=== PATIENT | female | born 1950 | race Caucasian/White ===

== ENCOUNTER → 2018-01-13 08:06 | Outpatient (CLI) | payer MEDICARE, OTHER, SELFPAY ==
[2018-01-13 09:59] LABS: Absolute Neutrophil Count 4.1 X10^3/uL (2.0-7.7); Basophil# 0.12 X10^3/uL; Basophil% 1.7 % (0-1); Eosinophil# 0.39 X10^3/uL; Eosinophils% 5.4 % (0-5); Hemoglobin 15.9 g/dl (12.0-15.0); Lymphocyte % 29.1 % (19-41); Mean Corp Hgb Conc 34.6 g/gl (32-36); Mean Corpuscular Hgb 30.1 pg (27.0-32.0); Mean Corpuscular Volume 87.1 fL (81-99); Mean Platelet Vol. 9.2 fl (6.2-12.0); Monocyte# 0.53 X10^3/uL; Monocyte% 7.4 % (0-10); Neutrophil # 4.05 X10^3/uL (2.7-7.7); Neutrophil % 56.1 % (47-70); Platelet Count 309 K/mm3 (150-450); RBC Distribution Width CV 12.8 % (11.6-14.6); Red Blood Count 5.28 M/mm3 (4.2-5.4); White Blood Count 7.2 K/mm3 (4.4-11.0)
[2018-01-13 10:13] LABS: AST(SGOT) 17 U/L (15-37); Alanine Aminotransfer ALT/SGPT 24 U/L (13-56); Albumin, Serum 3.8 g/dL (3.2-5.0); Alkaline Phosphatase 87 U/L (45-117); Anion Gap 9 (5-15); BUN 10 mg/dL (7-18); BUN/Creat Ratio 12.7 RATIO (10-20); Calcium,Total 8.5 mg/dL (8.5-10.1); Chloride 107 mmol/L (98-107); Cholesterol 244 mg/dL (200); Creatinine, Serum 0.79 mg/dL (0.55-1.02); EST Glomerular Filtration Rate 78 mL/min (>60); Est Glom Filt Rate - Afr Amer 94 mL/min (>60); Globulin 3.7 g/dL (2.2-4.2); Glucose 99 mg/dL (74-106); High Density Lipoprotein 58 mg/dL; Protein, Total 7.5 g/dL (6.4-8.2); Sodium Level 139 mmol/L (136-145); Triglycerides 116 mg/dL; Very Low Density Lipoprotein 23 mg/dL (5-40)
== END ==
PROVIDERS: Family Provider Family Medicine; PCP Family Medicine; Visit Provider Family Medicine
DX: E78.5 Hyperlipidemia, unspecified (principal); M79.1 Myalgia; R53.83 Other fatigue
CPT/HCPCS: 36415; 80053; 80061; 85025

== ENCOUNTER → 2018-01-17 12:55 | Outpatient (CLI) | payer MEDICARE, OTHER, SELFPAY ==
--- NOTE | 2018-01-17 12:58 | US_ITS ---
STUDY: ULTRASOUND OF THE FEMALE PELVIS REASON FOR EXAM: Female, 67 years old. Right pelvic pain LMP: Postmenopausal TECHNIQUE: Transverse and longitudinal imaging of the pelvis was obtained transvaginally using real-time ultrasound. COMPARISON: None. FINDINGS: The uterus is anteverted and is in a midline position. The uterus measures 8.0 x 2.8 x 4.2 cm. Normal uterine cervix. The endometrium measures 4.1 mm in thickness, and is hyperechoic. There is a 2 mm echogenic focus adjacent to the endometrium in the fundus. There is no demonstrated myometrial mass. I.U.D. - The patient does not have an I.U.D. The right ovary is visualized. The right ovary measures 2.3 x 1.0 x 2.0 cm. There is no right ovarian cyst or ovarian mass. There is no visualized right adnexal mass or complex lesion. There is normal arterial and normal venous vascularity. The left ovary is not visualized. There is no fluid in the cul-de-sac. No significant abnormalities are seen on limited visualization of the urinary bladder. US/Transvaginal Non- IMPRESSION: No abnormalities are seen in the right ovary or right adnexal region. No significant abnormalities are seen in the uterus. A small echogenic focus in the fundus near the endometrium may represent a small calcified fibroid. The left ovary was not visualized. There is no free fluid. Electronically Signed: Marily Brown MD at 23:51 EST Tel Direct: [phone], Service support ,
== END ==
PROVIDERS: Family Provider Family Medicine; PCP Family Medicine; Visit Provider Family Medicine
DX: M25.551 Pain in right hip (principal); R10.2 Pelvic and perineal pain
CPT/HCPCS: 76830

== ENCOUNTER → 2018-02-02 14:56 | Outpatient (CLI) | payer MEDICARE, OTHER, SELFPAY ==
--- NOTE | 2018-02-02 14:58 | HPBI_ITS ---
MAMMOGRAPHY - BILATERAL SCREENING REASON FOR EXAM: Female, 67 years old. Routine annual screening examination. PERTINENT HISTORY: Non-contributory. TECHNIQUE: Digital bilateral breast hoa (3D mammographic acquisition) in the CC and MLO projections. 2-D mediolateral oblique (MLO) and craniocaudad (CC) views of both breasts were obtained. CAD: Full Field Digital Mammography with Computer Added Detection was performed. COMPARISON: Comparison is made with prior study dated August 25, 2016 and August 01, 2012. FINDINGS: Breast Composition: There are scattered areas of fibroglandular density. There are no dominant masses or suspicious calcifications. There now is evidence of a 7.4 mm well-defined nodular density in the axillary region of the right breast. This most likely represents a small lymph node. Correlation with ultrasound is recommended. No other significant abnormalities are identified. HPBI/SCREENING MAMM (CAD), BILAT IMPRESSION: 7.4 mm well-defined nodule in the axillary region of the right breast as described. This most likely resonance a small lymph node. Correlation with ultrasound is recommended. ASSESSMENT CATEGORY: BIRADS Category 0: Incomplete. Need additional imaging evaluation. A letter regarding these results will be sent to the patient by the facility within 30 days. Approximately 10% of breast cancers are not detected by mammography. A normal mammogram should not delay biopsy of a clinically suspicious abnormality. [id number] Electronically Signed: Mateo Cummings MD at 8:47 EDT Tel [phone], Service support ,
== END ==
PROVIDERS: Family Provider Family Medicine; PCP Family Medicine; Visit Provider Family Medicine
DX: Z12.31 Encounter for screening mammogram for malignant neoplasm of breast (principal)
CPT/HCPCS: 77063; 77067

== ENCOUNTER → 2018-02-09 09:22 | Outpatient (CLI) | payer MEDICARE, OTHER, SELFPAY ==
--- NOTE | 2018-02-09 09:24 | US_ITS ---
STUDY: ULTRASOUND BREAST - RIGHT REASON FOR EXAM: Female, 67 years old. Abnormal screening mammogram. TECHNIQUE: Axial and longitudinal images of the RIGHT breast were performed with a high resolution ultrasound transducer. COMPARISON: Comparison is made with prior mammogram dated February 02, 2018. FINDINGS: RIGHT Breast: There is a 6 mm x 8 mm x 6 mm well-defined hypoechoic nodule at the 9:00 position of the breast at 8 cm from the nipple. This most likely reduce a small lymph node. This corresponds to the mammographic findings. US/Breast Limited Unilateral IMPRESSION: The mammographic findings correspond to a 6 mm x 8 mm x 6 mm lymph node at the 9:00 position of the breast at 8 cm from the nipple. ASSESSMENT CATEGORY: BIRADS Category 2: Benign. A letter regarding these results will be sent to the patient by the facility within 30 days. Electronically Signed: Mateo Cummings MD at 10:14 EDT Tel [phone], Service support ,
== END ==
PROVIDERS: Family Provider Family Medicine; PCP Family Medicine; Visit Provider Family Medicine
DX: N63.31 Unspecified lump in axillary tail of the right breast (principal)
CPT/HCPCS: 76642

== ENCOUNTER → 2021-03-07 08:14 | Outpatient (CLI) | payer MEDICARE, SELFPAY ==
[2019-08-25 16:15] VITALS: BMI 33.2
[2021-03-07 10:04] LABS: Absolute Lymphocyte Count 2.01 X10^3/uL (0.83-4.51); Absolute Neutrophil Count 4.2 X10^3/uL (2.0-7.7); Basophil# 0.12 X10^3/uL; Basophil% 1.6 % (0-1); Eosinophil# 0.43 X10^3/uL; Eosinophils% 5.9 % (0-5); Hematocrit 47.6 % (37-47); Hemoglobin 15.5 g/dL (12.0-15.0); Lymphocyte # 2.01 X10^3/ul (0.83-4.51); Lymphocyte % 27.6 % (19-41); Mean Corp Hgb Conc 32.6 g/dL (32-36); Mean Corpuscular Hgb 29.5 pg (27.0-32.0); Mean Corpuscular Volume 90.7 fL (81-99); Mean Platelet Vol. 9.3 fl (6.2-12.0); Monocyte# 0.54 X10^3/uL; Monocyte% 7.4 % (0-10); NRBC Flagged by Analyzer 0 % (0-5); Neutrophil # 4.16 X10^3/uL (2.7-7.7); Neutrophil % 57.2 % (47-70); Platelet Count 308 K/mm3 (150-450); RBC Distribution Width CV 12.7 % (11.6-14.6); RBC Distribution Width SD 41.9 fl (35.1-43.9); Red Blood Count 5.25 M/mm3 (4.2-5.4); White Blood Count 7.3 K/mm3 (4.4-11.0)
[2021-03-07 10:27] LABS: Vitamin D,25 Hydroxy 22.4 ng/mL
[2021-03-07 10:49] LABS: AST(SGOT) 17 U/L (15-37); Alanine Aminotransfer ALT/SGPT 21 U/L (13-56); Albumin, Serum 3.7 g/dL (3.2-5.0); Alkaline Phosphatase 91 U/L (45-117); Anion Gap 5 (5-15); BUN 11 mg/dL (7-18); BUN/Creat Ratio 12.8 RATIO (10-20); Calcium,Total 8.7 mg/dL (8.5-10.1); Chloride 109 mmol/L (98-107); Cholesterol 238 mg/dL (200); Creatinine, Serum 0.86 mg/dL (0.55-1.02); EST Glomerular Filtration Rate 69 mL/min (>60); Est Glom Filt Rate - Afr Amer 84 mL/min (>60); Globulin 3.6 g/dL (2.2-4.2); Glucose 93 mg/dL (74-106); High Density Lipoprotein 58 mg/dL; Potassium 3.9 mmol/L (3.5-5.1); Protein, Total 7.3 g/dL (6.4-8.2); Sodium Level 141 mmol/L (136-145); T4 Free Direct > 8.00 ng/dL (0.76-1.46); Thyroid Stim Hormone (TSH) 1.74 uIU/mL (0.358-3.74); Triglycerides 108 mg/dL; Very Low Density Lipoprotein 22 mg/dL (5-40)
== END ==
PROVIDERS: PCP Family Medicine; Referring Provider Family Medicine; Visit Provider Family Medicine
DX: Z00.00 Encounter for general adult medical examination without abnormal findings (principal); E03.9 Hypothyroidism, unspecified; E55.9 Vitamin D deficiency, unspecified; E78.5 Hyperlipidemia, unspecified; R53.83 Other fatigue
CPT/HCPCS: 36415; 80053; 80061; 82306; 84439; 84443; 84481; 85025

== ENCOUNTER → 2021-05-01 15:13 | Outpatient (CLI) | payer MEDICARE, SELFPAY ==
[2019-08-25 16:15] VITALS: BMI 33.2
[2021-05-01 18:19] LABS: Free T3 2.1 pg/mL (2.18-3.98); T4 Free Direct > 8.00 ng/dL (0.76-1.46); Thyroid Stim Hormone (TSH) 0.98 uIU/mL (0.358-3.74)
[2021-05-05 16:08] LABS: Thyroid Peroxidase AB < 9 IU/mL (0-34)
[2021-05-05 16:39] LABS: Thyroglobulin Antibody < 1.0 IU/mL (0.0-0.9)
== END ==
PROVIDERS: PCP Family Medicine; Referring Provider Family Medicine; Visit Provider Family Medicine
DX: E03.9 Hypothyroidism, unspecified (principal)
CPT/HCPCS: 36415; 84439; 84443; 84481; 86376; 86800

== ENCOUNTER → 2021-05-22 10:18 | Outpatient (CLI) | payer MEDICARE, SELFPAY ==
[2019-08-25 16:15] VITALS: BMI 33.2
--- NOTE | 2021-05-22 10:22 | US_ITS ---
STUDY: THYROID ULTRASOUND REASON FOR EXAM: Female, 70 years old. ABN THYROID LEVELS TECHNIQUE: Ultrasound evaluation of the thyroid was performed with real-time and static davey-scale imaging. COMPARISON: None. FINDINGS: RIGHT LOBE: The right lobe of the thyroid gland measures 4.9 x 2.1 x 1.2 cm. There is a homogeneous echotexture. Predominantly solid nodule of the inferior right thyroid lobe measures 7 x 6 x 5 mm. LEFT LOBE: The left lobe of the thyroid gland measures 4.3 x 2.0 x 1.7 cm. There is a homogeneous echotexture. There are 2 predominantly solid nodules of the left thyroid lobe measuring 15 x 14 x 8 mm (mid to inferior) and 16 x 15 x 11 mm (posterior, inferior). ISTHMUS: The isthmus measures 1.4 mm. The regional lymph nodes are normal. US/Thyroid IMPRESSION: Bilateral thyroid nodules (TIRADS 4). FNA sampling of left thyroid lobe nodules recommended. Electronically Signed: Jose Juan Stoll MD ([place]) at 8:38 EDT , Service support ,
--- NOTE | 2021-05-22 10:32 | BI_ITS ---
MAMMOGRAPHY - BILATERAL SCREENING REASON FOR EXAM: Female, 70 years old. Routine annual screening examination. PERTINENT HISTORY: Non-contributory. TECHNIQUE: Digital bilateral breast carlos (3D mammographic acquisition) in the CC and MLO projections. 2-D mediolateral oblique (MLO) and craniocaudad (CC) views of both breasts were obtained. CAD: Full Field Digital Mammography with Computer Added Detection was performed. COMPARISON: Comparison is made with prior study dated 02/02/2018 and 08/25/2016. FINDINGS: Breast Composition: There are scattered areas of fibroglandular density. There are no dominant masses or suspicious calcifications. No other significant abnormalities are identified. There has been no significant change since the prior study. BI/SCRN MAMM (CAD)W/CARLOS BILAT IMPRESSION: Stable bilateral screening mammogram. Yearly follow-up mammogram recommended. (A) ASSESSMENT CATEGORY: BIRADS Category 1: Negative. A letter regarding these results will be sent to the patient by the facility within 30 days. Approximately 10% of breast cancers are not detected by mammography. A normal mammogram should not delay biopsy of a clinically suspicious abnormality. [id number] Electronically Signed: Mateo Cummings MD at 11:14 EDT , Service support ,
== END ==
PROVIDERS: PCP Family Medicine; Referring Provider Family Medicine; Visit Provider Family Medicine
DX: R79.89 Other specified abnormal findings of blood chemistry (principal); Z12.31 Encounter for screening mammogram for malignant neoplasm of breast
CPT/HCPCS: 76536; 77063; 77067

== ENCOUNTER → 2021-08-20 08:06 | Outpatient (CLI) | payer MEDICARE, SELFPAY ==
--- NOTE | 2021-08-20 08:08 | VDLE_ITS ---
Reason For Study: VERICOSE VEINS RIGHT LEFT GSV is normal. CFV is compressible, spontaneous, phasic, CFV is compressible, spontaneous, phasic, competent, and demonstrates normal competent and demonstrates normal augmentation. augmentation. FV is compressible, spontaneous, phasic, competent and demonstrates normal augmentation. POP V is compressible, spontaneous, phasic, competent and demonstrates normal augmentation. T/P Trunk is compressible. PTV is compressible. RT PerV is compressible. Procedure Exam performed in department. This is a venous duplex using B-mode, color flow and spectral Doppler. A preliminary report was called and/or faxed to DR WALKER. VL/Venous Duplex US, Unilateral Interpretation Summary Deep veins of the right lower extremity are patent and compressible segmentally . There is no evidence of right lower extremity deep vein thrombosis. Valvular competence yana ears intact within the proximal deep venous system on the right . The right great saphenous vein a ppears patent and compressible segmentally. Ordering Physician: Russ Walker Referring Physician: YUE VICENTE Performed By: Yani Lau, LIYAHCS, RVT
== END ==
PROVIDERS: PCP Family Medicine; Visit Provider Family Medicine
DX: R22.41 Localized swelling, mass and lump, right lower limb (principal)
CPT/HCPCS: 93971

== ENCOUNTER → 2021-09-15 10:23 | Outpatient (CLI) | payer MEDICARE, SELFPAY ==
--- NOTE | 2021-09-15 10:34 | MRI_ITS ---
PROCEDURE: MRI LOWER EXTREMITY RIGHT TIBIA/FIBULA REASON FOR EXAM: Right lower leg mass for several months, no specific injury. TECHNIQUE: Standardized fat and water weighted pulse sequences were obtained in all 3 orthogonal planes. COMPARISON: Ultrasound images 09/15/2021. FINDINGS: Normal visualized tibia and fibula, without a periosteal, cortical or cancellous marrow abnormality. There is mild atrophy of the muscles of the anterior compartment of the right lower leg with partial fat replacement (T1 coronal images 16-20). There is no intramuscular edema or soft tissue mass of the muscles of the lower leg. There is mild prominence of the subcutaneous fat at the lateral aspect of the lower leg at the mid/distal fibular diaphyseal level between the skin markers (T1 coronal images 12-14) suggestive of a nonencapsulated superficial lipoma. MRI/Lower Ext/No Jt/w/o IMPRESSION: Mild prominence of the subcutaneous fat between the skin markers of the lateral lower leg suggestive of a nonencapsulated superficial lipoma. Mild atrophy of the muscles of the anterior compartment of the right lower leg. Electronically Signed: Lanre Nolan MD at 9:30 EDT Tel , Service support ,
--- NOTE | 2021-09-15 11:35 | US_ITS ---
STUDY: SUPERFICIAL ULTRASOUND - RIGHT LEG REASON FOR EXAM: Female, 70 years old. LUMP ON RIGHT LEG TECHNIQUE: A superficial ultrasound was performed with real-time and static davey-scale imaging. COMPARISON: None. FINDINGS: Normal soft tissue planes. No solid or cystic mass. US/Ext Non Vasc Limited/Soft Tiss IMPRESSION: No solid or cystic mass. Electronically Signed: Jose Juan Stoll MD ([place]) at 16:15 EDT , Service support ,
== END ==
PROVIDERS: PCP Family Medicine; Referring Provider Family Medicine; Visit Provider Family Medicine
DX: R22.41 Localized swelling, mass and lump, right lower limb (principal)
CPT/HCPCS: 73718; 76882

== ENCOUNTER → 2022-04-29 | Outpatient (CLI) | payer MEDICARE, SELFPAY ==
--- NOTE | 2022-04-29 10:10 | RAD_ITS ---
STUDY: XR Knee Complete 4 Views or More 04/29/2022 4:33 PM REASON FOR EXAM: Female, 71 years old. left knee pain, posterior TECHNIQUE: XR Knee Complete 4 Views or More LEFT COMPARISON: None FINDINGS: Normal visualized distal femur. Normal visualized proximal tibia and fibula. Normal proximal tibiofibular articulation. Normal medial femorotibial compartment. Normal lateral femorotibial compartment. Normal patellofemoral articulation. The soft tissue structures are unremarkable. RAD/Knee 4 or More Views IMPRESSION: There are no acute findings. Electronically Signed: Rafat Morillo MD at 16:34 EDT ,
[2022-04-29 12:16] LABS: Color, Urine Yellow (Yellow); Glucose, Dipstick Normal (Normal); Ketone-Dipstick Negative (Negative); Leukocyte Esterase-Dipstick 100 /ul (Negative); Nitrite-Dipstick Negative (Negative); Occult Blood-Urine 10 /ul (Negative); Protein-Dipstick Negative (Negative); Urine Bilirubin Dipstick Negative (Negative); Urine Clarity Sl. Cloudy (Clear); Urine Urobilinogen Normal (Normal)
[2022-04-29 12:51] LABS: ALB/GLOB Ratio 1.1 RATIO (0.9-2.4); AST(SGOT) 17 U/L (15-37); Alanine Aminotransfer ALT/SGPT 20 U/L (13-56); Albumin, Serum 3.9 g/dL (3.2-5.0); Alkaline Phosphatase 82 U/L (45-117); Anion Gap 7 (5-15); BUN 15 mg/dL (7-18); Chloride 107 mmol/L (98-107); Creatinine, Serum 0.79 mg/dL (0.55-1.02); EST Glomerular Filtration Rate 76 mL/min (>60); Est Glom Filt Rate - Afr Amer 92 mL/min (>60); Globulin 3.6 g/dL (2.2-4.2); Glucose 97 mg/dL (74-106); Potassium 3.9 mmol/L (3.5-5.1); Protein, Total 7.5 g/dL (6.4-8.2); Sodium Level 139 mmol/L (136-145); Thyroid Stim Hormone (TSH) 1.42 uIU/mL (0.358-3.74)
== END | disposition home or self-care (01) ==
LOC: MTLAB 10:05
PROVIDERS: PCP Family Medicine; Referring Provider Family Medicine; Visit Provider Family Medicine
DX: M25.562 Pain in left knee (principal); I10 Essential (primary) hypertension
CPT/HCPCS: 36415; 73564; 80053; 81002; 84443

== ENCOUNTER → 2022-05-29 | Outpatient (CLI) | payer MEDICARE, SELFPAY ==
--- NOTE | 2022-05-29 10:15 | BI_ITS ---
MAMMOGRAPHY - BILATERAL SCREENING REASON FOR EXAM: Female, 71 years old. Routine annual screening examination. PERTINENT HISTORY: Non-contributory. TECHNIQUE: Digital bilateral breast carlos (3D mammographic acquisition) in the CC and MLO projections. 2-D mediolateral oblique (MLO) and craniocaudad (CC) views of both breasts were obtained. CAD: Full Field Digital Mammography with Computer Added Detection was performed. COMPARISON: Comparison is made with prior study dated 05/22/2021 and 02/02/2018. FINDINGS: Breast Composition: There are scattered areas of fibroglandular density. There are no dominant masses or suspicious calcifications. No other significant abnormalities are identified. There has been no significant change since the prior study. BI/SCRN MAMM (CAD)W/CARLOS BILAT IMPRESSION: Stable bilateral screening mammogram. Yearly follow-up mammogram recommended. (A) ASSESSMENT CATEGORY: BIRADS Category 1: Negative. A letter regarding these results will be sent to the patient by the facility within 30 days. Approximately 10% of breast cancers are not detected by mammography. A normal mammogram should not delay biopsy of a clinically suspicious abnormality. [id number] Electronically Signed: Mateo Cummings MD at 11:56 EDT ,
== END | disposition home or self-care (01) ==
LOC: OPBI 10:13
PROVIDERS: PCP Family Medicine; Referring Provider Family Medicine; Visit Provider Family Medicine
DX: Z12.31 Encounter for screening mammogram for malignant neoplasm of breast (principal)
CPT/HCPCS: 77063; 77067

== ENCOUNTER → 2022-06-03 | Outpatient (CLI) | payer MEDICARE, SELFPAY ==
--- NOTE | 2022-06-03 14:01 | VDLE_ITS ---
Reason For Study: Pain Procedure LEFT This is a venous duplex using B-mode, color CFV is compressible, spontaneous, phasic, flow and spectral Doppler. competent, and demonstrates normal Exam performed in department. augmentation. A preliminary report was called and/or faxed FV is compressible, spontaneous, phasic, to Malys. competent and demonstrates normal augmentation. POP V is compressible, spontaneous, phasic, competent and demonstrates normal augmentation. T/P Trunk is compressible. PTV is compressible. LT PerV is compressible. Lymph node noted in the left groin that measures 0.74 x 1.69 x 2.03 cm. Nonvascularized structure is noted in the left popliteal fossa that measures 2.03 x 2.70 x 4.14 cm. GSV from junction to prox calf is absent s/p EVLA. SSV is absent s/p EVLA. GSV at mid calf is competent and measures 016 x 0.17 cm. SFJ is competent and measures 0.78 x 0.81 cm. ASV mid calf is INCOMPETENT for greater than 0.5 seconds and measures 0.29 x 0.25 cm. VL/Venous Duplex US, Unilateral Interpretation Summary Deep veins of the left lower extremity are patent and compressible segmentally. There is no evidence of left lower extremity deep vein thrombosis. Valvular competence appears intac t within the proximal deep venous system on the left . The left sapheno-femoral junction is competent . The left great saphenous vein is absent from the left sapheno-femoral junction to the proximal calf. The left great saphenous vein is patent and competent in the left mid-calf. The left small sap henous vein is absent.The accessory saphenous vein in the left mid-calf is incompetent. Lympha denopathy is noted in the left groin. A non-vascular, hypoechoic structure is noted in the left popli teal space, measuring 2.03 cm x 2.70 cm x 4.14 cm. This probably represents a popliteal cyst. Clinica l correlation is advised. Ordering Physician: Roxy Wallace Referring Physician: Roxy Wallace Performed By: Reena Nguyen RVT
== END | disposition home or self-care (01) ==
LOC: CVS 13:57
PROVIDERS: PCP Family Medicine; Visit Provider Family Medicine
DX: I83.893 Varicose veins of bilateral lower extremities with other complications (principal); I87.2 Venous insufficiency (chronic) (peripheral)
CPT/HCPCS: 93971

== ENCOUNTER 2022-06-06 18:41 | Emergency (ER) | payer MEDICARE, SELFPAY ==
[2022-06-06 18:41] VITALS: BP 173/92; PULSE 125; RESP 16; TEMP 36.7; O2SAT 98; BMI 33.6
[2022-06-06 19:04] VITALS: BP 166/87; PULSE 114; RESP 16; TEMP 36.9; O2SAT 96
--- NOTE | 2022-06-06 19:04 | EDS_ITS ---
HPI History of Present Illness Chief Complaint: Hypertension Detail of Chief Complaint: Cough and mild nausea. Informant: patient Onset/Context/Timing Onset: Today Timing: Intermittent Current Severity: Mild Maximum Severity: Mild Narrative Narrative: 71-year-old female with treated for hypertension. States her blood pressures been running higher 149 and Rhyder 179/91 today. Also she has had a mild cough and just felt unwell. She denies shortness of breath. She denies hemoptysis. States the cough is nonproductive. She denies any fever or chills. She is not short of breath. She has had some loose stools. Said her is coughing at home also. Prior similar symptoms: Yes Recent Illness/Hospitalization: No PFSH PFS Medical History (Updated 06/06/22 @ 20:[address] Diego Bautista MD) Hypertension Home Medications melatonin 3 mg capsule 3 mg PO HS 08/25/19 [History Last Taken Unknown] Allergy/AdvReac Type Severity Reaction Status Date / Time No Known Allergies Allergy Verified 06/06/22 18:44 Family History Other Cancer Heart disease Surgical History History of varicose vein stripping Social History Smoking Status: Never smoker alcohol intake: current alcohol intake frequency: holidays/special occasions only ROS ROS ED ROS Narrative Cough. Loose stools. Nausea. Review of Systems ROS Unobtainable: Denies due to encephalopathy Constitutional Constitutional ED: Denies chills or fever(s) Eyes Eyes: Denies blurry vision ENT ENT ED: Denies ear pain or sore throat Cardiovascular Cardiovascular: Denies chest pain or palpitations Respiratory/Chest Respiratory/Chest: Reports cough; Denies dyspnea Gastrointestinal Gastrointestinal: Reports diarrhea and nausea; Denies abdominal pain, constipation, melena or vomiting Genitourinary Genitourinary ED: Denies dysuria or hematuria Musculoskeletal Musculoskeletal: Denies arthralgias Integumentary Denies abscess Neurologic Neurologic: Denies headache(s) Psychiatric Psychiatric: Denies anxiety Endocrine Endocrinology: Denies cold intolerance Hematologic/Lymphatic Hematologic/Lymphatic: Reports none Allergic/Immunologic Allergic/Immunologic ED: Denies mouth swelling or tongue swelling EXAM Physical Exam Narrative Exam Narrative: Well-appearing 71-year-old female. Vital signs stable. Blood pressure 173/92. Which I discussed with the patient that that does not need to be emergently addressed in the emergency department. Pulse ox 90% on room air no signs hypoxia. She does not look septic or toxic. She does not look dehydrated. H EENT exam unremarkable. Moist with membranes. Neck nontender no JVD. No lymphadenopathy. Lungs clear to auscultation bilaterally. Heart regular rhythm rate about 110 no murmur. Abdomen soft nontender normal bowel sounds no peritoneal signs. Moving all 4 extremities. Calves are nontender without edema or cords. Neurologically she is awake and alert with no focal motor deficits. Const Vital Signs: 06/06/22 18:41 06/06/22 19:04 06/06/22 19:07 Temperature 98.0 F 98.4 F Temperature Source Temporal Oral Pulse Rate 125 H 114 H Respiratory Rate 16 16 Respiratory Effort Normal Respiratory Pattern Normal Blood Pressure 173/92 H 166/87 H Blood Pressure Mean 119 113 Pulse Ox 98 96 Oxygen Delivery Method Room Air Room Air 06/06/22 20:38 Temperature Temperature Source Pulse Rate Respiratory Rate Respiratory Effort Respiratory Pattern Blood Pressure 169/83 H Blood Pressure Mean 111 Pulse Ox Oxygen Delivery Method Positive well nourished, well developed and obese; Negative for cachectic, contractures or unkempt General Appearance ED: well developed; Negative for unkempt, cachectic or contractures Nutritional Appearance: obese; Negative for cachectic HEENT Reports moist mucous membranes; Denies dry mucous membranes Negative for trauma Mouth ED: No dry mucous membranes Mouth: No dry mucous membranes Eyes PERRL and EOMs intact bilaterally General Eye ED: Negative for pale conjunctiva or scleral icterus Neck no lymphadenopathy, supple and no JVD General: Negative for tenderness Lymph Lymphatic: Negative for other Chest Wall inspection of chest normal and palpation of chest normal Resp normal respiratory effort and clear to auscultation bilaterally Effort and Inspection: Negative for retractions Auscultation: Negative for rales Cardio regular rhythm, S1 normal heart sound and S2 normal heart sound; Negative for regular rate Rate: tachycardic GI normal to inspection, nondistended, normoactive bowel sounds, non-tender, non- distended, hepatosplenomegaly and no masses Inspection: Negative for abdominal distention Auscultation: normoactive bowel sounds Palpation: soft; Negative for tender, guarding or mass Back/Spine no CVA tenderness General Back: Negative for CVA tenderness Cervical Spine: Negative for cervical spine tenderness Thoracic Spine / Upper Back: Negative for thoracic spinal tenderness Lumbar Spine / Lower Back: Negative for lumbar spinal tenderness Extremity normal to inspection General Extremety ED: Negative for edema or tenderness General Extremity: Negative for edema Neuro oriented x3 Sensorium / Orientation: alert; Negative for orientation impaired or lethargic Motor Exam: strength 5/5 throughout; Negative for general weakness Psych mental status grossly normal Appearance: Negative for unkempt Attitude: No agitated Mood & Affect: Negative for depressed or anxious Skin no rashes or lesions noted and no wounds Rashes: No rashes noted Wounds: Negative for wounds noted MDM MDM MDM Narrative Medical decision making narrative: 71-year-old with acute on chronic hypertension. Also has viral symptoms consistent with a cough and loose stools. To be COVID tested and a chest x-ray. Due to her initial tachycardia an EKG will be obtained. Repeat exam patient is doing well at 8:40 PM. We went over her test results. Her current blood pressures are around 169/83 she is feeling well and is comfortable being discharged home. Lab Data Attestation: I reviewed the patient's lab results. Lab results narrative: Rapid COVID test is negative. Radiography Chest X-Ray - ED: 1 View, Read by ED Physician, Heart, Lungs, Mediastinum, Bony Structures, No Acute Disease and Chronic Changes Diagnostic Testing: Chest x-ray, portable, single view interpreted by myself shows no acute abnormality. Normal cardiac silhouette mediastinum. Rhythm Strip Rhythm Strip: Sinus Tach Rate: 107 Ectopy: None EKG Initial EKG: Attestation: I personally reviewed and interpreted this EKG as follows: Interpretation: Sinus Rhythm, No Acute Injury Pattern and Sinus Tachycardia Comments: Sinus tachycardia rate of 107 no acute signs of AR or ischemia. No dysrhythmia. Discharge Plan Triage Chief Complaint: Hypertension ED Provider: Diego Bautista Dx/Rx/DC Orders Clinical Impression: Chronic hypertension, Viral syndrome Instructions: ED Hypertension, Established, ED Viral Syndrome (Adult) Prescriptions: No Action melatonin 3 mg capsule 3 mg PO HS Primary Care Provider: Roxy Wallace Referrals: Roxy Wallace DO [Primary Care Provider] - 1 Week Activity Restrictions/Additional Instructions: Plenty of fluids and rest. Take your normal dose of your blood pressure medication. Log your blood pressures twice daily for the next week. Follow-up with your primary care physician and share with your doctor that information so they can use it to decide if they need to adjust your blood pressure medication at all. They may not need to do anything. Disposition Disposition: Home, Self Care
--- NOTE | 2022-06-06 19:08 | EKG12_ITS ---
Test Reason : HTN Blood Pressure : / mmHG Vent. Rate : 107 BPM Atrial Rate : 107 BPM P-R Int : 132 ms QRS Dur : 082 ms QT Int : 330 ms P-R-T Axes : 050 026 036 degrees QTc Int : 440 ms Sinus tachycardia Low voltage QRS Nonspecific ST and T wave abnormality Abnormal ECG Confirmed by OLENA PINTO, AYALA ([id number]), editor school photograph LEILANI RANDOLPH ([id number]) on 06/08/2022 11:08:11 AM Referred By: DOUG Confirmed By:AYALA HYATT MD
--- NOTE | 2022-06-06 19:12 | RAD_ITS ---
STUDY: X-RAY CHEST REASON FOR EXAM: Female, 71 years old. cough TECHNIQUE: Single AP portable view of the chest. COMPARISON: 03/28/2013. FINDINGS: The lungs are clear and expanded. There is no demonstrated pleural abnormality. Normal size heart. Normal mediastinum and milind. Normal visualized pulmonary arteries. Normal visualized aortic arch and descending thoracic aorta. Normal visualized thoracic spine. Normal visualized ribs, clavicles, and shoulders. There is no demonstrated abnormality of the visualized soft tissue structures of the upper abdomen. RAD/Chest 1 View (Portable) IMPRESSION: Normal x-ray examination of the chest. Electronically Signed: Patience Ortiz MD at 21:48 EDT Reading Location ID and State: [id number] / Tel , Service support ,
[2022-06-06 20:38] VITALS: BP 169/83
== END 2022-06-06 20:53 | disposition home or self-care (01) ==
PROVIDERS: Emergency Provider Emergency Medicine; PCP Family Medicine; Visit Provider Emergency Medicine
DX: I10 Essential (primary) hypertension (principal); B34.9 Viral infection, unspecified; R19.7 Diarrhea, unspecified; R11.0 Nausea; E66.9 Obesity, unspecified; Z20.822 Contact with and (suspected) exposure to COVID-19
CPT/HCPCS: 71045; 87811; 93005; 99282

== ENCOUNTER → 2022-06-16 | Outpatient (CLI) | payer MEDICARE, SELFPAY ==
[2022-06-16 10:24] LABS: Absolute Lymphocyte Count 2.29 X10^3/uL (0.83-4.51); Absolute Neutrophil Count 4.2 X10^3/uL (2.0-7.7); Basophil% 1.3 % (0-1); Eosinophil# 0.32 X10^3/uL; Eosinophils% 4.3 % (0-5); Hematocrit 44.8 % (37-47); Lymphocyte # 2.29 X10^3/ul (0.83-4.51); Lymphocyte % 30.5 % (19-41); Mean Corp Hgb Conc 33.5 g/dL (32-36); Mean Corpuscular Hgb 29.4 pg (27.0-32.0); Mean Corpuscular Volume 87.8 fL (81-99); Monocyte# 0.52 X10^3/uL; Monocyte% 6.9 % (0-10); NRBC Flagged by Analyzer 0 % (0-5); Neutrophil # 4.23 X10^3/uL (2.7-7.7); Neutrophil % 56.5 % (47-70); Platelet Count 342 K/mm3 (150-450); RBC Distribution Width CV 12.8 % (11.6-14.6); RBC Distribution Width SD 41.1 fl (35.1-43.9); White Blood Count 7.5 K/mm3 (4.4-11.0)
[2022-06-16 11:22] LABS: Iron 96 ug/dL (50-170)
[2022-06-16 11:30] LABS: Vitamin B12 770 pg/mL (211-911); Vitamin D,25 Hydroxy 34.5 ng/mL
== END | disposition home or self-care (01) ==
LOC: MTLAB 09:04
PROVIDERS: PCP Family Medicine; Referring Provider Family Medicine; Visit Provider Family Medicine
DX: E55.9 Vitamin D deficiency, unspecified (principal); D64.9 Anemia, unspecified; E53.8 Deficiency of other specified B group vitamins; Z51.81 Encounter for therapeutic drug level monitoring
CPT/HCPCS: 36415; 82306; 82607; 83540; 85025

== ENCOUNTER → 2022-10-28 | Outpatient (CLI) | payer MEDICARE, SELFPAY ==
[2022-10-28 15:26] LABS: AST(SGOT) 16 U/L (15-37); Alanine Aminotransfer ALT/SGPT 21 U/L (13-56); Albumin, Serum 3.8 g/dL (3.2-5.0); Alkaline Phosphatase 80 U/L (45-117); Anion Gap 2 (5-15); BUN 15 mg/dL (7-18); BUN/Creat Ratio 17.9 RATIO (10-20); CRP 3.32 mg/L (0.0-3.0); Calcium,Total 8.9 mg/dL (8.5-10.1); Chloride 110 mmol/L (98-107); Creatinine, Serum 0.84 mg/dL (0.55-1.02); EST Glomerular Filtration Rate 71 mL/min (>60); Est Glom Filt Rate - Afr Amer 86 mL/min (>60); Globulin 3.7 g/dL (2.2-4.2); Glucose 98 mg/dL (74-106); Protein, Total 7.5 g/dL (6.4-8.2); Sodium Level 141 mmol/L (136-145)
[2022-10-28 15:41] LABS: Absolute Lymphocyte Count 1.74 X10^3/uL (0.83-4.51); Absolute Neutrophil Count 3.7 X10^3/uL (2.0-7.7); Basophil% 1.6 % (0-1); Eosinophil# 0.31 X10^3/uL; Eosinophils% 4.9 % (0-5); Hematocrit 44.9 % (37-47); Hemoglobin 15.4 g/dL (12.0-15.0); Lymphocyte # 1.74 X10^3/ul (0.83-4.51); Lymphocyte % 27.2 % (19-41); Mean Corp Hgb Conc 34.3 g/dL (32-36); Mean Corpuscular Volume 90.5 fL (81-99); Mean Platelet Vol. 9.1 fl (6.2-12.0); Monocyte# 0.53 X10^3/uL; Monocyte% 8.3 % (0-10); NRBC Flagged by Analyzer 0 % (0-5); Neutrophil % 57.8 % (47-70); Platelet Count 317 K/mm3 (150-450); RBC Distribution Width SD 42.9 fl (35.1-43.9); Red Blood Count 4.96 M/mm3 (4.2-5.4); White Blood Count 6.4 K/mm3 (4.4-11.0)
[2022-10-28 15:42] LABS: Erythrocyte Sedimentation Rate 8 mm/hr (0-30)
== END | disposition home or self-care (01) ==
LOC: BFHLAB 11:59
PROVIDERS: PCP Family Medicine; Visit Provider Family Medicine
DX: R25.1 Tremor, unspecified (principal); R53.1 Weakness
CPT/HCPCS: 36415; 80053; 82140; 85025; 85652; 86140

== ENCOUNTER → 2022-11-06 | Outpatient (CLI) | payer MEDICARE, SELFPAY ==
--- NOTE | 2022-11-06 11:25 | MRI_ITS ---
STUDY: MRI LEFT KNEE REASON FOR EXAM: Female, 72 years old. Pain. TECHNIQUE: Standardized fat and water weighted pulse sequences were obtained in all 3 orthogonal planes. COMPARISON: None. FINDINGS: There is a medial meniscus tear of the posterior horn and body, series 3 images / through . There is diffuse, greater than 50% thickness articular cartilage loss of the medial femorotibial compartment. There is mild osteoarthritic spur formation of the medial knee compartment. There is marrow edema with subchondral fracture of the medial tibial plateau. Normal medial collateral ligamentous complex (MCL). Normal distal semimembranosus, gracilis and semitendinosus tendons. Normal lateral meniscus. There is diffuse, less than 50% thickness articular cartilage loss of the lateral femorotibial compartment. There is mild osteoarthritic spur formation of the lateral knee compartment. Normal proximal tibiofibular articulation. Normal lateral collateral (fibular) ligament. Normal popliteus tendon. Normal biceps femoris tendon. Normal anterior cruciate ligament (ACL). Normal posterior cruciate ligament (PCL). There is arthrosis of the patellofemoral articulation. There is diffuse, greater than 50% thickness articular cartilage loss of the patellofemoral compartment. Normal medial and lateral patellar retinaculum. Normal quadriceps tendon. Normal patellar tendon. Normal Hoffa''s fat pad. There is a moderate volume joint effusion. There is a 6.4 cm Grady''s cyst. The soft tissues are unremarkable. The otherwise visualized osseous structures are unremarkable. MRI/Lower Ext Joint Only (Routine) IMPRESSION: Medial meniscus tear. Degenerative change. Stress or insufficiency fracture of the medial tibial plateau. Joint effusion with popliteal cyst. Electronically Signed: Stefan Bolden MD at 14:01 EST ,
== END | disposition home or self-care (01) ==
LOC: MRI 11:25
PROVIDERS: PCP Family Medicine; Referring Provider Orthopaedic Surgery; Visit Provider Orthopaedic Surgery
DX: M25.462 Effusion, left knee (principal); G89.29 Other chronic pain
CPT/HCPCS: 73721

== ENCOUNTER → 2022-11-30 | Outpatient (CLI) | payer MEDICARE, SELFPAY ==
--- NOTE | 2022-11-30 16:14 | MRI_ITS ---
EXAM: MR brain with and without contrast. HISTORY: TREMORS, WEAKNESS. SUSPECT PARKINSONS TECHNIQUE: MR Brain WO/W Contrast COMPARISON: None. LIMITATIONS: None. BRAIN: No diffusion abnormalities. Moderate white matter changes are nonspecific, but often secondary to chronic microvascular ischemia. No enhancing lesions identified. VENTRICLES: No hydrocephalus. EXTRA-AXIAL SPACES: No hemorrhages, fluid collections, or masses. CALVARIUM/SKULL BASE: Normal. FACE/SINUSES: Mild mucosal thickening in the paranasal sinuses. Mild fluid in the right maxillary sinus. SOFT TISSUES: Normal. OTHER: None. CONCLUSION: No acute infarct. No enhancing lesions. Electronically Signed: Sher Gordillo MD at 7:56 EST , MRI/Brain W/WO Contrast IMPRESSION: undefined
== END | disposition home or self-care (01) ==
LOC: MRI 16:11
PROVIDERS: PCP Family Medicine; Referring Provider Family Medicine; Visit Provider Family Medicine
DX: R53.1 Weakness (principal); R25.1 Tremor, unspecified
CPT/HCPCS: 70553; A9575

== ENCOUNTER 2022-12-30 10:30 | Outpatient (RCR) | payer MEDICARE, SELFPAY | END 2022-12-30 19:00 | disposition home or self-care (01) | LOC: PT 10:30 | PROVIDERS: PCP Family Medicine; Referring Provider Psychiatry & Neurology Neurology; Visit Provider Psychiatry & Neurology Neurology | DX: R26.81 Unsteadiness on feet (principal); R25.1 Tremor, unspecified; G20 Parkinson's disease; M25.562 Pain in left knee; G89.29 Other chronic pain | CPT/HCPCS: 97110; 97161 ==

== ENCOUNTER → 2023-02-11 | Outpatient (CLI) | payer MEDICARE, SELFPAY ==
[2023-02-11 09:53] LABS: Absolute Lymphocyte Count 1.85 X10^3/uL (0.83-4.51); Absolute Neutrophil Count 5.1 X10^3/uL (2.0-7.7); Basophil% 1.2 % (0-1); Eosinophil# 0.41 X10^3/uL; Eosinophils% 5.1 % (0-5); Hematocrit 45.7 % (37-47); Hemoglobin 15.4 g/dL (12.0-15.0); Lymphocyte # 1.85 X10^3/ul (0.83-4.51); Lymphocyte % 22.8 % (19-41); Mean Corp Hgb Conc 33.7 g/dL (32-36); Mean Corpuscular Hgb 30.6 pg (27.0-32.0); Mean Corpuscular Volume 90.7 fL (81-99); Mean Platelet Vol. 9.1 fl (6.2-12.0); Monocyte% 7.4 % (0-10); NRBC Flagged by Analyzer 0 % (0-5); Neutrophil # 5.11 X10^3/uL (2.7-7.7); Neutrophil % 63.1 % (47-70); Platelet Count 310 K/mm3 (150-450); RBC Distribution Width CV 13.1 % (11.6-14.6); RBC Distribution Width SD 43.2 fl (35.1-43.9); Red Blood Count 5.04 M/mm3 (4.2-5.4); White Blood Count 8.1 K/mm3 (4.4-11.0)
[2023-02-11 09:57] LABS: Erythrocyte Sedimentation Rate 12 mm/hr (0-30)
[2023-02-11 10:29] LABS: Vitamin B12 1390 pg/mL (211-911)
[2023-02-11 11:05] LABS: AST(SGOT) 14 U/L (15-37); Alanine Aminotransfer ALT/SGPT 21 U/L (13-56); Albumin, Serum 3.7 g/dL (3.2-5.0); Alkaline Phosphatase 78 U/L (45-117); Anion Gap 10 (5-15); BUN 18 mg/dL (7-18); CRP 2.92 mg/L (0.0-3.0); Calcium,Total 8.8 mg/dL (8.5-10.1); Chloride 107 mmol/L (98-107); Creatinine, Serum 0.86 mg/dL (0.55-1.02); EST Glomerular Filtration Rate 69 mL/min (>60); Est Glom Filt Rate - Afr Amer 84 mL/min (>60); Ferritin 210 ng/mL (8-252); Globulin 3.7 g/dL (2.2-4.2); Glucose 109 mg/dL (74-106); Iron 91 ug/dL (50-170); Potassium 3.7 mmol/L (3.5-5.1); Protein, Total 7.4 g/dL (6.4-8.2); Sodium Level 140 mmol/L (136-145); T4 Free Direct > 8.00 ng/dL (0.76-1.46)
[2023-02-15 16:09] LABS: Lyme IgG P18 Ab Absent (.); Lyme IgG P23 Ab Absent (.); Lyme IgG P28 Ab Absent (.); Lyme IgG P30 Ab Absent (.); Lyme IgG P39 Ab Absent (.); Lyme IgG P41 Ab Present (.); Lyme IgG P45 Ab Absent (.); Lyme IgG P58 Ab Absent (.); Lyme IgG P66 Ab Absent (.); Lyme IgG P93 Ab Absent (.); Lyme IgM P23 Ab Absent (.); Lyme IgM P39 Ab Absent (.); Lyme IgM P41 Ab Absent (.); PROEL- A/G Ratio 1.2 (0.7-1.7); PROEL- Albumin 3.8 g/dL (2.9-4.4); PROEL- Alpha-1 Globulin 0.2 g/dL (0.0-0.4); PROEL- Alpha-2 Globulin 0.8 g/dL (0.4-1.0); PROEL- Beta Globulin 1.1 g/dL (0.7-1.3); PROEL- Gamma Globulin 1.1 g/dL (0.4-1.8); PROEL- Globulin, Total 3.2 g/dL (2.2-3.9); PROELU- Albumin, Urine 38.2 % (.); PROELU- Alpha-1-Globulin,Ur 2.1 % (.); PROELU- Alpha-2-Globulin,Ur 15.8 % (.); PROELU- Beta Globulin, Ur 26.4 % (.); PROELU- Gamma Globulin, Ur 17.6 % (.); Total Protein, Ur 11.5 mg/dL (Not Estab.)
[2023-02-15 17:44] LABS: Lyme IgG WB Interpretation Negative (.); Lyme IgM WB Interpretation Negative (.)
== END | disposition home or self-care (01) ==
LOC: MTLAB 08:41
PROVIDERS: PCP Family Medicine; Referring Provider Family Medicine; Visit Provider Family Medicine
DX: M62.81 Muscle weakness (generalized) (principal); E03.9 Hypothyroidism, unspecified; R20.2 Paresthesia of skin; R25.1 Tremor, unspecified
CPT/HCPCS: 36415; 80053; 82607; 82728; 83540; 84165; 84166; 84439; 84443; 84481; 85025; 85652; 86140; 86617

== ENCOUNTER 2023-02-16 08:19 | Outpatient (RCR) | payer MEDICARE, SELFPAY | END 2023-02-16 09:41 | disposition home or self-care (01) | LOC: PT 08:19 | PROVIDERS: PCP Family Medicine; Referring Provider Orthopaedic Surgery; Visit Provider Orthopaedic Surgery | DX: S82.132D Displaced fracture of medial condyle of left tibia, subsequent encounter for closed fracture with routine healing (principal); S83.242D Other tear of medial meniscus, current injury, left knee, subsequent encounter; M54.31 Sciatica, right side ==

== ENCOUNTER → 2023-03-05 | Outpatient (CLI) | payer MEDICARE, SELFPAY ==
--- NOTE | 2023-03-05 17:30 | US_ITS ---
INDICATION: NODULE EXAMINATION: Ultrasound US Thyroid (eg thyroid, parathyroid, parotid) TECHNIQUE: Rebollar scale and color doppler imaging was performed of the thyroid gland. COMPARISON: None. FINDINGS: RIGHT THYROID LOBE: 4.7 x 2.0 x 1.5 cm. Homogeneous echotexture with normal vascularity. [There is a lower pole echogenic 7 x 6 x 5 mm nodule similar to previous study. There is a new lower pole complex 6 mm cystic nodule. LEFT THYROID LOBE: 4.3 x 1.8 x 1.7 cm. Homogeneous echotexture with normal vascularity. [There are lower pole solid heterogeneous 1.5 x 1.3 x 1.1 cm and 1.6 x 1.2 x 0.8 cm nodules, similar to previous study. ISTHMUS: 0.8 mm. No thyroid nodules are present. US/Thyroid IMPRESSION: Stable bilateral solid thyroid nodules. Possible new cystic right thyroid nodule. Electronically Signed: Toni Ellis DO at 23:40 EDT ,
== END | disposition home or self-care (01) ==
LOC: US 17:18
PROVIDERS: PCP Family Medicine; Referring Provider Family Medicine; Visit Provider Family Medicine
DX: E04.2 Nontoxic multinodular goiter (principal)
CPT/HCPCS: 76536

== ENCOUNTER → 2023-03-08 | Outpatient (CLI) | payer MEDICARE, SELFPAY ==
--- NOTE | 2023-03-08 13:31 | CT_ITS ---
PROCEDURE: CT RIGHT KNEE WITHOUT CONTRAST REASON FOR EXAM: Female, 64 years old. Preoperative planning for the Mako[employer] Robotic knee surgery. Knee pain. TECHNIQUE: Transaxial CT of the hip, knee and ankle were obtained. Coronal and sagittal reconstruction images of the knee were provided. Individualized dose optimization techniques were used for this CT. COMPARISON: Knee x-rays dated May 01, 2022. FINDINGS: Standard protocol for the preoperative planning for the Mako[employer] robotic knee surgery was performed. There is mild osteoarthrosis of the hip, knee and ankle. CT/Extremity Lower without Contra IMPRESSION: Preoperative Mako[employer] Robotic knee surgical CT evaluation with findings as described above. Electronically Signed: Dawood Gonzalez, at 14:15 EDT ,
--- NOTE | 2023-03-08 16:29 | NEURO ---
NCS and/or EMG Patient Report Ordering Doctor: Roxy Wallace DATE OF SERVICE: 03/08/23 Indication: History of longstanding, fluctuating numbness and tingling. Occasional gait imbalance. Now with several months of worsening tremor. Findings: Nerve conduction studies were performed in the left and right lower extremity. The left median motor study recording the abductor pollicis brevis showed a reduced amplitude, markedly prolonged distal latency and markedly slowed conduction velocity. No conduction block or temporal dispersion was present between the wrist and antecubital fossa. The left ulnar motor study recording the abductor digiti minimi showed a normal amplitude, prolonged distal latency and markedly slowed conduction velocity in the geizd-in-wzqqf elbow segment. No conduction block or temporal dispersion was present. The left median sensory response recording digit two showed a borderline amplitude, prolonged latency and markedly slowed conduction velocity. The left ulnar sensory response recording digit five showed a borderline amplitude, prolonged latency and markedly slowed conduction velocity. The left radial sensory response recording over the extensor snuff box showed a borderline amplitude, prolonged latency and markedly slowed conduction velocity. The right peroneal motor study recording the extensor digitorum brevis showed a reduced amplitude, borderline prolonged distal latency and markedly slowed conduction velocity. No conduction block and temporal dispersion was present between the ankle and below-fibular neck sites. Across the knee, the conduction velocity was markedly slowed. No conduction block and temporal dispersion was present between the below-fibular neck and above-fibular neck sites. The right tibial motor study recording the abductor hallucis brevis showed a normal amplitude, borderline prolonged distal latency and markedly slowed conduction velocity. No significant response could be elicited behind the knee though the tibial did not have supramaximal stimulation at this location. The right sural sensory response showed a normal amplitude, prolonged latency and slowed conduction velocity. The superficial peroneal response was absent. Needle EMG of the left upper and right lower extremity muscles was performed. No active denervation was present any sampled muscle. Motor unit morphology showed long duration, large amplitude, and polyphasic potentials with reduced recruitment in the only the most distal muscles in the lower extremity. Impression: This is an abnormal study. There is electrophysiologic evidence consistent with a demyelinating, motor and sensory polyneuropathy with mild, chronic, secondary axonal loss. The absence of conduction block suggest an inherited demyelinating polyneuropathy. Further evaluation with neuromuscular ultrasound and/or genetic testing could be considered. Shan Rodriguez D.O. Multi Select Codes Neurology Neurology Interp Codes: 33472-35 [facility] [place]st mccloud (interp) (Qty:2) and 29665-90 Nr cndj test 11-12 studies (interp)
== END | disposition home or self-care (01) ==
LOC: PSN 13:30
PROVIDERS: PCP Family Medicine; Referring Provider Family Medicine; Visit Provider Family Medicine
DX: R25.1 Tremor, unspecified (principal); M62.81 Muscle weakness (generalized); R20.2 Paresthesia of skin
CPT/HCPCS: 73700; 95885; 95912

== ENCOUNTER 2023-03-11 14:29 | Emergency (ER) | payer MEDICARE, SELFPAY ==
[2023-03-11 14:30] VITALS: BP 169/93; PULSE 87; RESP 16; TEMP 37; O2SAT 97; BMI 32.7
--- NOTE | 2023-03-11 14:45 | EDS_ITS ---
HPI History of Present Illness Chief Complaint: Hypertension Informant: patient Narrative Narrative: Patient presents with multiple symptoms and just feeling off recently. She took her blood pressure today and noted to be elevated in the 170s over 1 teens so she presented for evaluation. She has not had any recent changes to her blood pressure medications. She was taken off of Wellbutrin yesterday. She states she been on it for about 2 months. For the past week she been on a higher dose but her doctor yesterday told her to stop it altogether because of nausea. Patient states she has nausea medication at the pharmacy but has not yet picked it up. She does report increased stress recently with the of her spouse last month, and upcoming thyroid biopsy, and upcoming knee surgery. She recently developed a tremor and parkinsonisms and was started on carbidopa levodopa in November. [facility] Medical History Hypertension Left knee pain Left leg pain Osteoarthritis of left knee Parkinsonism Puncture wound of right foot Synovial cyst of popliteal space [Grady], left knee Home Medications losartan 25 mg tablet 25 mg PO DAILY 08/12/22 [History Last Taken Unknown] multivitamin 1 tab PO DAILY 08/12/22 [History Last Taken Unknown] carbidopa 12.5 mg-levodopa 50 mg-entacapone 200 mg tablet 2 tab PO TID 11/20/22 [History Last Taken Unknown] meloxicam 15 mg tablet 15 mg PO DAILY Pain #30 tabs 12/25/22 [Rx Last Taken Unknown] lorazepam 0.5 mg tablet (Ativan) 0.5 mg PO TID PRN Anxiety 03/11/23 [History Last Taken Unknown] Allergy/AdvReac Type Severity Reaction Status Date / Time No Known Allergies Allergy Verified 03/11/23 14:32 Family History Other Cancer Heart disease Surgical History History of varicose vein stripping Social History Smoking Status: Never smoker alcohol intake: current alcohol intake frequency: holidays/special occasions only ROS ROS ED Constitutional Constitutional ED: Denies chills or fever(s) Eyes Eyes: Denies change in vision or discharge from eye(s) ENT ENT ED: Denies discharge from eye(s), rhinorrhea or sore throat Cardiovascular Cardiovascular: Denies chest pain or palpitations Respiratory/Chest Respiratory/Chest: Reports dyspnea; Denies cough Gastrointestinal Gastrointestinal: Reports nausea; Denies abdominal pain or vomiting Genitourinary Genitourinary ED: Denies difficulty urinating or dysuria Musculoskeletal Musculoskeletal: Denies back pain or extremity pain Integumentary Denies Abrasions or rash Neurologic Neurologic: Reports paresthesias and other Details: Tremor ; Denies headache(s) or weakness Allergic/Immunologic Allergic/Immunologic ED: Denies lip swelling or urticaria EXAM Physical Exam Const Vital Signs: 03/11/23 14:30 03/11/23 16:14 Temperature 98.6 F Temperature Source Temporal Pulse Rate 87 76 Respiratory Rate 16 18 Blood Pressure 169/93 H 155/83 H Blood Pressure Mean 118 107 Pulse Ox 97 93 Oxygen Delivery Method Room Air Room Air Positive well nourished and well developed General Appearance ED: well developed HEENT Reports normocephalic and head/scalp atraumatic Eyes PERRL and EOMs intact bilaterally Neck supple Chest Wall inspection of chest normal and palpation of chest normal Resp normal respiratory effort and clear to auscultation bilaterally Cardio regular rate and regular rhythm GI normal to inspection, nondistended, normoactive bowel sounds Palpation: soft Back/Spine no CVA tenderness Extremity normal to inspection Extremity Narrative: Slight tremor noted to the right upper extremity. Neuro oriented x3 Neuro Narrative: No focal neurologic deficits. Sensorium / Orientation: alert Psych Mood & Affect: anxious Skin no rashes or lesions noted MDM MDM MDM Narrative Medical decision making narrative: Patient placed on conveyor monitor. EKG obtained to evaluate for cardiac arrhythmia/ischemia. Chest x-ray obtained to evaluate for acute lung pathology, cardiac size, or mediastinal abnormality. Labwork obtained to evaluate for leukocytosis, anemia, and electrolyte derangement. Lab Data Attestation: I reviewed the patient's lab results. Labs: Laboratory Results - last 24 hr 03/11/23 03/11/23 03/11/23 14:04 14:04 15:30 WBC 9.1 RBC 5.05 Hgb 15.5 H Hct 46.1 MCV 91.3 MCH 30.7 MCHC 33.6 RDW Std Deviation 44.4 H RDW Coeff of Fozia 13.2 Plt Count 281 MPV 8.8 Immature Gran % (Auto) 0.300 Neut % (Auto) 71.5 H Lymph % (Auto) 17.5 L [place] % (Auto) 5.8 Eos % (Auto) 3.8 Baso % (Auto) 1.1 H Absolute Neuts (auto) 6.5 Absolute Lymphs (auto) 1.60 Nucleated RBC % 0 Sodium 139 Potassium 3.4 L Chloride 108 H Carbon Dioxide 28.0 Anion Gap 3 L BUN 9 Creatinine 0.83 Estim Creat Clear Calc 59.58 Est GFR (MDRD) Af Amer 87 Est GFR (MDRD) Non-Af 72 BUN/Creatinine Ratio 10.8 Glucose 128 H Calcium 9.2 Total Bilirubin 0.60 Direct Bilirubin 0.17 AST 12 L ALT 7 L Alkaline Phosphatase 80 Troponin I High Sens 6 Total Protein 7.2 Albumin 3.7 Globulin 3.5 TSH 1.01 Urine Color Yellow Urine Clarity Clear Urine pH 7.0 Ur Specific [place] 1.010 Urine Protein 15 H Urine Glucose (UA) Normal Urine Ketones Negative Urine Occult Blood Negative Urine Nitrite Negative Urine Bilirubin Negative Urine Urobilinogen Normal Ur Leukocyte Esterase Negative Urine RBC 0 SEEN Urine WBC 0 SEEN Ur Squamous Epith Cells 0 SEEN Urine Bacteria 0 SEEN Urine Mucus 0 SEEN Radiography Chest X-Ray - ED: 1 View, Read by ED Physician, Normal, Heart, Lungs and Mediastinum Diagnostic Testing: Clinical Impression(s) from Imaging Studies Chest X-Ray 03/11/23 15:03 IMPRESSION: No radiographic evidence of acute cardiopulmonary disease. Electronically Signed: Ramez Barlow MD at 15:26 EDT , EKG Initial EKG: Attestation: I personally reviewed and interpreted this EKG as follows: Interpretation: Sinus Rhythm (Sinus at 75 with no acute ischemia.) Treatment and Re-Evaluation :: CBC reveals normal white count at 9.1 with hemoglobin slightly concentrated at 15.5. Chemistry studies reveal slightly low potassium at 3.4. This is replaced orally. Glucose is 128. LFTs are unremarkable. Troponin is normal at 6 and TSH is 1.01. Urinalysis is unremarkable. Patient's blood pressure did come down to 139/102 followed by 155/83. I spoke with the patient's primary care physician. She believes there was a misunderstanding as the patient was not supposed to stop her Wellbutrin. She is to stay on the higher dose of Wellbutrin but stopped the buspirone which she had only been on for 1 week. This is clarified with the patient. Patient will keep a journal of her blood pressure readings and take that to her next appointment. Return instructions given. Discharge Plan Triage Chief Complaint: Hypertension ED Provider: Marily Herman Dx/Rx/DC Orders Clinical Impression: Generalized weakness, Hypertension Instructions: ED Hypertension, Established, ED Weakness (Uncertain Cause) Prescriptions: No Action losartan 25 mg tablet 25 mg PO DAILY multivitamin Tablet 1 tab PO DAILY vummycfiv-fohseejx-gcsfjkajmd 12.5-50-200 mg tablet 2 tab PO TID lorazepam [Ativan] 0.5 mg Tablet 0.5 mg PO TID PRN (Reason: Anxiety) meloxicam 15 mg tablet 15 mg PO DAILY Qty: 30 0RF Rx Instructions: Do not take in conjunction with other NSAIDs, Tylenol is okay. Primary Care Provider: Roxy Wallace Referrals: Roxy Wallace DO [Primary Care Provider] - 5-7 Days Activity Restrictions/Additional Instructions: As discussed, please stay on your Wellbutrin at the higher dose. Dr. Wallace would like you to stop the buspirone that she just started a week ago. Please keep a journal of your blood pressure readings so she can appropriately adjust your medicines if needed. Disposition Disposition: Home, Self Care
--- NOTE | 2023-03-11 14:45 | EKG12_ITS ---
Test Reason : HIGH BP Blood Pressure : / mmHG Vent. Rate : 075 BPM Atrial Rate : 075 BPM P-R Int : 138 ms QRS Dur : 084 ms QT Int : 398 ms P-R-T Axes : 061 051 070 degrees QTc Int : 444 ms Normal sinus rhythm Possible Left atrial enlargement Nonspecific ST abnormality Abnormal ECG Confirmed by OLENA PINTO, AYALA ([id number]), subeditor AL ADAMS ([id number]) on 03/15/2023 12:33:51 PM Referred By: Confirmed By:AYALA HYATT MD
[2023-03-11 15:01] LABS: Absolute Neutrophil Count 6.5 X10^3/uL (2.0-7.7); Basophil% 1.1 % (0-1); Eosinophil# 0.35 X10^3/uL; Eosinophils% 3.8 % (0-5); Hematocrit 46.1 % (37-47); Hemoglobin 15.5 g/dL (12.0-15.0); Lymphocyte % 17.5 % (19-41); Mean Corp Hgb Conc 33.6 g/dL (32-36); Mean Corpuscular Hgb 30.7 pg (27.0-32.0); Mean Corpuscular Volume 91.3 fL (81-99); Mean Platelet Vol. 8.8 fl (6.2-12.0); Monocyte# 0.53 X10^3/uL; Monocyte% 5.8 % (0-10); NRBC Flagged by Analyzer 0 % (0-5); Neutrophil # 6.53 X10^3/uL (2.7-7.7); Neutrophil % 71.5 % (47-70); Platelet Count 281 K/mm3 (150-450); RBC Distribution Width CV 13.2 % (11.6-14.6); RBC Distribution Width SD 44.4 fl (35.1-43.9); Red Blood Count 5.05 M/mm3 (4.2-5.4); White Blood Count 9.1 K/mm3 (4.4-11.0)
--- NOTE | 2023-03-11 15:03 | RAD_ITS ---
INDICATION: pain EXAMINATION/TECHNIQUE: X-RAY - portable upright AP chest x-ray COMPARISON: 06/06/2022 FINDINGS: LINES/DEVICES: None. LUNGS: No consolidation, edema or effusion. No pneumothorax. MEDIASTINUM AND CARDIOVASCULAR STRUCTURES: Cardiac silhouette not enlarged. Central airways and mediastinal contour are unremarkable. BONES AND SOFT TISSUES: Unremarkable. RAD/Chest 1 View (Portable) IMPRESSION: No radiographic evidence of acute cardiopulmonary disease. Electronically Signed: Ramez Barlow MD at 15:26 EDT ,
[2023-03-11 15:39] LABS: AST(SGOT) 12 U/L (15-37); Alanine Aminotransfer ALT/SGPT 7 U/L (13-56); Albumin, Serum 3.7 g/dL (3.2-5.0); Alkaline Phosphatase 80 U/L (45-117); Anion Gap 3 (5-15); BUN 9 mg/dL (7-18); BUN/Creat Ratio 10.8 RATIO (10-20); Bilirubin, Direct 0.17 mg/dL (0.00-0.30); Calcium,Total 9.2 mg/dL (8.5-10.1); Chloride 108 mmol/L (98-107); Creatinine, Serum 0.83 mg/dL (0.55-1.02); EST Glomerular Filtration Rate 72 mL/min (>60); Est Glom Filt Rate - Afr Amer 87 mL/min (>60); Estimated Creatinine Clearance 59.58 ml/min; Globulin 3.5 g/dL (2.2-4.2); Glucose 128 mg/dL (74-106); Potassium 3.4 mmol/L (3.5-5.1); Protein, Total 7.2 g/dL (6.4-8.2); Sodium Level 139 mmol/L (136-145); Thyroid Stim Hormone (TSH) 1.01 uIU/mL (0.358-3.74); Troponin-I HS 6 pg/mL (3.0-54.0)
[2023-03-11 15:45] LABS: Bacteria 0 SEEN /hpf (None Seen); Red Blood Cells-Urine 0 SEEN /hpf (0-5); Squamous Epithelial Cells - UA 0 SEEN /hpf (5-10); White Blood Cells 0 SEEN /hpf (0-5)
[2023-03-11 15:46] LABS: Mucous, Urine 0 SEEN /hpf (<or=2+)
[2023-03-11 15:48] LABS: Color, Urine Yellow (Yellow); Glucose, Dipstick Normal (Normal); Ketone-Dipstick Negative (Negative); Leukocyte Esterase-Dipstick Negative /ul (Negative); Nitrite-Dipstick Negative (Negative); Occult Blood-Urine Negative /ul (Negative); Protein-Dipstick 15 mg/dl (Negative); Urine Bilirubin Dipstick Negative (Negative); Urine Clarity Clear (Clear); Urine Urobilinogen Normal (Normal)
[2023-03-11 16:14] VITALS: BP 155/83; PULSE 76; RESP 18; O2SAT 93
[2023-03-11] MEDS: Potassium Chloride Oral Tablet 20 MEQ 40 MEQ PO (16:16)
[2023-03-11 17:41] VITALS: BP 166/84; PULSE 72; RESP 18; O2SAT 100
== END 2023-03-11 17:42 | disposition home or self-care (01) ==
PROVIDERS: Emergency Provider Emergency Medicine; PCP Family Medicine; Visit Provider Emergency Medicine
DX: R53.1 Weakness (principal); G20 Parkinson's disease; I10 Essential (primary) hypertension; Z79.899 Other long term (current) drug therapy; R06.00 Dyspnea, unspecified; R11.0 Nausea
CPT/HCPCS: 71045; 80048; 80076; 81001; 84443; 84484; 85025; 93005; 99285

== ENCOUNTER 2023-03-20 19:46 | Observation (INO) | payer MEDICARE, SELFPAY ==
[2023-03-20] VITALS (8 sets, daily range): BP systolic 123–198; BP diastolic 75–98; PULSE 68–82; RESP 15–17; TEMP 36–36.6; O2SAT 97; BMI 31.1; BMI 31.5
--- NOTE | 2023-03-20 20:04 | EDS_ITS ---
HPI History of Present Illness Chief Complaint: Chest Pain Informant: patient Onset/Context/Timing Onset: Hours (2) Activity at onset: sudden, onset, activity on onset and rest (Sitting, playing a game with family) Timing: Continuous Quality: Positive for Tightness Location: Substernal (Along with radiation/tingling in left upper extremity) Current Severity: Moderate Maximum Severity: Moderate Worsened By: Nothing; Not Worsened By Breathing Relieved By: Nothing Associated Symptoms: Positive for Dyspnea (Mild) and Lightheadedness; Negative for Nausea, Vomiting, Diaphoresis, Cough, Fever or Palpitations Narrative Narrative: Patient with chest tightness persistent for the past 2 hours started while at rest. No history of cardiac disease. She takes medication for hypertension and anxiety. She also has parkinsonism. Her this past month. She was seen in the emergency department for dizziness lightheadedness recently but not admitted to the hospital. She did not have the symptoms. She states she is scheduled for a total knee arthroplasty next month, she does not do a lot of exertion due to her arthritis. States she has never had a stress test in the past. [facility] Medical History Hypertension Left knee pain Left leg pain Osteoarthritis of left knee Parkinsonism Puncture wound of right foot Synovial cyst of popliteal space [Grady], left knee Home Medications losartan 25 mg tablet 25 mg PO DAILY 08/12/22 [History Last Taken Unknown] multivitamin 1 tab PO DAILY 08/12/22 [History Last Taken Unknown] carbidopa 12.5 mg-levodopa 50 mg-entacapone 200 mg tablet 2 tab PO TID 11/20/22 [History Last Taken Unknown] meloxicam 15 mg tablet 15 mg PO DAILY Pain #30 tabs 12/25/22 [Rx Last Taken Unknown] lorazepam 0.5 mg tablet (Ativan) 0.5 mg PO TID PRN Anxiety 03/11/23 [History Last Taken Unknown] Allergy/AdvReac Type Severity Reaction Status Date / Time No Known Allergies Allergy Verified 03/11/23 14:32 Family History Other Cancer Heart disease Surgical History History of varicose vein stripping Social History Smoking Status: Never smoker alcohol intake: current alcohol intake frequency: holidays/special occasions only ROS ROS ED Constitutional Constitutional ED: Denies chills or fever(s) Eyes Eyes: Denies change in vision or diplopia ENT ENT ED: Denies rhinorrhea or sore throat Cardiovascular Cardiovascular: Reports chest pain; Denies palpitations Respiratory/Chest Respiratory/Chest: Reports dyspnea; Denies cough Gastrointestinal Gastrointestinal: Denies abdominal pain, diarrhea, nausea or vomiting Genitourinary Genitourinary ED: Denies dysuria or hematuria Musculoskeletal Musculoskeletal: Denies back pain or neck pain Integumentary Denies abscess or rash Neurologic Neurologic: Reports paresthesias LUE; Denies headache(s) or weakness Psychiatric Psychiatric: Denies anxiety or suicidal thoughts EXAM Physical Exam Const Vital Signs: 03/20/23 19:47 03/20/23 19:54 03/20/23 20:17 Temperature 96.8 F L Temperature Source Temporal Pulse Rate 82 79 Respiratory Rate 15 Respiratory Pattern Normal Blood Pressure 198/98 H 169/84 H Blood Pressure Mean 131 Pulse Ox 97 Oxygen Delivery Method Room Air 03/20/23 20:23 03/20/23 20:26 03/20/23 20:33 Temperature Temperature Source Pulse Rate 82 81 Respiratory Rate Respiratory Pattern Blood Pressure 127/75 H 123/75 H Blood Pressure Mean Pulse Ox Oxygen Delivery Method Room Air Positive well nourished and well developed General Appearance ED: well developed and NAD HEENT Reports moist mucous membranes normocephalic and atraumatic Eyes PERRL and EOMs intact bilaterally Neck full ROM and supple Resp normal respiratory effort and clear to auscultation bilaterally Cardio regular rate, regular rhythm and no murmurs Rate: Negative for bradycardia or tachycardic Peripheral Pulses: pulses 2+ throughout GI non-tender and non-distended Auscultation: normoactive bowel sounds Palpation: soft Back/Spine no CVA tenderness General Back: other FROM Extremity normal to inspection General Extremety ED: Negative for edema, pulses abnormal or tenderness General Extremity: Negative for edema or pulses abnormal Neuro oriented x3, CN's II-XII intact bilaterally and no sensory deficits noted Sensorium / Orientation: awake and alert Motor Exam: strength 5/5 throughout Skin no rashes or lesions noted and no wounds Heart Score History: Highly Suspicious ECG: Nonspecific Repolarization Age: >/= 65 years Risk Factors: 1 or 2 Risk Factors Troponin: </= Normal Limit Score: 6 MDM MDM MDM Narrative Medical decision making narrative: Patient has concerning history. She was given aspirin and nitroglycerin while we performed a cardiac work-up, after the nitroglycerin, her pain went from a 7/10 down to a 2/10. I repeated her EKG, the initial [address] depressions in the lateral precordial leads, and some elevations in V1 and V2, also consistent with ischemia but not a STEMI. Her repeat EKG shows normalization of these mild ST segment deviations, concerning for unstable angina. Nitroglycerin paste was placed on her chest, and I discussed with hospitalist for admission. Still awaiting second troponin which will be drawn 2 hours after the initial 1. One-view portable chest x-ray my interpretation is negative for anything acute, showing a narrow mediastinum. History & Record Review Additional record(s) reviewed:: Prior labs and Other (no prior echo or cardiac stress in EMR) Lab Data Attestation: I reviewed the patient's lab results. Labs: Laboratory Results - last 24 hr 03/20/23 03/20/23 20:00 20:00 WBC 10.3 RBC 5.33 Hgb 16.3 H Hct 49.2 H MCV 92.3 MCH 30.6 MCHC 33.1 RDW Std Deviation 44.4 H RDW Coeff of Fozia 13.1 Plt Count 313 MPV 9.1 Immature Gran % (Auto) 0.400 Neut % (Auto) 66.7 Lymph % (Auto) 21.5 [place] % (Auto) 7.3 Eos % (Auto) 3.0 Baso % (Auto) 1.1 H Absolute Neuts (auto) 6.9 Absolute Lymphs (auto) 2.22 Nucleated RBC % 0 Sodium 139 Potassium 3.6 Chloride 109 H Carbon Dioxide 26.0 Anion Gap 4 L BUN 12 Creatinine 1.02 Estim Creat Clear Calc 48.48 Est GFR (MDRD) Af Amer 68 Est GFR (MDRD) Non-Af 57 L BUN/Creatinine Ratio 11.8 Glucose 104 Calcium 9.5 Troponin I High Sens 5 Radiography Diagnostic Testing: Clinical Impression(s) from Imaging Studies Chest X-Ray 03/20/23 21:25 IMPRESSION: Normal x-ray examination of the chest. Electronically Signed: Aakash Suggs MD at 21:59 EDT , Rhythm Strip Rhythm Strip: Sinus Rhythm Rate: 85 Ectopy: None EKG Initial EKG: Attestation: I personally reviewed and interpreted this EKG as follows: Interpretation: Sinus Rhythm, No Acute Injury Pattern and Non-Specific ST Changes (Less than [address] elevation in V1 and V2 only, and very mild ST depressions in V5-V6, less than 1 mm.) Prior EKG tracings: available for review Prior: Changed (c/w 03/11/23) Follow-up EKG: Attestation: I personally reviewed and interpreted this EKG as follows: Interpretation: Sinus Rhythm and No Acute Injury Pattern Comments: Normal EKG, resolution of prior ST segment deviations Discharge Plan Dx/Rx/DC Orders Clinical Impression: Unstable angina Disposition Disposition: Acute Care Hospital [facility]
--- NOTE | 2023-03-20 20:04 | EKG12_ITS ---
Test Reason : CP Blood Pressure : / mmHG Vent. Rate : 084 BPM Atrial Rate : 084 BPM P-R Int : 144 ms QRS Dur : 086 ms QT Int : 368 ms P-R-T Axes : 063 028 056 degrees QTc Int : 434 ms Normal sinus rhythm Normal ECG Confirmed by OLENA PINTO, AYALA ([id number]), web editor AL ADAMS ([id number]) on 03/23/2023 1:11:16 PM Referred By: BB Confirmed By:AYALA HYATT MD
[2023-03-20] MEDS: Aspirin 81 MG TAB.CHEW 324 MG PO (20:13)
[2023-03-20 20:16] LABS: Absolute Lymphocyte Count 2.22 X10^3/uL (0.83-4.51); Absolute Neutrophil Count 6.9 X10^3/uL (2.0-7.7); Basophil# 0.11 X10^3/uL; Basophil% 1.1 % (0-1); Eosinophil# 0.31 X10^3/uL; Hematocrit 49.2 % (37-47); Hemoglobin 16.3 g/dL (12.0-15.0); Lymphocyte # 2.22 X10^3/ul (0.83-4.51); Lymphocyte % 21.5 % (19-41); Mean Corp Hgb Conc 33.1 g/dL (32-36); Mean Corpuscular Hgb 30.6 pg (27.0-32.0); Mean Corpuscular Volume 92.3 fL (81-99); Mean Platelet Vol. 9.1 fl (6.2-12.0); Monocyte# 0.75 X10^3/uL; Monocyte% 7.3 % (0-10); NRBC Flagged by Analyzer 0 % (0-5); Neutrophil # 6.89 X10^3/uL (2.7-7.7); Neutrophil % 66.7 % (47-70); Platelet Count 313 K/mm3 (150-450); RBC Distribution Width CV 13.1 % (11.6-14.6); RBC Distribution Width SD 44.4 fl (35.1-43.9); Red Blood Count 5.33 M/mm3 (4.2-5.4); White Blood Count 10.3 K/mm3 (4.4-11.0)
[2023-03-20] MEDS: Nitroglycerin SL (ED/IMG/CATH) 0.4 MG TABLET SL ×3 (20:17→20:33)
[2023-03-20 20:33] LABS: Anion Gap 4 (5-15); BUN 12 mg/dL (7-18); BUN/Creat Ratio 11.8 RATIO (10-20); Calcium,Total 9.5 mg/dL (8.5-10.1); Chloride 109 mmol/L (98-107); Creatinine, Serum 1.02 mg/dL (0.55-1.02); EST Glomerular Filtration Rate 57 mL/min (>60); Est Glom Filt Rate - Afr Amer 68 mL/min (>60); Estimated Creatinine Clearance 48.48 ml/min; Glucose 104 mg/dL (74-106); Potassium 3.6 mmol/L (3.5-5.1); Sodium Level 139 mmol/L (136-145); Troponin-I HS (w/2H Reflex) 5 pg/mL (3.0-54.0)
--- NOTE | 2023-03-20 21:25 | RAD_ITS ---
STUDY: X-RAY CHEST REASON FOR EXAM: Female, 72 years old. chest pain TECHNIQUE: Single AP portable view of the chest. COMPARISON: 03/11/2023 FINDINGS: The lungs are clear and expanded. There is no demonstrated pleural abnormality. Normal size heart. Normal mediastinum and milind. Normal visualized pulmonary arteries. Normal visualized aortic arch and descending thoracic aorta. Normal visualized thoracic spine. Normal visualized ribs, clavicles, and shoulders. There is no demonstrated abnormality of the visualized soft tissue structures of the upper abdomen. RAD/Chest 1 View (Portable) IMPRESSION: Normal x-ray examination of the chest. Electronically Signed: Aakash Suggs MD at 21:59 EDT ,
--- NOTE | 2023-03-20 21:38 | EKG12_ITS ---
Test Reason : ADMIT EKG Blood Pressure : / mmHG Vent. Rate : 066 BPM Atrial Rate : 066 BPM P-R Int : 142 ms QRS Dur : 086 ms QT Int : 410 ms P-R-T Axes : 063 029 056 degrees QTc Int : 429 ms Normal sinus rhythm Normal ECG When compared with ECG of 20-MAR-2023 21:42, MANUAL COMPARISON REQUIRED, DATA IS UNCONFIRMED Confirmed by OLENA PINTO, AYALA ([id number]), online content editor AL ADAMS ([id number]) on 03/23/2023 11:50:58 AM Referred By: Confirmed By:AYALA HYATT MD
--- NOTE | 2023-03-20 21:42 | EKG12_ITS ---
Test Reason : REPEAT Blood Pressure : / mmHG Vent. Rate : 066 BPM Atrial Rate : 066 BPM P-R Int : 136 ms QRS Dur : 088 ms QT Int : 410 ms P-R-T Axes : 011 018 042 degrees QTc Int : 429 ms Normal sinus rhythm Normal ECG Confirmed by OLENA PINTO, AYALA ([id number]), news videotape editor AL ADAMS ([id number]) on 03/23/2023 1:13:48 PM Referred By: Confirmed By:AYALA HYATT MD
[2023-03-20 22:09] LABS: Reflex Troponin-HS? (from REC) Y
--- NOTE | 2023-03-20 22:12 | HP.PCM.HOS_ITS ---
HPI - General General Date of Admission: 03/20/23 Date of Service: 03/20/23 Chief Complaint: Chest pain HPI Narrative WALI LOCKWOOD, is a 72 F with a significant history of hypertension and parkinsonism who presents to the emergency department with chest pain that started about 1 to 2 hours before presentation. Reportedly patient was playing a board game with her family and then she began to develop chest tightness. She rated the chest pain as 7 out of 10. The chest pain radiated to her left where she had a tingling sensation. She took lorazepam and that helped with the chest pain. Associated with her symptoms was lightheadedness. Also patient reports shortness of breath going on for about 4 to 5 days. And for 2 weeks prior to presentation patient has had nausea with food. Reportedly at the emergency department patient pain moved from intensity of 7 to 2 with nitroglycerin. She received 3 tablets of nitroglycerin sublingual and then Nitropaste was subsequently placed. Emergent doctor reports that initial EKG showed some subtle T wave elevations that resolved at the ED Of note patient on January 28 and that has made patient sad. [facility] Medical History Hypertension Left knee pain Left leg pain Osteoarthritis of left knee Parkinsonism Puncture wound of right foot Synovial cyst of popliteal space [Grady], left knee Home Medications losartan 25 mg tablet 25 mg PO DAILY 08/12/22 [History Last Taken Unknown] carbidopa 12.5 mg-levodopa 50 mg-entacapone 200 mg tablet 2 tab PO TID 11/20/22 [History Last Taken Unknown] meloxicam 15 mg tablet 15 mg PO DAILY Pain #30 tabs 12/25/22 [Rx Last Taken Unknown] lorazepam 0.5 mg tablet (Ativan) 1 - 2 PO Q6H PRN PRN Anxiety 03/11/23 [History Last Taken Unknown] bupropion HCl 150 mg 24 hr tablet, extended release 150 mg PO DAILY 03/20/23 [History Last Taken Unknown] ondansetron 4 mg disintegrating tablet 4 mg PO Q8H nausea 03/20/23 [History Last Taken Unknown] zolpidem 6.25 mg tablet,extended release,multiphase 6.25 mg PO QHS 03/20/23 [History Last Taken Unknown] Allergy/AdvReac Type Severity Reaction Status Date / Time No Known Allergies Allergy Verified 03/11/23 14:32 Family History Other Cancer Heart disease Surgical History History of varicose vein stripping Social History Smoking Status: Never smoker alcohol intake: current alcohol intake frequency: holidays/special occasions only ROS ROS Narrative Pertinent positives and pertinent negatives as noted in HPI. All other systems were reviewed and are negative Vital Signs Vital Signs Vital Signs: 03/20/23 19:47 03/20/23 19:54 03/20/23 20:17 Temperature 96.8 F L Temperature Source Temporal Pulse Rate 82 79 Respiratory Rate 15 Respiratory Pattern Normal Blood Pressure 198/98 H 169/84 H Blood Pressure Mean 131 Pulse Ox 97 Oxygen Delivery Method Room Air 03/20/23 20:23 03/20/23 20:26 03/20/23 20:33 Temperature Temperature Source Pulse Rate 82 81 Respiratory Rate Respiratory Pattern Blood Pressure 127/75 H 123/75 H Blood Pressure Mean Pulse Ox Oxygen Delivery Method Room Air Weight Weight: 90.129 kg Body Mass Index (BMI) 31.1 Physical Exam Narrative Physical exam: General: Well-nourished, well-developed. Head: Normocephalic, atraumatic, no tenderness Eyes: Vision is grossly intact. EOMI ENT, no trauma, moist mucous membranes, no rhinorrhea Neck: Nontender, No thyromegaly. CVS: Regular rate and rhythm. S1-S2 present. No murmur, gallop or rub. Respiratory : clear to auscultation bilaterally, chest wall nontender Abdomen: Soft, nontender, nondistended, normal bowel sounds, no masses : Deferred Back: Nontender, no CVA tenderness, no midline spinal tenderness, deformities, step-offs Extremities: Nontender full range of motion, no trauma Skin: Normal color, no trauma, abrasions Neuro: Alert, oriented, cranial nerves II through XII grossly intact. Psychiatry: Normal mood. Normal affect. Not depressed. Not anxious. Results Lab / Micro Data Result Diagrams: 03/20/23 20:00 03/20/23 20:00 Labs: Laboratory Results - last 24 hr 03/20/23 20:00: WBC 10.3, RBC 5.33, Hgb 16.3 H, Hct 49.2 H, MCV 92.3, MCH 30.6, MCHC 33.1, RDW Std Deviation 44.4 H, RDW Coeff of Fozia 13.1, Plt Count 313, MPV 9.1, Immature Gran % (Auto) 0.400, Neut % (Auto) 66.7, Lymph % (Auto) 21.5, [place] % (Auto) 7.3, Eos % (Auto) 3.0, Baso % (Auto) 1.1 H, Absolute Neuts (auto) 6.9, Absolute Lymphs (auto) 2.22, Nucleated RBC % 0 03/20/23 20:00: Sodium 139, Potassium 3.6, Chloride 109 H, Carbon Dioxide 26.0, Anion Gap 4 L, BUN 12, Creatinine 1.02, Estim Creat Clear Calc 48.48, Est GFR (MDRD) Af Amer 68, Est GFR (MDRD) Non-Af 57 L, BUN/Creatinine Ratio 11.8, Glucose 104, Calcium 9.5, Troponin I High Sens 5 Rhythm Strip Rhythm Strip: Sinus Rhythm Rate: 85 Ectopy: None Radiology Impression Chest X-Ray 03/20/23 21:25 IMPRESSION: Normal x-ray examination of the chest. Electronically Signed: Aakash Suggs MD at 21:59 EDT , Assessment & Plan Assessment/Plan (1) Chest pain: PLAN: Plan Chest pain Could be cardiac or anxiety related. Place on a monitored bed at the progressive care unit. Impression of chest x-ray by radiologist: Normal CXR examination of the chest. Actual CXR image was independently visualized. No acute cardiopulmonary process was noted. Intake EKG showed some subtle T wave elevation in lead V1 to V2 that resolved with repeat EKG Received full dose aspirin at the emergency department ASA 81 mg p.o. daily ordered Nitroglycerin paste ordered Will check lipid panel. Initial high sensitive troponin was negative. Trend. Stat EKG as needed for chest pain Restless legs Reports history of restless syndrome. Could be associated with parkinsonism. Check ferritin level. Hypertension Blood pressure is not within goal Home losartan continued. As needed hydralazine ordered. Trend blood pressure and adjust blood pressure medications. Anxiety disorder 's recent may be contributing. As needed lorazepam and Ambien nightly continued. Buspirone continued DVT prophylaxis: Subcutaneous Lovenox ordered Charges/Coding Visit Charges Inpatient E&M: 68659 Init Hosp L3
[2023-03-20 22:42] LABS: Troponin-I HS 5 pg/mL (3.0-54.0)
[2023-03-20] MEDS: Nitroglycerin Oint 1 INCH PACKET 0.5 INCH TD (22:59)
--- NOTE | 2023-03-20 23:18 | EKG12_ITS ---
Test Reason : AM EKG Blood Pressure : / mmHG Vent. Rate : 080 BPM Atrial Rate : 080 BPM P-R Int : 146 ms QRS Dur : 086 ms QT Int : 378 ms P-R-T Axes : 060 047 059 degrees QTc Int : 435 ms Normal sinus rhythm Normal ECG When compared with ECG of 21-MAR-2023 15:40, MANUAL COMPARISON REQUIRED, DATA IS UNCONFIRMED Confirmed by OLENA PINTO, AYALA ([id number]), editor & co founder AL ADAMS ([id number]) on 03/23/2023 11:46:25 AM Referred By: Confirmed By:AYALA HYATT MD
[2023-03-21] MEDS: Carbidopa/Levodopa 25/100 Tablet PO ×4 (00:50→16:10)
[2023-03-21] MEDS: Zolpidem Tartrate 5 MG Tablet PO ×2 (00:50→22:52)
[2023-03-21 00:58] VITALS: PULSE 81; RESP 16
[2023-03-21 02:24] LABS: Absolute Lymphocyte Count 2.63 X10^3/uL (0.83-4.51); Absolute Neutrophil Count 5.6 X10^3/uL (2.0-7.7); Basophil# 0.11 X10^3/uL; Basophil% 1.2 % (0-1); Eosinophil# 0.37 X10^3/uL; Eosinophils% 3.9 % (0-5); Hematocrit 44.9 % (37-47); Hemoglobin 14.8 g/dL (12.0-15.0); Lymphocyte # 2.63 X10^3/ul (0.83-4.51); Lymphocyte % 27.9 % (19-41); Mean Corpuscular Hgb 30.3 pg (27.0-32.0); Mean Platelet Vol. 9.1 fl (6.2-12.0); Monocyte# 0.64 X10^3/uL; Monocyte% 6.8 % (0-10); NRBC Flagged by Analyzer 0 % (0-5); Neutrophil # 5.64 X10^3/uL (2.7-7.7); Platelet Count 278 K/mm3 (150-450); RBC Distribution Width SD 44.1 fl (35.1-43.9); Red Blood Count 4.88 M/mm3 (4.2-5.4); White Blood Count 9.4 K/mm3 (4.4-11.0)
[2023-03-21 02:49] LABS: Troponin-I HS 6 pg/mL (3.0-54.0)
[2023-03-21 02:58] LABS: Anion Gap 3 (5-15); BUN 11 mg/dL (7-18); BUN/Creat Ratio 12.4 RATIO (10-20); Calcium,Total 8.8 mg/dL (8.5-10.1); Chloride 110 mmol/L (98-107); Cholesterol 194 mg/dL (200); Creatinine, Serum 0.88 mg/dL (0.55-1.02); EST Glomerular Filtration Rate 67 mL/min (>60); Est Glom Filt Rate - Afr Amer 81 mL/min (>60); Estimated Creatinine Clearance 56.19 ml/min; Ferritin 218 ng/mL (8-252); Glucose 98 mg/dL (74-106); High Density Lipoprotein 58 mg/dL; Potassium 3.4 mmol/L (3.5-5.1); Sodium Level 140 mmol/L (136-145); Triglycerides 81 mg/dL; Very Low Density Lipoprotein 16 mg/dL (5-40)
[2023-03-21 05:00] VITALS: BP 113/68; PULSE 72; RESP 16; TEMP 36.6; O2SAT 93
[2023-03-21 06:31] VITALS: BP 113/68; PULSE 75
[2023-03-21] MEDS: Nitroglycerin Oint 1 INCH PACKET 0.5 INCH TD ×2 (06:31→11:55)
--- NOTE | 2023-03-21 08:26 | PN.HOSP_ITS ---
Reason for Visit Reason for Visit: Diagnoses Chest pain, unspecified (03/20/23) Subjective Subjective He has not had any chest pain this morning and no significant problems with her breathing Objective Data Objective Data Vital Signs: Vital Signs Temp Pulse Resp BP Pulse Ox O2 Del Method 97.9 F 75 16 113/68 93 Room Air 03/21/23 05:00 03/21/23 06:31 03/21/23 05:00 03/21/23 06:31 03/21/23 05:00 03/21/23 05:00 Oxygen Delivery Method Room Air Weight: 91.4 kg Body Mass Index (BMI) 31.5 Intake & Output: Intake and Output for Last 24 Hours 03/19/23 03/20/23 03/21/23 23:59 23:59 23:59 Intake Total 100 / 100 Balance 100 / 100 Lab / Micro Data Result Diagrams: 03/21/23 02:14 03/21/23 02:14 Labs: Laboratory Results - last 24 hr 03/20/23 20:00: WBC 10.3, RBC 5.33, Hgb 16.3 H, Hct 49.2 H, MCV 92.3, MCH 30.6, MCHC 33.1, RDW Std Deviation 44.4 H, RDW Coeff of Fozia 13.1, Plt Count 313, MPV 9.1, Immature Gran % (Auto) 0.400, Neut % (Auto) 66.7, Lymph % (Auto) 21.5, [place] % (Auto) 7.3, Eos % (Auto) 3.0, Baso % (Auto) 1.1 H, Absolute Neuts (auto) 6.9, Absolute Lymphs (auto) 2.22, Nucleated RBC % 0 03/20/23 20:00: Sodium 139, Potassium 3.6, Chloride 109 H, Carbon Dioxide 26.0, Anion Gap 4 L, BUN 12, Creatinine 1.02, Estim Creat Clear Calc 48.48, Est GFR (MDRD) Af Amer 68, Est GFR (MDRD) Non-Af 57 L, BUN/Creatinine Ratio 11.8, Glucose 104, Calcium 9.5, Troponin I High Sens 5 03/20/23 22:15: Troponin I High Sens 5 03/21/23 02:14: WBC 9.4, RBC 4.88, Hgb 14.8, Hct 44.9, MCV 92.0, MCH 30.3, MCHC 33.0, RDW Std Deviation 44.1 H, RDW Coeff of Fozia 13.0, Plt Count 278, MPV 9.1, Immature Gran % (Auto) 0.200, Neut % (Auto) 60.0, Lymph % (Auto) 27.9, [place] % (Auto) 6.8, Eos % (Auto) 3.9, Baso % (Auto) 1.2 H, Absolute Neuts (auto) 5.6, Absolute Lymphs (auto) 2.63, Nucleated RBC % 0 03/21/23 02:14: Sodium 140, Potassium 3.4 L, Chloride 110 H, Carbon Dioxide 27.0, Anion Gap 3 L, BUN 11, Creatinine 0.88, Estim Creat Clear Calc 56.19, Est GFR (MDRD) Af Amer 81, Est GFR (MDRD) Non-Af 67, BUN/Creatinine Ratio 12.4, Glucose 98, Calcium 8.8, Ferritin 218, Triglycerides 81, Cholesterol 194, LDL Cholesterol 120, VLDL Cholesterol 16, HDL Cholesterol 58 03/21/23 02:14: Troponin I High Sens 6 Radiography Diagnostic Testing: Radiology Impression Chest X-Ray 03/20/23 21:25 IMPRESSION: Normal x-ray examination of the chest. Electronically Signed: Aakash Suggs MD at 21:59 EDT , Rhythm Strip Rhythm Strip: Sinus Rhythm Rate: 85 Ectopy: None Physical Exam Narrative General: Alert, oriented, no apparent distress HEENT: Atraumatic, normocephalic Eyes: Anicteric, normal conjunctiva, extraocular movements grossly intact Neck: Supple Respiratory: Clear to auscultation bilaterally, normal respiratory effort Cardiovascular: Regular rate and rhythm GI: Soft, nontender, nondistended Extremities: No edema Musculoskeletal: Moving all extremities Neuro: No overt focal neurological deficits Skin: No rashes appreciated Psych: Cooperative Assessment & Plan Assessment/Plan (1) Chest pain: PLAN: Plan #Chest pain -Chest tightness improved with Ativan and also nitroglycerin -Could be cardiac or anxiety related -Chest x-ray unremarkable -intake EKG showed some subtle T wave elevation in lead V1 to V2 that resolved with repeat EKG -Received full dose aspirin at the emergency department -ASA 81 mg p.o. daily ordered -Nitroglycerin paste ordered -03/21: Troponins were negative but given possible initial EKG changes and heart score 5 feel she would benefit from a stress test prior to discharge. Echo pending, stress test ordered for a.m. #Restless legs Reports history of restless syndrome. Could be associated with parkinsonism. Check ferritin level. -03/21: Ferritin within normal limits #Hypertension Blood pressure is not within goal Home losartan continued. As needed hydralazine ordered. Trend blood pressure and adjust blood pressure medications. -03/21: BP better today #Anxiety disorder 's recent may be contributing. As needed lorazepam and Ambien nightly continued. Buspirone continued DVT prophylaxis: Subcutaneous Lovenox ordered Charges/Coding Visit Charges Inpatient E&M: 03250 Subs Hosp L2
[2023-03-21] MEDS: Potassium Chloride Oral Tablet 20 MEQ 40 MEQ PO (09:00)
[2023-03-21] MEDS: Aspirin E.C. 81 MG Tablet PO (09:00)
[2023-03-21] MEDS: buPROPion (XL) 150 MG TABLET.XL PO (10:31)
[2023-03-21] MEDS: 0.9% Saline Lock 10 ML Syringe IV (10:31)
[2023-03-21] MEDS: Losartan Potassium 25 MG Tablet PO (10:32)
[2023-03-21] MEDS: Enoxaparin 40 MG/0.4 ML Syringe SC (10:32)
[2023-03-21 11:00] VITALS: BP 100/64; PULSE 89; RESP 18; TEMP 36.7; O2SAT 94
[2023-03-21 15:35] VITALS: BP 139/74; PULSE 84; RESP 16; TEMP 36.3; O2SAT 98
[2023-03-21 16:43] LABS: Troponin-I HS 6 pg/mL (3.0-54.0)
[2023-03-21 22:42] VITALS: BP 139/79; PULSE 75; RESP 16; TEMP 36.4; O2SAT 96
[2023-03-22] MEDS: MELATONIN 3 MG TABLET PO (00:18)
[2023-03-22 04:15] VITALS: BP 188/96; PULSE 81; RESP 16; TEMP 36.4; O2SAT 95
[2023-03-22 04:37] VITALS: BP 188/96; PULSE 81
[2023-03-22] MEDS: hydrALAZINE 20 MG/ML Vial 5 MG IV (04:37)
[2023-03-22] MEDS: LORazepam 0.5 MG Tablet PO (04:49)
[2023-03-22 05:45] LABS: Absolute Lymphocyte Count 2.04 X10^3/uL (0.83-4.51); Absolute Neutrophil Count 5.6 X10^3/uL (2.0-7.7); Basophil# 0.12 X10^3/uL; Basophil% 1.4 % (0-1); Eosinophil# 0.31 X10^3/uL; Eosinophils% 3.6 % (0-5); Hematocrit 44.5 % (37-47); Hemoglobin 15.4 g/dL (12.0-15.0); Lymphocyte # 2.04 X10^3/ul (0.83-4.51); Lymphocyte % 23.5 % (19-41); Mean Corp Hgb Conc 34.6 g/dL (32-36); Mean Corpuscular Hgb 31.6 pg (27.0-32.0); Mean Corpuscular Volume 91.2 fL (81-99); Mean Platelet Vol. 9.2 fl (6.2-12.0); Monocyte# 0.63 X10^3/uL; Monocyte% 7.2 % (0-10); NRBC Flagged by Analyzer 0 % (0-5); Neutrophil # 5.57 X10^3/uL (2.7-7.7); Neutrophil % 64.1 % (47-70); Platelet Count 288 K/mm3 (150-450); RBC Distribution Width CV 13.2 % (11.6-14.6); RBC Distribution Width SD 44.3 fl (35.1-43.9); Red Blood Count 4.88 M/mm3 (4.2-5.4); White Blood Count 8.7 K/mm3 (4.4-11.0)
--- NOTE | 2023-03-22 05:55 | EKG12_ITS ---
Test Reason : CP Blood Pressure : / mmHG Vent. Rate : 078 BPM Atrial Rate : 078 BPM P-R Int : 138 ms QRS Dur : 084 ms QT Int : 382 ms P-R-T Axes : 060 042 061 degrees QTc Int : 435 ms Normal sinus rhythm Normal ECG When compared with ECG of 20-MAR-2023 23:47, MANUAL COMPARISON REQUIRED, DATA IS UNCONFIRMED Confirmed by OLENA PINTO, AYALA ([id number]), editor trade journal AL ADAMS ([id number]) on 03/23/2023 11:46:51 AM Referred By: MONTY Confirmed By:AYALA HYATT MD
[2023-03-22] MEDS: Carbidopa/Levodopa 25/100 Tablet PO ×2 (06:04→11:28)
[2023-03-22] MEDS: Losartan Potassium 25 MG Tablet PO (06:04)
[2023-03-22] MEDS: Aspirin E.C. 81 MG Tablet PO (06:04)
[2023-03-22 06:06] VITALS: BP 145/79
[2023-03-22 06:11] LABS: Anion Gap 6 (5-15); BUN 14 mg/dL (7-18); BUN/Creat Ratio 16.3 RATIO (10-20); Calcium,Total 8.8 mg/dL (8.5-10.1); Chloride 109 mmol/L (98-107); Creatinine, Serum 0.86 mg/dL (0.55-1.02); EST Glomerular Filtration Rate 69 mL/min (>60); Est Glom Filt Rate - Afr Amer 83 mL/min (>60); Glucose 93 mg/dL (74-106); Magnesium 2.2 mg/dL (1.6-2.6); Potassium 3.9 mmol/L (3.5-5.1); Sodium Level 141 mmol/L (136-145)
[2023-03-22 07:54] VITALS: O2SAT 92
--- NOTE | 2023-03-22 08:50 | DCINST_ITS ---
Discharge Instructions Diet Discharge Diet: 2000 mg Sodium Diet Activity Discharge Activity: Return to Normal Activity Weight Bearing Status: Weight bearing as tolerated Dressing / Incision Call your doctor if you observe: Fever of 101 or Higher, Coldness, Increased Pain, Numbness or Tingling, Change in Color, Inability to urinate, Inability to have a bowel movement, Using more than 1 pad per hour, Shortness of breath, Dizziness, Fainting spells, Swelling in the ankles, Chest pain, Prolonged hiccupping, Increased palpitations (irregular heartbeat) and Calf discomfort Follow Up Care When: IN 2 WEEKS Test Results: Test results from this visit will be discussed in further detail at your follow- up appointment, if applicable. Discharge Plan Admission Admit Date/Time: 03/20/23 22:04 Primary Reason for Your Visit: Atypical chest pain. Attending Provider: Erik Golden Primary Care Provider: Roxy Wallace Consulting Providers: Javad Cespedes ; Iman Pierson Discharge Orders/Prescriptions Prescriptions: New losartan 50 mg tablet 50 mg PO DAILY 30 Days Qty: 30 2RF pantoprazole [Protonix] 40 mg tablet,delayed release (DR/EC) 40 mg PO DAILY Qty: 30 2RF Continued [id number]-[id number]-[id number] 12.5-50-200 mg tablet 2 tab PO TID lorazepam [Ativan] 0.5 mg Tablet 1 - 2 PO Q6H PRN PRN (Reason: Anxiety) ondansetron 4 mg Tablet,Disintegrating 4 mg PO Q8H bupropion HCl 150 mg Tablet Extended Release 24 Hr 150 mg PO DAILY zolpidem 6.25 mg Tablet,Ext Release Multiphase 6.25 mg PO QHS Changed meloxicam 15 mg tablet 7.5 mg PO DAILY PRN (Reason: arthritis pain) Qty: 30 0RF Rx Instructions: Do not take in conjunction with other NSAIDs, Tylenol is okay. Discontinued losartan 25 mg tablet 25 mg PO DAILY Referrals / Follow Up: Roxy Wallace DO [Primary Care Provider] - Within 1 Week (for HTN, POSSIBLE GERD) Disposition Disposition (needs filled in before D/C Order can be placed): Home, Self Care
--- NOTE | 2023-03-22 10:07 | CASEMGMT ---
RN CM NOTE: To room to complete DAVIS. Pt out of room for stress test at this time. Corine SMARTN SAMEER CM
[2023-03-22] MEDS: buPROPion (XL) 150 MG TABLET.XL PO (11:28)
[2023-03-22 11:31] VITALS: BP 131/76; PULSE 80; RESP 14; TEMP 36.7; O2SAT 95
--- NOTE | 2023-03-22 11:37 | STRESSREP ---
Stress Test Report Pharmacologic myocardial perfusion stress test. 72-year-old lady with a history of chest pain Resting EKG demonstrates sinus rhythm with a rate of 90 bpm. Resting blood pressure is 152/86 mmHg. 0.4 mg of regadenoson was infused per usual protocol followed by rapid intravenous saline flush injection. Continuous EKG monitoring was performed. The maximum heart rate was 108 bpm which was 72% of max predicted heart rate the maximum workload was 1 metabolic equivalent. At rest there were no ST or T wave changes noted to suggest ischemia and at peak infusion nonspecific ST changes were noted which did not meet the criteria for ischemia. No clinical angina is noted. The final blood pressure was 138/72 mmHg. Myocardial perfusion protocol. 12.0 mCi of technetium 99m sestamibi was injected at rest. 0.4 mg of regadenoson was infused per usual protocol. At peak infusion 34.1 mCi of technetium 99m sestamibi was injected stress images were obtained stress and rest images were reconstructed and compared in the short axis vertical long and horizontal long axis. Gated images were also obtained. Perfusion SPECT analysis: Review of the stress images demonstrate normal uptake of tracer noted in all areas of the myocardium. The resting images similar demonstrated normal uptake of tracer noted in all areas of the myocardium. No areas of reversibility are noted to suggest ischemia and no previous infarct is noted. Gated SPECT analysis: The gated ejection fraction is 74%. Conclusion: Normal pharmacologic myocardial perfusion stress test. Preserved ejection fraction.
--- NOTE | 2023-03-22 12:18 | CASEMGMT ---
SAMEER CM in to complete DAVIS Form with patient. SAMEER CANTOR explained DAVIS form, patient voiced understanding. Patient signed DAVIS Form and filed in chart. Patient provided with copy of signed DAVIS form. Patient had no further questions or concerns at this time.
--- NOTE | 2023-03-22 13:15 | DS.PCM_ITS ---
Providers Date of Admission: 03/20/23 Date of Discharge: 03/22/23 Primary Care Physician: Dr. Roxy Wallace DO Reason For Visit: CHEST PAIN Diagnosis Discharge Diagnosis (1) Chest pain: Status: Acute Code(s): R07.9 - Chest pain, unspecified Plan This is 72-year-old female with history of hypertension and parkinsonism was admitted with chest pain that lasted for about 1 to 2 hours. She felt like chest tightness while playing board games. She also had tingling sensation. Patient also had shortness of breath for about 4 to 5 days. She was admitted in PCU. Symptoms resolved. She was admitted in PCU. 1. Atypical chest pain, ACS/unstable angina ruled out. Patient had serial troponin enzymes which have resolved. Chest x-ray was unremarkable. Initial EKG shows subtle ST elevation in V1 V2 that resolved with repeat EKG. Patient had myocardial nuclear stress test which was reported normal. Preserved EF 74%. There are other differential which patient might have which includes GERD/esophagitis, esophageal dysmotility, pleuritis or costochondritis. Patient has history of nausea with food. Prescription for pantoprazole given. Patient was suggested if atypical chest pain does not get better with pantoprazole, follow-up with Dr. Tapia in 1 to 2 months for EGD 2. Hypertension: Patient with concern about her blood pressure. BP was elevated during hospital course 188/96 and required 5 mg hydralazine IV. She is on losartan 25 mg increased to 50 mg daily. Follow with PCP. 3. Other comorbidities include anxiety disorder, restless leg and degenerative arthritis. Patient on 15 mg meloxicam, dose decreased to 7.5 mg daily as needed for arthritis pain. Discharge medication reconciliation done. Discharge follow-up instructions completed. Discharge process discussed with the patient and all questions were answered to patient's satisfaction. Total time spent, exact 35 minutes on discharge meds reconciliation, examination, coordination of care with nurses and ancillary staff, review of imaging and blood test and discussion with the patient on follow-up instructio ns. Medications at Discharge Home Medications carbidopa 12.5 mg-levodopa 50 mg-entacapone 200 mg tablet 2 tab PO TID 11/20/22 lorazepam 0.5 mg tablet (Ativan) 1 - 2 PO Q6H PRN PRN Anxiety 03/11/23 bupropion HCl 150 mg 24 hr tablet, extended release 150 mg PO DAILY 03/20/23 ondansetron 4 mg disintegrating tablet 4 mg PO Q8H nausea 03/20/23 zolpidem 6.25 mg tablet,extended release,multiphase 6.25 mg PO QHS 03/20/23 losartan 50 mg tablet 50 mg PO DAILY 30 days #30 tabs 03/22/23 meloxicam 15 mg tablet 7.5 mg PO DAILY PRN arthritis pain #30 tabs 03/22/23 pantoprazole 40 mg tablet,delayed release (Protonix) 40 mg PO DAILY #30 tabs 03/22/23 Physical Exam Narrative Seen and examined. Chest pain has resolved. Shortness of breath at rest. General: Alert, Oriented x3, Cooperative HEENT: Atraumatic, PERRLA, EOMI, Normocephalic Oral: Oral mucosa moist. No Gingival or Mucosal Lesions/ Ulcerations Neck: Supple, No JVD, Negative Carotid Bruits Lungs: Air entry diminished in bilateral lung bases. No crepitation/rhonchi Cardiovascular: Regular rate, Regular Rhythm, Normal S1, Normal S2, soft systolic murmur grade 2/6 over the and right second ICS. Abdomen: Bowel Sounds Present, Soft, Non Tender, Non-Distended : No renal angle tenderness. No suprapubic tenderness. Extremities: No edema, Capillary Refill Less than 3 Seconds Skin: No rashes, No breakdown Musculoskeletal: No Tenderness to Palpation of Joints or Extremities Neurological: Cranial nerves II-XII grossly intact, DTR 2+/4 and Symmetrical, Neuro grossly intact Psych/Mental Status: Normal Affect, Appropriate. Weight / BMI Weight Weight: 201 lb 8.04 oz Body Mass Index (BMI) 31.5 ABG / Lab / Microbiology Data Result Diagrams: 03/22/23 05:08 03/22/23 05:08 Laboratory: Laboratory Results - last 24 hr 03/21/23 16:10: Troponin I High Sens 6 03/22/23 05:08: WBC 8.7, RBC 4.88, Hgb 15.4 H, Hct 44.5, MCV 91.2, MCH 31.6, MCHC 34.6, RDW Std Deviation 44.3 H, RDW Coeff of Fozia 13.2, Plt Count 288, MPV 9.2, Immature Gran % (Auto) 0.200, Neut % (Auto) 64.1, Lymph % (Auto) 23.5, [place] % (Auto) 7.2, Eos % (Auto) 3.6, Baso % (Auto) 1.4 H, Absolute Neuts (auto) 5.6, Absolute Lymphs (auto) 2.04, Nucleated RBC % 0 03/22/23 05:08: Sodium 141, Potassium 3.9, Chloride 109 H, Carbon Dioxide 26.0, Anion Gap 6, BUN 14, Creatinine 0.86, Estim Creat Clear Calc 57.50, Est GFR (MDRD) Af Amer 83, Est GFR (MDRD) Non-Af 69, BUN/Creatinine Ratio 16.3, Glucose 93, Calcium 8.8, Magnesium 2.2 D/C Instructions Discharge Diet: 2000 mg Sodium Diet Weight Bearing Status: Weight bearing as tolerated Call your doctor if you observe: Fever of 101 or Higher, Coldness, Increased Pain, Numbness or Tingling, Change in Color, Inability to urinate, Inability to have a bowel movement, Using more than 1 pad per hour, Shortness of breath, Dizziness, Fainting spells, Swelling in the ankles, Chest pain, Prolonged hiccupping, Increased palpitations (irregular heartbeat) and Calf discomfort When: IN 2 WEEKS Meaningful Use Info Meaningful Use Diagnoses (Choose all that apply): None applicable Discharge Plan Admission Admit Date/Time: 03/20/23 22:04 Primary Reason for Your Visit: Atypical chest pain. Attending Provider: Erik Golden Primary Care Provider: Roxy Wallace Consulting Providers: Javad Cespedes ; Iman Pierson Discharge Orders/Prescriptions Prescriptions: New losartan 50 mg tablet 50 mg PO DAILY 30 Days Qty: 30 2RF pantoprazole [Protonix] 40 mg tablet,delayed release (DR/EC) 40 mg PO DAILY Qty: 30 2RF Continued [id number]-psxncztn-kthgwokxbo 12.5-50-200 mg tablet 2 tab PO TID lorazepam [Ativan] 0.5 mg Tablet 1 - 2 PO Q6H PRN PRN (Reason: Anxiety) ondansetron 4 mg Tablet,Disintegrating 4 mg PO Q8H bupropion HCl 150 mg Tablet Extended Release 24 Hr 150 mg PO DAILY zolpidem 6.25 mg Tablet,Ext Release Multiphase 6.25 mg PO QHS Changed meloxicam 15 mg tablet 7.5 mg PO DAILY PRN (Reason: arthritis pain) Qty: 30 0RF Rx Instructions: Do not take in conjunction with other NSAIDs, Tylenol is okay. Discontinued losartan 25 mg tablet 25 mg PO DAILY Referrals / Follow Up: Roxy Wallace DO [Primary Care Provider] - Within 1 Week (for HTN, POSSIBLE GERD) Disposition Disposition (needs filled in before D/C Order can be placed): Home, Self Care Charges/Coding Visit Charges Inpatient E&M: 34084 Disch Hosp >30min
--- NOTE | 2023-03-22 13:47 | PHA.DC.MR ---
Pharmacy Service has performed discharge medication reconciliation for this patient. The patient's discharge medication list was reviewed for discrepancies and discrepancies were resolved. Medication education papers prepared, patient discharged when I attempted to deputy chief counsel. Home Medications carbidopa 12.5 mg-levodopa 50 mg-entacapone 200 mg tablet 2 tab PO TID 11/20/22 lorazepam 0.5 mg tablet (Ativan) 1 - 2 PO Q6H PRN PRN Anxiety 03/11/23 bupropion HCl 150 mg 24 hr tablet, extended release 150 mg PO DAILY 03/20/23 ondansetron 4 mg disintegrating tablet 4 mg PO Q8H nausea 03/20/23 zolpidem 6.25 mg tablet,extended release,multiphase 6.25 mg PO QHS 03/20/23 losartan 50 mg tablet 50 mg PO DAILY 30 days #30 tabs 03/22/23 meloxicam 15 mg tablet 7.5 mg PO DAILY PRN arthritis pain #30 tabs 03/22/23 pantoprazole 40 mg tablet,delayed release (Protonix) 40 mg PO DAILY #30 tabs 03/22/23
== END 2023-03-22 13:15 | disposition home or self-care (01) ==
LOC: ED 20:59 → PCU 22:38
PROVIDERS: Internal Medicine; Admitting Provider Hospitalist; Emergency Provider Emergency Medicine; PCP Family Medicine; Visit Provider Internal Medicine
DX: R07.89 Other chest pain (principal); G20 Parkinson's disease; R42 Dizziness and giddiness; I10 Essential (primary) hypertension; R11.0 Nausea; F41.9 Anxiety disorder, unspecified; Z79.899 Other long term (current) drug therapy; G25.81 Restless legs syndrome; R06.00 Dyspnea, unspecified; M17.12 Unilateral primary osteoarthritis, left knee; Z86.79 Personal history of other diseases of the circulatory system
CPT/HCPCS: 36415; 71045; 78452; 80048; 80061; 82728; 83735; 84484; 85025; 93005; 93017; 96372; 96374; 99221; 99285; A9500; A4216; G0378; J2785

== ENCOUNTER 2023-04-06 06:04 | Inpatient (IN) | payer MEDICARE, SELFPAY ==
[2023-03-24 14:45] LABS: Partial Thromboplast Time 31.3 Seconds (24.1-36.2); Prothrombin Time (Protime)PT. 13.2 SECONDS (11.7-14.9)
[2023-03-24 15:04] LABS: Hemoglobin A1c 5.3 % (3.8-5.6)
[2023-03-24 15:07] LABS: Magnesium 2.3 mg/dL (1.6-2.6); Thyroid Stim Hormone (TSH) 0.66 uIU/mL (0.358-3.74)
[2023-03-26 05:07] LABS: Fructosamine 239 umol/L (0-285)
[2023-04-06] VITALS (12 sets, daily range): BP systolic 106–152; BP diastolic 50–85; PULSE 67–85; RESP 16–17; TEMP 36.2–37.1; O2SAT 93–98; BMI 31.4
--- NOTE | 2023-04-06 07:12 | HP.PCM_ITS ---
History and Physical Date of Admission: 04/06/23 [facility] [address] [place] [address] OFFICE VISIT Date of Service:? 02/17/23 MR#: [id number] Acct: [id number] Name:WALI PIEDRA Rep #: [id number] : 1950 ? ? Provider: Dr. Javad Elaine, DO Age/Sex:? 72/F ? ? Location: [facility] [place] Status: Signed Intake Intake Visit Reasons:?LEFT KNEE Chief Complaint: left knee Is patient in pain?: Yes (left knee) Pain scale (1-10): 5 Allergies No Known Allergies Allergy (Verified 02/17/23 14:30) Medications losartan 25 mg tablet tablet PO 08/12/22 [History Confirmed 11/20/22] multivitamin 1 tab PO DAILY 08/12/22 [History Confirmed 11/20/22] gabapentin 100 mg capsule cap PO 09/30/22 [History Confirmed 11/20/22] carbidopa 12.5 mg-levodopa 50 mg-entacapone 200 mg tablet 1 tab PO TID 11/20/22 [History Confirmed 11/20/22] meloxicam 15 mg tablet 15 mg PO DAILY Pain #30 tabs 12/25/22 [Rx] PFSH Medical History?(Updated 02/17/23 @ 14:51 by Elizabeth Hartley) Hypertension Left knee pain Left leg pain Osteoarthritis of left knee Puncture wound of right foot Synovial cyst of popliteal space [Grady], left knee Surgical History? History of varicose vein stripping Family History? Other Cancer Heart disease Social History? Smoking Status:? Never smoker alcohol intake:? current alcohol intake frequency: holidays/special occasions only HPI LEFT KNEE Chief Complaint: left knee pain Details: Parts of this documentation were recorded by a scribe, this documentation accurately reflects the service provided and the decisions made by me, Dr. Javad Elaine, DO 02/17/23 [id number]. WALI LOCKWOOD is a 72 year old F here today to? f/u on left knee DJD medial tibial plateau stress fracture medial meniscus tear. She is not wearing her knee brace and only wore it for the first couple weeks. 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 Pt. did not feel it was helpful. She rates her pain 5/10 when standing and walking and continues to increase the longer she is on it. She has been treating pain at home with elevation and Tylenol. She continues to take Meloxicam which gives her minimal relief. Left knee steroid injection 07/2022 which wasnt helpful at the time. Ortho Exam General General: Yes no acute distress Neurologic: Yes alert and Yes oriented x3 Left Knee Skin/Wound: Yes CDI, No ecchymosis, No erythema and No swelling Homans Sign: No Knee ROM: Yes ROM-Extension -20 to 0 and No ROM-Flexion 0-140 (110) Examination: Yes med jt line tenderness, No Lat jt line tenderness, Yes Crepitus and Yes TTP Pes Anserine Stability: NML: Anterior Drawer and NML: Posterior Drawer and 1+: Valgus 0 and 1+: Valgus 30 (4mm medial gapping valgus stress) Apprehension with Lateral Translation: No KNEE: no joint effusion 2/4 pulses neurovascularly intact Head: Normocephalic Atraumatic Chest: symmetrical rise, non-labored breathing, no audible wheeze Abdomen: no guarding, non-rigid Supplemental Info 01/01/2023 x-ray left knee: There has been progression of knee arthrosis medial compartment and patellofemoral compartment from previous x-rays, moderate medial joint space narrowing subchondral sclerosis of the tibial plateau, Moderate patellofemoral arthrosis 11/06/2022 MRI left knee: Medial meniscus tear posterior horn and body diffuse greater than 50% cartilage loss of the medial compartment with spur formation.? There is marrow edema with subchondral fracture of the medial tibial plateau 08/12/2022 x-ray left tib-fib: Small posterior ossification distal tibia, diffuse less than 50% cartilage loss of the lateral compartment with mild spur formation, diffuse greater than 50% thickness cartilage loss of the patellofemoral compartment 08/12/2022 x-ray left knee: Mild medial joint space narrowing with sharpening of the tibial spines mild spurring medial compartment, mild to moderate patellofemoral arthrosis 07/11/2022 x-ray left knee: Mild to moderate patellofemoral arthrosis early degenerative changes medial lateral compartments Coding Level of Care Code Off vis,est,level 3 Diagnoses Osteoarthritis of left knee? M17.12 Left medial tibial plateau fracture? S82.132A Assessment and Plan Assessment and Plan (1) Osteoarthritis of left knee: ?Status:?Acute (2) Left medial tibial plateau fracture: ?Status:?Acute Plan Patient educated that she does have arthritis of the left knee and she has a meniscus tear . Treatment options are do nothing or PT or continue with bracing or injections or knee arthroscopy for meniscus tear or a total knee arthroplasty. Educated that she can still continue to have pain after the knee arthroscopy d/t her level of arthritis. She doesn't wish to proceed with left knee arthroscopy at this time d/t the risk of still having pain.?Risks, benefits and alternatives of surgery reviewed including but not limited to bleeding, infection, nerve, artery and/or tissue damage, fracture, VTE, mechanical feel of the knee, continued pain, stiffness and expected post-operative course.?? Patient are typically happy that they had surgery around 3 months post op but can improve for up to 2 years post op. Most important part of recovery is PT and gaining ROM. She will need a CT scan prior to surgery. Will need PCP clearance. Would recommend admission d/t patients age and undiagnosed tremor which she would benefit from physical therapy before returning home. she does live alone as she is a recent . Follow up 2 weeks post op or sooner if pain, swelling, numbness or associated symptoms, or concerns develop.? All questions answered. Patient in agreement of plan. 02/17/23 1507 <Electronically signed by Javad Elaine DO> Date Javad Elaine DO I have examined the patient and the H&P has been reviewed. There are no clinical changes since date of exam.
[2023-04-06] MEDS: Lactated Ringers 1,000 ML 125 ML IV ×2 (07:13→11:42)
[2023-04-06] MEDS: Magnesium 1 GM over 15 mins IV (07:13)
[2023-04-06] MEDS: Celecoxib 200 MG Capsule 400 MG PO (07:14)
[2023-04-06] MEDS: Gabapentin 600 MG Tablet PO (07:14)
[2023-04-06] MEDS: Acetaminophen 500 MG Tablet 1000 MG PO ×3 (07:14→21:07)
[2023-04-06] MEDS: Scopolamine 1mg/72hr Patch 1 PATCH TD (07:14)
[2023-04-06 07:25] LABS: Bedside Glucose 101 mg/dL (74-106)
[2023-04-06] MEDS: Cefazolin 2 GM in 0.9% Normal Saline 100 ML IV (08:35)
[2023-04-06] MEDS: dexAMETHasone 10 MG/ML Vial IV (08:40)
[2023-04-06] MEDS: TXA 1000mg in NS100 100ml (IVPB at Incision) 660 MG IV (08:40)
--- NOTE | 2023-04-06 08:45 | KNEE_PTH ---
PATIENT: WALI LOCKWOOD LOC: MS3 U#:[id number] AGE/SX: 72/F ROOM: MT316 RE04/06/[address]: Dr. Javad Elaine DO : 1950 BED: 1 DIS: 04/08/2023 SPEC #: [id number] RECD: 04/06/23 12:18 STATUS: KRISTOPHER STRICKLAND #: [id number] RAQUEL: 04/06/23 08:[address]: Javad Elaine DEPT: SURGICAL PATHOLOGY RECD BY: Sierra Banks ENTERED: 04/06/23 12:59 SP TYPE: TOTAL KNEE OTHR DR: MD Dr. Roxy Osuna DO Tissues: Knee, NOS Procedures: Decalcification bone/plaque Surgery Specimen Level IV HEADER OPERATION: ERAS, total knee replacement robotic arm assist PRE-OP DIAGNOSIS: Osteoarthritis of left knee; left medial tibial plaque fracture TISSUE SUBMITTED: Left knee bone and tissue MICROSCOPIC DIAGNOSIS Bone and tissue of left knee, total knee resection: Severe degenerative joint disease. Mild synovial hyperplasia. AM:esme 04/08/2023 MICROSCOPIC DESCRIPTION Slides are reviewed. GROSS DESCRIPTION Received is one container designated bone and tissue left knee. The specimen consists of multiple fragments of kruger-yellow bone measuring in aggregate 12.0 x 10.0 x 2.0 cm. Also in the specimen container are multiple fragments of yellow-white soft tissue measuring in aggregate 6.0 x 4.0 x 1.0 cm. A number of bony fragments contain articular surfaces consistent with tibial plateau and femoral condyle and displaying prominent osteophyte formation, eburnation and bone erosion. Operations Specialists sections are submitted in two cassettes as follows: 1 - soft tissue, 2 - bone after decalcification. / AM:esme 04/06/2023 TC:5 CPT: 47916, 34586
[2023-04-06] MEDS: TXA 1000mg in NS100 100ml (IVPB at Closure) 660 MG IV (09:12)
[2023-04-06] MEDS: dexAMETHasone 4 MG/ML Vial (10:25)
[2023-04-06] MEDS: 0.9% Normal Saline (Pres. free 10 ML Vial (10:25)
[2023-04-06] MEDS: Epinephrine (1 mg/ml) 1 MG/ML VIAL (10:25)
--- NOTE | 2023-04-06 11:02 | PCM.OP.BLANK ---
Operative Report Date of Procedure: 04/06/23 Preoperative diagnosis: Left knee DJD Postoperative diagnosis: Same Procedure: Left total knee arthroplasty CT guided Robotic Assisted Implant: Manasa triathlon cemented, femoral component size 2, tibial baseplate size 3, asymmetric patella size 29, polyethylene X3 size 9 CS Anesthesia: Spinal with adductor canal block Tourniquet time: 12 minutes at 300 mmHg Complications: None Condition: Stable to PACU Estimated blood loss: 200 cc Implementation Coordinator Darshan Mckeon. My physician funeral home assistant was a vital part of this case. He was important in appropriate retraction during the case, and protection of soft tissues during procedure. His intimate knowledge of the case and my steps aided in safe and expedient completion of the procedure as well as appropriate position of the extremity during the case. He was also vital in assisting with closure under my direct supervision. Indication for procedure: This is a 72-year-old female with long standing degenerative joint disease of the knee who has failed conservative treatment and wished to proceed with elective total knee arthroplasty. Risk benefits and alternatives were reviewed including; risk of bleeding, infection, nerve artery and tissue damage, continued pain, postoperative stiffness, venous thromboembolism, need for postoperative rehabilitation, mechanical feel to the knee, and expected postoperative course. The pre- operative CT and templating was performed with component sizing. Procedure: The patient was met in the preoperative holding area. The operative extremity was identified by both patient and physician and was marked. Patient was met by anesthesia. An adductor canal block was placed by anesthesia postoperatively the patient was brought back to the operating room on a wheeled cart and transferred to the operating table in the supine position. Anesthesia was started. A well-padded tourniquet was placed on the operative extremity. The patient was prepped and draped in the usual sterile fashion. A timeout was called to ensure the proper patient procedure and extremity were being contemplated. An esmarch was used to exsanguinate the extremity. The tourniquet was inflated. A 10 blade scalpel was used to make a midline incision down through the skin and subcutaneous tissue. Skin retractors placed. Bovie and Aquamantis were used to perform meticulous hemostasis. full-thickness flaps were elevated medial and lateral along the joint capsule. A deep blade scalpel was used to perform a medial parapatellar arthrotomy. The knee was brought to full extension. A bovie was used to release the soft tissues off the most proximal aspect of the medial tibial plateau, a three-quarter inch curved osteotome was also used in this process. The infrapatellar fat pad was excised. The suprapatellar fat pad was excised partially anteriorolateraly and portion the anterioromedial pad was elevated from the femur. At this point our intra-articular femoral array was placed at a 45 degree angle proximal and posterior to the medial epicondyle. femoral checkpoint was placed at this time. Our tibial array was placed greater than 1 hands breath below the incision at a 20 degree angle stab incisions were made with a 15 blade scalpel and pins were placed and attached to the tibial array , tibial checkpoint was placed in the proximal tibial metaphysis. Tourniquet was let down. At this point registration mccartney were taken throughout the knee . Once the knee was registered we then tensioned the medial and lateral ligaments in extension and 90 degrees of flexion. We then used these numbers to adjust our components within parameters to balance the knee in both flexion and extension once this was done on our monitor we then proceeded with using the robotic arm to make our tibial plateau cut, anterior and posterior chamfer and distal femur cuts. we removed the cut fragments with the use of a bovie and Placido, we did use a lamina communication lecturer to insure we visualized and removed all posterior osteophytes and at this time also used the Aquamantis on the posterior joint capsule. we then trialed and achieved the desired plan with a well-balanced knee. we used the green probe to cecy the corresponding tibial rotation based on our CT template. Lug holes were drilled in the femur the tibia preparation was completed with the appropriate sized base plate pinned based on previous rotation cecy. An appropriate sized fin punch was used on the tibia and the patella was prepared by first using a caliper to ensure sufficient bone stock and a patellar reamer to remove the desired amount of bone. lug holes drilled for an asymmetric poly. We then brought the knee through range of motion with excellent patellar tracking. We thoroughly irrigated the knee. Trial components were removed a posterior capsular injection was preformed with our standard cocktail. In addition the aqua Mantis was also used to aid in hemostasis. Betadine rinse was allowed to sit and washed out completely. Components were cemented excess cement was removed with a curette and a Wapiti elevator. Aricept rinse was then used followed by several more liters of irrigation after it was allowed to sit. The joint capsule was closed with #1 Ethibond [id number] followed by Vicryl in the subcutaneous tissues with josemanuel in the skin. Arrays and checkpoints were removed prior to closure all counts were correct stab incisions were closed with a staple standard dressing in the form of Mepilex AG for the main incision and a small Mepilex over the pin holes. Thigh-high EITAN hose applied over top of dressing. Patient tolerated the procedure well and was directed to PACU in stable condition . There were no intraoperative complications.
--- NOTE | 2023-04-06 11:30 | RAD_ITS ---
STUDY: X-RAY - LEFT KNEE REASON FOR EXAM: Female, 72 years old. Post op -- AP and Lateral xray of operative knee in PACU TECHNIQUE: 2 view(s) of the knee. COMPARISON: Comparison is made with prior study dated January 01, 2023. FINDINGS: Normal visualized distal femur. Normal visualized proximal tibia and fibula. Normal proximal tibiofibular articulation. The patient is status post total knee replacement. There is good alignment. Postoperative soft tissue changes. RAD/Knee 1 or 2 Views IMPRESSION: Status post total knee replacement. There is good alignment. Postoperative soft tissue changes. Electronically Signed: Mateo Cummings MD at 12:25 EDT ,
[2023-04-06] MEDS: Cefazolin 1 GM/50 ML BAG IV ×2 (11:42→19:41)
[2023-04-06] MEDS: Senna/Docusate Sodium 1 Tablet 2 TABLET PO (21:07)
[2023-04-06] MEDS: oxyCODONE 5 MG Tablet PO (21:13)
[2023-04-06] MEDS: Zolpidem Tartrate 5 MG Tablet PO (21:13)
[2023-04-07 00:48] VITALS: BP 122/57; PULSE 95; RESP 17; TEMP 36.7; O2SAT 95; BMI 31.4
[2023-04-07] MEDS: Cefazolin 1 GM/50 ML BAG IV (03:47)
[2023-04-07 04:20] VITALS: BP 117/55; PULSE 61; RESP 17; TEMP 36.7; O2SAT 96
[2023-04-07 04:26] VITALS: BMI 31.4
[2023-04-07] MEDS: APIXABAN 2.5 MG TABLET (WCH) PO ×2 (06:01→21:06)
[2023-04-07] MEDS: Acetaminophen 500 MG Tablet 1000 MG PO ×3 (06:01→21:06)
[2023-04-07 07:00] LABS: Hematocrit 39.5 % (37-47); Mean Corp Hgb Conc 32.9 g/dL (32-36); Mean Corpuscular Hgb 30.3 pg (27.0-32.0); Mean Corpuscular Volume 92.1 fL (81-99); Mean Platelet Vol. 9.4 fl (6.2-12.0); Platelet Count 318 K/mm3 (150-450); RBC Distribution Width CV 13.1 % (11.6-14.6); RBC Distribution Width SD 44.1 fl (35.1-43.9); Red Blood Count 4.29 M/mm3 (4.2-5.4); White Blood Count 14.2 K/mm3 (4.4-11.0)
[2023-04-07 07:26] VITALS: BP 149/67; PULSE 83; RESP 16; TEMP 36.6; O2SAT 93
[2023-04-07 07:33] LABS: Anion Gap 7 (5-15); BUN 11 mg/dL (7-18); BUN/Creat Ratio 11.7 RATIO (10-20); Calcium,Total 8.5 mg/dL (8.5-10.1); Chloride 110 mmol/L (98-107); Creatinine, Serum 0.94 mg/dL (0.55-1.02); EST Glomerular Filtration Rate 62 mL/min (>60); Est Glom Filt Rate - Afr Amer 75 mL/min (>60); Estimated Creatinine Clearance 52.61 ml/min; Glucose 117 mg/dL (74-106); Potassium 3.8 mmol/L (3.5-5.1); Sodium Level 143 mmol/L (136-145)
[2023-04-07] MEDS: Senna/Docusate Sodium 1 Tablet 2 TABLET PO ×2 (10:24→21:05)
[2023-04-07] MEDS: buPROPion (XL) 150 MG TABLET.XL PO (10:25)
[2023-04-07] MEDS: Losartan Potassium 50 MG Tablet PO (10:25)
--- NOTE | 2023-04-07 12:37 | PCM.PN.ORT ---
Subjective Subjective Seen and examined doing well pain controlled no significant pain when she is not moving. Denies fevers chills nausea vomiting shortness of breath or chest pain Objective Data Objective Data Vital Signs: Vital Signs Temp Pulse Resp BP Pulse Ox O2 Del Method O2 Flow Rate 97.8 F 83 16 149/67 H 93 Room Air 4 04/07/23 07:26 04/07/23 07:26 04/07/23 07:26 04/07/23 07:26 04/07/23 07:26 04/07/23 07:26 04/06/23 12:06 Oxygen Flow Rate (L/min) 4 Oxygen Delivery Method Room Air Weight: 200 lb 6.403 oz Body Mass Index (BMI) 31.4 Intake & Output: Intake and Output for Last 24 Hours 04/05/23 04/06/23 04/07/23 23:59 23:59 23:59 Intake Total 2852 / 2852 270 / 270 Balance 2852 / 2852 270 / 270 Lab / Micro Data Result Diagrams: 04/07/23 06:20 04/07/23 06:20 Labs: Laboratory Results - last 24 hr 04/07/23 06:20: WBC 14.2 H, RBC 4.29, Hgb 13.0, Hct 39.5, MCV 92.1, MCH 30.3, MCHC 32.9, RDW Std Deviation 44.1 H, RDW Coeff of Fozia 13.1, Plt Count 318, MPV 9.4 04/07/23 06:20: Sodium 143, Potassium 3.8, Chloride 110 H, Carbon Dioxide 26.0, Anion Gap 7, BUN 11, Creatinine 0.94, Estim Creat Clear Calc 52.61, Est GFR (MDRD) Af Amer 75, Est GFR (MDRD) Non-Af 62, BUN/Creatinine Ratio 11.7, Glucose 117 H, Calcium 8.5 Micro: Microbiology 03/24/23 13:59 Nasal Secretion Nasal Screen MRSA/MSSA - Final Physical Exam Const alert, oriented x3 and no apparent distress General Appearance: cooperative Extremity Extremity Narrative: Left lower extremity dressings clean dry intact compartment soft neurovascular intact EHL tibialis anterior gastrocsoleus intact station light touch 2/4 pedal pulses Assessment & Plan Assessment/Plan (1) S/P total knee arthroplasty: PLAN: Plan Postop day #1 left total knee arthroplasty Doing well pain control oxycodone Tylenol PT OT weightbearing as tolerated DVT prophylaxis SCDs Eliquis thigh-high EITAN fuentes DC planning tomorrow.
--- NOTE | 2023-04-07 13:00 | CASEMGMT ---
SAMEER CANTOR Assessment: Face to Face with pt for initial transition planning/care coordination assessment. SAMEER CANTOR introduced self and role at [facility], pt voices understanding and consents to assessment. Pt is A/O x4 and answers all questions appropriately at this time. Pt sitting up in chair with dtr and niece at bedside. Pt agreeable to assessment with family present. Care providers, pharmacy, and demographics verified/updated. Admitting Dx: Lt total knee with uri PCP:[facility] Specialists:Argentina, ortho; Karuna, neuro; Jennifer, neuro; teresa Weinstein Preferred Pharmacy: [facility] Insurance: [employer] [facility] Prescription Benefit: yes LNOK: Kirstin Boyle, dtr; hanna Your Living Arrangements: Pt lives alone in a single story home with a ramp to enter. Pt reports she was I in ADL's prior to surgery. Pt will have assistance by multiple family members post surgery. Pt states her dtr will be staying overnight to assist. Pt denies concerns at home. Transportation: Pt drives self and denies concerns with transportation. Pt dtr will transport pt post surgery. DME/HHC/SNF: Pt has a rollator, straight cane, raised toilet seat, walk in shower and shower chair. Pt denies hx of HHC or SNF stays. Pt states no concerns with going home at time of dc. She states she has outpt therapy set up for Wednesday. Pt states no further concerns/needs. CM to follow. Advised pt to ask CM if any further question/concerns/needs arise, voices understanding. Pt Goal: Home with outpt therapy set up Plan: Home with outpt therapy set up
[2023-04-07 13:52] VITALS: BP 117/58; PULSE 83; RESP 16; TEMP 36.4; O2SAT 96
[2023-04-07 21:00] VITALS: BP 114/58; PULSE 77; RESP 17; TEMP 36.3; O2SAT 95
[2023-04-07] MEDS: Zolpidem Tartrate 5 MG Tablet PO (21:13)
[2023-04-08 02:30] VITALS: BP 123/54; PULSE 73; RESP 16; TEMP 36.6; O2SAT 97
[2023-04-08] MEDS: Acetaminophen 500 MG Tablet 1000 MG PO (05:37)
[2023-04-08 06:38] LABS: Hematocrit 37.9 % (37-47); Hemoglobin 12.7 g/dL (12.0-15.0); Mean Corp Hgb Conc 33.5 g/dL (32-36); Mean Corpuscular Hgb 31.3 pg (27.0-32.0); Mean Corpuscular Volume 93.3 fL (81-99); Mean Platelet Vol. 9.2 fl (6.2-12.0); Platelet Count 289 K/mm3 (150-450); RBC Distribution Width CV 13.2 % (11.6-14.6); RBC Distribution Width SD 45.8 fl (35.1-43.9); Red Blood Count 4.06 M/mm3 (4.2-5.4); White Blood Count 10.8 K/mm3 (4.4-11.0)
[2023-04-08 08:30] VITALS: BP 136/78; PULSE 83; RESP 16; TEMP 37; O2SAT 95
[2023-04-08] MEDS: oxyCODONE 5 MG Tablet PO (08:35)
[2023-04-08] MEDS: APIXABAN 2.5 MG TABLET (WCH) PO (08:35)
[2023-04-08] MEDS: Senna/Docusate Sodium 1 Tablet 2 TABLET PO (08:36)
[2023-04-08] MEDS: buPROPion (XL) 150 MG TABLET.XL PO (08:36)
[2023-04-08] MEDS: Losartan Potassium 50 MG Tablet PO (08:36)
--- NOTE | 2023-04-08 09:48 | PCM.PN.ORT ---
Subjective Subjective Seen and examined doing well good spirits no complaints Objective Data Objective Data Vital Signs: Vital Signs Temp Pulse Resp BP Pulse Ox O2 Del Method O2 Flow Rate 98.6 F 83 16 136/78 H 95 Room Air 4 04/08/23 08:30 04/08/23 08:30 04/08/23 08:30 04/08/23 08:30 04/08/23 08:30 04/08/23 08:30 04/06/23 12:06 Oxygen Flow Rate (L/min) 4 Oxygen Delivery Method Room Air Weight: 200 lb 6.403 oz Body Mass Index (BMI) 31.4 Intake & Output: Intake and Output for Last 24 Hours 04/06/23 04/07/23 04/08/23 23:59 23:59 23:59 Intake Total 2852 / 2852 590 / 590 120 / 120 Balance 2852 / 2852 590 / 590 120 / 120 Lab / Micro Data Result Diagrams: 04/08/23 06:20 04/07/23 06:20 Labs: Laboratory Results - last 24 hr 04/08/23 06:20: WBC 10.8, RBC 4.06 L, Hgb 12.7, Hct 37.9, MCV 93.3, MCH 31.3, MCHC 33.5, RDW Std Deviation 45.8 H, RDW Coeff of Fozia 13.2, Plt Count 289, MPV 9.2 Micro: Microbiology 03/24/23 13:59 Nasal Secretion Nasal Screen MRSA/MSSA - Final Physical Exam Const alert, oriented x3 and no apparent distress General Appearance: cooperative Extremity Extremity Narrative: Left lower extremity dressings clean dry intact compartment soft neurovascular intact EHL tibialis anterior gastrocsoleus intact station light touch 2/4 pedal pulses Assessment & Plan Assessment/Plan (1) S/P total knee arthroplasty: PLAN: Plan Postop day #2 left total knee arthroplasty Doing well pain control oxycodone Tylenol PT OT weightbearing as tolerated DVT prophylaxis SCDs Eliquis thigh-high EITAN hose DC home Start outpatient physical therapy Follow-up in the office 2 weeks
--- NOTE | 2023-04-08 09:49 | PCM.DC ---
Discharge Instructions Diet Discharge Diet: No restrictions Dressing / Incision Call your doctor if you observe: Shortness of breath and Chest pain Additional Dressing/Incision Instructions:: Ice and elevate lower extremities 2 weeks while not ambulating. Ambulation is encouraged. Weight bearing as tolerated. Use assistive devise for stability. Encourage FULL knee extension and flexion 1 time EVERY time you get up and down and MULTIPLE times per day. No showering 72 hours after surgery. Begin showering postop day #3. Remove the dressing prior to shower and gently wash with warm water and antibacterial soap then pat dry and place abdominal pad (or plain gauze) and EITAN hose over top. This is to be done daily. Do not submerge for 3 weeks. If not showering daily after the initial 72 hours then you must clean incision and change dressing daily. Do not allow animals near the incision area. Keep clean. Follow anti-coagulation recommendations as prescribed. Do not take any NSAIDs while on blood thinner. Do not take any additional narcotic pain medication other than what was prescribed on your surgery day without discussing with physician. Narcotic medication can be addictive. Do not drink alcohol while taking narcotics. Supplement narcotic prescription with acetaminophen 1000 mg 4 times a day. Start physical therapy. If you are not currently scheduled for physical therapy or you are unsure of appointment time please call office [facility] to arrange. Call Dr. Elaine with any concerns. Follow Up Care Please Follow Up With: Javad Elaine DO When: 2 weeks Test Results: Test results from this visit will be discussed in further detail at your follow-up appointment, if applicable. Discharge Plan Admission Admit Date/Time: 04/06/23 06:04 Primary Reason for Your Visit: Left total knee arthroplasty Attending Provider: Javad Elaine Primary Care Provider: Roxy Wallace Consulting Providers: Lico Richey Discharge Orders/Prescriptions Prescriptions: New acetaminophen [acetaminophen] 500 mg tablet 1,000 mg PO Q6H PRN Qty: 100 0RF Eliquis 2.5 mg tablet 2.5 mg PO BID Qty: 30 0RF oxycodone 5 mg tablet 5 - 10 mg PO Q4H PRN (Reason: pain) 7 Days Qty: 60 0RF Continued hmqlwcjxb-lplzigmh-llohsddhkg 12.5-50-200 mg tablet 2 tab PO TID losartan 50 mg tablet 50 mg PO DAILY bupropion HCl 150 mg Tablet Extended Release 24 Hr 150 mg PO DAILY zolpidem 6.25 mg Tablet,Ext Release Multiphase 6.25 mg PO QHS Discontinued lorazepam [Ativan] 0.5 mg Tablet 1 - 2 PO Q6H PRN PRN (Reason: Anxiety) meloxicam 15 mg tablet 7.5 mg PO DAILY PRN (Reason: arthritis pain) Qty: 30 0RF Rx Instructions: Do not take in conjunction with other NSAIDs, Tylenol is okay. Referrals / Follow Up: Roxy Wallace DO [Primary Care Provider] - Disposition Disposition (needs filled in before D/C Order can be placed): Home, Self Care
--- NOTE | 2023-04-08 09:52 | DS.PCM_ITS ---
Providers Date of Admission: 04/06/23 Primary Care Physician: Dr. Roxy Wallace DO Reason For Visit: LT TOTAL KNEE W JOHNNY Diagnosis Discharge Diagnosis (1) S/P total knee arthroplasty: Status: Acute Code(s): Z96.659 - Presence of unspecified artificial knee joint Plan Postop day #2 left total knee arthroplasty Doing well pain control oxycodone Tylenol PT OT weightbearing as tolerated DVT prophylaxis SCDs Eliquis thigh-high EITAN hose DC home Start outpatient physical therapy Follow-up in the office 2 weeks Medications at Discharge Home Medications carbidopa 12.5 mg-levodopa 50 mg-entacapone 200 mg tablet 2 tab PO TID Check with primary doctor 11/20/22 bupropion HCl 150 mg 24 hr tablet, extended release 150 mg PO DAILY Check with primary doctor 03/20/23 zolpidem 6.25 mg tablet,extended release,multiphase 6.25 mg PO QHS Check with primary doctor 03/20/23 losartan 50 mg tablet 50 mg PO DAILY Check with primary doctor 04/01/23 acetaminophen 500 mg tablet 1,000 mg PO Q6H PRN #100 tabs 04/08/23 apixaban 2.5 mg tablet (Eliquis) 2.5 mg PO BID #30 tabs 04/08/23 oxycodone 5 mg tablet 5 - 10 mg PO Q4H PRN pain 7 days #60 tabs 04/08/23 Hospital Course Summary of Care Provided Hospital Course: Who has long history of degenerative joint disease to the knee who has failed conservative treatment and wished to undergo elective total knee arthroplasty. Patient underwent the aformentioned procedure on the admission date without any intraoperative complications. Patient did receive pre-and postoperative antibiotics which were discontinued within 23 hours postoperatively. Patient did receive spinal anesthesia as well as an adductor canal block postoperatively. pain was controlled with IV and transition to p.o. pain medication Patient will be discharged home with oxycodone and will continue Tylenol as well. Patient had minimal intraoperative blood loss and 2gm tranexamic acid was administered there was no need for postoperative blood transfusion Patients vital signs remained stable. Patient was started on both mechanical and chemical DVT per prophylaxis postoperatively in the form of SCDs EITAN hose and Eliquis 2.5 mg twice daily for which she will continue for 2 additional weeks post hospital discharge. thigh high eitan hose placed over top of the meplix silver dressing. This should be removed 72 hrs post operatively and showering begun daily at that time with warm water and antibacterial soap. not to submerge for 3 weeks. To change dressing daily after first dressing change. Patient will follow-up in the office in 2 weeks. No intrahospital complications. Physical Exam Const alert, oriented x3 and no apparent distress General Appearance: cooperative Extremity Extremity Narrative: Left lower extremity dressings clean dry intact compartment soft neurovascular intact EHL tibialis anterior gastrocsoleus intact station light touch 2/4 pedal pulses Weight / BMI Weight Weight: 200 lb 6.403 oz Body Mass Index (BMI) 31.4 ABG / Lab / Microbiology Data Result Diagrams: 04/08/23 06:20 04/07/23 06:20 Laboratory: Laboratory Results - last 24 hr 04/08/23 06:20: WBC 10.8, RBC 4.06 L, Hgb 12.7, Hct 37.9, MCV 93.3, MCH 31.3, MCHC 33.5, RDW Std Deviation 45.8 H, RDW Coeff of Fozia 13.2, Plt Count 289, MPV 9.2 Microbiology: Microbiology 03/24/23 13:59 Nasal Secretion Nasal Screen MRSA/MSSA - Final D/C Instructions Discharge Diet: No restrictions Call your doctor if you observe: Shortness of breath and Chest pain Additional Dressing/Incision Instructions: Ice and elevate lower extremities 2 weeks while not ambulating. Ambulation is encouraged. Weight bearing as tolerated. Use assistive devise for stability. Encourage FULL knee extension and flexion 1 time EVERY time you get up and down and MULTIPLE times per day. No showering 72 hours after surgery. Begin showering postop day #3. Remove the dressing prior to shower and gently wash with warm water and antibacterial soap then pat dry and place abdominal pad (or plain gauze) and EITAN hose over top. This is to be done daily. Do not submerge for 3 weeks. If not showering daily after the initial 72 hours then you must clean incision and change dressing daily. Do not allow animals near the incision area. Keep clean. Follow anti- coagulation recommendations as prescribed. Do not take any NSAIDs while on bl ood thinner. Do not take any additional narcotic pain medication other than what was prescribed on your surgery day without discussing with physician. Narcotic medication can be addictive. Do not drink alcohol while taking narcotics. Supplement narcotic prescription with acetaminophen 1000 mg 4 times a day. Start physical therapy. If you are not currently scheduled for physical therapy or you are unsure of appointment time please call office [facility] to arrange. Call Dr. Elaine with any concerns. Please Follow Up With: Javad Elaine DO When: 2 weeks Meaningful Use Info Meaningful Use Diagnoses (Choose all that apply): None applicable Discharge Plan Admission Admit Date/Time: 04/06/23 06:04 Primary Reason for Your Visit: Left total knee arthroplasty Attending Provider: Javad Elaine Primary Care Provider: Roxy Wallace Consulting Providers: Lico Richey Discharge Orders/Prescriptions Prescriptions: New acetaminophen [acetaminophen] 500 mg tablet 1,000 mg PO Q6H PRN Qty: 100 0RF Eliquis 2.5 mg tablet 2.5 mg PO BID Qty: 30 0RF oxycodone 5 mg tablet 5 - 10 mg PO Q4H PRN (Reason: pain) 7 Days Qty: 60 0RF Continued esdraxlfz-sggostol-bsyccmucrl 12.5-50-200 mg tablet 2 tab PO TID losartan 50 mg tablet 50 mg PO DAILY bupropion HCl 150 mg Tablet Extended Release 24 Hr 150 mg PO DAILY zolpidem 6.25 mg Tablet,Ext Release Multiphase 6.25 mg PO QHS Discontinued lorazepam [Ativan] 0.5 mg Tablet 1 - 2 PO Q6H PRN PRN (Reason: Anxiety) meloxicam 15 mg tablet 7.5 mg PO DAILY PRN (Reason: arthritis pain) Qty: 30 0RF Rx Instructions: Do not take in conjunction with other NSAIDs, Tylenol is okay. Referrals / Follow Up: Roxy Wallace DO [Primary Care Provider] - Disposition Disposition (needs filled in before D/C Order can be placed): Home, Self Care
--- NOTE | 2023-04-08 10:07 | CASEMGMT ---
TC to [facility] Retail pharmacy, eliquis card will be applied for cost of $0.
== END 2023-04-08 10:15 | disposition home or self-care (01) | DRG 470 ==
LOC: ACINP 06:09 → MS3 11:26
PROVIDERS: Anesthesiology; Admitting Provider Orthopaedic Surgery; PCP Family Medicine; Referring Provider Orthopaedic Surgery; Visit Provider Orthopaedic Surgery
PROC: 0SRD0JZ Replacement of Left Knee Joint with Synthetic Substitute, Open Approach (ICD-10-PCS; CPT 27447; principal; 2023-04-06 08:15)
DX: M17.12 Unilateral primary osteoarthritis, left knee (principal); M84.362A Stress fracture, left tibia, initial encounter for fracture; S83.242A Other tear of medial meniscus, current injury, left knee, initial encounter; X58.XXXA Exposure to other specified factors, initial encounter; G20 Parkinson's disease; I10 Essential (primary) hypertension; E07.9 Disorder of thyroid, unspecified; Z20.822 Contact with and (suspected) exposure to COVID-19; Z79.1 Long term (current) use of non-steroidal anti-inflammatories (NSAID); Z79.899 Other long term (current) drug therapy
CPT/HCPCS: 36415; 73560; 80048; 82962; 82985; 83036; 83735; 84443; 85027; 85610; 85730; 86850; 86900; 86901; 87077; 87081; 88305; 88311; 94668; 97110; 97116; 97162; 97166; 97530; 97535; C1776; J7120; J2405; J3475; J3490

== ENCOUNTER → 2023-04-28 | Outpatient (CLI) | payer MEDICARE, SELFPAY ==
--- NOTE | 2023-04-28 | ASPS_PTH ---
PATIENT: WALI LOCKWOOD LOC: [facility] U#:[id number] AGE/SX: 72/F ROOM: RE04/28/[address]: Dr. Shemar Ortega MD : [id number] BED: DIS: 04/28/2023 SPEC #: [id number] RECD: 04/28/23 16:14 STATUS: KRISTOPHER REJnena #: [id number] RAQUEL: 04/28/23 00:[address]: Shemar Ortega DEPT: CYTOLOGY RECD BY: Andrea Talley ENTERED: 04/29/23 09:15 SP TYPE: ASPIRATION OTHR DR: Dr. Roxy Wallace, DO Tissues: A - Thyroid gland, NOS B - Thyroid gland, NOS Procedures: Special Stain Group II Cytology Other HEADER OPERATION: Left thyroid fine needle aspiration x2 PRE-OP DIAGNOSIS: Thyroid nodules TISSUE SUBMITTED: A ? Left anterior nodule x8 slides, B - Left posterior nodule x6 slides DIAGNOSIS CYTOLOGY A. Left anterior thyroid nodule, fine needle aspiration (smears): Consistent with benign follicular/colloid nodule ([place] Category II). Adequate for evaluation. See comment. B. Left posterior thyroid nodule, fine needle aspiration (smears): Consistent with benign follicular/colloid nodule ([place] Category II). Adequate for evaluation. See comment. SJ:esme 04/29/2023 COMMENT Correlation with clinical, radiologic findings and appropriate follow up are necessary. The [place] System for thyroid diagnostic categorization was used in the evaluation of this case. CYTOLOGY STUDY Slides are reviewed. CYTOLOGY GROSS A - Received are eight smears labeled with the patient's name and designated per the requisition as left anterior nodule. Submitted for staining. B - Received are six smears labeled with the patient's name and designated per the requisition as left posterior nodule. Submitted for staining. / esme 04/28/2023 TC: CPT: 03017 x2
== END | disposition home or self-care (01) ==
LOC: LABSPEC 16:46
PROVIDERS: PCP Family Medicine; Referring Provider Surgery; Visit Provider Surgery
DX: E04.1 Nontoxic single thyroid nodule (principal)
CPT/HCPCS: 88161; 88313

== ENCOUNTER 2023-05-19 12:30 | Outpatient (RCR) | payer MEDICARE, SELFPAY ==
--- NOTE | 2023-04-09 12:53 | HP.PTEVAL_ITS ---
Patient's Visit Information WALI LOCKWOOD is a 72 year old F referred to Physical Therapy by Dr. Javad Elaine DO with a diagnosis of L TKA 04/06/23. Date of Evaluation: 04/09/23 Physical Therapist: Rafat Boyle, PT, ATC - Visit Plan Frequency: 2-3x /Week Duration: 4-6 Weeks Plan: L knee PROM/mobs, stretching and strengthening, core strengthening, balance and proprio, nustep, and HEP - Subjective DOS: 04/06/23. Pt reports she had a L TKA performed at that time. Pt notes she spent the night in the hospital for 2 days and then came home. Pt reports she has been taking her pain meds and performing her HEP as ordered at this time. Pt reports she had a Hx of L knee pain for greater than a year prior to having her surgery. Pt denies tingling or numbness at this time. Pt also notes she has sleep difficulty at this time secondary to pain. Pt is currently retired and lives a lone. Pt notes she has a ramp into her house, but does have stairs she needs to be able to negotiate to get to her basement. Pt reports she did negotiate stairs at the hospital which she was able to do one step at a time. 0/10 pain while sitting here in the clinic, 8/10 at worst (while she is walking) - Pain L TKA Pain Intensity (Out of 10): 0 Pain Intensity Range: 8 - Objective Neuro: B LE sensation is WNL to light touch. B LE achilles reflex= 1/3. Girth at joint line: L knee 48 cm, R knee 39 cm. ROM: R knee 0-120, L knee 0-10-95. MMT: R knee flex= 30, ext= 31 #F; L knee flex= 4.2, ext= 12 #F. Tu.42 - Balance/Special Test Scores WOMAC Total Score: 40 WOMAC Percentatge: 58.3400 - Goals Goal 1:: Decrease L knee pain x 50% to aid with sleep Goal Time Frame: 4-6 Weeks Goal 2:: Increase L knee ROM x 25 degrees to aid with restoring a more normalized gait pattern Goal Time Frame: 4-6 Weeks Goal 3:: Increase L knee strength x 20 #F to aid with stair negotiation Goal Time Frame: 4-6 Weeks Goal 4:: I with HEP Goal Time Frame: 4-6 Weeks - Rehabilitation Potential Physical Therapy Diagnosis: Pt has L knee pain, weakness, and limited ROM secondary to being s/p L TKA Rehabilitation Potential: Good - Anticipated Interventions Patient/Client Instruction: Educate patient on: Condition, Plan of Care For the Purpose of:: To improve self management Therapeutic Exercise to Include: Strength training, Endurance training, Balance training, Flexibilty training, Gait and locomotor training, Active ROM, Dynamic Lumbar Stabilization For the Purpose of:: To decrease pain, To increase ROM, To improve muscle performance and motor function Manual Therapy Techniques to Include: Passive ROM, Soft tissue mobilization For the Purpose of:: To decrease pain, To increase ROM Cryotherapy (ice pack, ice massage): Yes For the Purpose of:: To decrease pain Thank you for the opportunity to evaluate your patient. For Medicare and Medicare HMO plans, please review the plan of care and approve it. It will need to be FAXED BACK to us at [phone] for Medicare purposes. For Medicare only, by signing this I certify the plan of care. Please let me know if there are questions or concerns regarding this plan of care. Physician Signature: Date:
--- NOTE | 2023-05-19 13:48 | HP.PTDCSUM_ITS ---
Discharge Summary D/C summary: It has been my pleasure to treat WALI LOCKWOOD referred by Dr. Javad Elaine DO, with the diagnosis of L TKA 04/06/23 for a total of 5 visit(s). Discharge Date: Please see the following information for a summary of their discharge status. Subjective Subjective: Pt reports pain is minimal at this time Pain L TKA: Pain Intensity (Out of 10): 4 Overall Improvement % Improvement: 85 Objective Objective/Function: L knee pain ranges 4-5/10 L knee ROM 0-125 degrees L knee flex= 35, ext= 36 #F Pt has achieved ROM and strength goals at this time TUG 8 sec Goals Goal 1:: Decrease L knee pain x 50% to aid with sleep Goal Progress: Goal Met Goal 2:: Increase L knee ROM x 25 degrees to aid with restoring a more normalized gait pattern Goal Progress: Goal Met Goal 3:: Increase L knee strength x 20 #F to aid with stair negotiation Goal Progress: Goal Met Goal 4:: I with HEP Goal Progress: Goal Met Plan Plan: [facility]charge to [facility] D/C Information d/c sentence: If there are questions or concerns regarding this patient's physical therapy, please feel free to call me at [phone]. Thank you for the referral of this patient. Sincerely, Rafat Boyle, PT, ATC Balance/Gait/Functional tests Balance/Special Test Scores Lower Extremity Functional Score: 72 WOMAC Total Score: 40 WOMAC Percentage: 58.3400
== END 2023-05-19 19:00 | disposition home or self-care (01) ==
LOC: PT 12:30
PROVIDERS: PCP Family Medicine; Referring Provider Orthopaedic Surgery; Visit Provider Orthopaedic Surgery
DX: Z47.1 Aftercare following joint replacement surgery (principal); Z96.652 Presence of left artificial knee joint; M17.12 Unilateral primary osteoarthritis, left knee
CPT/HCPCS: 97110; 97140; 97161; 97164

== ENCOUNTER → 2023-06-23 | Outpatient (CLI) | payer MEDICARE, SELFPAY ==
[2023-06-23 13:32] LABS: Thyroid Stim Hormone (TSH) 0.69 uIU/mL (0.358-3.74)
[2023-06-25 16:09] LABS: Anti-Thyroglobulin AB < 1.0 IU/mL (0.0-0.9); Thyroglobulin, Serum Qt. 10.3 ng/mL (1.5-38.5); Thyroid Peroxidase AB < 9 IU/mL (0-34); Thyroxin Bind Glob (TBG) 23 ug/mL (13-39)
== END | disposition home or self-care (01) ==
PROVIDERS: PCP Family Medicine; Referring Provider Internal Medicine Endocrinology, Diabetes & Metabolism; Visit Provider Internal Medicine Endocrinology, Diabetes & Metabolism
DX: R94.6 Abnormal results of thyroid function studies (principal)
CPT/HCPCS: 84432; 84442; 84443; 86376; 86800

== ENCOUNTER → 2023-06-29 | Outpatient (CLI) | payer MEDICARE, SELFPAY ==
--- NOTE | 2023-06-29 09:39 | BI_ITS ---
MAMMOGRAPHY - BILATERAL SCREENING REASON FOR EXAM: Female, 72 years old. Routine annual screening examination. PERTINENT HISTORY: Non-contributory. TECHNIQUE: Digital bilateral breast carlos (3D mammographic acquisition) in the CC and MLO projections. 2-D mediolateral oblique (MLO) and craniocaudad (CC) views of both breasts were obtained. CAD: Full Field Digital Mammography with Computer Added Detection was performed. COMPARISON: Comparison is made with prior study dated May 29, 2022 and May 22, 2021. FINDINGS: Breast Composition: There are scattered areas of fibroglandular density. There are no dominant masses or suspicious calcifications. Stable small benign-appearing bilateral axillary lymph nodes. No other significant abnormalities are identified. There has been no significant change since the prior study. BI/SCRN MAMM (CAD)W/CARLOS BILAT IMPRESSION: Stable bilateral screening mammogram. Yearly follow-up mammogram recommended. (A) ASSESSMENT CATEGORY: BIRADS Category 2: Benign. A letter regarding these results will be sent to the patient by the facility within 30 days. Approximately 10% of breast cancers are not detected by mammography. A normal mammogram should not delay biopsy of a clinically suspicious abnormality. [id number] Electronically Signed: Mateo Cummings MD at 11:16 EDT ,
== END | disposition home or self-care (01) ==
LOC: OPBI 09:38
PROVIDERS: PCP Family Medicine; Referring Provider Family Medicine; Visit Provider Family Medicine
DX: Z12.31 Encounter for screening mammogram for malignant neoplasm of breast (principal)
CPT/HCPCS: 77063; 77067

== ENCOUNTER → 2023-12-27 | Outpatient (CLI) | payer MEDICARE, SELFPAY ==
--- NOTE | 2023-12-27 15:36 | RAD_ITS ---
STUDY: X-RAY CHEST REASON FOR EXAM: Female, 73 years old. SOB/CHEST TIGHTNESS TECHNIQUE: PA and lateral views of the chest. COMPARISON: March 20, 2023 chest x-ray FINDINGS: The lungs are clear and expanded. There is no demonstrated pleural abnormality. Normal size heart. Normal mediastinum and milind. Normal visualized pulmonary arteries. Normal visualized aortic arch and descending thoracic aorta. There are diffuse degenerative changes of the visualized thoracic spine. Normal visualized ribs, clavicles, and shoulders. There is no demonstrated abnormality of the visualized soft tissue structures of the upper abdomen. RAD/Chest PA and Lateral IMPRESSION: No demonstrated acute cardiopulmonary process. Electronically Signed: Ariadne Fajardo MD at 5:24 EST ,
[2023-12-27 17:43] LABS: Absolute Lymphocyte Count 1.75 X10^3/uL (0.83-4.51); Absolute Neutrophil Count 5.3 X10^3/uL (2.0-7.7); Basophil# 0.06 X10^3/uL; Basophil% 0.8 % (0-1); Eosinophil# 0.23 X10^3/uL; Hematocrit 42.3 % (37-47); Hemoglobin 13.8 g/dL (12.0-15.0); Lymphocyte # 1.75 X10^3/ul (0.83-4.51); Lymphocyte % 22.6 % (19-41); Mean Corp Hgb Conc 32.6 g/dL (32-36); Mean Corpuscular Hgb 30.3 pg (27.0-32.0); Mean Platelet Vol. 9.3 fl (6.2-12.0); Monocyte# 0.42 X10^3/uL; Monocyte% 5.4 % (0-10); NRBC Flagged by Analyzer 0 % (0-5); Neutrophil # 5.29 X10^3/uL (2.7-7.7); Neutrophil % 68.1 % (47-70); Platelet Count 288 K/mm3 (150-450); RBC Distribution Width CV 12.6 % (11.6-14.6); RBC Distribution Width SD 42.8 fl (35.1-43.9); Red Blood Count 4.55 M/mm3 (4.2-5.4); White Blood Count 7.8 K/mm3 (4.4-11.0)
[2023-12-27 17:54] LABS: Erythrocyte Sedimentation Rate 5 mm/hr (0-30)
[2023-12-27 17:56] LABS: D-Dimer Quantitative (DVT/PE) < 0.27 FEU/ug/m (0.27-0.49)
[2023-12-27 18:04] LABS: BNP,B-Type NATRIURETIC PEPTIDE 74.3 pg/mL (0-100)
[2023-12-27 18:11] LABS: ALB/GLOB Ratio 1.1 RATIO (0.9-2.4); AST(SGOT) 17 U/L (15-37); Alanine Aminotransfer ALT/SGPT 16 U/L (13-56); Albumin, Serum 3.8 g/dL (3.2-5.0); Alkaline Phosphatase 77 U/L (45-117); Anion Gap 6 (5-15); BUN 15 mg/dL (7-18); BUN/Creat Ratio 15.2 RATIO (10-20); CRP < 2.90 mg/L (0.0-3.0); Calcium,Total 9.4 mg/dL (8.5-10.1); Chloride 109 mmol/L (98-107); Creatinine, Serum 0.99 mg/dL (0.55-1.02); EST Glomerular Filtration Rate 59 mL/min (>60); Est Glom Filt Rate - Afr Amer 71 mL/min (>60); Globulin 3.6 g/dL (2.2-4.2); Glucose 102 mg/dL (74-106); Potassium 4.1 mmol/L (3.5-5.1); Protein, Total 7.4 g/dL (6.4-8.2); Sodium Level 140 mmol/L (136-145)
== END | disposition home or self-care (01) ==
PROVIDERS: PCP Family Medicine; Referring Provider Nurse Practitioner Family; Visit Provider Nurse Practitioner Family
DX: R06.02 Shortness of breath (principal); R07.89 Other chest pain; I10 Essential (primary) hypertension
CPT/HCPCS: 36415; 71046; 80053; 83880; 85025; 85379; 85652; 86140

== ENCOUNTER 2024-01-09 21:27 | Emergency (ER) | payer MEDICARE, SELFPAY ==
[2024-01-09 21:28] VITALS: BP 155/70; PULSE 106; RESP 16; TEMP 35.9; O2SAT 96
--- NOTE | 2024-01-09 21:44 | EKG12_ITS ---
Test Reason : GEN. ILLNESS Blood Pressure : / mmHG Vent. Rate : 100 BPM Atrial Rate : 100 BPM P-R Int : 144 ms QRS Dur : 088 ms QT Int : 372 ms P-R-T Axes : 042 034 043 degrees QTc Int : 479 ms Normal sinus rhythm Nonspecific ST abnormality Abnormal ECG Confirmed by OLENA PINTO, AYALA ([id number]), acquisition editor AL ADAMS ([id number]) on 01/10/2024 10:23:26 AM Referred By: PABLO Confirmed By:AYALA HYATT MD
--- NOTE | 2024-01-09 21:45 | EX.ED.DYSGE1 ---
HPI History of Present Illness Chief Complaint: General Illness Informant: patient Onset/Context/Timing Onset: Weeks Context: Gradual Onset Narrative Narrative: Patient presents with a 2-week history of congestion and body aches. She has had increased cough over the past couple days with yellow-colored sputum production. Today she became more short of breath which prompted her visit. She reports having subjective low-grade fevers but did not measure her temperature at home. She has had no vomiting or diarrhea. She denies urinary symptoms. [facility] Medical History Abnormal results of thyroid function studies Depression GERD (gastroesophageal reflux disease) History of stress test Hypertension Left knee pain Left leg pain Non-smoker Osteoarthritis of left knee Parkinsonism Puncture wound of right foot Restless legs Synovial cyst of popliteal space [[place]], left knee Thyroid disease Wears glasses Home Medications zolpidem 6.25 mg tablet,extended release,multiphase 12.5 mg PO QHS Check with primary doctor 03/20/23 [History Last Taken 04/05/23] losartan 50 mg tablet 25 mg PO DAILY Check with primary doctor 04/01/23 [History Last Taken 04/06/23 05:30] acetaminophen 500 mg tablet 1,000 mg (2 x 500 mg) PO Q6H PRN #100 tabs 04/08/23 [Rx Last Taken Unknown] carbidopa 12.5 mg-levodopa 50 mg-entacapone 200 mg tablet 2 tab PO Q6H Check with primary doctor 04/28/23 [History Last Taken Unknown] lorazepam 0.5 mg tablet 0.5 mg PO Q6H PRN ansiety 04/28/23 [History Last Taken Unknown] meloxicam 7.5 mg tablet 15 mg PO DAILY 04/28/23 [History Last Taken Unknown] pantoprazole 40 mg tablet,delayed release 40 mg PO DAILY 04/28/23 [History Last Taken Unknown] rasagiline 1 mg tablet 1 mg PO DAILY 01/09/24 [History Last Taken Unknown] Allergy/AdvReac Type Severity Reaction Status Date / Time No Known Allergies Allergy Verified 01/09/24 21:28 Family History Mother Lupus Sister Lupus Daughter Acute Crohn's disease Son Cleft lip Other Cancer Heart disease Surgical History History of knee replacement History of varicose vein stripping Social History Smoking Status: Never smoker alcohol intake: current alcohol intake frequency: holidays/special occasions only substance use type: does not use what type of physical activity do you participate in: walking ROS ROS ED Constitutional Constitutional ED: Reports fever(s) and subjective; Denies chills Eyes Eyes: Denies change in vision or discharge from eye(s) ENT ENT ED: Reports other Details: Sinus congestion ; Denies discharge from eye(s), rhinorrhea or sore throat Cardiovascular Cardiovascular: Denies chest pain or palpitations Respiratory/Chest Respiratory/Chest: Denies cough or dyspnea Gastrointestinal Gastrointestinal: Denies abdominal pain, nausea or vomiting Genitourinary Genitourinary ED: Denies dysuria Musculoskeletal Musculoskeletal: Denies back pain or extremity pain Integumentary Denies Abrasions or rash Neurologic Neurologic: Denies headache(s) or weakness Psychiatric Psychiatric: Denies anxiety or depression Allergic/Immunologic Allergic/Immunologic ED: Denies lip swelling or urticaria EXAM Physical Exam Const Vital Signs: 01/09/24 21:28 01/09/24 21:55 01/09/24 22:30 Temperature 96.6 F L 98.6 F Temperature Source Temporal Oral Pulse Rate 106 H 92 Respiratory Rate 16 28 H Respiratory Pattern Tachypnea Blood Pressure 155/70 H 144/83 H Blood Pressure Mean 98 103 Pulse Ox 96 92 Oxygen Delivery Method Room Air Room Air 01/09/24 23:17 Temperature 98.7 F Temperature Source Oral Pulse Rate 97 Respiratory Rate 28 H Respiratory Pattern Blood Pressure 141/63 H Blood Pressure Mean 89 Pulse Ox 92 Oxygen Delivery Method Room Air Positive well nourished and well developed General Appearance ED: well developed HEENT Reports moist mucous membranes Eyes EOMs intact bilaterally Chest Wall inspection of chest normal and palpation of chest normal Resp normal respiratory effort and clear to auscultation bilaterally Cardio regular rate and regular rhythm GI non-tender Palpation: soft Extremity normal to inspection Neuro oriented x3 Neuro Narrative: No focal neurologic deficits. Psych mental status grossly normal Skin no rashes or lesions noted MDM MDM MDM Narrative Medical decision making narrative: Patient be placed on equipment monitor phototypesetting. EKG obtained to evaluate for cardiac arrhythmia/ischemia. IV line established. Labwork obtained to evaluate for leukocytosis, anemia, and electrolyte derangement. Chest x-ray obtained to evaluate for acute lung pathology, cardiac size, or mediastinal abnormality. Swab for COVID, influenza, and RSV will be obtained. Patient given IV fluids. History & Record Review Discussion w/independent historian: Patient and Family Lab Data Attestation: I reviewed the patient's lab results. Labs: Laboratory Results - last 24 hr 01/09/24 21:18 WBC 8.9 RBC 4.65 Hgb 13.8 Hct 42.1 MCV 90.5 MCH 29.7 MCHC 32.8 RDW Std Deviation 41.5 RDW Coeff of Fozia 12.5 Plt Count 157 MPV 8.8 Immature Gran % (Auto) 0.300 Neut % (Auto) 88.0 H Lymph % (Auto) 6.8 L [place] % (Auto) 4.5 Eos % (Auto) 0.1 Baso % (Auto) 0.3 Absolute Neuts (auto) 7.8 H Absolute Lymphs (auto) 0.60 L Nucleated RBC % 0 Sodium 136 Potassium 3.2 L Chloride 104 Carbon Dioxide 26.0 Anion Gap 6 BUN 13 Creatinine 0.74 Estim Creat Clear Calc 67.22 Est GFR (MDRD) Af Amer 99 Est GFR (MDRD) Non-Af 82 BUN/Creatinine Ratio 17.6 Glucose 115 H Calcium 8.6 Troponin I High Sens 8 Radiography Chest X-Ray - ED: 1 View, Read by ED Physician, Chronic Changes and No Infiltrates Diagnostic Testing: Clinical Impression(s) from Imaging Studies Chest X-Ray 01/09/24 22:20 IMPRESSION: Focal left basilar infiltrate/atelectasis. Electronically Signed: Toni Ellis DO at 22:40 EST Reading Location ID and State: [facility] / [place] Tel [phone], Service support , EKG Initial EKG: Attestation: I personally reviewed and interpreted this EKG as follows: Interpretation: Sinus Rhythm (Sinus rhythm at 100 bpm. No acute ischemia.) Treatment and Re-Evaluation :: CBC was a white count of 8.9 with 88% neutrophils. Hemoglobin normal at 13.8. Chemistry studies significant only for slightly low potassium at 3.2. Renal function is normal. Glucose is 115. Troponin is normal at 8. Portable chest x-ray per my interpretation reveals chronic changes with no focal infiltrate. Radiology interpretation is reviewed. They feel that she may have atelectasis or early infiltrate at the left base. I do not appreciate an infiltrate here. Patient's COVID and RSV test is negative. Her influenza test is positive. This is discussed with the patient. She has had symptoms waxing and waning for the last 2 weeks. She will continue supportive care. She does have a pulse ox meter at home and she was advised to monitor her oxygen levels to ensure they stay above 88%. Return instructions given. Discharge Plan Triage Chief Complaint: General Illness ED Provider: Marily Herman Dx/Rx/DC Orders Clinical Impression: Influenza Instructions: ED Influenza (Adult) Prescriptions: No Action fkdlbjril-xyfujtfd-eyokxitkzc 12.5-50-200 mg tablet 2 tab PO Q6H pantoprazole 40 mg tablet,delayed release (DR/EC) 40 mg PO DAILY meloxicam 7.5 mg tablet 15 mg PO DAILY lorazepam 0.5 mg tablet 0.5 mg PO Q6H PRN (Reason: ansiety) losartan 50 mg tablet 25 mg PO DAILY acetaminophen [acetaminophen] 500 mg tablet 1,000 mg PO Q6H PRN Qty: 100 0RF zolpidem 6.25 mg Tablet,Ext Release Multiphase 12.5 mg PO QHS rasagiline 1 mg tablet 1 mg PO DAILY Primary Care Provider: Roxy Wallace Referrals: Roxy Wallace DO [Primary Care Provider] - 1-2 Weeks Disposition Disposition: Home, Self Care
[2024-01-09 21:51] VITALS: BMI 26.7
[2024-01-09] MEDS: 0.9% Normal Saline (1000mL) 1,000 ML 150 ML IV (22:03)
--- OUTSIDE RECORDS SUMMARY | 2024-01-09 22:06 | XMS RPT_ITS | CCD ---
Author Name Unknown Address [address] [place] [address] Organization [facility] Care Team Providers Care Sales And Distribution Clerk Name Role Phone Kira Veloz DO Primary Care Provider Unknown, Referring Provider Unavailable Unav ailable Unavailable Unavailable Jennifer, Dr. Dasha Barron Attending Un available Terminous, Dr. Dasha Barron Referring Un available UNKNOWN, PCP Primary Care Unavailable Terminous, Dr. Dasha Barron Attending Un available Terminous, Dr. Dasha Barron Referring Un available UNKNOWN, PCP Primary Care Unavailable Jennifer, Dr. Dasha Barron Attending Un available UNKNOWN, PCP Primary Care Unavailable Madison, Dr. Roxy Smith Referring Unavailable JENNIFER, DASHA Lane Attending Unavailabl e Unavailable Primary Care Provider UnavailJOSEPH Banks Attending Unavailable JOSEPH BECKMAN Referring Unavailable KIRA VELOZ Primary Care Unavailab RADHA Roca Attending Unavailable KIRA VELOZ Primary Care Unavailab JOSEPH Jacobs Attending Unavailable KIRA VELOZ Primary Care Unavailab JOSEPH Jacobs Attending Unavailable ROXY WALLACE Referring Unavailable KIRA VELOZ Primary Care Unavailab kirti Allergies Allergy Classification Reported Allergen(s) Allergy Type Date of Onset Reaction(s) Facility (6 sources) Angiotensin-conv erting enzyme inhibitor agent; Translations: [BRENDON INHIBITORS] Drug Intolerance 3 Cough [facility] Work Phone: Medications Current Medications Medication Drug Class(es) Dates Sig (Normalized) Sig (Original) Acetaminophen (8 sources) acetaminophen (T YLENOL ORAL) Take by mouth. 0 Active Completed/Discontinued Medications Medication Drug Class(es) Dates Sig (Normalized) Sig (Original) 12 hr buPROPion hydrochloride 150 mg extended release oral tablet (3 sources) Aminoketone Start: 03-02-2023 End: 05-31-2023 take 1 tablet by mouth once daily in the morning buPROPion SR (ZYBAN SR; WELLBUTRIN SR) 150 mg 12 hr tablet TAKE 1 TABLET BY MOUTH ONCE DAILY IN THE MORNING 0 03/02/2023 05/31/2023 Discontinued Problems Active Problems Problem Classification Problem Date Documented Date Episodic/Chronic Other connective tissue disease (2 sources) Other symptoms and signs involving the musculoskeletal system; Translations: [Oth symptoms and signs involving the musculoskeletal system] Onset: 05-14-2023 Episodic Other hereditary and degenerative nervous system conditions (1 source) Restless legs; Translations: [Restless legs syndrome] Chronic Other nervous system disorders (3 sources) Idiopathic progressive polyneuropathy; Translations: [Idiopathic progressive neuropathy] Onset: 01-14-2004 03-17-2004 Chronic Other nervous system disorders (6 sources) Hereditary motor and sensory neuropathy; 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] Onset: 09-24-2023 09-29-2023 Chronic Other nervous system disorders (2 sources) Polyneuropathy, unspecified; Translations: [Polyneuropathy, unspecified] Onset: 05-14-2023 Chronic Other nervous system disorders (1 source) Hereditary motor and sensory neuropathy; Translations: [Hereditary motor and sensory neuropathy] Onset: 05-14-2023 Chronic Other nervous system disorders (2 sources) Tremor, unspecified; Translations: [Tremor, unspecified] Onset: 05-14-2023 Episodic Parkinson`s disease (2 sources) Parkinson's disease; Translations: [Parkinson's disease] Chronic Thyroid disorders (3 sources) Multinodular goiter; Translations: [Nontoxic multinodular goiter] Onset: 08-14-2021 08-14-2021 Chronic Past or Other Problems Problem Classification Problem Date Documented Da te Episodic/Chronic Unclassified (1 source) Onset: 09-27-2023 09-27-2023 Results Test Name Value Interpretation Reference Range Facil ity Vital Signs Date Time Vital Sign Value Performing Clinician [place] 09-27-2023 09:38-0500 Body height 170.2 cm Dasha Rodriguez DO Work Phone: [facility] 09-27-2023 09:38-0500 Body mass index (BMI) [Ratio] 26.45 kg/m2 Christopher Terminous DO Work Phone: [facility] 09-27-2023 09:38-0500 Body weight 76.6 kg Christopher Jennifer DO Work Phone: [facility] 09-27-2023 09:38-0500 Diastolic blood pressure 74 mm[Hg] Christopher Terminous DO Work Phone: [facility] 09-27-2023 09:38-0500 Heart rate 94 /min Christopher Jennifer DO Work Phone: [facility] 09-27-2023 09:38-0500 Respiratory rate 16 /min Christopher Jennifer DO Work Phone: [facility] 09-27-2023 09:38-0500 Systolic blood pressure 119 mm[Hg] Christopher Terminous DO Work Phone: [facility] 05-14-2023 08:54-0400 Body height 170.18 cm Referring Provider Unknown CC-Iejukzstl-UBGDY [facility] Work Phone: 05-14-2023 08:54-0400 Body mass index (BMI) [Ratio] 29.45 kg/m2 Referring Provider Unknown OM-Offpikbrz-BGAPS [facility] Work Phone: 05-14-2023 08:54-0400 Body surface area Derived from formula 1.97 m2 Referring Provider Unknown JY-Iefmlzgfx-ZWVMQ [facility] Work Phone: 05-14-2023 08:54-0400 Body weight 85.28 kg Referring Provider Unknown LO-Qqgqcnbby-VWGUO [facility] Work Phone: 05-14-2023 08:54-0400 Diastolic blood pressure 77 mm[Hg] Referring Provider Unknown VX-Pribqysee-UOXTA [facility] Work Phone: 05-14-2023 08:54-0400 Heart rate 84 /min Referring Provider Unknown [facility] Work Phone: 05-14-2023 08:54-0400 Respiratory rate 18 /min Referring Provider Unknown [facility] Work Phone: 05-14-2023 08:54-0400 Systolic blood pressure 137 mm[Hg] Referring Provider Unknown [facility] Work Phone: 05-14-2023 08:54-0400 5 1 Referring Provider Unknown [facility] Work Phone: Encounters Encounter Date Encounter Type Care Provider Facility Start: 10-06-2023 End: 10-06-2023 ambulatory JOSEPH BECKMAN Facility:[facility] Start: 09-27-2023 End: 09-27-[address] [facility] Start: 09-27-2023 End: 09-27-2023 Office outpatient visit 15 minutes Dasha Rodriguez DO Work Phone: [facility] Plan of Treatment Date Care Activity Detail Author Start: 08-25-2029 DTaP/Tdap/Td Vaccines (2 - Td or Tdap) DTaP/Tdap/Td Vaccines (2 - Td or Tdap) [facility] Start: 09-27-2023 FUV, Provider: Dasha Rodriguez, Status: Pen, Time: 10:00 AM FUV, Provider: Dasha Rodriguez, Status: Minh, Time: 10:00 AM [facility] Work Phone: Start: 07-23-2023 Influenza vaccination [facility] Start: 11-22-2022 ADVANCE DIRECTIVE DISCUSSION ADVANCE DIRECTIVE DISCUSSION [facility] Start: 11-22-2022 DEPRESSION ASSESSMENT DEPRESSION ASSESSMENT [facility] Start: 02-26-2021 COVID-19 VACCINE (3 - Booster for Moderna series) COVID-19 VACCINE (3 - Booster for Moderna series) [facility] Start: 02-26-2021 COVID-19 VACCINE (3 - Moderna series) COVID-19 VACCINE (3 - Moderna series) [facility] Start: 2015 BONE DENSITY BONE DENSITY [facility] Start: 2015 Pneumococcal Vaccine: 65+ Years (1 - PCV) Pneumococcal Vaccine: 65+ Years (1 - PCV) [facility] Start: 2015 PNEUMOCOCCAL: 65+ (1 - PCV) PNEUMOCOCCAL: 65+ (1 - PCV) [facility] Start: 09-10-2006 DIABETES SCREEN DIABETES SCREEN [facility] Start: 2000 SHINGRIX VACCINE (1 of 2) SHINGRIX VACCINE (1 of 2) [facility] Start: 2000 Zoster Vaccines (1 of 2) Zoster Vaccines (1 of 2) [facility] Start: 1995 COLOGUARD (FIT-DNA) COLOGUARD (FIT-DNA) [facility] Start: 1995 Colonoscopy COLONOSCOPY [facility] Start: 1995 COLORECTAL CANCER SCREENING COLORECTAL CANCER SCREENING [facility] Start: [address] COLONOGRAPHY [facility] Start: 1995 FECAL OCCULT BLOOD FECAL OCCULT BLOOD [facility] Start: 1995 LIPID SCREEN LIPID SCREEN [facility] Start: 1995 SIGMOIDOSCOPY SIGMOIDOSCOPY [facility] Start: 1990 Mammography MAMMOGRAM [facility] Start: 1990 Screening for malignant neoplasm of breast Mammogram [facility] Start: 1969 Urine microalbumin profile DTAP,TDAP,TD (1 - Tdap) [facility] Start: 1968 HEPATITIS C SCREENING HEPATITIS C SCREENING [facility] Start: 1968 Hepatitis C screening Hepatitis C Screening [facility] Start: 1950 Lipid panel Lipid Panel [facility] Start: 1950 Medicare Annual Wellness Visit Medicare Annual Wellness Visit (AWV) [facility] Start: 1950 Screening for malignant neoplasm of colon [facility] Start: 1950 Screening for osteoporosis Bone Density Scan [facility] Immunizations Immunization Date Immunization Notes Care Provider Fa ciliernie 08-25-2019 tetanus toxoid, reduced diphtheria toxoid, and acellular pertussis vaccine, adsorbed Dasha Rodriguez DO Work Phone: [facility] Work Phone: Payers Date Payer Category Payer Medicare [id number] 2022 Medicare [id number] 2020 Medicare [id number] 1950 Unknown [id number] 1950 Unknown [id number] 1950 Unknown [id number] [id number] 1950 Unknown [id number] Unknown Social History Date Type Detail Facility Start: 12-02-2022 End: 09-27-2023 Tobacco smoking status NHIS Never smoked tobacco [facility] Start: 12-02-2022 End: 09-27-2023 Tobacco use and exposure Smokeless tobacco non-user [facility] Start: 1950 Sex Assigned At Not on file [facility] Start: 04-02-2023 End: 09-27-2023 History of Social function [facility] Start: 04-02-2023 End: 09-27-2023 Tobacco use panel [facility] Adult Depression Screening Assessment 2 [facility] Start: 09-17-2023 End: 09-27-2023 Exposure to SARS-CoV-2 (event) Not sure [facility] Clinical Notes 12-02-2022 to 10-11-2023 Remy De La Rosa MD - 09/27/2023 10:00 AM ESTPatient InstructionsShRadha soto, MARVIN.BREAD WRAPPER OPERATOR - 05/28/2023 3:32 PM EDTTelephone Encounter - Christine Oswald RN - 05/10/2023 2:19 PM EDTPatient Instructions Note Date & Type Note Facility 10-11-2023 Note HNO ID: [id number] Author: Joseph Beckman MD Service: ? Author Type: Physician Type: Progress Notes Filed: 10/11/2023 7:42 PM Note Text: [facility] - FOLLOW UP EVALUATION Kira Veloz DO, DO [address] [facility] [address] I had the pleasure of seeing Ms. Lynch for follow up today. She is a 73 year old ambidextrous female with a history of Parkinson's disease since 2018. passed with Parkinson's January 2023. She is seen . Subjective Previous Plan-05/28/2023 Visit: No changes today Follow up with Dr. Beckman to discuss this new diagnosis Interval History: Pain in chest and neck. Heart has been checked out. Sometimes anxiety associated. No Sinemet side effects. Nausea at times but no pattern. Zofran is effective. Sinemet lasting 2 hours with return of tremor and the pain above. Intermittent dry mouth and throat. Parkinson's Medication Schedule - as of the start of the visit: Medications 8 1130 3 630 Sinemet 25/100 2 2 2 2 Azilect (rasagiline) 1 mg 1 Parkinson's Motor Complications Medication benefit onset: 30 minutes Medication duration: 2 hours Wearing off: yes Painful off-state dystonia: no Dyskinesia: no Prior Anti-Parkinson Therapies Carbidopa/Levodopa Questionnaires In addition, the following areas that may be affected by abnormal involuntary movements were evaluated: Daily activities Difficulties with eating: Yes (slight) Difficulties in dressin (none) Difficulties with hygiene activities: 0 (none) Difficulties with handwriting: Yes (slight) Difficulties with doing hobbies and other activities: Yes (slight) Difficulties turning in bed: 0 (none) Difficulties getting out of bed, car or chair: 0 (none) Tremors/Gait/Balance Shaking or tremors: Yes (mild) right side. hit or miss. Walking and balance problems: 0 (none) Number of falls in the Last Month: 0 Gait freezin (none) Autonomic/Pain Lightheadeness on standing: Yes (slight) Urinary problems: 0 (none) Constipation problems: Yes (mild) takes stool softener as needed, laxative. Pain and other sensations: Yes (mild) Speech/Swallowing Speech problems: 0 (none) Droolin (none) Chewing and swallowing problems: Yes (slight) Sleep/Fatigue Sleep problems: Yes (slight) Daytime sleepiness: 0 (none) Fatigue: Yes (slight) Mood/Behavior Depression: PHQ-9 Score: 8 usually representing mild (5-9) depression. Anxiety: ALPHONSO-7 Total Score: 6 usually representing mild (5-9) anxiety. Finally, the following table shows the patient's overall global physical and mental health using the PROMIS scale: PROMIS-10 Flowsheet Row Office Visit from 10/06/2023 in Neurology [facility] from 05/28/2023 in Neurological [facility] Global Physical Health T Score 44.9 42.3 Global Mental Health T Score 41.1 38.8 0-10 Standard Pain Scale 3 4 *PROMIS-10 scoring scale: mean = 50, over 50 is above average, under 50 is below average In addition, the following non-motor symptoms and palliative concerns were evaluated: Sleep/Fatigue: REM sleep behavior disorder: Yes Rare, past couple of years Restless Legs Syndrome: Yes chronic. Leg swelling: Impaired sense of smell: Yes Cognition: Cognitive impairment: no MoCA Cognitive assessment: Hallucinations and delusions: no Apathy: Impulse control disorder: Palliative Concerns: Caregiver burden: Spiritual concerns: Advanced directives on file: Palliative services: Therapy and Exercise: Last PT Date: Last OT Date: Last ST Date: Exercises Regularly: Yes silver sneakers 2 days per week ALLERGIES Allergen Reactions Brendon Inhibitors Cough Current Outpatient Medications Medication Sig citalopram (CELEXA) 20 mg tablet Take 20 mg by mouth once daily. carbidopa-levodopa (SINEMET 25-100) 25-100 mg per tablet Take 2 tablets by mouth four times daily. (Patient taking differently: Take 2 tablets by mouth four times daily. Pt takes 2 tabs at 8a, 12:30a, 3p and 630p) LORazepam (ATIVAN) 0.5 mg TAKE 1 TO 2 TABLETS BY MOUTH EVERY 4 TO 6 HOURS NEEDED FOR ANXIETY FOR UP TO [address] (PROTONIX) 40 mg tablet Take by mouth. zolpidem (AMBIEN CR) 6.25 mg CR tablet Take by mouth. ondansetron orally disintegrating (ZOFRAN ODT) 8 mg disintegrating tablet DISSOLVE 1 TABLET BY MOUTH EVERY 8 HOURS NEEDED FOR NAUSEA losartan (COZAAR) 25 mg tablet Take 50 mg by mouth once daily. acetaminophen (TYLENOL 8 HOUR ORAL) Take by mouth. PRN rasagiline (AZILECT) 1 mg tab Take 1 tablet by mouth once daily. Start with 1/2 tab daily for 2 weeks then increase to 1 tab daily. Aware pt also taking Celexa No current facility-administered medications for this visit. Objective Vital Signs: Ht 170.2 cm (5' 7 ) SpO2 98% BMI 31.65 kg/m? Orthostatic Vitals: Sitting: BP 133/82 Pulse 82 Standing: BP 130/82 Pulse 86 Height: 170.2 cm (5' 7 ) No LMP recorded. Patient is postm (more content not included)... [facility] 09-27-2023 History of Present illness Narrative Subjective Connie Lynch is a ambidextrous 73 y.o. year old female with PD who presents for followup of neuropathy c/f CMT. Patient is accompanied by: child daughter . Visit type: follow up visit Mrs. Lynch reports feeling stable since last visit, no real change or progression in her tingling, which she states is located in her b/l toes and does not radiate. She will occasionally feel 1-2s of tingling in her arms, but less often than her toes. There is no positional component, aggravating factors, or alleviating factors, and it is overall not too bothersome to her. She reports that her sister's neuropathy was planned to be tested, however because of patient's discomfort during her EMG her sister did not get it done. ROS performed, positive for constipation, exertional dyspnea (1 flight of stairs). Denies nausea vomiting diarrhea chest pain fevers chills other complaints. Prior history: has a history of episodic neuropathy and weakness starting in 2002, underwent testing at [facility] at that time and improved with steroids and was diagnosed with CIDP, only had one relapse 3mo after initial and subsequently improved without treatment. In 2021 she developed tremor on her right side, and was started on carbidopa levodopa by her PCP, which she states helps some but does not particularly help her tremor that much, rather it helps with a chest pressure and neck stiffness feeling, but only lasts about 2 hours before wearing off. She follows at [facility] for this and reports she has had a full cardiology workup. She developed tingling in her b/l toes and arms and an EMG at [place] demonstrated demyelinating polyneuropathy, subsequent neuromuscular ultrasound showed diffuse symmetric enlargement of her BUE nerves and concern for CMT, invitae gene panel was negative 04/2023. Review of Systems All other systems reviewed and are negative. All other systems have been reviewed and are negative for complaint. No past medical history on file. No family history on file. No past surgical history on file. Social History Tobacco Use Smoking status: Never Smokeless tobacco: Never Substance Use Topics Alcohol use: Not on file Objective Neurological Exam General: Well developed and well nourished. No acute distress. NEUROLOGICAL EXAM: Mental status: Alert and cooperative. Orientated to person, place and time. Cranial nerves: No dysarthria. CNII, III, IV, : Extraocular movement intact, pupillary light reflex present. CNV: Facial sensation intact to light touch CNVII: Able to lift eyebrows and close eye lids with eye lashes buried symmetrically, smile symmetrical. CNIX, X: Symmetrical palatal elevation, phonation within normal limits. CNXI: Symmetrical lateral head rotation and shoulder shrug. Power 5/5. CNXII: tongue midline when protruded. Motor: Muscle bulk: Normal throughout. Muscle tone: Normal in both upper and lower extremities. Movements: postural and intention tremors present in the upper extremities with right worse than left. Not present at rest, however emerged on more complex portions of cognitive examination. Arm orbiting normal. Normal tapping of fingers and feet. No pes cavus or hammertoes MMT reveals the following MRC grades: Neck Flexion 5 Neck Extension 5 R L 5 5 Shoulder abduction 5 5 Elbow flexion 5 5 Elbow extension 5 5 Finger flexion 5 5 Finger extension 5 5 Finger abduction 5 5 Hip flexion 5 5 Hip extension 5 5 Hip abduction (with hip flexed) 5 5 Knee flexion 5 5 Knee extension 5 5 Ankle dorsiflexion 5 5 Ankle plantarflexion Reflexes: 2+ in bilateral biceps, brachioradialis, triceps. 2+ in right patellar. Absent on L (knee surgery) Ankle jerks present and 2+ bilaterally. Toes downgoing Sensation: Decreased sensation to light touch at the bottom of feet. Normal pinprick. Temperature intact. Reduced vibration in toes (7s b/l toes. 10s b/l knees. >25s b/l fingers) Coordination: Intact [id number]. Gait: Normal speed and shena. Normal station. Decreased arm swing bilaterally. Turns in two steps. Romberg normal. Imaging Results: No results found for this or any previous visit from the past 365 days. Point of Care Neuromuscular US 05/14/2023 Narrative Interpreted By: DASHA RODRIGUEZ DO and STEFFI SHAHID MD Patient Name: CONNIE LYNCH STUDY: Point of Care Neuromuscular US; 05/14/2023 10:15 am NEUROMUSCULAR ULTRASOUND OF THE BILATERAL UPPER EXTREMITIES INDICATION: FLORECITA NEUR. Clinical information: Patient presents with weakness of bilateral lower extremity and tremors evaluate for demyelinating neuropathy. Neuromuscular ultrasound to be performed: (a) to evaluate the echotexture and size of the right and left ulnar nerves throughout their course from the wrist to around the elbow; (b) to assess for any identifiable mechanical source of ulnar nerve compression; (c) to identify any dynamic source of neuropathy from nerve subluxation or dislocation; (d) to assess adjacent structures around the right and left elbows for abnormalities; (e) to evaluate the echotexture and size of the right and left median nerves at the carpal tunnel; (f) confirm the right and left median nerves are normal in the forearm; (g) to assess for any identifiable structural source of right and left median nerve compression; (h) to assess adjacent structures around the right and left wrists for abnormalities. HEIGHT: 5 ft 7 in WEIGHT: 188 lbs. HANDEDNESS: Left COMPARISON: None. ACCESSION NUMBER(S): [id number] ORDERING CLINICIAN: DASHA RODRIGUEZ TECHNIQUE: The bilateral median and ulnar nerves and accompanying structures were studied throughout their entire anatomic course in the limb from the wrist to the axilla, including real-time cine imaging. The study was performed using aGE P9 ultrasound machine with a 15-6 MHz matrix linear transducer. Cross sectional area (CSA) was measured within the epineurium, using the trace method. At locations where repeat measurements were taken, the mean value is reported below. Transverse and longitudinal images were obtained. For the median nerve, the patient was examined supine with the arm extended and supinated. For the ulnar nerve, the patient was placed supine with the arms externally rotated, abducted, and slightly flexed at the elbow. The ulnar nerve was identified at the wrist and followed proximally to the mid-arm level. The ulnar nerve was examined and measured at the wrist, mid-arm, mid-forearm, and at the retrocondylar groove. The elbow was then placed in the 90 degree flexed position and the ulnar nerve was assessed at the cubital tunnel proper. The site of maximal enlargement was noted and measured at the cubital tunnel and retrocondylar groove. With the elbow extended, the transducer was placed at the level of the medial epicondyle as the patient's elbow was passively flexed to determine if either ulnar nerve subluxed or dislocated out of the groove. FINDINGS: At the right wrist at the distal wrist crease (proximal carpal tunnel), the median nerve CSA was 7.5 mm2 (NL < 10 mm2; borderline 10-13 mm2; ABN > 13 mm2). The echogenicity of the median nerve was normal. The mobility of the median nerve with flexion and extension of the fingers was normal. Color Doppler of the median nerve showed normal median nerve vascularity. No abnormal tenosynovitis of the flexor tendons was noted. A right persistent median artery was present. A bifid median nerve was present. No other abnormal mass or ganglia was appreciated in the right carpal tunnel. With extension of the fingers, there was no abnormal intrusion of the flexor digitorum sublimis. With flexion of the fingers, there was no abnormal intrusion of the lumbrical muscles. In the mid-forearm, approximately 12 cm proximal to the distal wrist crease, the right median nerve was seen between the flexor digitorum sublimis and flexor digitorum profundus muscles. At the mid-forearm, the right median nerve CSA was 12.4 mm2. The ratio of the right median CSAs between the wrist and forearm (WFR) was 0.6 (NL < 1.5; borderline: 1.5 - 2.0). The echogenicity of the right median nerve in the forearm was normal. The median nerve fascicles were enlarged at the forearm. The median nerve was then followed proximal into the forearm to the axilla. The median nerve was enlarged in size with normal echogenicity adjacent to the brachial artery. The fascicles of the median nerve were enlarged from the antecubital fossa to the axilla. At the left wrist at the distal wrist crease (proximal carpal tunnel), the median nerve CSA was 10.7 mm2 (NL < 10 mm2; borderline 10-13 mm2; ABN > 13 mm2). The echogenicity of the left median nerve was slightly reduced. The mobility of the median nerve with flexion and extension of the fingers was normal. Color Doppler of the median nerve showed normal median nerve vascularity. No abnormal tenosynovitis of the flexor tendons was noted. A left persistent median artery was not present. A bifid median nerve was not present. No other abnormal mass or ganglia was appreciated in the left carpal tunnel. With extension of the fingers, there was no abnormal intrusion of the flexor digitorum sublimis. With flexion of the fingers, there was no abnormal intrusion of the lumbrical muscles. In the mid-forearm, approximately 12 cm proximal to the distal wrist crease, the left median nerve was seen between the flexor digitorum sublimis and flexor digitorum profundus muscles. At the mid-forearm, the left median nerve CSA was 11.5 mm2. The ratio of the left median CSAs between the wrist and forearm (WFR) was 0.9 (NL < 1.5; borderline: 1.5 - 2.0). The echogenicity of the left median nerve in the forearm was normal. The median nerve was then followed proximal into the forearm to the axilla. The median nerve was increased in size with enlarged fascicles and normal echogenicity adjacent to the brachial artery. Scanning the muscles, the echogenicity was normal of the flexor digitorum sublimis, flexor digitorum profundus, flexor pollicis longus, flexor carpi radialis, and pronator teres. The echogenicity of the abductor pollicis brevis was normal. Impression This is an abnormal neuromuscular ultrasound examination of the right and left upper extremities. There is enlargement of the right median nerve with enlarged fascicles in both left and right upper extremities. Given that bilateral median nerves were enlarged throughout (worst in the proximal arms), this is consistent with an inherited demyelinating neuropathy. Clinical correlation is recommended. 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 Genetic panel was negative, however may represent a variant not captured on gene panel. 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 If her sister would be able to be tested it may give us additional information regarding inherited versus acquired, would only need to be a limited exam to check for any demyelinating conduction delay, but ultimately will not change our current management. [facility]. Has close follow-up will defer to their management. Discussed chest tightness is unlikely related to PD or CMT, recommend follow-up with PCP. Plan: - discussed notifying us if she develops any weakness or worsening imbalance - followup PRN Patient examined and discussed with attending Dr. Rodriguez who agrees with the above. Remy De La Rosa MD PGY3 neurology Associated attestation - Dasha Rodriguez DO - 09/29/2023 9:51 AM EST I saw and evaluated the patient. I personally obtained the lee and critical portions of the history and physical exam or was physically present for lee and critical portions performed by the resident/fellow. I reviewed the resident/fellow's documentation and discussed the patient with the resident/fellow. 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 Her electrodiagnostic testing revealed uniform nerve conduction slowing in the demyelinating range. Neuromuscular ultrasound revealed hypertrophy of her peripheral nerves that was very homogenous. Unfortunately, the genetic panel failed to reveal any pathological mutations to confirm the diagnosis. She mentions that her sister also has a neuropathy of unclear cause. We discussed that if she were to undergo similar testing with similar results we could be very confident in the diagnosis of CMT. she will discuss it with her to see if she wants to pursue further work-up. It is still unclear if the patient had superimposed CIDP 20 years ago. We discussed safety measures including good foot wear, preventative foot care, methods for mitigating falls. I do not feel there is a need for her to follow with us frequently as there are no interventions we are offering at this point. She will continue to follow with her movement disorder specialist at [facility] for her tremor. I have asked her to see me back in a year, but sooner should she develop any worsening or other concerning symptoms. Dasha Rodriguez D.O. Neuromuscular Medicine documented in this encounter [facility] Work Phone: 05-28-2023 Note HNO ID: [id number] Author: Radha Raymond APRN.BREAD WRAPPER OPERATOR Service: ? Author Type: Nurse Practitioner Type: Progress Notes Filed: 05/31/2023 12:18 PM Note Text: [facility] - FOLLOW UP EVALUATION - VIRTUAL VISIT Kira Veloz DO, DO [id number] [facility] [id number] Dear Kira Veloz DO, DO: I had the pleasure of seeing Ms. Lynch for follow-up today. As you know she is a 72 year old ambidextrous female with a history of Parkinson's disease since 2017. passed with Parkinson's January 2023. She is seen alone. We had a visit using: [email or web address] I have communicated my name and active licensure. The patient's identity and physical location were verified at the time of this visit. Either the patient or their legal dental detail representative has been informed of the risks and benefits of -- and alternatives to -- treatment through a remote evaluation and consents to proceed with the evaluation remotely. Subjective During her previous visit the following plan was made: Previous plan-04/02/2023 Visit: adjust Sinemet dosing times. Try this for 2 weeks. If you don't like it can resume the 9, 2, 9 dosing times if needed for the restless legs: Magnesium can help with sleep, relaxation, headaches, mood, and RLS and can keep stools regular. If you have regular bowel movements or constipation, try Mg Citrate (best absorbed), Mg Oxide (best for constipation) or Mg Malate. If you are diarrhea prone, try Mg Glycinate or Mg Taurate. Calm, Pure Encapsulation, Loop Trolley research are reliable brands. Dose 250-300 mg and up to 900-1000mg. Would not go beyond 1200 mg. With any supplements or medications, if you develop any rashes, swelling, difficulty breathing or any other concerning symptom please seek immediate medical attention. - Interval History She saw Dr. Rodriguez at and he did EMG. 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 She is doing genetic testing and is awaiting results. In terms of Sinemet she feels there is a slight benefit in tremor. She has changed Wellbutrin and has done better in terms of her nausea. Movement Disorders Medications Schedule - as of the start of the visit: Medications 8 1 6 Sinemet 25/100 2 2 2 Parkinson's Motor Complications Medication benefit onset: unclear Medication duration: unclear Wearing off: no Prior Anti-Parkinson Therapies Carbidopa/Levodopa ALLERGIES Allergen Reactions Brendon Inhibitors Cough Current Outpatient Medications Medication Sig carbidopa-levodopa (SINEMET 25-100) 25-100 mg per tablet Take 2 tablets by mouth four times daily. buPROPion SR (ZYBAN SR; WELLBUTRIN SR) 150 mg 12 hr tablet TAKE 1 TABLET BY MOUTH ONCE DAILY IN THE MORNING LORazepam (ATIVAN) 0.5 mg TAKE 1 TO 2 TABLETS BY MOUTH EVERY 4 TO 6 HOURS NEEDED FOR ANXIETY FOR UP TO [address] (PROTONIX) 40 mg tablet Take by mouth. zolpidem (AMBIEN CR) 6.25 mg CR tablet Take by mouth. ondansetron orally disintegrating (ZOFRAN ODT) 8 mg disintegrating tablet DISSOLVE 1 TABLET BY MOUTH EVERY 8 HOURS NEEDED FOR NAUSEA losartan (COZAAR) 25 mg tablet Take 50 mg by mouth once daily. meloxicam (MOBIC) 15 mg tablet Take 15 mg by mouth once daily. acetaminophen (TYLENOL 8 HOUR ORAL) Take by mouth. PRN No current facility-administered medications for this visit. Questionnaires: In addition, the following areas that may be affected by abnormal involuntary movements were evaluated: Daily activities Difficulties with eatin (none) Difficulties in dressin (none) Difficulties with hygiene activities: 0 (none) Difficulties with handwriting: Yes (slight) Difficulties with doing hobbies and other activities: 0 (none) Difficulties turning in bed: 0 (none) Difficulties getting out of bed, car or chair: 0 (none) Tremors/Gait/Balance Shaking or tremors: Yes (slight) Walking and balance problems: 0 (none) Number of falls in the Last Month: 0 Gait freezin (none) Autonomic/Pain Lightheadeness on standin (none) Urinary problems: 0 (none) Constipation problems: 0 (none) Pain and other sensations: Yes (mild) Speech/Swallowing Speech problems: 0 (none) Droolin (none) Chewing and swallowing problems: 0 (none) Sleep/Fatigue Sleep problems: 0 (none) Daytime sleepiness: Yes (mild) Fatigue: Yes (moderate) Mood/Behavior Depression: PHQ-9 Score: 9 usually representing mild (5-9) depression. Anxiety: ALPHONSO-7 Total Score: 4 usually representing no significant (0-4) anxiety. Finally, the following table shows the patient's overall global physical and mental health using the PROMIS scale: PROMIS-10 Flowsheet Row [facility] from 05/28/2023 in [facility] Visit from 12/02/2022 in Neurology Global Physical Health T Score 42.3 32.4 Global Mental Health T Score 38.8 36.3 0-10 Standard Pain Scale 4 2 *PROMIS-10 scoring scale: mean = 50, over 50 is abo (more content not included)... [facility] 05-28-2023 Instructions Radha Raymond APRN.MARTI - 05/28/2023 3:[address] Beckman, Oct 06. Keep same schedule of meds for now documented in this encounter [facility] 05-28-2023 History of Present illness Narrative [facility] - FOLLOW UP EVALUATION - VIRTUAL VISIT Kira Veloz DO, DO [address] [facility] [address] Dear Kira Veloz DO, DO: I had the pleasure of seeing Ms. Lynch for follow-up today. As you know she is a 72 year old ambidextrous female with a history of Parkinson's disease since 2018. passed with Parkinson's January 2023. She is seen alone. We had a visit using: [employer] I have communicated my name and active licensure. The patient's identity and physical location were verified at the time of this visit. Either the patient or their legal dental detail representative has been informed of the risks and benefits of -- and alternatives to -- treatment through a remote evaluation and consents to proceed with the evaluation remotely. Subjective During her previous visit the following plan was made: Previous plan-04/02/2023 Visit: adjust Sinemet dosing times. Try this for 2 weeks. If you don't like it can resume the 9, 2, 9 dosing times if needed for the restless legs: Magnesium can help with sleep, relaxation, headaches, mood, and RLS and can keep stools regular. If you have regular bowel movements or constipation, try Mg Citrate (best absorbed), Mg Oxide (best for constipation) or Mg Malate. If you are diarrhea prone, try Mg Glycinate or Mg Taurate. Calm, Pure Encapsulation, Ron research are reliable brands. Dose 250-300 mg and up to 900-1000mg. Would not go beyond 1200 mg. With any supplements or medications, if you develop any rashes, swelling, difficulty breathing or any other concerning symptom please seek immediate medical attention. - Interval History She saw Dr. Rodriguez at and he did EMG. 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 She is doing genetic testing and is awaiting results. In terms of Sinemet she feels there is a slight benefit in tremor. She has changed Wellbutrin and has done better in terms of her nausea. Movement Disorders Medications Schedule - as of the start of the visit: Medications 8 1 6 Sinemet 25/100 2 2 2 Parkinson's Motor Complications Medication benefit onset: unclear Medication duration: unclear Wearing off: no Prior Anti-Parkinson Therapies Carbidopa/Levodopa ALLERGIES Allergen Reactions Brendon Inhibitors Cough Current Outpatient Medications Medication Sig carbidopa-levodopa (SINEMET 25-100) 25-100 mg per tablet Take 2 tablets by mouth four times daily. buPROPion SR (ZYBAN SR; WELLBUTRIN SR) 150 mg 12 hr tablet TAKE 1 TABLET BY MOUTH ONCE DAILY IN THE MORNING LORazepam (ATIVAN) 0.5 mg TAKE 1 TO 2 TABLETS BY MOUTH EVERY 4 TO 6 HOURS NEEDED FOR ANXIETY FOR UP TO [address] (PROTONIX) 40 mg tablet Take by mouth. zolpidem (AMBIEN CR) 6.25 mg CR tablet Take by mouth. ondansetron orally disintegrating (ZOFRAN ODT) 8 mg disintegrating tablet DISSOLVE 1 TABLET BY MOUTH EVERY 8 HOURS NEEDED FOR NAUSEA losartan (COZAAR) 25 mg tablet Take 50 mg by mouth once daily. meloxicam (MOBIC) 15 mg tablet Take 15 mg by mouth once daily. acetaminophen (TYLENOL 8 HOUR ORAL) Take by mouth. PRN No current facility-administered medications for this visit. Questionnaires: In addition, the following areas that may be affected by abnormal involuntary movements were evaluated: Daily activities Difficulties with eatin (none) Difficulties in dressin (none) Difficulties with hygiene activities: 0 (none) Difficulties with handwriting: Yes (slight) Difficulties with doing hobbies and other activities: 0 (none) Difficulties turning in bed: 0 (none) Difficulties getting out of bed, car or chair: 0 (none) Tremors/Gait/Balance Shaking or tremors: Yes (slight) Walking and balance problems: 0 (none) Number of falls in the Last Month: 0 Gait freezin (none) Autonomic/Pain Lightheadeness on standin (none) Urinary problems: 0 (none) Constipation problems: 0 (none) Pain and other sensations: Yes (mild) Speech/Swallowing Speech problems: 0 (none) Droolin (none) Chewing and swallowing problems: 0 (none) Sleep/Fatigue Sleep problems: 0 (none) Daytime sleepiness: Yes (mild) Fatigue: Yes (moderate) Mood/Behavior Depression: PHQ-9 Score: 9 usually representing mild (5-9) depression. Anxiety: ALPHONSO-7 Total Score: 4 usually representing no significant (0-4) anxiety. Finally, the following table shows the patient's overall global physical and mental health using the PROMIS scale: PROMIS-10 Flowsheet Row [facility] from 05/28/2023 in [facility] Visit from 12/02/2022 in Neurology Global Physical Health T Score 42.3 32.4 Global Mental Health T Score 38.8 36.3 0-10 Standard Pain Scale 4 2 *PROMIS-10 scoring scale: mean = 50, over 50 is above average, under 50 is below average Objective She is accompanied by her child. General: Awake, alert, interactive, no acute distress, good nutritional status, normal development, well-kept Assessment and Plan: Assessment Ms. 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 Has noted bilateral upper extremity postural and resting tremors since around 2016. Tremor worse late 2021 and now involving lower extremities. On exam there is hypomimia, right hand resting, postural tremors, tremulous spirals and lines, no rigidity. Gait is slow with decreased arm swing bilaterally. Improved with low-dose Sinemet started by PCP. Suspect ET with subsequent development of PD. She improved on higher Sinemet dose. Since her last visit with Dr. Beckman she saw Dr. Rodriguez at (neuromuscular) and he has diagnosed her with Charcot-Bella Tooth disease. She is doing well for now, so she is not interested in changing anything. She has a follow up scheduled with Dr. Beckman on Oct 06 and I told her she can be added to the waitlist to see her sooner. The following are the current problems noted and addressed during this visit: No diagnosis found. Plan 05/28/2023 Visit: No changes today Follow up with Dr. Beckman to discuss this new diagnosis Interested in clinical research? Not currently Updated Movement Disorder Medication Schedule: Medications 8 1 6 Sinemet / 2 2 2 Thank you for allowing me to be part of the clinical care of this patient! I look forward to continued participation in the patient s care with you. Please do not hesitate to call with any questions. Sincerely, Radha Raymond APRN.BREAD WRAPPER OPERATOR documented in this encounter [facility] 05-10-2023 Miscellaneous Notes Call to patient, no answer. Message left for return call Wellbutrin can cause weight loss so I suspect that is the reason for changing to citalopram. Would not want to change more than 1 medication at a time. Suggest making the citalopram switch, make sooner appt with KENDR[facility] so Parkinson's medication adjustment can be discussed Voicemail received May 10, 2023 0924 Hi this is Sylvia Talavera. My phone number is [phone] and I am a patient of Dr. Beckman's. I just wanted to get her advice. I have been feeling really crummy a lot of the time. I don't know if it's a combination of medicines I'm taking. But I've lost 30 pounds since January and I'm not trying to lose weight. I take carba-levo all I take it two pills four times a day but it doesn't seem like it's enough for me. I don't know if I need a higher dosage of it maybe because I get stiff around the neck and start feeling really awful after two and half to three hours but I didn't know if that needed to be a higher dosage or if it's one of the other medicines I also take Wellbutrin that my my GP prescribe for me and she did prescribe a different medicine that I have not switched to she prescribed on Wednesday and it is Citalopram instead of taking the Wellbutrin.But I have not switched up because I was concerned about the after effects that I read on the paper. If you could call me back I would appreciate it. Thank you. passed in january. Wellbutrin prescribed for depression. Unsure if she should change antidepressant, concerns of side-effect. Advised to discuss with prescribing provider. Decreased appetite since passing. Active with hospice bereavement services Has appointment with grief counselor end of this month. LTKR 04/06/23 replacement, mobic prescribed. Taking as needed for pain management and prior to PT/OT. After sinemet 20-30 minutes following taking, I feel fine 2.5-3 hours notices tightness in shoulder and neck. Tremors worsening at that time as well. Taking ativan sparingly Zofran- taking occasionally. Last taken yesterday Patient is asking in sinemet dose needs increased? Routing to provider for review documented in this encounter [facility] 04-02-2023 Note HNO ID: [id number] Author: Joseph Beckman MD Service: ? Author Type: Physician Type: Progress Notes Filed: 04/02/2023 6:06 PM Note Text: [facility] - FOLLOW UP EVALUATION No referring provider defined for this encounter. Kira Veloz, DO, DO [address] [facility] [id number] I had the pleasure of seeing Ms. Lynch for follow up today. She is a 72 year old ambidextrous female with a history of Parkinson's disease since 2018. passed with Parkinson's January 2023. She is seen with a daughter. Subjective Previous Plan-12/02/2022 Visit: Sinemet 25/100 1 tab 3 times a day x7 days, then 1.5 tabs 3 times a day x7 days, then 2 tabs 3 times a day - PT - Interval History: passed. Grief. In counseling through his hospice provider. Knee replacement soon. Thyroid nodule bx in April. Little bit of tremor on right side comes and goes. Goes to gym. EMG revealed neuropathy. 03/08 EMG report brought with her- demyelinating neuropathy with secondary axonal. No pain. Some areas of numbness. Little off balance in shower with eyes closed. Parkinson's Medication Schedule - as of the start of the visit: Medications 9 2 9 Sinemet 25/100 2 2 2 Parkinson's Motor Complications Medication benefit onset: unclear Medication duration: unclear Wearing off: no Prior Anti-Parkinson Therapies Carbidopa/Levodopa Questionnaires In addition, the following areas that may be affected by abnormal involuntary movements were evaluated: Daily activities Difficulties with eatin (none) Difficulties in dressin (none) Difficulties with hygiene activities: 0 (none) Difficulties with handwritin (none) Difficulties with doing hobbies and other activities: Yes (slight) Difficulties turning in bed: 0 (none) Difficulties getting out of bed, car or chair: 0 (none) Tremors/Gait/Balance Shaking or tremors: Yes (slight) Walking and balance problems: 0 (none) Number of falls in the Last Month: none Gait freezin (none) Autonomic/Pain Lightheadeness on standing: Yes (slight) Urinary problems: 0 (none) Constipation problems: Yes (slight) Pain and other sensations: 0 (none) Speech/Swallowing Speech problems: 0 (none) Droolin (none) Chewing and swallowing problems: 0 (none) Sleep/Fatigue Sleep problems: 0 (none) Daytime sleepiness: 0 (none) Fatigue: 0 (none) Mood/Behavior Depression: PHQ-9 Score: 5 usually representing mild (5-9) depression. Anxiety: Finally, the following table shows the patient's overall global physical and mental health using the PROMIS scale: PROMIS-10 Flowsheet Row Office Visit from 12/02/2022 in Neurology Global Physical Health T Score 32.4 Global Mental Health T Score 36.3 0-10 Standard Pain Scale 2 *PROMIS-10 scoring scale: mean = 50, over 50 is above average, under 50 is below average In addition, the following non-motor symptoms and palliative concerns were evaluated: Sleep/Fatigue: REM sleep behavior disorder: Yes Rare, past couple of years Restless Legs Syndrome: Yes chronic. Leg swelling: Impaired sense of smell: Yes Cognition: Cognitive impairment: no MoCA Cognitive assessment: Hallucinations and delusions: no Apathy: Impulse control disorder: Palliative Concerns: Caregiver burden: Spiritual concerns: Advanced directives on file: Palliative services: Therapy and Exercise: Last PT Date: Last OT Date: Last ST Date: Exercises Regularly: ALLERGIES Allergen Reactions Brendon Inhibitors Cough Current Outpatient Medications Medication Sig buPROPion SR (ZYBAN SR; WELLBUTRIN SR) 150 mg 12 hr tablet TAKE 1 TABLET BY MOUTH ONCE DAILY IN THE MORNING LORazepam (ATIVAN) 0.5 mg TAKE 1 TO 2 TABLETS BY MOUTH EVERY 4 TO 6 HOURS NEEDED FOR ANXIETY FOR UP TO [address] (PROTONIX) 40 mg tablet Take by mouth. zolpidem (AMBIEN CR) 6.25 mg CR tablet Take by mouth. ondansetron orally disintegrating (ZOFRAN ODT) 8 mg disintegrating tablet DISSOLVE 1 TABLET BY MOUTH EVERY 8 HOURS NEEDED FOR NAUSEA losartan (COZAAR) 25 mg tablet Take 50 mg by mouth once daily. meloxicam (MOBIC) 15 mg tablet Take 15 mg by mouth once daily. acetaminophen (TYLENOL 8 HOUR ORAL) Take by mouth. PRN carbidopa-levodopa (SINEMET 25-100) 25-100 mg per tablet Take 1 tablet by mouth three times daily for 7 days, THEN 1.5 tablets three times daily for 7 days, THEN 2 tablets three times daily. (Patient taking differently: Taking 2 tablets at 9am, 2pm and 9pm) No current facility-administered medications for this visit. Objective Vital Signs: BP 132/81 (BP Site: Left Arm, BP Position: Sitting, BP Cuff Size: Large Adult) Pulse 85 Ht 170.2 cm (5' 7 ) Wt 91.7 kg (202 lb 1.6 oz) SpO2 95% BMI 31.65 kg/m? Orthostatic Vitals: None for this encounter Weight: 91.7 kg (202 lb 1.6 oz) Height: 170.2 cm (5' 7 ) No LMP recorded. Patient is postmenopausal. Body (more content not included)... [facility] 04-02-2023 Instructions Joseph Beckman MD - 04/02/2023 1:07 PM EDT It was a pleasure to see you today. We addressed the following diagnoses: Parkinson disease (hcc) (primary encounter diagnosis) My recommendations are as follows: - adjust Sinemet dosing times. Try this for 2 weeks. If you don't like it can resume the 9, 2, 9 dosing times - if needed for the restless legs: Magnesium can help with sleep, relaxation, headaches, mood, and RLS and can keep stools regular. If you have regular bowel movements or constipation, try Mg Citrate (best absorbed), Mg Oxide (best for constipation) or Mg Malate. If you are diarrhea prone, try Mg Glycinate or Mg Taurate. Calm, Pure Encapsulation, Ron research are reliable brands. Dose 250-300 mg and up to 900-1000mg. Would not go beyond 1200 mg. With any supplements or medications, if you develop any rashes, swelling, difficulty breathing or any other concerning symptom please seek immediate medical attention. Movement Disorders Medication Schedule: Medications 8 1 6 Sinemet 25/100 2 2 2 No follow-ups on file. If there are any concerns before your next visit, please call or you can send a message through Nomi. You can also now schedule and select appointments through [facility]. Joseph Beckman MD documented in this encounter [facility] 04-02-2023 History of Present illness Narrative [facility] - FOLLOW UP EVALUATION No referring provider defined for this encounter. Kira Veloz, , DO [address] [facility] [address] [facility] [id number] I had the pleasure of seeing Ms. Lynch for follow up today. She is a 72 year old ambidextrous female with a history of Parkinson's disease since 2018. passed with Parkinson's January 2023. She is seen with a daughter. Subjective Previous Plan-12/02/2022 Visit: Sinemet 25/100 1 tab 3 times a day x7 days, then 1.5 tabs 3 times a day x7 days, then 2 tabs 3 times a day - PT - Interval History: passed. Grief. In counseling through his hospice provider. Knee replacement soon. Thyroid nodule bx in April. Little bit of tremor on right side comes and goes. Goes to gym. EMG revealed neuropathy. 03/08 EMG report brought with her- demyelinating neuropathy with secondary axonal. No pain. Some areas of numbness. Little off balance in shower with eyes closed. Parkinson's Medication Schedule - as of the start of the visit: Medications 9 2 9 Sinemet 25/100 2 2 2 Parkinson's Motor Complications Medication benefit onset: unclear Medication duration: unclear Wearing off: no Prior Anti-Parkinson Therapies Carbidopa/Levodopa Questionnaires In addition, the following areas that may be affected by abnormal involuntary movements were evaluated: Daily activities Difficulties with eatin (none) Difficulties in dressin (none) Difficulties with hygiene activities: 0 (none) Difficulties with handwritin (none) Difficulties with doing hobbies and other activities: Yes (slight) Difficulties turning in bed: 0 (none) Difficulties getting out of bed, car or chair: 0 (none) Tremors/Gait/Balance Shaking or tremors: Yes (slight) Walking and balance problems: 0 (none) Number of falls in the Last Month: none Gait freezin (none) Autonomic/Pain Lightheadeness on standing: Yes (slight) Urinary problems: 0 (none) Constipation problems: Yes (slight) Pain and other sensations: 0 (none) Speech/Swallowing Speech problems: 0 (none) Droolin (none) Chewing and swallowing problems: 0 (none) Sleep/Fatigue Sleep problems: 0 (none) Daytime sleepiness: 0 (none) Fatigue: 0 (none) Mood/Behavior Depression: PHQ-9 Score: 5 usually representing mild (5-9) depression. Anxiety: Finally, the following table shows the patient's overall global physical and mental health using the PROMIS scale: PROMIS-10 Flowsheet Row Office Visit from 12/02/2022 in Neurology Global Physical Health T Score 32.4 Global Mental Health T Score 36.3 0-10 Standard Pain Scale 2 *PROMIS-10 scoring scale: mean = 50, over 50 is above average, under 50 is below average In addition, the following non-motor symptoms and palliative concerns were evaluated: Sleep/Fatigue: REM sleep behavior disorder: Yes Rare, past couple of years Restless Legs Syndrome: Yes chronic. Leg swelling: Impaired sense of smell: Yes Cognition: Cognitive impairment: no MoCA Cognitive assessment: Hallucinations and delusions: no Apathy: Impulse control disorder: Palliative Concerns: Caregiver burden: Spiritual concerns: Advanced directives on file: Palliative services: Therapy and Exercise: Last PT Date: Last OT Date: Last ST Date: Exercises Regularly: ALLERGIES Allergen Reactions Brendon Inhibitors Cough Current Outpatient Medications Medication Sig buPROPion SR (ZYBAN SR; WELLBUTRIN SR) 150 mg 12 hr tablet TAKE 1 TABLET BY MOUTH ONCE DAILY IN THE MORNING LORazepam (ATIVAN) 0.5 mg TAKE 1 TO 2 TABLETS BY MOUTH EVERY 4 TO 6 HOURS NEEDED FOR ANXIETY FOR UP TO [address] (PROTONIX) 40 mg tablet Take by mouth. zolpidem (AMBIEN CR) 6.25 mg CR tablet Take by mouth. ondansetron orally disintegrating (ZOFRAN ODT) 8 mg disintegrating tablet DISSOLVE 1 TABLET BY MOUTH EVERY 8 HOURS NEEDED FOR NAUSEA losartan (COZAAR) 25 mg tablet Take 50 mg by mouth once daily. meloxicam (MOBIC) 15 mg tablet Take 15 mg by mouth once daily. acetaminophen (TYLENOL 8 HOUR ORAL) Take by mouth. PRN carbidopa-levodopa (SINEMET 25-100) 25-100 mg per tablet Take 1 tablet by mouth three times daily for 7 days, THEN 1.5 tablets three times daily for 7 days, THEN 2 tablets three times daily. (Patient taking differently: Taking 2 tablets at 9am, 2pm and 9pm) No current facility-administered medications for this visit. Objective Vital Signs: BP 132/81 (BP Site: Left Arm, BP Position: Sitting, BP Cuff Size: Large Adult) Pulse 85 Ht 170.2 cm (5' 7 ) Wt 91.7 kg (202 lb 1.6 oz) SpO2 95% BMI 31.65 kg/m Orthostatic Vitals: None for this encounter Weight: 91.7 kg (202 lb 1.6 oz) Height: 170.2 cm (5' 7 ) No LMP recorded. Patient is postmenopausal. Body mass index is 31.65 kg/m . General Physical Examination: General: Awake, alert, interactive, no acute distress, good nutritional status, normal development, well-kept General Neurological Examination: Neurological Exam Mental Status Awake and alert. Language is fluent with no aphasia. Movement Disorders Scales Performed: MDS-UPDRS Motor subscale condition of exam Medication Off/On/Naiive ON (Sinemet 10/100 1 tab last night) Time of UPDRS 1309 Time of Last Medication 0900 Last Medication Taken DBS Right DBS Left MDS-UPDRS Motor subscale scores Speech 1-Slight. Loss of modulation, diction or volume, but still all words easy to understand. Facial Expression 1-Slight. Minimal masked facies manifested only by decreased frequency of blinking. Rigidity Neck 0-Normal. No rigidity. Rigidity Right Upper Extremity 0-Normal. No rigidity. Rigidity Left Upper Extremity 0-Normal. No rigidity. Rigidity Right Lower Extremity 0-Normal. No rigidity. Rigidity Left Lower Extremity 0-Normal. No rigidity. Finger Taps Right 1-Slight. a) the regular rhythm is broken with one or two interruptions or hesitations of the tapping movement, b) slight slowing, c) the amplitude decrements near the end of the 10 taps. Finger Taps Left 1-Slight. a) the regular rhythm is broken with one or two interruptions or hesitations of the tapping movement, b) slight slowing, c) the amplitude decrements near the end of the 10 taps. Hand Movements Right 0-Normal. No problem. Hand Movements Left 0-Normal. No problem. Arm Movements Right 0-Normal. No problems. Arm Movements Left 0-Normal. No problems. Toe Taps Right 1-Slight. a) the regular rhythm is broken with one or two interruptions or hesitations of the tapping movement, b) slight slowing, c) the amplitude decrements near the end of the ten taps. Toe Taps Left 1-Slight. a) the regular rhythm is broken with one or two interruptions or hesitations of the tapping movement, b) slight slowing, c) the amplitude decrements near the end of the ten taps. Leg Agility Right 0-Normal. No problems. Leg Agility Left 0-Normal. No problems. Arise From Chair 0-Normal. No problems. Able to arise quickly without hesitation. Gait 1-Slight. Independent walking with minor gait impairment. Gait Freezing 0-Normal. No freezing. Posture Stability 0-Normal. No problems: recovers with one or two steps. Posture 1-Slight. Not quite erect, but posture could be normal for older person. Body Bradykinesia 1-Slight. Slight global slowness and poverty of spontaneous movements. Postural Tremor Hand Right 1-Slight. Tremor is present but less than 1cm in amplitude. Postural Tremor Hand Left 1-Slight. Tremor is present but less than 1cm in amplitude. Kinetic Tremor Right 1-Slight. Tremor is present but less than 1cm in amplitude. Kinetic Tremor Left 1-Slight. Tremor is present but less than 1cm in amplitude. Rest Tremor Amplitude Right Upper Extremity 2-Mild. > 1 cm but < 3 cm in maximal amplitude. Rest Tremor Amplitude Left Upper Extremity 0-Normal. No tremor. Rest Tremor Amplitude Right Lower Extremity 0-Normal. No tremor. Rest Tremor Amplitude Right Lower Extremity 0-Normal. No tremor. Rest Tremor Amplitude Lip/Jaw 0-Normal. No tremor. Rest Tremor Constancy 1-Slight. Tremor at rest is present < 25% of the entire examination period. MDS-UPDRS Motor subscale totals Left Total 4 Right Total 6 Midline Total 5 Tremor Total / 10 7 PIGD Total / 3 1 Overall Total 16 % Change Compared to Last Filed Total Assessment and Plan: Assessment Ms. 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 Has noted bilateral upper extremity postural and resting tremors since around 2016. Tremor worse late 2021 and now involving lower extremities. On exam there is hypomimia, right hand resting, postural tremors, tremulous spirals and lines, no rigidity. Gait is slow with decreased arm swing bilaterally. Improved with low-dose Sinemet started by PCP. Suspect ET with subsequent development of PD. She improved on higher Sinemet dose. Looking well from a motor standpoint. Experiences RLS in the evening so recommend moving Sinemet doses closer together to focus effect during the day and evening. Can try magnesium if needs additional RLS relief. Outside EMG revealed demyelinating neuropathy. Provider suggested neuromuscular consult and I agree. She has an appointment with the EMG provider and will keep it. The following are the current problems noted and addressed during this visit: Parkinson disease (hcc) (primary encounter diagnosis) Rls (restless legs syndrome) Plan 04/02/2023 Visit: adjust Sinemet dosing times. Try this for 2 weeks. If you don't like it can resume the 9, 2, 9 dosing times if needed for the restless legs: Magnesium can help with sleep, relaxation, headaches, mood, and RLS and can keep stools regular. If you have regular bowel movements or constipation, try Mg Citrate (best absorbed), Mg Oxide (best for constipation) or Mg Malate. If you are diarrhea prone, try Mg Glycinate or Mg Taurate. Calm, Pure Encapsulation, Ron research are reliable brands. Dose 250-300 mg and up to 900-1000mg. Would not go beyond 1200 mg. With any supplements or medications, if you develop any rashes, swelling, difficulty breathing or any other concerning symptom please seek immediate medical attention. - Updated Movement Disorders Medication Schedule: Medications 8 1 6 Sinemet 2 2 2 Return at or around: 10/03/23 Level of service : 62866 (40-54 min). Time spent 40 min on the day of service, which included preparing to see the patient, [id number] patient care, completing clinical documentation, performing a medically appropriate examination, and counseling and educating the patient/family/caregiver. Thank you for allowing me to be part of the clinical care of this patient! I look forward to continued participation in the patient s care with you. Please do not hesitate to call with any questions. Sincerely, Joseph Beckman MD documented in this encounter [facility] 12-02-2022 Note HNO ID: [id number] Author: Joseph Beckman MD Service: ? Author Type: Physician Type: Progress Notes Filed: 12/04/2022 7:36 AM Note Text: [facility] - NEW PATIENT EVALUATION Referring Provider: Roxy Wallace [address] [facility] [address] Primary Care Provider: Kira Veloz DO, DO [address] [facility] [address] [facility] [address] Dear Roxy Wallace: Thank you for referring Ms. Lynch to our clinic today. As you know she is a 72 year old ambidextrous female who is seen in consultation for evaluation of tremor since 2018. 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 She is seen with a daughter. Subjective HISTORY OF PRESENT ILLNESS: Initial HPI For about 5 years noted tremor carrying dishes. Worse the past couple of months. Mostly the right side. Sometimes left. At rest and with posture. Shaky. Handwriting not smaller, still legible. Hands and feet for a couple of months. Nothing makes it better or worse. There most of the time. PCP started Sinemet which helps but hasn't eliminated it completely. Last dose was last night. Not feeling a change off it yet. Was 10/100 1 tab 3 times a day. No fluctuations. Stress fracture and torn meniscus left leg affects walking since around last March. Just had MRI. Starting with a brace. Limping is better. Balance is ok. No falls. No family history of tremor. No change in dexterity. Moving slower. Attributes to the left leg. Some slowness with ADLs. Movement Disorders Medications Schedule - as of the start of the visit: Medications Prior Anti-Parkinson Therapies Carbidopa/Levodopa Questionnaires In addition, the following areas that may be affected by abnormal involuntary movements were evaluated: Daily activities Difficulties with eatin (none) Difficulties in dressin (none) Difficulties with hygiene activities: 0 (none) Difficulties with handwritin (none) Difficulties with doing hobbies and other activities: 0 (none) Difficulties turning in bed: Yes (slight) not sure why Difficulties getting out of bed, car or chair: 0 (none) Tremors/Gait/Balance Shaking or tremors: Yes (slight) Walking and balance problems: Yes (slight) Number of falls in the Last Month: 0 Gait freezin (none) Autonomic/Pain Lightheadeness on standin (none) Urinary problems: Yes (mild) Constipation problems: 0 (none) Pain and other sensations: Yes (mild) Speech/Swallowing Speech problems: 0 (none) Droolin (none) Chewing and swallowing problems: 0 (none) Sleep/Fatigue Sleep problems: Yes (mild) Daytime sleepiness: Yes (slight) Fatigue: Yes (slight) Mood/Behavior Depression: PHQ-9 Score: 5 usually representing mild (5-9) depression. Anxiety: ALPHONSO-7 Total Score: 5 usually representing mild (5-9) anxiety. Finally, the following table shows the patient's overall global physical and mental health using the PROMIS scale: PROMIS-10 Flowsheet Row Office Visit from 12/02/2022 in Neurology Global Physical Health T Score 32.4 Global Mental Health T Score 36.3 0-10 Standard Pain Scale 2 *PROMIS-10 scoring scale: mean = 50, over 50 is above average, under 50 is below average In addition, the following non-motor symptoms and palliative concerns were evaluated: Sleep/Fatigue: REM sleep behavior disorder: Yes Rare, past couple of years Restless Legs Syndrome: Yes chronic Leg swelling: Impaired sense of smell: Yes Cognition: Cognitive impairment: no MoCA Cognitive assessment: Hallucinations and delusions: no Apathy: Impulse control disorder: Palliative Concerns: Caregiver burden: Spiritual concerns: Advanced directives on file: Palliative services: Therapy and Exercise: Last PT Date: Last OT Date: Last ST Date: Exercises Regularly: Review of Systems Review of Systems Constitutional Positive for Fatigue Negative for Fevers, Night Sweats, Weight Gain and Weight Loss Eyes Negative for Change in vison not corrected by glasses and Vision loss or change Hent Negative for Hearing Loss, Difficulty Swallowing, Tinnitus and Recent change in speech or voice Cardiovascular Positive for Leg pain with walking Negative for Chest Pain and Lightheadedness Respiratory Negative for SOB at rest, SOB with exertion, Cough, Wheezing and Snoring GI Negative for Blood in Stool, Abdominal Pain, Diarrhea, Constipation, Nausea/Vomiting and Heartburn Positive for Urgency Negative for Incontinence Endocrine Negative for Heat Intolerance and Excessive Thirst Musculoskeletal Negative for Back Pain, Joint Swelling, Stiff Joints and Muscle Pain Integumentary Positive for Hair Changes Negative for Rashes, Itching and Other Lesions Heme/Lymph Positive for Swelling of Arm or Leg Negative for Prolonged Bleeding and Easy Bruising Allergy/Immunologic Negative for Nasal Congestion and Swollen Nodes Neurologic Positive for Weakness (more content not included)... 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 Lynch is a 72 year old female with h/o Parkinson s, lipoma of right leg, who presents to neuromuscular clinic for neuropathy. Patient was referred by Dr. Roxy Wallace, PCP. Patient was accompanied by son. * Patient reported that she had a history of neuropathy that was diagnosed in 1999. She described that she both arms and legs were weak without numbness. This was thought to be due to stress and her symptoms went away. At the beginning of 2022, she noticed that her legs are weaker than usual. She repo rted numbness at bilateral toes without numbness anywhere else. She has a sister with neuropathy which was due to an unknown cause to her. She had no issue with sports or physical education when she was young. She denied any recent falls. * In addition, she noticed that she started having tremors last fall. Her tremors are mainly in her right hand and right leg and mainly when she is doing something. She thinks Sinemet helps as she feels tight inside of her chest when she is due for the next dose. Her handwriting has been getting worse due to the tremor. Speech has been the same. She denied any bradykinesia. She drinks occasionally and noticed no change in her tremor with alcohol. 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 [id number] [place] [facility] Work Phone: Reason for Referral Specialty Diagnoses / Procedures Referred By [address] Referred To Contact Diagnoses Parkinson disease (HCC) Procedures PROVIDER ORDERED FOLLOW UP OFFICE/OUTPATIENT [facility] 60-74 MINUTES Joseph Beckman MD [address] [place] [id number] Referral ID Status Reason Start Date Expiration Date Visits Requested Visits Authorized [id number] Pending Review PCP Requested Referral 04/02/2023 07/01/2023 1 1 Summary Purpose Family History No Family History Records FoundNo Family History Records FoundNo Family History Records FoundNo Family History Records Found Advance Directives No Advanced Directives Records FoundNo Advanced Directives Records FoundNo Advanced Directives Records FoundNo Advanced Directives Records Found Chief Complaint Concern for neuropathy. Additional Source Comments Source Comments (unrecognize d section and content) In the event this informatio n is protected by the Federal Confidentiality of Alcohol and Drug Abuse Patient Records regulations: The Federal rules restrict any use of the information to criminally investigate or prosecute any alcohol or drug abuse patient.[facility] the event this information is protected by the Federal Confidentiality of Alcohol and Drug Abuse Patient Records regulations: The Federal rules restrict any use of the information to criminally investigate or prosecute any alcohol or drug abuse patient.[facility] the event this information is protected by the Federal Confidentiality of Alcohol and Drug Abuse Patient Records regulations: The Federal rules restrict any use of the information to criminally investigate or prosecute any alcohol or drug abuse patient.[facility] Reason for Visit (unrecogniz ed section and content) Reason Comments Patient Update Patient Question Reason Comments Established Patient Follow Up Care Teams (unrecognized sec tion and content) Sales And Distribution Clerk Relationship Specialty Start Date End Date Kira Veloz DO [address] [facility] [address] [place] [address] PCP - General 03/01/01 Sales And Distribution Clerk Relationship Specialty Start Date End Date Kira Veloz DO [address] [facility] [address] [place] [address] PCP - General 03/01/01 INFORMATION SOURCE (unrecogn ized section and content) DATE CREATED AUTHOR AUTHOR'S ORGANIZ ATION 05/28/2023 [facility] DATE CREATED AUTHOR AUTHOR'S ORGANJAMAL ATION 09/28/2023 [facility] DATE CREATED AUTHOR AUTHOR'S ORGANJAMAL ATION 10/13/2023 [facility] FOR RECORDS PERTAINING TO PATIENTS WHO ARE OR HAVE BEEN ENROLLED IN A CHEMICAL DEPENDENCY/SUBSTANCEABUSE PROGRAM, SOME INFORMATION MAY BE OMITTED. This clinical summary was aggregated from multiple sources. Caution should be exercised in using it in the provision of clinical care. This summary normalizes information from multiple sources, and as a consequence, information in this document may materially change the coding, format and clinical context of patient data. In addition, data may be omitted in some cases. CLINICAL DECISIONS SHOULD BE BASED ON THE PRIMARY CLINICAL RECORDS. [employer] provides no warranty or guarantee of the accuracy or completeness of information in this document.
[2024-01-09 22:07] LABS: Absolute Neutrophil Count 7.8 X10^3/uL (2.0-7.7); Basophil# 0.03 X10^3/uL; Basophil% 0.3 % (0-1); Eosinophil# 0.01 X10^3/uL; Eosinophils% 0.1 % (0-5); Hematocrit 42.1 % (37-47); Hemoglobin 13.8 g/dL (12.0-15.0); Lymphocyte % 6.8 % (19-41); Mean Corp Hgb Conc 32.8 g/dL (32-36); Mean Corpuscular Hgb 29.7 pg (27.0-32.0); Mean Corpuscular Volume 90.5 fL (81-99); Mean Platelet Vol. 8.8 fl (6.2-12.0); Monocyte% 4.5 % (0-10); NRBC Flagged by Analyzer 0 % (0-5); Neutrophil # 7.79 X10^3/uL (2.7-7.7); POSITIVE DIFFERENTIAL YES; Platelet Count 157 K/mm3 (150-450); RBC Distribution Width CV 12.5 % (11.6-14.6); RBC Distribution Width SD 41.5 fl (35.1-43.9); Red Blood Count 4.65 M/mm3 (4.2-5.4); White Blood Count 8.9 K/mm3 (4.4-11.0)
--- NOTE | 2024-01-09 22:20 | RAD_ITS ---
INDICATION: cough EXAMINATION/TECHNIQUE: X-RAY - XR Chest 1 View COMPARISON: December 27, 2023 FINDINGS: LINES/DEVICES: None. LUNGS: Focal left basilar infiltrate/atelectasis. No pneumothorax. MEDIASTINUM AND CARDIOVASCULAR STRUCTURES: Cardiac silhouette not enlarged. Central airways and mediastinal contour are unremarkable. BONES AND SOFT TISSUES: Degenerative vertebral changes. RAD/Chest 1 View (Portable) IMPRESSION: Focal left basilar infiltrate/atelectasis. Electronically Signed: Toni Ellis DO at 22:40 EST ,
[2024-01-09 22:27] LABS: Anion Gap 6 (5-15); BUN 13 mg/dL (7-18); BUN/Creat Ratio 17.6 RATIO (10-20); Calcium,Total 8.6 mg/dL (8.5-10.1); Chloride 104 mmol/L (98-107); Creatinine, Serum 0.74 mg/dL (0.55-1.02); EST Glomerular Filtration Rate 82 mL/min (>60); Est Glom Filt Rate - Afr Amer 99 mL/min (>60); Estimated Creatinine Clearance 67.22 ml/min; Glucose 115 mg/dL (74-106); Potassium 3.2 mmol/L (3.5-5.1); Sodium Level 136 mmol/L (136-145); Troponin-I HS 8 pg/mL (3.0-54.0)
[2024-01-09 22:30] VITALS: BP 144/83; PULSE 92; RESP 28; TEMP 37; O2SAT 92
[2024-01-09 23:17] VITALS: BP 141/63; PULSE 97; RESP 28; TEMP 37.1; O2SAT 92
[2024-01-09 23:51] VITALS: BP 152/70; PULSE 96; RESP 24; TEMP 37.2; O2SAT 92
== END 2024-01-09 23:59 | disposition home or self-care (01) ==
PROVIDERS: Emergency Provider Emergency Medicine; PCP Family Medicine; Visit Provider Emergency Medicine
DX: J11.1 Influenza due to unidentified influenza virus with other respiratory manifestations (principal); R09.3 Abnormal sputum; I10 Essential (primary) hypertension
CPT/HCPCS: 71045; 80048; 84484; 85025; 87631; 93005; 96360; 96361; 99284; J7030; A4216

== ENCOUNTER → 2024-03-03 | Outpatient (CLI) | payer MEDICARE, SELFPAY ==
--- NOTE | 2024-03-03 12:56 | SP.MBSS_ITS ---
Modified Barium Swallow Patient Information Study Date: 03/03/24 Study Time: 13:00 Direct Billable Minutes: 88 Total Minutes procedure & reportin Diagnosis: Dysphagia R13.10 Referring Physician: Alannah Beckmna Reason for Referral: Objectively assess swallow function, assess risk for aspiration, and determine recommendations for least restrictive diet textures and compensatory strategies to improve safety of swallow. Medical History: PMH: Thyroid nodule, Thyroid disease, Tremor (suspected, but not diagnosed Pa rajendra per patient report), GERD, HTN, Neuropathy Per patient, she has been having difficulty swallowing food and drink characterized by coughing when swallowing. She also feels at times that it takes extra effort to swallow. Mild odynophagia at times. Current Diet Ordered: Regular textures / Thin liquids Dentition: WNL and Natural Teeth Mental Status: WNL Respiratory Status: Oxygenating on Room Air Penetration-Aspiration Scale Penetration-Aspiration Scale: OBJECTIVE ASSESSMENT OF SWALLOW FUNCTION (QUANTITATIVE ? PER TRIAL): PENETRATION / ASPIRATION SCALE (PAZ): 1 = does not enter airway 2 = enters airway/above vocal folds/ejected 3 = enters airway/above vocal folds/not ejected 4 = enters airway/contacts vocal folds/ejected 5 = enters airway/contacts vocal folds/not ejected 6 = enters airway/below vocal folds/ejected 7 = enters airway/below vocal folds/not ejected despite effort 8 = enters airway/below vocal folds/no effort VIDEOFLOROSCOPIC SCALE SCORE (PAZ): Grade I = aspiration of material that has penetrated into the laryngeal vestibule, intact cough reflex Grade II = aspiration < 10 % of the bolus, intact cough reflex Grade III = aspiration of < 10 % of the bolus, reduced cough reflex or aspiration of > 10 % of the bolus, intact cough reflex Grade IV = aspiration of > 10 % of the bolus, reduced cough reflex Penetration-Aspiration Scale Score Thin Liquid via teaspoon: Result: 1= does not enter airway Thin Liquid via teaspoon Trial 2: Result: 1= does not enter airway Thin Liquid via large single sip: cup: Result: 1= does not enter airway Thin Liquid via sequential sips: cup: Result: 2= enter airway/above vocal folds/ejected Comment: Esophageal screen - Retention of liquid barium in the mid and lower esophagus with retrograde flow. Regina Thick Liquid via large single sip: cup: Result: 1= does not enter airway Pudding via teaspoon: Comment: Esophageal screen - Retention throughout the esophagus. Thin Liquid via single sip: straw: Result: 1= does not enter airway Comment: Esophageal screen - Liquid wash somewhat improved retention of previous trial; however, barium contrast remained in the mid and lower esophagus. Cookie: Result: 1= does not enter airway Comment: Esophageal screen - Retention of barium throughout the mid and lower esophagus. Oral Phase Labial Seal: No Labial Escape Tongue Control During Bolus Hold: Cohesive bolus between tongue to palatal seal Bolus Preparation/Mastication: Timely and efficient chewing and mashing Bolus Transport/Lingual Motion: Brisk tongue motion Oral Residue: Residue collection on oral structures Pharyngeal Phase Initiation of Pharyngeal Swallow: Bolus head at posterior laryngeal surgace of epiglottis (large sips) Soft Palate Elevation: Trace column of contrast/air between soft palate and pharyngeal wall Laryngeal Elevation: Comp. Superior move thyroid cart w/comp. apprx arytenoid cart-epig pet Anterior Hyoid Excursion: Partial anterior movement Epiglottic Movement: Complete inversion Laryngeal Vestibule Closure at Height of Swallow: Incomplete; narrow column of air/contrast in laryngeal vestibule Pharyngeal Stripping Wave: Present - diminished Pharyngoesophageal Segment Opening: Complete distension and complete duration; no obstruction of flow Tongue Base Retraction: Narrow column of contrast between tongue base & post. pharyngeal wall Pharyngeal Residue: Collection of residue within or on pharyngeal structures Esophageal Phase Esophageal Clearance: Esophageal retention w/ retrograde flow below pharyngoesophageal seg. Diagnosis/Impression Diagnosis: Pharyngoesophageal dysphagia R13.14 Impression: The oral phase is grossly WNL. Piecemeal deglutition of pudding and cookie. The pharyngeal phase is primarily marked by... -Mildly decreased tongue base retraction and pharyngeal stripping wave resulting in mild pharyngeal residue of cookie. Multiple swallows were used by the patient as needed to effectively clear pharyngeal residues. -Trace laryngeal penetration with full ejection after the swallow. No aspiration was observed. The esophageal phase is primarily marked by... -Retention of liquids and cookie in the mid-lower esophagus. Retrograde flow of thin liquids remained below the UES. -Retention of pudding throughout the esophagus, which somewhat improved with thin liquid wash. Recommendations Diet: Regular Textures and Thin Liquids Comment: If sensation of retention in throat or esophagus despite use of strategies, stop meal and resume at a later time. Compensatory Strategies: Small Bites, Small Sips, Slow Rate, Multiple Swallows, Alternate bites/solids and sips/liquids (1:1 Ratio), Sitting upright and Remain sitting upright for 30 minutes after PO intake Recommend Repeat Modified Barium Swallow: No Need for Skilled Speech Therapy Services: Yes Comment: -Train the patient in use of strategies to decrease risk for reflux aspiration. -Ongoing assessment of diet tolerance of recommended textures. -Train the patient oropharyngeal exercise program to improve mild pharyngeal weakness (Lisandra, Effortful swallow). Recommended Referrals: GI Consult Education Completed: 1. Described result of evaluation. (TEST EQUIPMENT MECHANIC educated concerns for reflux aspiration given esophageal findings and encouraged use of the swallowing precautions described above. Pt and daughter verbalized understanding.) Status Active ST Patient: Active Contact Information [facility] Therapy:: Aiyana Banks M.A. [facility]-TEST EQUIPMENT MECHANIC? Speech-Language Pathologist?? [facility] [address]?? [place] [address]?? [email or web address]?? [phone]
== END | disposition home or self-care (01) ==
PROVIDERS: PCP Family Medicine; Referring Provider Psychiatry & Neurology Neurology; Visit Provider Psychiatry & Neurology Neurology
DX: G20.A2 Parkinson's 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, with fluctuations (principal)
CPT/HCPCS: 74230; 92611

== ENCOUNTER 2024-04-15 20:22 | Emergency (ER) | payer MEDICARE, SELFPAY ==
[2024-04-15 20:22] VITALS: BP 151/83; PULSE 65; RESP 15; TEMP 36.4; O2SAT 98; BMI 25.2
--- NOTE | 2024-04-15 21:00 | EDS_ITS ---
HPI History of Present Illness Chief Complaint: Abd Pain Informant: patient and family Narrative Narrative: 73-year-old female arriving to the emergency department with intermittent right- sided abdominal pain. Patient states that symptoms began this morning and are worse when she moves. However it went away during the day while she was shopping. It came back this evening she notes she cannot bend over without hurting. She points to [place] the mid axillary right side of her abdomen. She states it does not hurt when she pushes on it but sometimes she will wince and say ow when she pushes but I stay right there and hurts and she will say no lower but then lower does not hurt when she pushes on it. She denies any urinary symptoms. No vomiting. She notes that normally she has irregular bowel movements. She denies any rashes. [facility] Medical History Abnormal results of thyroid function studies Depression GERD (gastroesophageal reflux disease) History of stress test Hypertension Left knee pain Left leg pain Non-smoker Osteoarthritis of left knee Parkinsonism Puncture wound of right foot Restless legs Synovial cyst of popliteal space [Grady], left knee Thyroid disease Wears glasses Home Medications ?Medication ?Instructions ?Recorded ?Last Taken ?Type zolpidem 6.25 mg tablet,extended 12.5 mg PO QHS Check with primary 03/20/23 04/05/23 History release,multiphase doctor losartan 50 mg tablet 25 mg PO DAILY Check with primary 04/01/23 04/06/23 05:30 History doctor acetaminophen 500 mg tablet 1,000 mg (2 x 500 mg) PO Q6H PRN 04/08/23 Unknown Rx #100 tabs carbidopa 12.5 mg-levodopa 50 2 tab PO Q6H Check with primary 04/28/23 Unknown History mg-entacapone 200 mg tablet doctor lorazepam 0.5 mg tablet 0.5 mg PO Q6H PRN ansiety 04/28/23 Unknown History meloxicam 7.5 mg tablet 15 mg PO DAILY 04/28/23 Unknown History pantoprazole 40 mg tablet,delayed 40 mg PO DAILY 04/28/23 Unknown History release citalopram 20 mg tablet 20 mg PO DAILY 04/15/24 Unknown History entacapone 200 mg tablet 200 mg PO 4X/DAY 04/15/24 Unknown History oxycodone-acetaminophen 5 mg-325 1 tab PO Q6H PRN PRN Pain 3 days 04/15/24 Unknown Rx mg tablet #12 TABLETS Allergy/AdvReac Type Severity Reaction Status Date / Time No Known Allergies Allergy Verified 04/15/24 20:24 Family History Mother Lupus Sister Lupus Daughter Acute Crohn's disease Son Cleft lip Other Cancer Heart disease Surgical History History of knee replacement History of varicose vein stripping Social History Smoking Status: Never smoker alcohol intake: current alcohol intake frequency: holidays/special occasions only substance use type: does not use what type of physical activity do you participate in: walking ROS ROS ED Constitutional Constitutional ED: Denies chills, fever(s) or weight loss Eyes Eyes: Denies change in vision or diplopia ENT ENT ED: Denies ear pain, rhinorrhea or sore throat Cardiovascular Cardiovascular: Denies chest pain, orthopnea, palpitations or racing heartbeat Respiratory/Chest Respiratory/Chest: Denies cough, dyspnea or orthopnea Gastrointestinal Gastrointestinal: Reports abdominal pain; Denies diarrhea, nausea or vomiting Genitourinary Genitourinary ED: Denies dysuria, hematuria or urinary frequency Musculoskeletal Musculoskeletal: Denies arthralgias or myalgias Integumentary Denies abscess or rash Neurologic Neurologic: Denies headache(s) or weakness Psychiatric Psychiatric: Denies anxiety, depression, suicidal ideation or suicidal thoughts Endocrine Endocrinology: Denies polydipsia, polyphagia or polyuria Allergic/Immunologic Allergic/Immunologic ED: Denies mouth swelling, tongue swelling or urticaria EXAM Physical Exam Const Vital Signs: 04/15/24 20:22 Temperature 97.6 F L Temperature Source Temporal Pulse Rate 65 Respiratory Rate 15 Blood Pressure 151/83 H Blood Pressure Mean 105 Pulse Ox 98 Oxygen Delivery Method Room Air Positive well nourished, well developed and obese General Appearance ED: well developed Nutritional Appearance: obese HEENT Reports normocephalic, head/scalp atraumatic and moist mucous membranes Eyes PERRL and EOMs intact bilaterally Neck no lymphadenopathy, supple and no JVD Resp normal respiratory effort and clear to auscultation bilaterally Cardio regular rate, regular rhythm and no murmurs GI normal to inspection, nondistended, normoactive bowel sounds and non-tender Palpation: soft Back/Spine no CVA tenderness and normal ROM Extremity normal to inspection General Extremety ED: Negative for edema General Extremity: Negative for edema Neuro oriented x3 and CN's II-XII intact bilaterally Sensorium / Orientation: alert Motor Exam: strength 5/5 throughout Psych mental status grossly normal Mood & Affect: Negative for depressed or tearful Skin no rashes or lesions noted and no wounds MDM MDM MDM Narrative Medical decision making narrative: Differential diagnosis includes but not limited to ureterolithiasis renal colic UTI pyelonephritis hernia appendicitis colitis acute cholecystitis liver failure ascites spontaneous bacterial peritonitis shingles iliopsoas hematoma/bleed muscle strain CT abdomen pelvis does not demonstrate anything acute to explain her symptoms. White count 7.7 with a hemoglobin of 13.2. Urinalysis shows no overt hematuria. 5-10 white cells 0 bacteria negative nitrates. Liver enzymes are normal. Lipase is 39. Creatinine is 0.96. Patient received a dose of Toradol. I did reexamine her abdomen again still very difficult to isolate the area that hurts. This usually only when I have her sit up. I do not see any skin lesions when I examine the skin. Patient was given return precautions. Would recommend repeat examination 24 hours if continued symptoms and certainly if there is new worsening or concerns. I will write for the patient to have pain medication. History & Record Review Discussion w/independent historian: Patient and Family Additional record(s) reviewed:: Prior labs Lab Data Attestation: I reviewed the patient's lab results. Labs: Laboratory Results - last 24 hr 04/15/24 04/15/24 21:03 22:10 WBC 7.7 RBC 4.22 Hgb 13.2 Hct 38.5 MCV 91.2 MCH 31.3 MCHC 34.3 RDW Std Deviation 45.3 H RDW Coeff of Fozia 13.5 Plt Count 247 MPV 9.2 Immature Gran % (Auto) 0.300 Neut % (Auto) 63.8 Lymph % (Auto) 25.4 Harris % (Auto) 5.3 Eos % (Auto) 4.3 Baso % (Auto) 0.9 Absolute Neuts (auto) 4.9 Absolute Lymphs (auto) 1.96 Nucleated RBC % 0 Sodium 142 Potassium 3.5 Chloride 112 H Carbon Dioxide 24.0 Anion Gap 6 BUN 18 Creatinine 0.96 Estim Creat Clear Calc 50.75 Est GFR (MDRD) Af Amer 73 Est GFR (MDRD) Non-Af 60 BUN/Creatinine Ratio 18.7 Glucose 99 Calcium 8.8 Total Bilirubin 0.30 Direct Bilirubin 0.08 AST 17 ALT < 6 L Alkaline Phosphatase 65 Total Protein 6.7 Albumin 3.5 Globulin 3.2 Lipase 39 Urine Color Yellow Urine Clarity Clear Urine pH 7.0 Ur Specific Mclaughlin 1.015 Urine Protein Negative Urine Glucose (UA) Normal Urine Ketones 5 H Urine Occult Blood 10 H Urine Nitrite Negative Urine Bilirubin Negative Urine Urobilinogen Normal Ur Leukocyte Esterase 500 H Urine RBC 0 SEEN Urine WBC 5-10 SEEN Ur Squamous Epith Cells 0-5 SEEN Urine Bacteria 0 SEEN Urine Mucus 0 SEEN Radiography Diagnostic Testing: Clinical Impression(s) from Imaging Studies Abdomen/Pelvis CT 04/15/24 21:41 IMPRESSION: Negative CT of the abdomen and pelvis with intravenous contrast. Electronically Signed: Porter Banks MD at 22:03 EDT , Discharge Plan Triage Chief Complaint: Abd Pain ED Provider: Avila Lopez Dx/Rx/DC Orders Clinical Impression: Acute flank pain Instructions: ED Flank Pain, Uncertain Cause Prescriptions: New oxycodone-acetaminophen 5-325 mg tablet 1 tab PO Q6H PRN PRN (Reason: Pain) 3 Days Qty: 12 0RF No Action fhhgavuls-jlujdhyj-dvtqxicust 12.5-50-200 mg tablet 2 tab PO Q6H pantoprazole 40 mg tablet,delayed release (DR/EC) 40 mg PO DAILY meloxicam 7.5 mg tablet 15 mg PO DAILY lorazepam 0.5 mg tablet 0.5 mg PO Q6H PRN (Reason: ansiety) losartan 50 mg tablet 25 mg PO DAILY acetaminophen [acetaminophen] 500 mg tablet 1,000 mg PO Q6H PRN Qty: 100 0RF zolpidem 6.25 mg Tablet,Ext Release Multiphase 12.5 mg PO QHS entacapone 200 mg tablet 200 mg PO 4X/DAY citalopram 20 mg tablet 20 mg PO DAILY Primary Care Provider: Roxy Wallace Referrals: Roxy Wallace DO [Primary Care Provider] - 3-5 Days if not improving Activity Restrictions/Additional Instructions: If new or worsening or concerns please return to the emergency department particularly in the next 24 hours. If you have any concerns with the symptoms I would encourage you to return to the emergency department as you will not be able to see your family doctor to at least Wednesday. Print Language: Welsh Disposition Disposition: Home, Self Care
[2024-04-15] MEDS: Ketorolac 15 MG/ML Vial IV (21:10)
[2024-04-15 21:12] LABS: Absolute Lymphocyte Count 1.96 X10^3/uL (0.83-4.51); Absolute Neutrophil Count 4.9 X10^3/uL (2.0-7.7); Basophil# 0.07 X10^3/uL; Basophil% 0.9 % (0-1); Eosinophil# 0.33 X10^3/uL; Eosinophils% 4.3 % (0-5); Hematocrit 38.5 % (37-47); Hemoglobin 13.2 g/dL (12.0-15.0); Lymphocyte # 1.96 X10^3/ul (0.83-4.51); Lymphocyte % 25.4 % (19-41); Mean Corp Hgb Conc 34.3 g/dL (32-36); Mean Corpuscular Hgb 31.3 pg (27.0-32.0); Mean Corpuscular Volume 91.2 fL (81-99); Mean Platelet Vol. 9.2 fl (6.2-12.0); Monocyte# 0.41 X10^3/uL; Monocyte% 5.3 % (0-10); NRBC Flagged by Analyzer 0 % (0-5); Neutrophil # 4.93 X10^3/uL (2.7-7.7); Neutrophil % 63.8 % (47-70); Platelet Count 247 K/mm3 (150-450); RBC Distribution Width CV 13.5 % (11.6-14.6); RBC Distribution Width SD 45.3 fl (35.1-43.9); Red Blood Count 4.22 M/mm3 (4.2-5.4); White Blood Count 7.7 K/mm3 (4.4-11.0)
[2024-04-15 21:31] LABS: AST(SGOT) 17 U/L (15-37); Alanine Aminotransfer ALT/SGPT < 6 U/L (13-56); Albumin, Serum 3.5 g/dL (3.2-5.0); Alkaline Phosphatase 65 U/L (45-117); Anion Gap 6 (5-15); BUN 18 mg/dL (7-18); BUN/Creat Ratio 18.7 RATIO (10-20); Bilirubin, Direct 0.08 mg/dL (0.00-0.30); Calcium,Total 8.8 mg/dL (8.5-10.1); Chloride 112 mmol/L (98-107); Creatinine, Serum 0.96 mg/dL (0.55-1.02); EST Glomerular Filtration Rate 60 mL/min (>60); Est Glom Filt Rate - Afr Amer 73 mL/min (>60); Estimated Creatinine Clearance 50.75 ml/min; Globulin 3.2 g/dL (2.2-4.2); Glucose 99 mg/dL (74-106); Lipase 39 U/L (13-75); Potassium 3.5 mmol/L (3.5-5.1); Protein, Total 6.7 g/dL (6.4-8.2); Sodium Level 142 mmol/L (136-145)
--- NOTE | 2024-04-15 21:41 | CT_ITS ---
EXAM: CT ABDOMEN AND PELVIS WITH INTRAVENOUS CONTRAST CLINICAL INDICATION: right flank pain TECHNIQUE: Helically acquired images were obtained of the abdomen and pelvis with intravenous contrast. This CT exam was performed using one or more of the following dose reduction techniques: automated exposure control, adjustment of the mA and/or kV according to patient size, and/or use of iterative reconstruction technique. CONTRAST: IV 100mL Isovue-370 COMPARISON: No relevant prior studies available. FINDINGS: LOWER THORAX: Unremarkable. Lung bases are clear. No cardiomegaly. No significant pericardial effusion. ABDOMEN: LIVER: Unremarkable. Homogeneous. No focal mass. GALLBLADDER AND BILE DUCTS: Unremarkable. No calcified gallstones. No gallbladder distention or wall edema. No intra- or extrahepatic biliary ductal dilation. PANCREAS: Unremarkable. No focal cystic or solid mass. SPLEEN: Unremarkable. Normal size without focal cystic or solid mass. ADRENALS: Unremarkable. No nodules. KIDNEYS AND URETERS: Unremarkable. Normal renal size and position. No hydronephrosis. STOMACH AND BOWEL: Unremarkable. No stomach or bowel distention. No focal inflammatory change. PELVIS: APPENDIX: No evidence of acute appendicitis. BLADDER: Unremarkable. REPRODUCTIVE: Unremarkable as visualized. No mass. ABDOMEN and PELVIS: INTRAPERITONEAL SPACE: Unremarkable. No ascites or other fluid collection. No free air. BONES/JOINTS: Unremarkable. No suspicious lytic or blastic abnormality. SOFT TISSUES: Unremarkable. No discrete abdominal or pelvic wall hernia. VASCULATURE: Unremarkable. Abdominal aorta is non-dilated. LYMPH NODES: Unremarkable. No enlarged lymph nodes. CT/Abdomen/Pelvis W IV Cont ONLY IMPRESSION: Negative CT of the abdomen and pelvis with intravenous contrast. Electronically Signed: Porter Banks MD at 22:03 EDT ,
[2024-04-15 22:14] LABS: Bacteria 0 SEEN /hpf (None Seen); Mucous, Urine 0 SEEN /hpf (<or=2+); Red Blood Cells-Urine 0 SEEN /hpf (0-5)
[2024-04-15 22:16] LABS: Color, Urine Yellow (Yellow); Glucose, Dipstick Normal (Normal); Ketone-Dipstick 5 mg/dl (Negative); Leukocyte Esterase-Dipstick 500 /ul (Negative); Nitrite-Dipstick Negative (Negative); Occult Blood-Urine 10 /ul (Negative); Protein-Dipstick Negative (Negative); Specific Gravity, Urine 1.015 (1.002-1.030); Urine Bilirubin Dipstick Negative (Negative); Urine Clarity Clear (Clear); Urine Urobilinogen Normal (Normal)
[2024-04-15 22:22] VITALS: BP 158/86; PULSE 62; RESP 18; TEMP 36.1; O2SAT 96
[2024-04-15 22:23] LABS: Squamous Epithelial Cells - UA 0-5 SEEN /hpf (5-10); White Blood Cells 5-10 SEEN /hpf (0-5)
== END 2024-04-15 22:53 | disposition home or self-care (01) ==
PROVIDERS: Emergency Provider Emergency Medicine; PCP Family Medicine; Visit Provider Emergency Medicine
DX: R10.9 Unspecified abdominal pain (principal); K21.9 Gastro-esophageal reflux disease without esophagitis; I10 Essential (primary) hypertension; E66.9 Obesity, unspecified
CPT/HCPCS: 74177; 80048; 80076; 81001; 83690; 85025; 96374; 99283; Q9967; A4216

== ENCOUNTER → 2024-04-24 | Outpatient (CLI) | payer MEDICARE, SELFPAY ==
--- NOTE | 2024-04-24 12:10 | US_ITS ---
STUDY: THYROID ULTRASOUND REASON FOR EXAM: Female, 73 years old. Thyroid surveillance TECHNIQUE: Ultrasound evaluation of the thyroid was performed with real-time and static davey-scale imaging. COMPARISON: Comparison is made with prior study of March 05, 2023. FINDINGS: RIGHT LOBE: The right lobe of the thyroid gland is enlarged and measures 5 cm x 2.3 cm x 1.6 cm. There is a heterogeneous echotexture. Stable 6 mm x 6 mm x 5 mm solid/cystic nodule in the lower pole. This is unchanged. LEFT LOBE: The left lobe of the thyroid gland measures 4.5 cm x 2.2 cm x 2.1 cm. There is a heterogeneous echotexture. Stable 1.8 cm x 1.4 cm x 1.8 cm solid nodule in the lower pole as well as a 1.3 cm x 1.3 cm x 1 0.8 cm solid nodule. ISTHMUS: The isthmus measures 1 mm. The regional lymph nodes are normal. US/Thyroid IMPRESSION: Mildly enlarged right lobe of the thyroid with heterogeneous echotexture bilaterally. Stable dominant solid nodules in the left lobe of the thyroid as described. Electronically Signed: Mateo Cummings MD at 13:43 EDT ,
== END | disposition home or self-care (01) ==
PROVIDERS: PCP Family Medicine; Referring Provider Surgery; Visit Provider Surgery
DX: R94.6 Abnormal results of thyroid function studies (principal); E04.1 Nontoxic single thyroid nodule; E07.9 Disorder of thyroid, unspecified
CPT/HCPCS: 76536

== ENCOUNTER 2024-05-16 05:47 | Day surgery (SDC) | payer MEDICARE, SELFPAY ==
--- NOTE | 2024-05-16 | IMM_PTH ---
PATIENT: WALI LOCKWOOD LOC: EN U#:[id number] AGE/SX: 73/F ROOM: RE05/16/[address]: Dr. Shemar Ortega MD : 1950 BED: DIS: 05/16/2024 SPEC #: [id number] RECD: 05/16/24 12:14 STATUS: KRISTOPHER REQ #: [id number] RAQUEL: 05/16/24 00:[address]: Shemar Ortega DEPT: IMMUNOHISTOCHEMISTRY RECD BY: Sierra Banks ENTERED: 05/16/24 12:15 SP TYPE: IMMUNO OTHR DR: Dr. Roxy Wallace DO Tissues: Stomach, NOS Procedures: H Pylori (initial) PHYSICIAN & INSTITUTION [place] [address] SPECIMEN INFORMATION: Tissue Source: A. Antrum Clinical Info: Thyroid nodule, GERD Specimen Number: [id number] CPT code: 75347 METHODOLOGY: Deparaffinized sections of prefer/formalin-fixed tissue or PAP/DQ stained slides are incubated with monoclonal/polyclonal antibodies/oligonucleotide probes. Localization is made via biotin free immunoperoxidase method. Appropriate controls are performed and reacted as expected. Results on target cell population are indicated in the following table: RESULTS: ANTIBODY / CLONE RESULT BLOCK A H Pylori (polyclonal) negative These tests were developed and their performance characteristics determined by [facility]. They may not have been cleared or approved by the U.S. Food and Drug Administration. The FDA has determined that such clearance or approval is not necessary. The above immunohistochemical/dualISH markers are ordered and reviewed by the Pathologist. INTERPRETATION: A. Antrum biopsy: Negative for Helicobacter pylori organisms. MARIANELA/ 05/17/2024
--- NOTE | 2024-05-16 07:00 | EGD_PTH ---
PATIENT: WALI LOCKWOOD LOC: EN U#:[id number] AGE/SX: 73/F ROOM: RE05/16/[address]: Dr. Shemar Ortega MD : 1950 BED: DIS: 05/16/2024 SPEC #: [id number] RECD: 05/16/24 10:50 STATUS: KRISTOPHER REJenna #: [id number] RAQUEL: 05/16/24 07:[address]: Shemar Ortega DEPT: SURGICAL PATHOLOGY RECD BY: Shanell Colmenares ENTERED: 05/16/24 12:09 SP TYPE: EGD BIOPSY OTHR DR: Dr. Roxy Wallace DO Tissues: A - Gastric mucous membrane B - Gastric fundus C - Esophagus, NOS D - Esophagus, NOS Procedures: Special Stain Group I Surgery Specimen Level IV Alcian Blue/PAS (control) HEADER OPERATION: EGD, biopsy PRE-OP DIAGNOSIS: Thyroid nodule, GERD TISSUE SUBMITTED: A- Antrum, B- Fundic polyp, C- Distal esophagus, D- Mid esophagus MICROSCOPIC DIAGNOSIS A. Antrum, biopsy: Mild gastritis. See microscopic description and comment. B. Fundic polyp, biopsy: Fragments of fundic gland polyp. Chronic inflammation. C. Distal esophagus, biopsy: Fragments of gastroesophageal mucosa with moderate chronic inflammation. Intestinal metaplasia (goblet cell metaplasia) not identified. See comment. D. Mid esophagus, biopsy: A fragment of squamous mucosa with mild chronic inflammation. /mr 05/17/2024 COMMENT A. The results of immunohistochemistry for Helicobacter pylori will be reported separately ([id number]). C. Alcian blue/PAS stain with matched control is used in the evaluation of the specimen. MICROSCOPIC DESCRIPTION Slides are reviewed. A. The specimen shows fragments of gastric mucosa with chronic inflammatory cell infiltrates in the lamina propria consisting of lymphocytes and plasma cells, consistent with mild chronic gastritis. GROSS DESCRIPTION A. Received in fixative is one container labeled with the patient's name and designated Antrum biopsy. The specimen consists of one irregular fragment of light kruger soft tissue that measures 0.3 x 0.3 x 0.1 cm. The specimen is totally submitted in one cassette. B. Received in fixative is one container labeled with the patient's name and designated Fundic polyp biopsy. The specimen consists of two irregular fragments of light kruger soft tissue that in aggregate measure 0.6 x 0.3 x 0.1 cm. The specimen is totally submitted in one cassette. C. Received in fixative is one container labeled with the patient's name and designated Distal esophagus biopsy. The specimen consists of multiple irregular fragments of light kruger soft tissue that in aggregate measure 0.8 x 0.3 x 0.1 cm. The specimen is totally submitted in one cassette. D. Received in fixative is one container labeled with the patient's name and designated Mid esophagus biopsy. The specimen consists of one irregular fragment of light kruger soft tissue that measures 0.4 x 0.4 x 0.1 cm. The specimen is totally submitted in one cassette. SJ/mr 05/16/2024 TC:3 CPT:[id number]
--- NOTE | 2024-05-16 07:26 | HP.PCM_ITS ---
History and Physical Date of Admission: 05/16/24 Intake Visit Reasons: EGD FOR GERD AND DISCUSS THYROID RESULTS Chief Complaint: EGD for GERD and discuss thyroid results Accompanied by: Daughter Is patient in pain?: No Allergies No Known Allergies Allergy (Verified 05/01/24 13:17) Medications ?Medication ?Instructions ?Recorded ?Confirmed ?Type zolpidem 6.25 mg tablet,extended 12.5 mg PO QHS Check with primary 03/20/23 04/15/24 History release,multiphase doctor carbidopa 12.5 mg-levodopa 50 2 tab PO Q6H Check with primary 04/28/23 04/15/24 History mg-entacapone 200 mg tablet doctor lorazepam 0.5 mg tablet 0.5 mg PO Q6H PRN ansiety 04/28/23 04/15/24 History meloxicam 7.5 mg tablet 15 mg PO DAILY 04/28/23 04/15/24 History pantoprazole 40 mg tablet,delayed 40 mg PO DAILY 04/28/23 04/15/24 History release citalopram 20 mg tablet 20 mg PO DAILY 04/15/24 04/15/24 History entacapone 200 mg tablet 200 mg PO 4X/DAY 04/15/24 04/15/24 History PFSH Medical History Abnormal results of thyroid function studies Wears glasses Depression Thyroid disease Restless legs GERD (gastroesophageal reflux disease) Non-smoker History of stress test Parkinsonism Osteoarthritis of left knee Synovial cyst of popliteal space [Grady], left knee Left leg pain Left knee pain Hypertension Puncture wound of right foot Surgical History History of knee replacement History of varicose vein stripping Family History Mother LupusSister LupusDaughter Acute Crohn's diseaseSon Cleft lipOther Cancer Heart disease Social History Smoking Status: Never smoker alcohol intake: current alcohol intake frequency: holidays/special occasions only substance use type: does not use what type of physical activity do you participate in: walking HPI HPI HPI: 73-year-old female returns for follow-up regarding thyroid issues and wants to discuss GERD. My most recent notes were April 28, 2023. I had performed a ultrasound-guided fine needle aspiration of the left lower pole thyroid nodule and a posterior left lower pole nodule. Cytology suggested Oaks category 2 benign follicular colloid nodules for each. As noted below on April 24, 2024 she had updated thyroid ultrasound. I personally reviewed those images. There is a 6 mm nodule in the right lower pole. There is a 1.8 cm nodule on the left and a 1.3 cm nodule on the left. These are felt to be unchanged. As of June 23, 2023 TSH was 0.69 with a thyroglobulin of 10.3 and a T4 of 23. As of 2022 she was diagnosed with Parkinson's disease. She is on carbidopa levodopa. It is of note that she had a modified barium swallow on March 03, 2024 at the [facility]. The oral phase is felt to be normal. The pharyngeal phase has mild decreased tongue base retraction and pharyngeal stripping multiple swallows were used by the patient to clear the pharyngeal residue. There is felt to be retention of liquids and cookie in the mid to lower esophagus with retrograde flow of thin liquids remaining below the upper esophageal sphincter. There is retention of pudding throughout the esophagus somewhat improved with thin liquid wash. It is of additional note that on April 15, 2024 she had and had abdominal pelvic CT scan for right flank pain. This was felt to be unremarkable. I have personally reviewed those images and there is possibly a small hiatal hernia noted. The patient has lost 60 pounds in weight over the past year. She lost her . She has no appetite. She has been diagnosed not only with Parkinson's but also a peripheral neuropathy. She feels generally less strong. She states that when she is in a anxious situation like a crowd that she finds swallowing very difficult. April 24, 2024 STUDY: THYROID ULTRASOUND REASON FOR EXAM: Female, 73 years old. Thyroid surveillance TECHNIQUE: Ultrasound evaluation of the thyroid was performed with real-time and static davey-scale imaging. COMPARISON: Comparison is made with prior study of March 05, 2023. FINDINGS: RIGHT LOBE: The right lobe of the thyroid gland is enlarged and measures 5 cm x 2.3 cm x 1.6 cm. There is a heterogeneous echotexture. Stable 6 mm x 6 mm x 5 mm solid/cystic nodule in the lower pole. This is unchanged. LEFT LOBE: The left lobe of the thyroid gland measures 4.5 cm x 2.2 cm x 2.1 cm. There is a heterogeneous echotexture. Stable 1.8 cm x 1.4 cm x 1.8 cm solid nodule in the lower pole as well as a 1.3 cm x 1.3 cm x 1 0.8 cm solid nodule. ISTHMUS: The isthmus measures 1 mm. The regional lymph nodes are normal. US/Thyroid IMPRESSION: Mildly enlarged right lobe of the thyroid with heterogeneous echotexture bilaterally. Stable dominant solid nodules in the left lobe of the thyroid as described. Electronically Signed: Mateo Cummings MD at 13:43 EDT , ROS General General: Yes weight change (loss) and fatigue; No appetite, colon cancer, breast cancer or weakness HEENT HEENT: Yes difficulty swallowing; No eye injury, eye surgery, swollen glands or hoarseness Endo Endocrine: No thyroid disease, diabetes mellitus, thyroid cancer, Hair loss, heat intolerance or cold intolerance Skin Skin: No rash or changing moles Musc Musculoskeletal: Yes arthritis; No back problems, rheumatoid arthritis, gout or joint pain Cardio Cardiovascular: Yes high blood pressure; No murmur, pacemaker, heart disease, atrial fibrillation, heart attack, heart stent, palpitations, shortness of breat with exertion or chest pain Psych Psychiatric: Yes depression and anxiety; No hearing voices Resp Respiratory: Yes shortness of breath, No sleep apnea, Yes cough, No COPD, No asthma, No emphysema and No wheezing Gastro Gastrointestinal: Yes abdominal pain, No nausea or vomiting, No diarrhea, Yes c onstipation, No blood in stool, Yes acid reflux, No hemorrhoids, No ulcers, No gallbladder problem and No black,tarry stools [place] Hematologic: No blood thinners, No blood disorders, No bleeding, No anemia and No blood clots Neuro Neurologic: No numbness, Yes tingling (toes ) and No weakness Exam Const General: cooperative, comfortable and no acute distress Nutritional Appearance: average body habitus [facility] Head: normal to inspection Neck Neck: normal visual inspection Other: No cervical adenopathy. Carotids 3+ no bruits. Thyroid not easily palpable. Resp Effort & Inspection: normal respiratory effort Auscultation: clear to auscultation bilaterally Cardio Rate: regular rate Rhythm: regular rhythm GI Inspection: normal to inspection Palpation: soft and no hepatosplenomegaly Other: Evidence of recent weight loss. Nontender. Normal bowel sounds Musc Cervical Spine: normal cervical lordosis Skin General: no rashes or lesions noted Neuro General: patient alert, patient awake and patient oriented x3 Extrem General: no calf tenderness Psych Appearance: grossly normal Assessment and Plan Assessment and Plan (1) Thyroid nodule: Status: Acute (2) GERD (gastroesophageal reflux disease): Status: Acute Qualifiers: Esophagitis presence: esophagitis presence not specified Qualified Code(s): K21.9 - Gastro-esophageal reflux disease without esophagitis Plan: 73-year-old female. 60 pound weight loss over the past year. Parkinson's disease and peripheral neuropathy. Slow general decline. Loss of appetite. I believe it is reasonable to offer her an esophagogastroduodenoscopy with possible biopsy. Careful inspection for possible poor esophageal emptying. Biopsies will be obtained and if stricture identified dilatation will be pursued. She is aware of the technique, benefit, risk, alternatives. She has had an opportunity ask and have questions answered. Her daughter was present with her. We then discussed whether she could have an esophageal motility disorder and whether we pursue esophageal manometry in the [facility]. We can discuss that subsequent to the upper endoscopy findings. I suspect that her weight loss and ongoing problems are multifactorial. At this moment I am not anticipating a surgical resolution. I appreciate the opportunity of assisting with her surgical care. Copy: Dr. Roxy Ortega M.D., F.A.C.S I have examined the patient and the H&P has been reviewed. There are no clinical changes since date of exam. Shemar Ortega M.D., F.A.C.S.
--- NOTE | 2024-05-16 07:36 | PCM.PRE.AN2 ---
ASA Classification* ASA Classification ASA Classification: 2 Assessment & Plan Anesthesia* Anesthesia Assessment Anesthesia Assessment: Discussed sedation and/or anesthesia options, risks, benefits, and alternatives with patient/parents/legal guardian/POA. Questions invited. The patient/parents/legal guardian/POA seems to understand and agrees to proceed with anesthesia plan. Reviewed the physical assessment, medical history, allergy history and patient home medications list prior to surgery/procedure/anesthetic and documented any changes. Performed airway and anesthesia risk assessments. 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 When Was Last Pacemaker Check QUESTION #4 FULL TEXT: You/Your Family Experience fever (hyperthermia) with Anesthesia Last Oral Intake Last Oral intake: Last Oral Intake NPO since Meds taken in AM with sips of water? Meds patient instructed to take am of surgery PONV PONV - network systems integrator: PONV - network systems integrator Female Yes 05/11/24 10:48 HX of Motion Sickness No 05/11/24 10:48 HX of N/V After Surgery No 05/11/24 10:48 Non-Smoker Yes 05/11/24 10:48 Duration of Surgery greater No 05/11/24 10:48 than 60 minutes Number of Risk Factors 2 05/11/24 10:48 PONV Score Moderate Risk 05/11/24 10:48 Height & Weight Height & Weight: Anesthesia: Height & Weight Height 5 ft 7 in 05/01/24 13:15 Respiratory Assessment Respiratory Assessment - network systems integrator: Respiratory Tract Infection Hx - network systems integrator Hx Respiratory Tract Infection No 05/11/24 10:48 STOP Sleep Apnea STOP Sleep Apnea - network systems integrator: STOP Sleep Apnea - network systems integrator Hx Hypertension Yes: NO MEDS FOR 3 MONTHS 05/11/24 10:48 Hx Sleep Apnea No 05/11/24 10:48 CPAP BIPAP Do you snore loudly (louder Yes 05/11/24 10:48 than talking or can be heard Do you often feel tired/ No 05/11/24 10:48 fatigued/ sleepy during daytime? Has anyone observed you stop No 05/11/24 10:48 breathing during sleep? STOP Results Positive 05/11/24 10:48 QUESTION #5 FULL TEXT : Do you snore loudly (louder than talking or can be heard through closed doors)? 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 Specify any problems Hx of Preganancy in last 3 No 05/11/24 10:48 Months Nurse Filling Out Transfusion DSCHRIBER 05/11/24 10:48 & Questions: Date: 05/11/24 05/11/24 10:48 Time: 10:51 05/11/24 10:48 Patient unable to answer at this time (ie. confused, unrespo /Reproduction History /Reproductive History - network systems integrator: /Reproductive Hx- network systems integrator Hx Now No 05/11/24 10:48 Gestational Age (in weeks): EDC: Hx Hx Para Hx Section SAB No 05/11/24 10:48 Anesthesia Focused Assessment* Airway Assessment Mouth opens: >3 cm Mallampati Score: II Focused Labs Anesthesia Preop lab: CBC WBC 7.7 K/mm3 (4.4-11.0) 04/15/24 21:03 RBC 4.22 M/mm3 (4.2-5.4) 04/15/24 21:03 Hgb 13.2 g/dL (12.0-15.0) 04/15/24 21:03 Hct 38.5 % (37-47) 04/15/24 21:03 Plt Count 247 K/mm3 (150-450) 04/15/24 21:03 CHEMISTRY Potassium 3.5 mmol/L (3.5-5.1) 04/15/24 21:03 Sodium 142 mmol/L (136-145) 04/15/24 21:03 Magnesium 2.3 mg/dL (1.6-2.6) 03/24/23 13:59 BUN 18 mg/dL (7-18) 04/15/24 21:03 Creatinine 0.96 mg/dL (0.55-1.02) 04/15/24 21:03 Glucose 99 mg/dL (74-106) 04/15/24 21:03 POC Glucose 101 mg/dL (74-106) 04/06/23 06:46 TSH 0.69 uIU/mL (0.358-3.74) 06/23/23 09:16 COAG PT 13.2 SECONDS (11.7-14.9) 03/24/23 13:59 Review of Systems (Anesthesia) ROS Narrative System reviewed and no additional complaints, except as documented. [facility] Medical History Nasal bleeding Anxiety Anemia Nicxabb-Anwzg-Njlzb syndrome Syncope Difficulty swallowing Constipation Shortness of breath on exertion Pressure in chest Abnormal results of thyroid function studies Wears glasses Depression Thyroid disease GERD (gastroesophageal reflux disease) Non-smoker History of stress test Parkinsonism Osteoarthritis of left knee Synovial cyst of popliteal space [Grady], left knee Left leg pain Hypertension Puncture wound of right foot Home Medications ?Medication ?Instructions ?Recorded ?Last Taken ?Type zolpidem 6.25 mg tablet,extended 12.5 mg PO QHS Check with primary 03/20/23 04/05/23 History release,multiphase doctor lorazepam 0.5 mg tablet 0.5 mg PO Q6H PRN ansiety 04/28/23 Unknown History meloxicam 7.5 mg tablet 15 mg PO DAILY 04/28/23 Unknown History pantoprazole 40 mg tablet,delayed 40 mg PO DAILY 06/07/23 Unknown History release citalopram 20 mg tablet 20 mg PO DAILY 04/15/24 Unknown History entacapone 200 mg tablet 200 mg PO 4X/DAY 04/15/24 Unknown History acetaminophen 500 mg tablet 1,000 mg PO Q6H PRN PRN pain 05/11/24 Unknown History (Tylenol Extra Strength) carbidopa 25 mg-levodopa 100 mg 2 tab PO 4X/DAY 05/11/24 Unknown History tablet omeprazole 40 mg capsule,delayed 40 mg PO QHS 05/11/24 Unknown History release Allergy/AdvReac Type Severity Reaction Status Date / Time No Known Allergies Allergy Verified 05/11/24 10:44 Family History Mother Lupus Sister Lupus Daughter Acute Crohn's disease Son Cleft lip Other Cancer Heart disease Surgical History History of knee replacement History of varicose vein stripping Social History Smoking Status: Never smoker alcohol intake: current alcohol intake frequency: holidays/special occasions only substance use type: does not use what type of physical activity do you participate in: walking
--- NOTE | 2024-05-16 07:44 | OP.CCLET_ITS ---
05/16/2024 Roxy Wallace [address] [place] [address] Re : Upper GI endoscopy procedure for Connie Lynch Dear Dr. Wallace This procedure was performed on Thursday, May 16, 2024. My impressions and recommendations are as follows: Impressions : - Normal middle third of esophagus. Biopsied. - Z-line variable, 40 cm from the incisors. Biopsied. - 1 cm hiatal hernia. - Erythematous mucosa in the antrum. Biopsied. - Multiple gastric polyps. Resected and retrieved. - Normal examined duodenum. Recommendations : - Telephone my office for pathology results in 1 week. Could consider pursuing esophageal manometry if symptoms persist. No current findings correlate with the patient's concerns. - Continue present medications. My findings are described in the full procedure note, which is enclosed. If I can be of further assistance, please feel free to contact me at Doctor phone number(s): Work: . Sincerely, Shemar Ortega MD 05/16/2024 7:44:11 AM This report has been signed electronically.
--- NOTE | 2024-05-16 07:44 | OP.EGD_ITS ---
Patient Name: Connie Lynch Procedure Date: 05/16/2024 7:22 AM Date of : 1950 Age: 73 Procedure: Upper GI endoscopy Indications: Dysphagia Providers: Shemar Ortega MD Referring MD: Roxy Wallace Medicines: See the Anesthesia note for documentation of the administered medications Complications: No immediate complications. Procedure: Pre-Anesthesia Assessment: - Prior to the procedure, a History and Physical was performed, and patient medications and allergies were reviewed. The patient's tolerance of previous anesthesia was also reviewed. The risks and benefits of the procedure and the sedation options and risks were discussed with the patient. All questions were answered, and informed consent was obtained. Prior Anticoagulants: The patient has taken no anticoagulant or antiplatelet agents. ASA Grade Assessment: II - A patient with mild systemic disease. After reviewing the risks and benefits, the patient was deemed in satisfactory condition to undergo the procedure. After obtaining informed consent, the endoscope was passed under direct vision. Throughout the procedure, the patient's blood pressure, pulse, and oxygen saturations were monitored continuously. The Endoscope was introduced through the mouth, and advanced to the second part of duodenum. The upper GI endoscopy was accomplished without difficulty. The patient tolerated the procedure well. Scope In: 7:32:38 AM Scope Out: 7:38:51 AM Total Procedure Duration Time 0 hours 6 minutes 13 seconds Findings: The middle third of the esophagus was normal. Biopsies were taken with a cold forceps for histology. The Z-line was variable and was found 40 cm from the incisors. Biopsies were taken with a cold forceps for histology. A 1 cm hiatal hernia was present. Diffuse mildly erythematous mucosa without bleeding was found in the gastric antrum. Biopsies were taken with a cold forceps for histology. Multiple sessile polyps with no bleeding and no stigmata of recent bleeding were found in the gastric fundus. The polyp was removed with a cold biopsy forceps. Resection and retrieval were complete. The examined duodenum was normal. Impression: - Normal middle third of esophagus. Biopsied. - Z-line variable, 40 cm from the incisors. Biopsied. - 1 cm hiatal hernia. - Erythematous mucosa in the antrum. Biopsied. - Multiple gastric polyps. Resected and retrieved. - Normal examined duodenum. Recommendation: - Telephone my office for pathology results in 1 week. Could consider pursuing esophageal manometry if symptoms persist. No current findings correlate with the patient's concerns. - Continue present medications. Procedure Code(s): --- Professional --- 66866, Esophagogastroduodenoscopy, flexible, transoral; with biopsy, single or multiple Diagnosis Code(s): --- Professional --- K22.89, Other specified disease of esophagus K44.9, Diaphragmatic hernia without obstruction or gangrene K31.89, Other diseases of stomach and duodenum K31.7, Polyp of stomach and duodenum R13.10, Dysphagia, unspecified CPT copyright 2021 [employer]. All rights reserved. The codes documented in this report are preliminary and upon creative arts music therapist review may be revised to meet current compliance requirements. Shemar Ortega MD 05/16/2024 7:44:11 AM This report has been signed electronically. Number of Addenda: 0 Note Initiated On: 05/16/2024 7:22 AM
[2024-05-16 07:50] VITALS: BP 115/80; BP 132/78; PULSE 73; RESP 16; TEMP 36.4; O2SAT 90
--- NOTE | 2024-05-16 07:50 | PCM.POST.ANE ---
Anesthesia: Postop Eval I Current Vital Signs Temperature: 97.5 F Pulse Rate: 73 Blood Pressure: 115/80 Respiratory Rate: 18 Pulse Ox: 92 Oxygen Delivery Method: Room Air Assessment Airway patent: Yes Spontaneous unlabored respirations: Yes Mental status: Awake and Calm nausea: No Vomiting: No Anesthesia Complication: Yes Anesthesia Complication Comment:: O2 desat d/t profuse coughing Fluid Hydration Crystalloid volume administer (ml): 900 Total IV fluid infused: 900 Progress Note Anesthesia document: Postop Eval 1 completed: Yes
--- NOTE | 2024-05-16 07:52 | PCM.POSTANE2 ---
Anesthesia Postop Eval I Sum Anesthesia Postop Eval I Summary Anesthesia Postop Eval I Summary: Anesthesia Postop Eval I: Assessment Summary Airway patent Spontaneous unlabored respirations Mental status nausea Vomiting Anesthesia Postop Eval I: Fluid Summary Crystalloid volume administer (ml) Colloids volume administered ( ml) Blood Product volume administered (ml) Total IV fluid infused Anesthesia Postop Eval I: Summary Notes Anesthesia Complication Anesthesia Complication Comment: Post-operative progress note Anesthesia: Postop Eval II Evaluation Mental status: Awake Pain Level: 0 nausea: No Vomiting: No Complications Anesthesia Complication: No
[2024-05-16 07:55] VITALS: BP 116/69; BP 132/78; PULSE 75; RESP 16; O2SAT 92
[2024-05-16 08:00] VITALS: BP 114/65; BP 132/78; PULSE 69; RESP 16; TEMP 36.4; O2SAT 94
[2024-05-16 08:01] VITALS: BP 115/80; PULSE 73; RESP 18; TEMP 36.4; O2SAT 92
[2024-05-16 08:16] VITALS: BP 132/78
== END 2024-05-16 08:25 | disposition home or self-care (01) ==
LOC: EN 07:18 → AC 07:23
PROVIDERS: PCP Family Medicine; Referring Provider Family Medicine; Visit Provider Surgery
PROC: 0DJ08ZZ Inspection of Upper Intestinal Tract, Via Natural or Artificial Opening Endoscopic (ICD-10-PCS; CPT 43235; principal; 2024-05-16 06:55)
DX: K29.70 Gastritis, unspecified, without bleeding (principal); G20.A1 Parkinson's 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, without mention of fluctuations; K31.7 Polyp of stomach and duodenum; I10 Essential (primary) hypertension; K21.00 Gastro-esophageal reflux disease with esophagitis, without bleeding; Z79.899 Other long term (current) drug therapy; E04.2 Nontoxic multinodular goiter; K44.9 Diaphragmatic hernia without obstruction or gangrene
CPT/HCPCS: 43239; 88305; 88312; 88342; J7120; J2405

== ENCOUNTER → 2024-07-26 | Outpatient (CLI) | payer MEDICARE, SELFPAY ==
--- NOTE | 2024-07-26 12:13 | BI_ITS ---
MAMMOGRAPHY - BILATERAL SCREENING REASON FOR EXAM: Female, 73 years old. Routine annual screening examination. PERTINENT HISTORY: Non-contributory. TECHNIQUE: Digital bilateral breast carlos (3D mammographic acquisition) in the CC and MLO projections. 2-D mediolateral oblique (MLO) and craniocaudad (CC) views of both breasts were obtained. CAD: Full Field Digital Mammography with Computer Added Detection was performed. COMPARISON: Comparison is made with prior study June 29, 2023 and May 29, 2022. FINDINGS: Breast Composition: There are scattered areas of fibroglandular density. There are no dominant masses or suspicious calcifications. No other significant abnormalities are identified. There has been no significant change since the prior study. BI/SCRN MAMM (CAD)W/CARLOS BILAT IMPRESSION: Stable bilateral screening mammogram. Yearly follow-up mammogram recommended. (A) ASSESSMENT CATEGORY: BIRADS Category 1: Negative. A letter regarding these results will be sent to the patient by the facility within 30 days. Approximately 10% of breast cancers are not detected by mammography. A normal mammogram should not delay biopsy of a clinically suspicious abnormality. [id number] Electronically Signed: Mateo Cummings MD at 13:03 EDT ,
== END | disposition home or self-care (01) ==
LOC: OPBI 12:10
PROVIDERS: PCP Family Medicine; Referring Provider Family Medicine; Visit Provider Family Medicine
DX: Z12.31 Encounter for screening mammogram for malignant neoplasm of breast (principal)
CPT/HCPCS: 77063; 77067

== ENCOUNTER → 2024-11-23 | Outpatient (CLI) | payer MEDICARE, SELFPAY ==
[2024-11-23 10:21] LABS: Absolute Lymphocyte Count 1.38 X10^3/uL (0.83-4.51); Absolute Neutrophil Count 3.4 X10^3/uL (2.0-7.7); Basophil# 0.08 X10^3/uL; Basophil% 1.4 % (0-1); Eosinophil# 0.28 X10^3/uL; Hematocrit 43.5 % (37-47); Hemoglobin 14.7 g/dL (12.0-15.0); Lymphocyte # 1.38 X10^3/ul (0.83-4.51); Lymphocyte % 24.8 % (19-41); Mean Corp Hgb Conc 33.8 g/dL (32-36); Mean Corpuscular Hgb 31.3 pg (27.0-32.0); Mean Corpuscular Volume 92.8 fL (81-99); Mean Platelet Vol. 8.9 fl (6.2-12.0); Monocyte# 0.43 X10^3/uL; Monocyte% 7.7 % (0-10); NRBC Flagged by Analyzer 0 % (0-5); Neutrophil # 3.37 X10^3/uL (2.7-7.7); Neutrophil % 60.7 % (47-70); Platelet Count 306 K/mm3 (150-450); RBC Distribution Width CV 12.7 % (11.6-14.6); Red Blood Count 4.69 M/mm3 (4.2-5.4); White Blood Count 5.6 K/mm3 (4.4-11.0)
[2024-11-23 10:54] LABS: ALB/GLOB Ratio 1.1 RATIO (0.9-2.4); AST(SGOT) 12 U/L (15-37); Alanine Aminotransfer ALT/SGPT 7 U/L (13-56); Albumin, Serum 3.6 g/dL (3.2-5.0); Alkaline Phosphatase 73 U/L (45-117); Anion Gap 4 (5-15); BUN 13 mg/dL (7-18); BUN/Creat Ratio 15.8 RATIO (10-20); Calcium,Total 8.9 mg/dL (8.5-10.1); Chloride 107 mmol/L (98-107); Cholesterol 191 mg/dL (200); Creatinine, Serum 0.82 mg/dL (0.55-1.02); EST Glomerular Filtration Rate 72 mL/min (>60); Est Glom Filt Rate - Afr Amer 87 mL/min (>60); Free T3 1.9 pg/mL (2.18-3.98); Globulin 3.4 g/dL (2.2-4.2); Glucose 95 mg/dL (74-106); High Density Lipoprotein 70 mg/dL; Potassium 3.8 mmol/L (3.5-5.1); Sodium Level 139 mmol/L (136-145); T4 Free Direct 6.55 ng/dL (0.76-1.46); Triglycerides 76 mg/dL; Very Low Density Lipoprotein 15 mg/dL (5-40)
[2024-11-28 20:07] LABS: Arsenic 7245 2 ug/L (0-9); Lead, Blood < 1.0 ug/dL (0.0-3.4); Mercury, Blood 85324 < 1.0 ug/L (0.0-14.9); Zinc, Plasma or Serum 80 ug/dL (44-115)
== END | disposition home or self-care (01) ==
PROVIDERS: PCP Family Medicine; Referring Provider Family Medicine; Visit Provider Family Medicine
DX: E03.9 Hypothyroidism, unspecified (principal); R29.818 Other symptoms and signs involving the nervous system; E04.1 Nontoxic single thyroid nodule; I10 Essential (primary) hypertension; E78.5 Hyperlipidemia, unspecified
CPT/HCPCS: 36415; 80053; 80061; 82175; 83655; 83825; 84439; 84443; 84481; 84630; 85025

== ENCOUNTER 2024-12-27 16:32 | Observation (INO) | payer MEDICARE, SELFPAY ==
[2024-12-27] VITALS (14 sets, daily range): BP systolic 114–155; BP diastolic 52–81; PULSE 69–93; RESP 18–39; TEMP 36.4–37; O2SAT 96–100; BMI 24.7; BMI 25.5
--- NOTE | 2024-12-27 16:38 | EKG12_ITS ---
Test Reason : STROKE Blood Pressure : */* mmHG Vent. Rate : 94 BPM Atrial Rate : 94 BPM P-R Int : 144 ms QRS Dur : 86 ms QT Int : 372 ms P-R-T Axes : 48 63 63 degrees QTcB Int : 465 ms Normal sinus rhythm Normal ECG Confirmed by OLENA PINTO, AYALA ([id number]), department editor AL ADAMS ([id number]) on 12/30/2024 7:19:18 AM Referred By: Confirmed By: AYALA HYATT MD
--- NOTE | 2024-12-27 16:38 | CT_ITS ---
PROCEDURE: CT BRAIN WITHOUT CONTRAST REASON FOR EXAM: NEUROLOGICAL DEFICIT. EVALUATE FOR ACUTE STROKE. TECHNIQUE: Contiguous axial scans of 3.75 mm slice thicknesses with sagittal and coronal reconstruction images. One or more dose reduction techniques were utilized (e.g., automated exposure control, adjustment of mA and/or kv according to patient size, use of iterative reconstruction technique). COMPARISON: NO RELEVANT PRIOR. FINDINGS: No intraparenchymal hemorrhage. No abnormal areas of encephalomalacia. No mass effect or midline shift. Periventricular, central white matter, and subcortical diffuse parenchymal hypoattenuation. Ventricles and cisterns are appropriate size for patient's age. No extra-axial fluid collections. Cerebellum and posterior fossa unremarkable. Paranasal sinuses normal. Mastoid air cells are normal. Calvarium unremarkable. Soft tissues unremarkable. CT/STROKE Brain/Head without Cont IMPRESSION: 1. Chronic microvascular ischemic changes. 2. No acute hemorrhagic or ischemic infarctions. Reading Location: [facility]
--- NOTE | 2024-12-27 16:38 | CT_ITS ---
PROCEDURE: STROKE CTA HEAD AND NECK W/CON REASON FOR EXAM: Stroke. TECHNIQUE: CTA HEAD AND NECK WITH IV CONTRAST AND 3-D COMPARISON: None. FINDINGS: AORTIC ARCH The aortic arch is normal. There is a common trunk of the innominate and left common carotid arteries. The origins of the arch branch vessels are patent. EXTRACRANIAL CAROTIDS The common carotid, internal carotid and external carotid segments are widely patent throughout the neck. RIGHT ICA Maximum stenosis (NASCET): <50% % LEFT ICA Maximum stenosis (NASCET): <50% % INTRACRANIAL VASCULATURE Cerebral Arteries: The anterior, middle and posterior cerebral artery distributions are within normal limits. [place] of [place]: The A1 and P1 segments are patent. There is a patent anterior communicating artery with normal configuration. There are small patent posterior communicating arteries with normal configuration. Venous Drainage: Unremarkable. VERTEBROBASILAR SYSTEM The proximal subclavian arteries, both vertebral arteries and basilar artery are widely patent. The cerebellar arteries are within normal limits. NONVASCULAR There is no abnormal intracranial enhancement. The ventricles, cisterns, sulci and parenchymal attenuation are normal. No acute osseous abnormalities. CT/STROKE CTA Head AND Neck W/Con IMPRESSION: No acute arterial abnormalities of the head or neck. One or more dose reduction techniques were used (e.g., Automated exposure contr ol, adjustment of the mA and/or kV according to patient size, use of iterative reconstruction technique). Reading Location: [id number]
[2024-12-27 16:59] LABS: Absolute Lymphocyte Count 1.83 X10^3/uL (0.83-4.51); Absolute Neutrophil Count 4.7 X10^3/uL (2.0-7.7); Basophil# 0.08 X10^3/uL; Basophil% 1.1 % (0-1); Eosinophil# 0.23 X10^3/uL; Eosinophils% 3.1 % (0-5); Hematocrit 41.7 % (37-47); Hemoglobin 14.3 g/dL (12.0-15.0); Lymphocyte # 1.83 X10^3/ul (0.83-4.51); Mean Corp Hgb Conc 34.3 g/dL (32-36); Mean Corpuscular Hgb 31.8 pg (27.0-32.0); Mean Corpuscular Volume 92.9 fL (81-99); Mean Platelet Vol. 9.3 fl (6.2-12.0); Monocyte# 0.49 X10^3/uL; Monocyte% 6.7 % (0-10); NRBC Flagged by Analyzer 0 % (0-5); Neutrophil # 4.65 X10^3/uL (2.7-7.7); Neutrophil % 63.7 % (47-70); Platelet Count 303 K/mm3 (150-450); RBC Distribution Width CV 12.4 % (11.6-14.6); RBC Distribution Width SD 42.4 fl (35.1-43.9); Red Blood Count 4.49 M/mm3 (4.2-5.4); White Blood Count 7.3 K/mm3 (4.4-11.0)
--- NOTE | 2024-12-27 17:02 | ED.VIS.STROK ---
HPI History of Present Illness Chief Complaint: Stroke Alert Narrative Narrative: 74-year-old female presents with her friend because of right sided facial droop and slight headache that began within the last hour while they were shopping at [employer]. They relate history that she has had intermittent facial droops previously which have resolved. She is seen her primary care provider and they were unsure if she was having mini strokes. While they were shopping, they noticed that she had right-sided facial droop that was pretty severe with mild slurring of her words. Patient denies any exacerbating or alleviating factors, no paresthesias of arms or legs in association with this. [facility] Medical History Nasal bleeding Anxiety Anemia Ptygzxg-Mnwup-Bphlb syndrome Syncope Difficulty swallowing Constipation Shortness of breath on exertion Pressure in chest Abnormal results of thyroid function studies Wears glasses Depression Thyroid disease GERD (gastroesophageal reflux disease) Non-smoker History of stress test Parkinsonism Osteoarthritis of left knee Synovial cyst of popliteal space [Grady], left knee Left leg pain Hypertension Puncture wound of right foot Home Medications ?Medication ?Instructions ?Recorded ?Last Taken ?Type lorazepam 0.5 mg tablet 0.5 mg PO Q6H PRN ansiety 04/28/23 12/27/24 History citalopram 20 mg tablet 20 mg PO DAILY 04/15/24 12/27/24 History acetaminophen 500 mg tablet 1,000 mg PO Q6H PRN PRN pain 05/11/24 Unknown History (Tylenol Extra Strength) omeprazole 40 mg capsule,delayed 40 mg PO BID #60 caps 11/10/24 12/27/24 Rx release carbidopa 25 mg-levodopa 100 mg 2 tab PO 5X/DAY 12/27/24 12/27/24 History tablet entacapone 200 mg tablet 200 mg PO 5X/DAY 12/27/24 12/27/24 History famotidine 20 mg tablet (Acid 20 mg PO DAILY 12/27/24 12/27/24 History Controller) multivitamin (Daily Multi-Vitamin 1 tab PO DAILY 12/27/24 12/26/24 History tablet) ondansetron 8 mg disintegrating 8 mg PO Q8H PRN PRN nausea 12/27/24 12/27/24 History tablet zolpidem 12.5 mg tablet,extended 12.5 mg PO QHS 12/27/24 12/26/24 History release,multiphase Allergy/AdvReac Type Severity Reaction Status Date / Time No Known Allergies Allergy Verified 12/27/24 16:40 Family History Mother Lupus Sister Lupus Daughter Acute Crohn's disease Son Cleft lip Other Cancer Heart disease Surgical History History of knee replacement History of varicose vein stripping Social History Smoking Status: Never smoker alcohol intake: current alcohol intake frequency: holidays/special occasions only substance use type: does not use what type of physical activity do you participate in: walking ROS ROS ED ROS Narrative Constitutional: No fever, no chills. HEENT: No sore throat. No neck pain. Cardiovascular: No chest pain. No palpitations. No pedal edema. Respiratory: No cough, no shortness of breath. Abdominal: No abdominal pain. No nausea. No vomiting. Genitourinary: No dysuria. No hematuria. Musculoskeletal: No myalgias. No arthralgias. Neurologic: Mild headaches. No dizziness. No lightheadedness. Previous facial droops, intermittent/resolved. No paresthesias of arms or legs. Right-sided facial droop beginning within the last hour. Reported slurred speech. Skin: No rash. No change in color. Psychiatric: No depression. No anxiety. EXAM Physical Exam Narrative Exam Narrative: Afebrile. Vital signs noted. Nontoxic-appearing. HEENT examination shows PERRL, EOMI. No entrapment. Positive right-sided facial droop. No noted forehead involvement. Neck soft and supple without stridor. Cardiovascular examination regular rate and rhythm. Lungs clear to auscultation bilaterally. Abdomen soft nontender with normoactive bowel sounds. NIH stroke scale is 2 for right sided facial droop. Const Vital Signs: 12/27/24 16:32 12/27/24 16:33 12/27/24 16:38 Temperature 98.6 F 97.5 F L Temperature Source Temporal Temporal Pulse Rate 90 93 Respiratory Rate 29 H 39 H Blood Pressure 155/81 H 155/81 H Blood Pressure Mean 105 105 Pulse Ox 99 99 Oxygen Delivery Method Room Air Room Air 12/27/24 16:44 12/27/24 17:04 12/27/24 17:30 Temperature Temperature Source Pulse Rate 90 84 Respiratory Rate 30 H Blood Pressure 142/69 H 115/75 Blood Pressure Mean 93 88 Pulse Ox 100 98 Oxygen Delivery Method Room Air Room Air Room Air 12/27/24 18:00 12/27/24 18:00 12/27/24 18:30 Temperature Temperature Source Pulse Rate 84 79 Respiratory Rate Blood Pressure 121/69 H 121/69 H 115/64 Blood Pressure Mean 86 86 81 Pulse Ox 97 96 Oxygen Delivery Method Room Air Room Air 12/27/24 18:47 12/27/24 18:47 12/27/24 18:48 Temperature 98.5 F Temperature Source Pulse Rate 79 87 Respiratory Rate 24 H Blood Pressure 117/65 117/65 117/65 Blood Pressure Mean 82 82 82 Pulse Ox 97 98 Oxygen Delivery Method Room Air NIHSS NIHSS Initial: 1a Level of Consciousness: 0 1b LOC Questions (Score 2 if aphasic/stupor): 0 1c LOC Commands (Only score 1st attempt): 0 2 Best Gaze (If aphasic, use reflexive mvmts.): 0 3 Visual: 0 4 Facial Palsy: 2 5 Motor Arm Right (UN = amputation/fusion): 0 5 Motor Arm Left: 0 6 Motor Leg Right: 0 6 Motor Leg Left: 0 7 Limb ataxia (Only + if out of proportion): 0 8 Sensory (Aphasia/stupor=0 or 1, coma=2): 0 9 Best Language: 0 10 Dysarthria (mute, coma=2, intubated=UN): 0 11 Extinction and Inattention (only scored if +): 0 Total Score: 2 MDM MDM MDM Narrative Medical decision making narrative: Concern is for stroke versus TIA. I doubt Gill's palsy because of the lack of forehead involvement. Stroke team was called in triage and patient initially evaluated there. She has a low NIH stroke scale of 2 secondary to her facial droop. EKG was obtained and interpreted by myself independently as normal sinus rhythm at 94 bpm without ectopy or acute ST changes. No STEMI. In discussion with the stroke neurologist, he scored her as an NIH stroke scale of 1 for her facial droop. It was not felt that she is a TNK candidate as she does not have a debilitating deficit currently. He did suggest that if new or worsening symptoms develop that she could be a candidate at that time. I will check her remaining laboratory work and workup including CT and CTA. I reviewed the radiology report of the CT of the CTA which showed no evidence of acute hemorrhage or large vessel occlusion. Chest x-ray in 1 view interpreted by myself independently shows no evidence of acute process, no pneumonia, no pneumothorax. It was suggested by stroke neurology that she be observed for MRI and further workup. I will discuss patient with the hospitalist. I discussed patient with Dr. Iman Pierson. Disposition is assigned observation on the PCU. Patient is in stable condition. History & Record Review Discussion w/independent historian: Patient and Family Lab Data Attestation: I reviewed the patient's lab results. Labs: Laboratory Results - last 24 hr 12/27/24 16:35 WBC 7.3 RBC 4.49 Hgb 14.3 Hct 41.7 MCV 92.9 MCH 31.8 MCHC 34.3 RDW Std Deviation 42.4 RDW Coeff of Fozia 12.4 Plt Count 303 MPV 9.3 Immature Gran % (Auto) 0.400 Neut % (Auto) 63.7 Lymph % (Auto) 25.0 Glascock % (Auto) 6.7 Eos % (Auto) 3.1 Baso % (Auto) 1.1 H Absolute Neuts (auto) 4.7 Absolute Lymphs (auto) 1.83 Nucleated RBC % 0 PT 13.4 INR 1.0 APTT 29.0 Sodium 139 Potassium 3.5 Chloride 110 H Carbon Dioxide 25.0 Anion Gap 4 L BUN 12 Creatinine 0.88 Estim Creat Clear Calc 54.54 Est GFR (MDRD) Af Amer 80 Est GFR (MDRD) Non-Af 67 BUN/Creatinine Ratio 13.6 Glucose 105 Calcium 8.9 Troponin I High Sens 4 Radiography Diagnostic Testing: Clinical Impression(s) from Imaging Studies Brain CT 12/27/24 16:38 IMPRESSION: 1. Chronic microvascular ischemic changes. 2. No acute hemorrhagic or ischemic infarctions. Reading Location: [facility] Head/Neck CTA 12/27/24 16:38 IMPRESSION: No acute arterial abnormalities of the head or neck. One or more dose reduction techniques were used (e.g., Automated exposure control, adjustment of the mA and/or kV according to patient size, use of iterative reconstruction technique). Reading Location: [facility] Management Discussion w/another healthcare provider: Hospitalist and Truck Service Technician (Stroke neurologist) Discharge Plan Dx/Rx/DC Orders Clinical Impression: Facial droop, Slurred speech, Brain TIA Disposition Disposition: Acute Care Hospital [facility]
[2024-12-27 17:11] LABS: Prothrombin Time (Protime)PT. 13.4 SECONDS (11.7-14.9)
--- NOTE | 2024-12-27 17:15 | RAD_ITS ---
PROCEDURE: CHEST 1 VIEW REASON FOR EXAM: Neuro deficit. TECHNIQUE: Frontal view of the chest. COMPARISON: None. FINDINGS: The cardiac and mediastinal contours are normal. The lungs are clear. RAD/Chest 1 View IMPRESSION: NEGATIVE SINGLE VIEW OF THE CHEST. Reading Location: [id number]
[2024-12-27 17:22] LABS: Anion Gap 4 (5-15); BUN 12 mg/dL (7-18); BUN/Creat Ratio 13.6 RATIO (10-20); Calcium,Total 8.9 mg/dL (8.5-10.1); Chloride 110 mmol/L (98-107); Creatinine, Serum 0.88 mg/dL (0.55-1.02); EST Glomerular Filtration Rate 67 mL/min (>60); Est Glom Filt Rate - Afr Amer 80 mL/min (>60); Estimated Creatinine Clearance 54.54 ml/min; Glucose 105 mg/dL (74-106); Potassium 3.5 mmol/L (3.5-5.1); Sodium Level 139 mmol/L (136-145); Troponin-I HS 4 pg/mL (3.0-54.0)
--- NOTE | 2024-12-27 19:14 | PCM.HP.STD ---
HPI - General General Date of Admission: 12/27/24 Date of Service: 12/27/24 Chief Complaint: R sided facial droop, slurred speech, intermittent HPI Narrative Patient is a 74 female with past medical history GERD, anxiety and depression, chronic anemia of unclear type, hypothyroidism, GERD, parkinsonian type symptoms, chronic neuropathy who presents to the [facility] ED on 12/27/2024 with history of onset right-sided facial droop, slurred speech and generalized weakness with last known well at 1610 on day of presentation prompting ED evaluation. NIH stroke scale assessment per neurology score is 1 for minor paralysis of the face felt possibly stress-induced with recommended follow-up stroke evaluation upon admission. Patient did have a slight headache that began while shopping at [employer] prior to onset of the symptoms but notes this is very mild and throbbing with no photophobia or phonophobia. The headache was noted is very mild and the slight right-sided facial droop was noted to be intermittent and resolved upon ED arrival initially. Reportedly it had been more severe and she was slurring her words at its initial onset. Patient and family deny other further neurological symptoms. She does note that the evening prior she had been attempting to play cards with friends but felt unwell with mild fatigue and neck strain. She did have diagnosis of COVID 2 weeks prior of note. ED physician initial NIH stroke scale assessment to for right sided facial droop that was more prominent initially. Workup in the ED included T98.6 Temporal, heart rate 90, BP 155/81, respiratory rate 29, 99% on room air with most recent repeat vitals T98.5, heart rate 87, BP 117/65, respiratory rate 24, 98% room air, CBC with WBC 7.3, hemoglobin 14.3, platelet 303 without marked shift, unremarkable coags, unremarkable BMP, troponin 4, CT brain with chronic microvascular ischemic changes with no acute intracranial findings, CTA head and neck with no acute arterial abnormalities, chest x-ray pulmonary evaluation with no acute cardiopulmonary findings but final read pending per radiology upon evaluation, EKG sinus rhythm with no acute evidence of ischemia. [facility] Medical History Nasal bleeding Anxiety Anemia Xyqvllh-Amxqu-Rypde syndrome Syncope Difficulty swallowing Constipation Shortness of breath on exertion Pressure in chest Abnormal results of thyroid function studies Wears glasses Depression Thyroid disease GERD (gastroesophageal reflux disease) Non-smoker History of stress test Parkinsonism Osteoarthritis of left knee Synovial cyst of popliteal space [Grady], left knee Left leg pain Hypertension Puncture wound of right foot Home Medications ?Medication ?Instructions ?Recorded ?Last Taken ?Type lorazepam 0.5 mg tablet 0.5 mg PO Q6H PRN ansiety 04/28/23 12/27/24 History citalopram 20 mg tablet 20 mg PO DAILY 04/15/24 12/27/24 History acetaminophen 500 mg tablet 1,000 mg PO Q6H PRN PRN pain 05/11/24 Unknown History (Tylenol Extra Strength) omeprazole 40 mg capsule,delayed 40 mg PO BID #60 caps 11/10/24 12/27/24 Rx release carbidopa 25 mg-levodopa 100 mg 2 tab PO 5X/DAY 12/27/24 12/27/24 History tablet entacapone 200 mg tablet 200 mg PO 5X/DAY 12/27/24 12/27/24 History famotidine 20 mg tablet (Acid 20 mg PO DAILY 12/27/24 12/27/24 History Controller) multivitamin (Daily Multi-Vitamin 1 tab PO DAILY 12/27/24 12/26/24 History tablet) ondansetron 8 mg disintegrating 8 mg PO Q8H PRN PRN nausea 12/27/24 12/27/24 History tablet zolpidem 12.5 mg tablet,extended 12.5 mg PO QHS 12/27/24 12/26/24 History release,multiphase Allergy/AdvReac Type Severity Reaction Status Date / Time No Known Allergies Allergy Verified 12/27/24 16:40 Family History (Updated 12/27/24 @ 19:[address] Aubrie Zamora MD) Mother Lupus Sister Lupus Daughter Acute Crohn's disease Son Cleft lip Father Cancer Lung CA, from exposure, no tobacco use history. COPD (chronic obstructive pulmonary disease) Other Heart disease Surgical History History of knee replacement History of varicose vein stripping Social History household members: none Smoking Status: Never smoker alcohol intake: current alcohol intake frequency: holidays/special occasions only substance use type: does not use what type of physical activity do you participate in: walking ROS ROS Narrative Admission Review of Systems: CONSTITUTIONAL: No weight loss, fever, chills, + weakness or fatigue. HEENT: + Neck strain, headache, transient right-sided facial droop intermittently. Eyes: No visual loss, blurred vision, double vision or yellow sclerae. Ears, Nose, Throat: No hearing loss, sneezing, congestion, runny nose or sore throat. SKIN: No rash or itching, lesions, wounds. CARDIOVASCULAR: No chest pain, chest pressure or chest discomfort, palpitations, edema, orthopnea, syncopal events. RESPIRATORY: No shortness of breath, cough or sputum, wheezing, hemoptysis. GASTROINTESTINAL: No anorexia, nausea, vomiting or diarrhea, abdominal pain, melena, BRBPR. GENITOURINARY: No dysuria, frequency, urgency or retention. NEUROLOGICAL: + Transient right-sided facial droop intermittently, headache. Chronic underlying parkinsonian symptoms/Parkinson's disease suspected. No dizziness, syncope, paralysis, ataxia, numbness or tingling in the extremities, focal weakness, change in bowel or bladder control, seizure. MUSCULOSKELETAL: + muscle, back pain, joint pain or stiffness. HEMATOLOGIC: + Prior chart history documentation of anemia, unclear type. No specific easy history of bleeding/bruising. LYMPHATICS: No enlarged nodes. No history of splenectomy. PSYCHIATRIC: + History of anxiety and depression. ENDOCRINOLOGIC: No reports of sweating, cold or heat intolerance. No polyuria or polydipsia. ALLERGIES: No history of asthma, hives, eczema or rhinitis. Vital Signs Vital Signs Vital Signs: 12/27/24 16:32 12/27/24 16:33 12/27/24 16:38 Temperature 98.6 F 97.5 F L Temperature Source Temporal Temporal Pulse Rate 90 93 Respiratory Rate 29 H 39 H Blood Pressure 155/81 H 155/81 H Blood Pressure Mean 105 105 Pulse Ox 99 99 Oxygen Delivery Method Room Air Room Air 12/27/24 16:44 12/27/24 17:04 12/27/24 17:30 Temperature Temperature Source Pulse Rate 90 84 Respiratory Rate 30 H Blood Pressure 142/69 H 115/75 Blood Pressure Mean 93 88 Pulse Ox 100 98 Oxygen Delivery Method Room Air Room Air Room Air 12/27/24 18:00 12/27/24 18:00 12/27/24 18:30 Temperature Temperature Source Pulse Rate 84 79 Respiratory Rate Blood Pressure 121/69 H 121/69 H 115/64 Blood Pressure Mean 86 86 81 Pulse Ox 97 96 Oxygen Delivery Method Room Air Room Air 12/27/24 18:47 12/27/24 18:47 12/27/24 18:48 Temperature 98.5 F Temperature Source Pulse Rate 79 87 Respiratory Rate 24 H Blood Pressure 117/65 117/65 117/65 Blood Pressure Mean 82 82 82 Pulse Ox 97 98 Oxygen Delivery Method Room Air Weight Weight: 157 lb 10.088 oz Body Mass Index (BMI) 24.7 Physical Exam Narrative Physical Examination: General: Awake, alert, oriented x 3 and cooperative, seated upright in the ED bed, family present, notes improved however still mild right-sided facial droop but complete correction during evaluation with smiling. Skin: Normal color, normal turgor, no icterus, no cyanosis. HEENT: AT/NC, EOMI, PERRLA, MMM,, mild residual right-sided facial droop corrects, no carotid bruits or JVD noted. Lungs: Mildly diminished, greater bases, poor effort, no rales, ronchi or wheezing. Heart: Regular rate and rhythm; no gallop, rub audible. Abdomen: Soft, NTTP, ND, distant normal BS, no appreciated HSM. Extremities: No cyanosis, clubbing, or edema. Neurological: Patient awake, alert, oriented as noted, cognitive function intact; pupils equally reactive to light and accommodation, cranial nerves grossly normal except for mild right-sided facial droop that corrects with smiling and blowing out of cheeks able to pass air to both sides, moving all 4 extremities, no focal deficits, strength preserved, [id number] and [id number] appropriate, sensation intact, negative Babinski. Psychiatric: Affect appears normal, no acute evidence of depressive or anxiety feelings but does have underlying history. Results Lab / Micro Data 12/27/24 16:35 12/27/24 16:35 Labs: Laboratory Results - last 24 hr 12/27/24 16:35: WBC 7.3, RBC 4.49, Hgb 14.3, Hct 41.7, MCV 92.9, MCH 31.8, MCHC 34.3, RDW Std Deviation 42.4, RDW Coeff of Fozia 12.4, Plt Count 303, MPV 9.3, Immature Gran % (Auto) 0.400, Neut % (Auto) 63.7, Lymph % (Auto) 25.0, [place] % (Auto) 6.7, Eos % (Auto) 3.1, Baso % (Auto) 1.1 H, Absolute Neuts (auto) 4.7, Absolute Lymphs (auto) 1.83, Nucleated RBC % 0, PT 13.4, INR 1.0, APTT 29.0, Sodium 139, Potassium 3.5, Chloride 110 H, Carbon Dioxide 25.0, Anion Gap 4 L, BUN 12, Creatinine 0.88, Estim Creat Clear Calc 54.54, Est GFR (MDRD) Af Amer 80, Est GFR (MDRD) Non-Af 67, BUN/Creatinine Ratio 13.6, Glucose 105, Calcium 8.9, Troponin I High Sens 4 Imaging Radiology Impression Brain CT 12/27/24 16:38 IMPRESSION: 1. Chronic microvascular ischemic changes. 2. No acute hemorrhagic or ischemic infarctions. Reading Location: [facility] Head/Neck CTA 12/27/24 16:38 IMPRESSION: No acute arterial abnormalities of the head or neck. One or more dose reduction techniques were used (e.g., Automated exposure control, adjustment of the mA and/or kV according to patient size, use of iterative reconstruction technique). Reading Location: [id number] Assessment & Plan Assessment/Plan (1) Brain TIA: (2) Slurred speech: (3) Facial droop: PLAN: Plan Patient is a 74 female with past medical history GERD, anxiety and depression, chronic anemia of unclear type, hypothyroidism, GERD, parkinsonian type symptoms, chronic neuropathy who presents to the [facility] ED on 12/27/2024 with history of onset right-sided facial droop, slurred speech and generalized weakness with last known well at 1610 on day of presentation prompting ED evaluation. #1. Right-sided facial droop, intermittent with slurred speech concerning for CVA with reported history of previous COVID 2 weeks previous to this: Will admit to PCU, will obtain MRI Brain, will obtain ECHO, PT/OT/Speech/Nutrition evaluation per protocol. Will administer full-strength aspirin x 1 now. Will allow permissive HTN, maintain on asa baby aspirin following full dose, initiate statin w/ AM FLP, fall precautions. Mag, TSH, FLP, HgbA1c requested. Maintain on fall and aspiration precautions. Continue neurology consultation. #2. Hypertension: Noted in the chart history, per current list not on regimen, BP initially above goal however without any intervention improved and is at appropriate levels without intervention, will have parent agents per stroke protocol. If BP does remain elevated certainly will necessitate oral regimen initiation once appropriate. #3. Anxiety and depression: We will continue patient home citalopram as well as lorazepam low-dose with hold for sedation, hold zolpidem given need for NIH stroke assessments and this is certainly a higher dose. #4. Chart reported history of chronic anemia, unclear type: Admission CBC with hemoglobin 14.3, MCV 92.9, no evidence of significant anemia noted in labs from prior, not on any iron supplementation, encourage continued outpatient follow-up and evaluation. #5. Chart reported parkinsonianism, unclear if technical diagnosis of Parkinson's disease: We will continue patient home Sinemet as well as entacapone regimen, complicates presentation, maintain on fall precautions, therapies consulted as well as case management as noted. #6. GERD: We will continue patient on PPI. #7. DVT prophylaxis: Lovenox. #8. CODE status: Patient AURELIA is one of her children although she cannot recall whom, currently her son is with her who is a distribution driver and living will is currently in place. Discussed CODE status at length including difference between FULL code, DNR-CCA and DNR-CC status. Following discussions about the differences in these status, requested eventually following discussions DNR CCA, no intubation with several examples given. Advanced Care Planning Face to Face Time: 16 minutes. Charges/Coding Visit Charges Inpatient E&M: 51533 Init Hosp L3 Procedures Hospitalists Procedures: 00418 Advncd Care Plan 30 Min
[2024-12-27 19:49] LABS: Magnesium 2.2 mg/dL (1.6-2.6)
--- NOTE | 2024-12-27 20:01 | CM.ED ---
Social Work Reason for visit: Stroke alert Patient was brought in to ED by her friend as they were at [facility] and patient displayed stroke like symptoms. Patients friend stated she had a similar episode the day before. After being in ER several hours, patient stated she still felt a little funny and was thankful she would be receiving additional care. Emotional support provided. No further needs identified at this time. Clau Light, HOSPICE CARE CONSULTANT, COMPUTER LANGUAGE CODER
--- NOTE | 2024-12-27 21:06 | ECHOD_ITS ---
Reason For Study: TIA/CVA Procedure This was a 2D Doppler, Color Flow transthoracic echocardiogram. Exam performed portable in patient room. Left Ventricle Normal LV size. Left ventricular systolic function is normal. The left ventricular ejection fraction is 65 %. No regional wall motion abnormalities noted. Right Ventricle Normal RV size. Normal systolic function. Atria Normal left atrium. Mitral Valve Normal mitral valve. Mild (1+) eccentric mitral valve insufficiency. Tricuspid Valve Normal tricuspid valve. Aortic Valve Trisinus/trileaflet aortic valve. Pulmonic Valve Normal pulmonic valve. Great Vessels Normal aortic root. The pulmonary artery is normal size. Inferior vena cava collapse with respiration. Pericardium/Pleural No pericardial effusion. MMode/2D Measurements & Calculations LVIDd: 4.9 cm IVSd: 0.97 cm Ao root diam: 3.3 cm LVIDs: 3.3 cm LVPWd: 0.83 cm RVDd: 3.5 cm FS: 32.2 % _ LAV(MOD-bp): 39.2 ml LVAd ap4: 22.8 cm2 SV(MOD-sp4): 31.3 ml LAV(MOD-bp) Indexed: 21.1 ml/m2 LVLd ap4: 7.4 cm SI(MOD-sp4): 16.9 ml/m2 LAV(MOD-sp2): 38.7 ml EDV(MOD-sp4): 58.1 ml LAV(MOD-sp4): 37.5 ml EDV(sp4-el): 59.1 ml LVAs ap4: 14.1 cm2 LVLs ap4: 6.3 cm ESV(MOD-sp4): 26.8 ml ESV(sp4-el): 26.6 ml EF(MOD-sp4): 53.9 % EF(sp4-el): 55.0 % _ SV(sp4-el): 32.5 ml LA A4 area: 14.8 cm2 LA dimension(2D): 4.0 cm _ RA A4 area: 14.3 cm2 TAPSE: 2.3 cm Time Measurements MV dec time: 0.17 sec Doppler Measurements & Calculations MV E max bob: 75.9 cm/sec Lat Peak E' Bob: 8.8 cm/sec Med Peak E' Bob: 10.8 cm/sec MV A max bob: 88.0 cm/sec E/E' lat: 8.7 E/E' med: 7.0 MV E/A: 0.86 _ MV V2 max: 101.0 cm/sec MV P1/2t max bob: 84.7 cm/sec Ao V2 max: 109.1 cm/sec MV max P.1 mmHg MV P1/2t: 62.2 msec Ao max P.8 mmHg MV V2 mean: 57.4 cm/sec Ao V2 mean: 77.6 cm/sec MV mean P.5 mmHg MV dec slope: 398.9 cm/sec2 Ao mean P.8 mmHg MV V2 VTI: 24.3 cm MVA(P1/2t): 3.5 cm2 Ao V2 VTI: 26.2 cm AV (velocity ratio): 0.90 _ LV V1 max: 100.4 cm/sec PA V2 max: 99.5 cm/sec LV V1 max P.0 mmHg PA V2 mean: 67.5 cm/sec LV V1 mean P.5 mmHg LV V1 mean: 76.0 cm/sec LV V1 VTI: 23.7 cm ECHO/Echo Complete Interpretation Summary Normal LV size. Left ventricular systolic function is normal. The left ventricular ejection fraction is 65 %. Mild (1+) eccentric mitral valve insufficiency. Ordering Physician: Aubrie Zamora Performed By: Dejuan Roger RCS
[2024-12-27] MEDS: 0.9% Normal Saline (1000mL) 1,000 ML 100 ML IV (21:56)
[2024-12-27] MEDS: Aspirin 325 MG Tablet PO (23:11)
[2024-12-27] MEDS: Pantoprazole Sodium 40 MG Tablet PO (23:12)
[2024-12-27] MEDS: MELATONIN 3 MG TABLET PO (23:12)
[2024-12-27] MEDS: Carbidopa/Levodopa 25/100 Tablet PO (23:13)
[2024-12-27] MEDS: Atorvastatin Calcium 80 MG Tablet PO (23:15)
[2024-12-28 02:00] VITALS: BP 119/67; PULSE 63; RESP 18; TEMP 36.8; O2SAT 100
[2024-12-28 05:59] VITALS: BP 132/75; PULSE 63; RESP 18; TEMP 36.1; O2SAT 99
[2024-12-28 06:00] VITALS: BMI 25.5
[2024-12-28] MEDS: Carbidopa/Levodopa 25/100 Tablet PO ×5 (06:43→21:08)
[2024-12-28 07:44] LABS: Absolute Lymphocyte Count 1.93 X10^3/uL (0.83-4.51); Absolute Neutrophil Count 3.7 X10^3/uL (2.0-7.7); Basophil# 0.09 X10^3/uL; Basophil% 1.4 % (0-1); Eosinophil# 0.27 X10^3/uL; Eosinophils% 4.2 % (0-5); Lymphocyte # 1.93 X10^3/ul (0.83-4.51); Lymphocyte % 30.2 % (19-41); Mean Corp Hgb Conc 33.3 g/dL (32-36); Mean Corpuscular Hgb 30.5 pg (27.0-32.0); Mean Corpuscular Volume 91.5 fL (81-99); Mean Platelet Vol. 9.2 fl (6.2-12.0); Monocyte# 0.41 X10^3/uL; Monocyte% 6.4 % (0-10); NRBC Flagged by Analyzer 0 % (0-5); Neutrophil # 3.68 X10^3/uL (2.7-7.7); Neutrophil % 57.6 % (47-70); Platelet Count 291 K/mm3 (150-450); RBC Distribution Width CV 12.5 % (11.6-14.6); RBC Distribution Width SD 41.4 fl (35.1-43.9); Red Blood Count 4.59 M/mm3 (4.2-5.4); White Blood Count 6.4 K/mm3 (4.4-11.0)
[2024-12-28 07:52] VITALS: O2SAT 95
[2024-12-28 07:57] VITALS: BMI 25.5
[2024-12-28 08:05] LABS: AST(SGOT) 13 U/L (15-37); Alanine Aminotransfer ALT/SGPT 7 U/L (13-56); Albumin, Serum 3.2 g/dL (3.2-5.0); Alkaline Phosphatase 66 U/L (45-117); Anion Gap 6 (5-15); BUN 13 mg/dL (7-18); BUN/Creat Ratio 20.2 RATIO (10-20); Calcium,Total 8.6 mg/dL (8.5-10.1); Chloride 113 mmol/L (98-107); Cholesterol 179 mg/dL (200); Creatinine, Serum 0.64 mg/dL (0.55-1.02); EST Glomerular Filtration Rate 96 mL/min (>60); Est Glom Filt Rate - Afr Amer 116 mL/min (>60); Estimated Creatinine Clearance 64.83 ml/min; Globulin 3.2 g/dL (2.2-4.2); Glucose 89 mg/dL (74-106); High Density Lipoprotein 62 mg/dL; Potassium 3.7 mmol/L (3.5-5.1); Protein, Total 6.4 g/dL (6.4-8.2); Sodium Level 142 mmol/L (136-145); Triglycerides 76 mg/dL; Very Low Density Lipoprotein 15 mg/dL (5-40)
--- NOTE | 2024-12-28 09:00 | MRI_ITS ---
PROCEDURE: BRAIN WITHOUT CONTRAST REASON FOR EXAM: TIA/CVA; right facial droop; slurred speech; weakness. TECHNIQUE: Multiplanar, multisequence MRI of the brain without intravenous gadolinium-based contrast. COMPARISON: 12/27/2024 CT. FINDINGS: Mild global parenchymal atrophy. Periventricular white matter T2/FLAIR hyperintensity which is nonspecific but likely representing mild chronic microvascular ischemia. No evidence of acute hemorrhage or infarction. No extra-axial blood or fluid collections. Ethmoid and right frontal sinus mucosal thickening. MRI/Brain without Contrast IMPRESSION: No acute intracranial abnormality. Reading Location: [id number]
[2024-12-28] MEDS: Citalopram 20 MG Tablet PO (09:17)
[2024-12-28] MEDS: Aspirin 81 MG TAB.CHEW PO (09:17)
[2024-12-28] MEDS: Pantoprazole Sodium 40 MG Tablet PO ×2 (09:17→21:07)
[2024-12-28] MEDS: Famotidine 20 MG Tablet PO (09:17)
[2024-12-28] MEDS: Enoxaparin 40 MG/0.4 ML Syringe SC (09:18)
[2024-12-28] MEDS: 0.9% Saline Lock 10 ML Syringe IV ×2 (09:23→21:10)
[2024-12-28] MEDS: Docusate Sodium 100 MG Capsule PO ×2 (09:57→21:07)
[2024-12-28] MEDS: Polyethylene Glycol 3350 17 GM PACKET PO (09:57)
[2024-12-28 10:00] VITALS: BP 120/57; PULSE 89; RESP 18; TEMP 36.2; O2SAT 99
[2024-12-28 14:00] VITALS: BP 141/69; PULSE 80; RESP 18; TEMP 36.2; O2SAT 100
--- NOTE | 2024-12-28 14:32 | PN_ITS ---
Subjective Subjective Patient seen and examined. Her good friend was by her bedside. She had no active medical complaints. She was admitted with complaint of right facial droop and slurred speech and generalized weakness. She is for stroke rule out. Her friend says she feels she still has a right facial droop. His speech was also slightly slurred. She denied any focal weakness, any numbness or tingling. Review of systems otherwise negative. She is for MRI of the brain today. Objective Data Objective Data Vital Signs: Vital Signs Temp Pulse Resp BP Pulse Ox O2 Del Method 97.2 F L 89 18 120/57 L 99 Room Air 12/28/24 10:00 12/28/24 10:00 12/28/24 10:00 12/28/24 10:00 12/28/24 10:00 12/28/24 10:00 Oxygen Delivery Method Room Air Weight: 163 lb 2.273 oz Body Mass Index (BMI) 25.5 Intake & Output: Intake and Output for Last 24 Hours 12/26/24 12/27/24 12/28/24 23:59 23:59 23:59 Intake Total 1240 / 1240 Balance 1240 / 1240 Lab / Micro Data 12/28/24 06:50 12/28/24 06:50 Labs: Laboratory Results - last 24 hr 12/27/24 16:35: WBC 7.3, RBC 4.49, Hgb 14.3, Hct 41.7, MCV 92.9, MCH 31.8, MCHC 34.3, RDW Std Deviation 42.4, RDW Coeff of Fozia 12.4, Plt Count 303, MPV 9.3, Immature Gran % (Auto) 0.400, Neut % (Auto) 63.7, Lymph % (Auto) 25.0, Granite % (Auto) 6.7, Eos % (Auto) 3.1, Baso % (Auto) 1.1 H, Absolute Neuts (auto) 4.7, Absolute Lymphs (auto) 1.83, Nucleated RBC % 0, PT 13.4, INR 1.0, APTT 29.0, Sodium 139, Potassium 3.5, Chloride 110 H, Carbon Dioxide 25.0, Anion Gap 4 L, BUN 12, Creatinine 0.88, Estim Creat Clear Calc 54.54, Est GFR (MDRD) Af Amer 80, Est GFR (MDRD) Non-Af 67, BUN/Creatinine Ratio 13.6, Glucose 105, Calcium 8.9, Magnesium 2.2, Troponin I High Sens 4 12/28/24 06:50: WBC 6.4, RBC 4.59, Hgb 14.0, Hct 42.0, MCV 91.5, MCH 30.5, MCHC 33.3, RDW Std Deviation 41.4, RDW Coeff of Fozia 12.5, Plt Count 291, MPV 9.2, Immature Gran % (Auto) 0.200, Neut % (Auto) 57.6, Lymph % (Auto) 30.2, Granite % (Auto) 6.4, Eos % (Auto) 4.2, Baso % (Auto) 1.4 H, Absolute Neuts (auto) 3.7, Absolute Lymphs (auto) 1.93, Nucleated RBC % 0, Sodium 142, Potassium 3.7, C hloride 113 H, Carbon Dioxide 24.0, Anion Gap 6, BUN 13, Creatinine 0.64, Estim Creat Clear Calc 64.83, Est GFR (MDRD) Af Amer 116, Est GFR (MDRD) Non-Af 96, B UN/Creatinine Ratio 20.2 H, Glucose 89, Calcium 8.6, Total Bilirubin 0.60, AST 13 L, ALT 7 L, Alkaline Phosphatase 66, Total Protein 6.4, Albumin 3.2, Globulin 3.2, Albumin/Globulin Ratio 1.0, Triglycerides 76, Cholesterol 179, LDL Cholesterol 102, VLDL Cholesterol 15, HDL Cholesterol 62, TSH 2.660 Radiography Diagnostic Testing: Radiology Impression Brain CT 12/27/24 16:38 IMPRESSION: 1. Chronic microvascular ischemic changes. 2. No acute hemorrhagic or ischemic infarctions. Reading [facility]Neck [facility] 12/27/24 16:38 IMPRESSION: No acute arterial abnormalities of the head or neck. One or more dose reduction techniques were used (e.g., Automated exposure control, adjustment of the mA and/or kV according to patient size, use of iterative reconstruction technique). Reading Location: [id number] Chest X-Ray 12/27/24 17:15 IMPRESSION: NEGATIVE SINGLE VIEW OF THE CHEST. Reading Location: [facility] Echocardiogram 12/27/24 21:06 Interpretation Summary Normal LV size. Left ventricular systolic function is normal. The left ventricular ejection fraction is 65 %. Mild (1+) eccentric mitral valve insufficiency. Ordering Physician: Aubrie Zamora Performed By: Dejuan Roger RCS Physical Exam Const alert, oriented x3 and no apparent distress General Appearance: cooperative HEENT normocephalic, head/scalp atraumatic, moist oral mucous membranes, oropharynx normal and gingiva normal Eyes PERRL and EOMs intact bilaterally Neck no lymphadenopathy and supple Lymph Lymphatic: no lymphadenopathy noted and no lymphedema noted Resp normal respiratory effort, normal air movement and clear to auscultation bilaterally Cardio regular rate, regular rhythm, S1 normal heart sound, S2 normal heart sound and no murmurs GI normal to inspection, nondistended, normoactive bowel sounds, soft to palpation, non-tender and non-distended Extremity normal capillary refill, no clubbing, cyanosis or edema and no calf tenderness General Extremity: no tenderness to palpation of joints or extremities Skin General Skin Exam: no breakdown Neuro Neuro Narrative: speech is very mildly slurred, has very mild right facial droop. Power in all extremities is 5/5. Moves all extremities spontaneously. Motor Exam: strength 5/5 throughout and general weakness Psych thought process normal and cooperative Appearance: appropriate Assessment & Plan Assessment/Plan (1) Slurred speech: (2) Facial droop: (3) Brain TIA: PLAN: Plan #Stroke like symptoms to rule out a stroke * Patient admitted with complaint of right facial droop and slurred speech as well as generalized weakness. * NIH stroke scale was 1 on admission. She does have a slight right facial droop and mildly slurred speech. * CT of the brain did not show any evidence of a stroke. MRI of the brain pending. * CT of the head and neck showed no acute hemodynamically significant stenosis. * 2D echo done today showed EF of 65% with normal left ventricular size * MRI of the brain ordered and pending. Neurology consulted. * On p.o. aspirin and high intensity statin. * Patient states she has multiple somatic symptoms including occasional neck tightness and flashes as well as shortness of breath. I am question whether she may possibly have an underlying autoimmune condition. This may also be due to anxiety and depression. Patient counseled to follow-up with her PCP for further workup autoimmune disease as needed. * #Anxiety and depression: On escitalopram and lorazepam. #History of Parkinson's disease: On Sinemet and entacapone GERD: On PPI DVT prophylaxis: Lovenox CODE STATUS: DNR CCA no intubation Charges/Coding Visit Charges Inpatient E&M: 91760 Subs Hosp L2
[2024-12-28 15:03] VITALS: BMI 25.5
--- NOTE | 2024-12-28 15:43 | CHAPLAIN ---
Type of Pastoral Visit _x__ Initial Visit ___ Follow-up Visit ___ On-call Visit ___ General Patient Visit ___ Spiritual Assessment ___ Family Conference ___ Bereavement ___ Rapid Response ___ Code Blue ___ Other (describe below) Pastoral Care Referral From _x__ Patient _x__ Family ___ Nurse ___ Physician ___ Project Product Manager ___ Bagger And Stock Handler Helper ___ Other (describe below) Sacrament/Intervention _x__ Active listening ___ Anointing ___ Muslim ___ Bereavement ___ Communion _x__ Jane exploration ___ ___ Life review _x__ Prayer ___ Reconciliation ___ Sacrament of Sick _x__ Supportive presence ___ Wedding ___ Other (describe below) Pastoral Comments patient and several family members are in the room; several visitors have met this cable dispatcher before and each give some input and update on their life; pt speaks of having some unclear medical changes that are being looked into and a test will be happening soon; as conversation flows in the group, the patient begins to have some physical symptoms and a family member goes to the nurses station; this cable dispatcher asked if a prayer would be helpful and patient and family agreed; after prayer this cable dispatcher also went to find the RN for this patient who came upon request to give evaluation of the situation;
[2024-12-28 16:41] LABS: Hemoglobin A1c 4.1 % (3.8-5.6)
--- NOTE | 2024-12-28 17:00 | CASEMGMT ---
Met with patient to complete DAVIS form. DAVIS form explained to patient who voiced understanding and signed form. Original form placed in pt?s chart and copy provided to patient. Amy Schmitt, Discharge Planning Asst
[2024-12-28 17:26] LABS: Bedside Glucose 91 mg/dL (74-106)
--- NOTE | 2024-12-28 17:29 | NEURO.CONS ---
Assessment and Plan: Neuro Assessment/Plan WALI LOCKWOOD is a 74 F with a past medical history of Hypothyroidism, anemia, GERD and PD presented with intermittent episodes of right facial droop and dysarthria and geralized weakness. recurrent numerous episodes of the same etiology seems less likely to be due TIA but it is not completely excluded other possibilities focal seizures Diagnosis: possible TIA Plan: MRI brain with no acute findings EEG cont ASA and statin TTE vascular risk modification follow up with Neurology for the diagnosis of Parkinson disease and CMT HPI Consult Data Date of Consult: 12/28/24 HPI Narrative HPI Narrative: 74 female with past medical history GERD, anxiety and depression, parkinsonian type symptoms, chronic neuropathy who presents to the [facility] ED on 12/27/2024 with history of onset right-sided facial droop, slurred speech and generalized weakness. she presetned as stroke activation, Ct head and CTA showed no acute findings. she reports numerous similar events in the past [facility] Medical History Nasal bleeding Anxiety Anemia Ilxlptt-Lmkvx-Caqnl syndrome Syncope Difficulty swallowing Constipation Shortness of breath on exertion Pressure in chest Abnormal results of thyroid function studies Wears glasses Depression Thyroid disease GERD (gastroesophageal reflux disease) Non-smoker History of stress test Parkinsonism Osteoarthritis of left knee Synovial cyst of popliteal space [Grady], left knee Left leg pain Hypertension Puncture wound of right foot Home Medications ?Medication ?Instructions ?Recorded ?Last Taken ?Type lorazepam 0.5 mg tablet 0.5 mg PO Q6H PRN ansiety 04/28/23 12/27/24 History citalopram 20 mg tablet 20 mg PO DAILY 04/15/24 12/27/24 History acetaminophen 500 mg tablet 1,000 mg PO Q6H PRN PRN pain 05/11/24 Unknown History (Tylenol Extra Strength) omeprazole 40 mg capsule,delayed 40 mg PO BID #60 caps 11/10/24 12/27/24 Rx release carbidopa 25 mg-levodopa 100 mg 2 tab PO 5X/DAY 12/27/24 12/27/24 History tablet entacapone 200 mg tablet 200 mg PO 5X/DAY 12/27/24 12/27/24 History famotidine 20 mg tablet (Acid 20 mg PO DAILY 12/27/24 12/27/24 History Controller) multivitamin (Daily Multi-Vitamin 1 tab PO DAILY 12/27/24 12/26/24 History tablet) ondansetron 8 mg disintegrating 8 mg PO Q8H PRN PRN nausea 12/27/24 12/27/24 History tablet zolpidem 12.5 mg tablet,extended 12.5 mg PO QHS 12/27/24 12/26/24 History release,multiphase Allergy/AdvReac Type Severity Reaction Status Date / Time No Known Allergies Allergy Verified 12/27/24 16:40 Family History (Updated 12/27/24 @ 19:[address] Aubrie Zamora MD) Mother Lupus Sister Lupus Daughter Acute Crohn's disease Son Cleft lip Father Cancer Lung CA, from exposure, no tobacco use history. COPD (chronic obstructive pulmonary disease) Other Heart disease Surgical History History of knee replacement History of varicose vein stripping Social History household members: none Smoking Status: Never smoker alcohol intake: current alcohol intake frequency: holidays/special occasions only substance use type: does not use what type of physical activity do you participate in: walking Vital Signs Vital Signs Vital Signs: 12/27/24 17:30 12/27/24 18:00 12/27/24 18:00 Temperature Temperature Source Pulse Rate 84 84 Pulse Strength Respiratory Rate Respiratory Effort Respiratory Depth Respiratory Pattern Blood Pressure 115/75 121/69 H 121/69 H Blood Pressure Mean 88 86 86 Blood Pressure Source Blood Pressure Position Blood Pressure Location Pulse Ox 98 97 Oxygen Delivery Method Room Air Room Air 12/27/24 18:30 12/27/24 18:47 12/27/24 18:47 Temperature Temperature Source Pulse Rate 79 79 Pulse Strength Respiratory Rate Respiratory Effort Respiratory Depth Respiratory Pattern Blood Pressure 115/64 117/65 117/65 Blood Pressure Mean 81 82 82 Blood Pressure Source Blood Pressure Position Blood Pressure Location Pulse Ox 96 97 Oxygen Delivery Method Room Air Room Air 12/27/24 18:48 12/27/24 19:30 12/27/24 20:00 Temperature 98.5 F Temperature Source Pulse Rate 87 83 73 Pulse Strength Respiratory Rate 24 H 20 H 20 H Respiratory Effort Respiratory Depth Respiratory Pattern Blood Pressure 117/65 114/52 L 129/73 H Blood Pressure Mean 82 72 91 Blood Pressure Source Blood Pressure Position Blood Pressure Location Pulse Ox 98 97 98 Oxygen Delivery Method Room Air Room Air 12/27/24 20:00 12/27/24 20:30 12/27/24 21:10 Temperature 97.8 F Temperature Source Temporal Pulse Rate 73 69 72 Pulse Strength Respiratory Rate 20 H 20 H 18 Respiratory Effort Respiratory Depth Respiratory Pattern Blood Pressure 129/73 H 144/74 H 141/78 H Blood Pressure Mean 91 97 99 Blood Pressure Source Monitor Blood Pressure Position Semi-Fowlers Blood Pressure Location Right Arm Pulse Ox 98 98 99 Oxygen Delivery Method Room Air Room Air Room Air 12/27/24 21:58 12/27/24 22:00 12/28/24 02:00 Temperature 97.8 F 98.2 F Temperature Source Temporal Temporal Pulse Rate 72 63 Pulse Strength Respiratory Rate 18 18 Respiratory Effort Normal Non-Labored Respiratory Depth Normal Respiratory Pattern Normal Blood Pressure 141/78 H 119/67 Blood Pressure Mean 99 84 Blood Pressure Source Monitor Monitor Blood Pressure Position Semi-Fowlers Semi-Fowlers Blood Pressure Location Right Arm Right Arm Pulse Ox 99 100 Oxygen Delivery Method Room Air Room Air Room Air 12/28/24 05:59 12/28/24 07:52 12/28/24 07:54 Temperature 97.0 F L Temperature Source Temporal Pulse Rate 63 Pulse Strength Normal (2+) Respiratory Rate 18 Respiratory Effort Respiratory Depth Respiratory Pattern Blood Pressure 132/75 H Blood Pressure Mean 94 Blood Pressure Source Monitor Blood Pressure Position Semi-Fowlers Blood Pressure Location Right Arm Pulse Ox 99 95 Oxygen Delivery Method Room Air Room Air 12/28/24 08:56 12/28/24 10:00 12/28/24 14:00 Temperature 97.2 F L 97.2 F L Temperature Source Temporal Temporal Pulse Rate 89 80 Pulse Strength Respiratory Rate 18 18 Respiratory Effort Normal Non-Labored Respiratory Depth Normal Respiratory Pattern Normal Blood Pressure 120/57 L 141/69 H Blood Pressure Mean 78 93 Blood Pressure Source Monitor Monitor Blood Pressure Position Sitting Sitting Blood Pressure Location Right Arm Right Arm Pulse Ox 99 100 Oxygen Delivery Method Room Air Room Air Room Air 12/28/24 15:00 Temperature Temperature Source Pulse Rate Pulse Strength Respiratory Rate Respiratory Effort Normal Non-Labored Respiratory Depth Normal Respiratory Pattern Normal Blood Pressure Blood Pressure Mean Blood Pressure Source Blood Pressure Position Blood Pressure Location Pulse Ox Oxygen Delivery Method Room Air Weight Weight: 74 kg Body Mass Index (BMI) 25.5 EEG Results Procedure Details EEG Procedure Details: WALI LOCKWOOD is a 74 year old F with a past medical history of , who presents for evaluation of Electroencephalogram on DATE at TIME NIHSS NIHSS Nursing Documentation NIHSS Nursing Documentation: NIHSS: Ischemic Stroke/TIA Start: 12/27/24 21:06 Text: For PCU Patients: NIH and Neuro Check every 4 Status: Complete hours, PRN and with change in RN caregiver. Freq: [id number] Protocol: Activity Type Activity Date Activity User E-sign Co-sign Detail Recorded Client Recorded Date Recorded By Document 12/28/24 14:00 [email or web address] [id number] 12/28/24 14:59 [email or web address] 12/28/24 14:00 NIH Stroke Scale [NIHSS] A score of 0 is normal or asymptomatic . Total possible score is 42. Inpatient: RN or Physician to activate a stroke alert for onset of new stroke symptoms or with NIHSS increase >/= 3 points. Following change in neurological status, NIHSS will be performed per physician order or more frequently PRN. -1a. Level of Consciousness Alert; keenly responsive -1b. LOC Questions Answers BOTH questions correctly. -1c. LOC Commands Performs both tasks correctly . -2. Best Gaze Normal -3. Visual No visual loss -4. Facial Palsy Normal symmetrical movements -5a. Left Arm No drift; arm holds 90 (or 45 ) degrees for full 10 seconds -5b. Right Arm No drift; arm holds 90 (or 45 ) degrees for full 10 seconds -6a. Left Leg No drift; leg holds 30-degree position for full 5 seconds -6b. Right Leg No drift; leg holds 30-degree position for full 5 seconds -7. Limb Ataxia Absent -8. Sensory Normal; no sensory loss -9. Best Language No aphasia; normal -10. Dysarthria Normal -11. Extinction and Inattention No abnormality -Total 0 Query Text:A score of 0 is normal or asymptomatic. Total possible score is 42 . ED: Notify Physician for NIHSS increase by > / = 3 points. Inpatient: RN or Physician to activate a stroke alert for NIHSS increase of > / = 3 points. Coma Scale [Assess] -Eye Opening Spontaneous -Motor Obeys Commands -Verbal Oriented [Total] -Coma Scale Total 15 Physical Exam Narrative awake alert oriented x3 following commands PERRLA, EMOI Face symmetric move all ext antigravity Lab / Micro Data 12/28/24 06:50 12/28/24 06:50 Labs: Laboratory Results - last 24 hr 12/27/24 16:32: POC Glucose 91 12/27/24 16:35: Magnesium 2.2 12/28/24 06:50: WBC 6.4, RBC 4.59, Hgb 14.0, Hct 42.0, MCV 91.5, MCH 30.5, MCHC 33.3, RDW Std Deviation 41.4, RDW Coeff of Fozia 12.5, Plt Count 291, MPV 9.2, Immature Gran % (Auto) 0.200, Neut % (Auto) 57.6, Lymph % (Auto) 30.2, [place] % (Auto) 6.4, Eos % (Auto) 4.2, Baso % (Auto) 1.4 H, Absolute Neuts (auto) 3.7, Absolute Lymphs (auto) 1.93, Nucleated RBC % 0, Sodium 142, Potassium 3.7, Chloride 113 H, Carbon Dioxide 24.0, Anion Gap 6, BUN 13, Creatinine 0.64, Estim Creat Clear Calc 64.83, Est GFR (MDRD) Af Amer 116, Est GFR (MDRD) Non-Af 96, BUN/Creatinine Ratio 20.2 H, Glucose 89, Hemoglobin A1c 4.1, Calcium 8.6, Total Bilirubin 0.60, AST 13 L, ALT 7 L, Alkaline Phosphatase 66, Total Protein 6.4, Albumin 3.2, Globulin 3.2, Albumin/Globulin Ratio 1.0, Triglycerides 76, Cholesterol 179, LDL Cholesterol 102, VLDL Cholesterol 15, HDL Cholesterol 62, TSH 2.660 Imaging Radiology Impression Brain CT 12/27/24 16:38 IMPRESSION: 1. Chronic microvascular ischemic changes. 2. No acute hemorrhagic or ischemic infarctions. Reading Location: [facility] Head/Neck CTA 12/27/24 16:38 IMPRESSION: No acute arterial abnormalities of the head or neck. One or more dose reduction techniques were used (e.g., Automated exposure control, adjustment of the mA and/or kV according to patient size, use of iterative reconstruction technique). Reading Location: [facility] Chest X-Ray 12/27/24 17:15 IMPRESSION: NEGATIVE SINGLE VIEW OF THE CHEST. Reading Location: [facility] Echocardiogram 12/27/24 21:06 Interpretation Summary Normal LV size. Left ventricular systolic function is normal. The left ventricular ejection fraction is 65 %. Mild (1+) eccentric mitral valve insufficiency. Ordering Physician: Aubrie Zamora Performed By: Dejuan Roger RCS Brain MRI 12/28/24 09:00 IMPRESSION: No acute intracranial abnormality. Reading Location: [facility] Active Medications Active Medications Active Medications: Current Medications Generic Name Dose Route Start Last Admin Trade Name Freq PRN Reason Stop Dose Admin Acetaminophen 650 mg 12/27/24 21:06 Acetaminophen 325 Mg Tablet PO Q4H PRN PRN Fever, pain 1-10/10 Al Hydroxide/Mg Hydroxide 30 ml 12/27/24 21:06 Mag Hydrox/Al Hydrox/Simeth 30 Ml Udc PO Q6H PRN PRN Gastric Burning Albuterol Sulfate 2.5 mg 12/27/24 21:06 Albuterol 2.5 Mg/3 Ml Vial.Neb. INHALATION Q2H PRN PRN Dyspnea, wheezing Aspirin 81 mg 12/28/24 08:00 12/28/24 09:17 Aspirin 81 Mg Tab.Chew PO 81 mg BREAKFAST CORNELIO Administration Atorvastatin Calcium 80 mg 12/27/24 22:00 12/27/24 23:15 Atorvastatin Calcium 80 Mg Tablet PO 80 mg QHS CORNELIO Administration Carbidopa/Levodopa 2 tablet 12/27/24 22:00 12/28/24 13:31 Carbidopa/Levodopa 25/100 Tablet PO 2 tablet 5X/DAY CORNELIO Administration Citalopram Hydrobromide 20 mg 12/28/24 10:00 12/28/24 09:17 Citalopram 20 Mg Tablet PO 20 mg DAILY CORNELIO Administration Docusate Sodium 100 mg 12/28/24 10:00 12/28/24 09:57 Docusate Sodium 100 Mg Capsule PO 100 mg BID CORNELIO Administration Enoxaparin Sodium 40 mg 12/28/24 10:00 12/28/24 09:18 Enoxaparin 40 Mg/0.4 Ml Syringe SC 40 mg DAILY CORNELIO Administration Entacapone 200 mg 12/27/24 22:00 12/28/24 13:31 Entacapone 200 Mg Tablet PO 200 mg 5X/DAY CORNELIO Administration Famotidine 20 mg 12/28/24 10:00 12/28/24 09:17 Famotidine 20 Mg Tablet PO 20 mg DAILY CORNELIO Administration Guaifenesin 20 ml 12/27/24 21:06 Guaifenesin 10 Ml Udc (200mg/10ml) PO Q4H PRN PRN COUGH Hydralazine HCl 5 mg 12/27/24 21:06 Hydralazine 20 Mg/Ml Vial IV 12/28/24 21:06 Q30M PRN maintain BP parameters with HR <60 Sodium Chloride 100 mls @ 15 mls/hr 12/27/24 21:22 IV .Q6H40M PRN Saline Flush Sodium Chloride 100 mls @ 15 mls/hr 12/27/24 21:22 IV .Q6H40M PRN Additional IVPB Infusion Labetalol HCl 10 - 20 mg 12/27/24 21:06 Labetalol 20mg/4ml Syringe IV 12/28/24 21:06 Q10M PRN PRN maintain BP parameters with HR >/=60 Lorazepam 0.5 mg 12/27/24 21:06 Lorazepam 0.5 Mg Tablet PO Q6H PRN ansiety Melatonin 3 mg 12/27/24 21:06 12/27/24 23:12 Melatonin 3 Mg Tablet PO 3 mg QHS PRN PRN Administration INSOMNIA Ondansetron HCl 4 mg 12/27/24 21:06 Ondansetron 4 Mg/2 Ml Vial IV Q8H PRN PRN NAUSEA/VOMITING Pantoprazole Sodium 40 mg 12/27/24 22:00 12/28/24 09:17 Pantoprazole Sodium 40 Mg Tablet PO 40 mg BID CORNELIO Administration Polyethylene Glycol 17 gm 12/28/24 09:10 12/28/24 09:57 Polyethylene Glycol 3350 17 Gm Packet PO 17 gm DAILY PRN PRN Administration CONSTIPATION Senna/Docusate Sodium 2 tablet 12/27/24 21:06 Senna/Docusate Sodium 1 Tablet PO BID PRN PRN Constipation Sodium Chloride 10 - 40 ml 12/27/24 21:22 12/28/24 09:23 0.9% Saline Lock 10 Ml Syringe IV 10 ml UD PRN Administration SALINE FLUSH
[2024-12-28 20:15] VITALS: BP 142/103; PULSE 70; RESP 16; TEMP 36.6; O2SAT 97
[2024-12-28 20:20] VITALS: BMI 25.5
[2024-12-28] MEDS: Atorvastatin Calcium 80 MG Tablet PO (21:07)
[2024-12-29 00:30] VITALS: BP 137/80; PULSE 81; RESP 16; TEMP 36.4; O2SAT 97
[2024-12-29 02:55] VITALS: BP 132/75; PULSE 67; RESP 16; TEMP 36.3; O2SAT 99
[2024-12-29] MEDS: LORazepam 0.5 MG Tablet PO (04:46)
[2024-12-29 05:11] VITALS: BMI 25.4
[2024-12-29 05:22] LABS: Absolute Lymphocyte Count 2.02 X10^3/uL (0.83-4.51); Absolute Neutrophil Count 3.6 X10^3/uL (2.0-7.7); Basophil# 0.09 X10^3/uL; Basophil% 1.4 % (0-1); Eosinophil# 0.31 X10^3/uL; Eosinophils% 4.7 % (0-5); Hemoglobin 14.1 g/dL (12.0-15.0); Lymphocyte # 2.02 X10^3/ul (0.83-4.51); Lymphocyte % 30.8 % (19-41); Mean Corp Hgb Conc 34.4 g/dL (32-36); Mean Corpuscular Hgb 31.2 pg (27.0-32.0); Mean Corpuscular Volume 90.7 fL (81-99); Mean Platelet Vol. 9.5 fl (6.2-12.0); Monocyte# 0.55 X10^3/uL; Monocyte% 8.4 % (0-10); NRBC Flagged by Analyzer 0 % (0-5); Neutrophil # 3.55 X10^3/uL (2.7-7.7); Neutrophil % 54.2 % (47-70); Platelet Count 284 K/mm3 (150-450); RBC Distribution Width CV 12.4 % (11.6-14.6); RBC Distribution Width SD 40.5 fl (35.1-43.9); Red Blood Count 4.52 M/mm3 (4.2-5.4); White Blood Count 6.6 K/mm3 (4.4-11.0)
[2024-12-29] MEDS: Carbidopa/Levodopa 25/100 Tablet PO ×3 (05:25→12:59)
[2024-12-29 05:52] LABS: Anion Gap 6 (5-15); BUN 10 mg/dL (7-18); BUN/Creat Ratio 13.8 RATIO (10-20); Calcium,Total 8.7 mg/dL (8.5-10.1); Chloride 111 mmol/L (98-107); Creatinine, Serum 0.73 mg/dL (0.55-1.02); EST Glomerular Filtration Rate 83 mL/min (>60); Est Glom Filt Rate - Afr Amer 101 mL/min (>60); Glucose 92 mg/dL (74-106); Potassium 3.6 mmol/L (3.5-5.1); Sodium Level 141 mmol/L (136-145)
[2024-12-29 07:27] VITALS: O2SAT 95
[2024-12-29 08:00] VITALS: BMI 25.4
[2024-12-29 09:00] VITALS: BP 127/74; PULSE 83; RESP 16; TEMP 36.4; O2SAT 99
[2024-12-29] MEDS: Enoxaparin 40 MG/0.4 ML Syringe SC (09:09)
--- NOTE | 2024-12-29 09:09 | CASEMGMT ---
Social Work PHQ9 depression screen not completed today as physician states pt is negative for stroke. LASHAE Landers
[2024-12-29] MEDS: Famotidine 20 MG Tablet PO (09:10)
[2024-12-29] MEDS: Docusate Sodium 100 MG Capsule PO (09:10)
[2024-12-29] MEDS: Aspirin 81 MG TAB.CHEW PO (09:10)
[2024-12-29] MEDS: Citalopram 20 MG Tablet PO (09:10)
[2024-12-29] MEDS: Pantoprazole Sodium 40 MG Tablet PO (09:10)
--- NOTE | 2024-12-29 14:30 | DCINST_ITS ---
Discharge Instructions Diet Discharge Diet: Low fat / Low cholesterol DC O2, CPAP, BIPAP needs Home O2 Discharge instructions: No Dressing / Incision Discharge Activity: Return to Normal Activity Weight Bearing Status: Weight bearing as tolerated Dressing / Incision Call your doctor if you observe: Fever of 101 or Higher, Shortness of breath, Dizziness, Swelling in the ankles and Chest pain Follow Up Care Test Results: Test results from this visit will be discussed in further detail at your follow- up appointment, if applicable. Discharge Plan Admission Admit Date/Time: 12/27/24 19:17 Primary Reason for Your Visit: TIA Attending Provider: Betzy Amos Primary Care Provider: Roxy Wallace Consulting Providers: Gregory Roblero; Wilder Rosen; Tabitha Gutierrez; Yolanda James; Regi Dawson; Temo Lou; Gertrudis Gupta; Deniz Ramirez; Silvestre Linares; Kory Sethi; Lanie Blair; Darshan Montiel; Natividad Dinh; Carmita Cowan; Janine Carranza; Will Chamberlain; Jakub Sun; Mickey Cordon; Angelica Zheng; Meghann Meyers; Aubrie Zamora; Nilsa Romo; Paul Delacruz; Pete Zurita; GARDENIA MATA; Reinaldo Carlson; Asmita Bang Instructions Patient Instructions: TIA Dc Additional Instructions / Restrictions: follow up with PCP for EEG to be ordered on outpatient basis as deemed necessary by PCP. Discharge Orders/Prescriptions Prescriptions: New aspirin 81 mg Tablet,Chewable 81 mg PO BREAKFAST Qty: 30 1RF atorvastatin 80 mg Tablet 80 mg PO QHS Qty: 30 2RF Continued lorazepam 0.5 mg tablet 0.5 mg PO Q6H PRN (Reason: ansiety) citalopram 20 mg tablet 20 mg PO DAILY acetaminophen [Tylenol Extra Strength] 500 mg tablet 1,000 mg PO Q6H PRN PRN (Reason: pain) entacapone 200 mg tablet 200 mg PO 5X/DAY carbidopa-levodopa 25-100 mg tablet 2 tab PO 5X/DAY zolpidem 12.5 mg tablet,ext release multiphase 12.5 mg PO QHS ondansetron 8 mg tablet,disintegrating 8 mg PO Q8H PRN PRN (Reason: nausea) famotidine [Acid Controller] 20 mg tablet 20 mg PO DAILY multivitamin [Daily Multi-Vitamin] Tablet 1 tab PO DAILY omeprazole 40 mg capsule,delayed release(DR/EC) 40 mg PO BID Qty: 60 0RF Referrals / Follow Up: Roxy Wallace DO [Primary Care Provider] - Within 1 Week Emmanuel Sultana MD [Non-Staff -Ordering Privileges] - Within 2 Weeks Disposition Disposition (needs filled in before D/C Order can be placed): Home, Self Care
--- NOTE | 2024-12-29 14:30 | DS.PCM_ITS ---
Providers Date of Admission: 12/27/24 Date of Discharge: 12/29/24 Primary Care Physician: Dr. Roxy Wallace, DO Consultations 12/27/24 21:06 Consult: Tele-Neurology Routine Consulting Provider: [facility] Reason for Consult: Acute Ischemic Stroke/TIA EMERGENT Consult: No MD Notified: Yes Date Notified: 12/27/24 Time Notified: 23:31 Method of Notification: Answering Service Nursing Unit Staff Notify [facility] of Tele-Neurology Consult: Yes Reason For Visit: TIA/CVA Diagnosis Discharge Diagnosis (1) Slurred speech: Status: Acute Code(s): R47.81 - Slurred speech (2) Facial droop: Status: Acute Code(s): R29.810 - Facial weakness (3) Brain TIA: Status: Acute Code(s): G45.9 - Transient cerebral ischemic attack, unspecified Plan #Stroke like symptoms to rule out a stroke * Patient admitted with complaint of right facial droop and slurred speech as well as generalized weakness. * NIH stroke scale was 1 on admission. She does have a slight right facial droop and mildly slurred speech. * CT of the brain did not show any evidence of a stroke. MRI of the brain pending. * CT of the head and neck showed no acute hemodynamically significant stenosis. * 2D echo done today showed EF of 65% with normal left ventricular size * MRI of the brain ordered and pending. Neurology consulted. * On p.o. aspirin and high intensity statin. * Patient states she has multiple somatic symptoms including occasional neck tightness and flashes as well as shortness of breath. I am question whether she may possibly have an underlying autoimmune condition. This may also be due to anxiety and depression. Patient counseled to follow-up with her PCP for further workup autoimmune disease as needed. * #Anxiety and depression: On escitalopram and lorazepam. #History of Parkinson's disease: On Sinemet and entacapone GERD: On PPI DVT prophylaxis: Lovenox CODE STATUS: DNR CCA no intubation Medications at Discharge Home Medications lorazepam 0.5 mg tablet 0.5 mg PO Q6H PRN ansiety 04/28/23 citalopram 20 mg tablet 20 mg PO DAILY 04/15/24 acetaminophen 500 mg tablet (Tylenol Extra Strength) 1,000 mg PO Q6H PRN PRN pain 05/11/24 omeprazole 40 mg capsule,delayed release 40 mg PO BID #60 caps 11/10/24 carbidopa 25 mg-levodopa 100 mg tablet 2 tab PO 5X/DAY 12/27/24 entacapone 200 mg tablet 200 mg PO 5X/DAY 12/27/24 famotidine 20 mg tablet (Acid Controller) 20 mg PO DAILY 12/27/24 multivitamin (Daily Multi-Vitamin tablet) 1 tab PO DAILY 12/27/24 ondansetron 8 mg disintegrating tablet 8 mg PO Q8H PRN PRN nausea 12/27/24 zolpidem 12.5 mg tablet,extended release,multiphase 12.5 mg PO QHS 12/27/24 aspirin 81 mg chewable tablet 81 mg PO BREAKFAST #30 tabs 12/29/24 atorvastatin 80 mg tablet 80 mg PO QHS #30 tabs 12/29/24 Hospital Course Operations None Procedures 2-D Echocardiogram Summary of Care Provided Minutes Spent on Discharge: 45 Hospital Course: Patient is a 74-year-old female with past medical history as outlined who was admitted via the ED on 12/27/2024 with a complaint of right sided facial droop adn slurred speech and generalised weakness. Her last known well was 16:10 on day of presentation. She had complained of a slight headache at [employer] while shopping on the day of admission. Subsequently noted the right facial droop. She said the evening prior to admission she had also been playing cards with friends and felt unwell and had some neck strain and mild fatigue. She had been diagnosed with COVID 2 weeks prior to admission. She said she had seen her PCP for similar symptoms previously. On admission NIH stroke scale was 1 for the mild facial droop. CT of the brain showed chronic microvascular changes but no acute intracranial findings. CT of the head and neck showed no acute hemodynamically significant stenosis and chest x-ray showed no acute cardiopulmonary pathology. EKG showed no acute ST changes. She was therefore admitted to be managed for strokelike symptoms to rule out a stroke. She had MRI of the brain which was negative for stroke. She had 2D echo which showed EF of 65% with normal left ventricular systolic function. She remained stable and did well with therapy. She was therefore discharged on 12/29/2024. Patient was counseled to follow-up with her PCP for workup for possible autoimmune etiology though it was felt that anxiety could also be contributing to her symptoms. She is to follow-up with her primary care doctor within 1 to 2 weeks and was also referred to neurology on outpatient basis. Of note she was seen by neurology during this admission also and neurology was concerned about possibility of focal seizures. Was recommended that patient have EEG but she was not willing to stay for the EEG to be done before discharge. Neurology therefore commended that he could be done on outpatient basis. Patient seen and examined prior to discharge. She felt well and had no complaints. Her friend was by her bedside. Review of symptoms otherwise negative. Labs and vitals reviewed. Home medication reviewed and reconciled. Physical Exam Const alert, oriented x3 and no apparent distress General Appearance: cooperative and comfortable Orientation / Consciousness: awake Exam Limitations: no limitations HEENT normocephalic, head/scalp atraumatic, hearing grossly normal bilaterally, moist oral mucous membranes, oropharynx normal and gingiva normal Mouth: oral and palatal mucosa normal Eyes PERRL, EOMs intact bilaterally and conjunctivae normal Neck no lymphadenopathy and supple Lymph Lymphatic: no lymphadenopathy noted and no lymphedema noted Resp normal respiratory effort, normal air movement and clear to auscultation bilaterally Cardio regular rate, regular rhythm, S1 normal heart sound, S2 normal heart sound and no murmurs GI normal to inspection, nondistended, normoactive bowel sounds, soft to palpation, non-tender and non-distended Extremity normal to inspection, full ROM, normal capillary refill, no clubbing, cyanosis or edema and no calf tenderness General Extremity: no tenderness to palpation of joints or extremities Skin no rashes or lesions noted General Skin Exam: no breakdown Neuro oriented x3, CN's II-XII intact bilaterally, moves all extremities and no focal motor deficits Neuro Narrative: facial droop has resolved Sensorium / Orientation: awake and alert Motor Exam: strength 5/5 throughout and general weakness Psych thought process normal and cooperative Appearance: appropriate Weight / BMI Weight Weight: 162 lb 14.746 oz Body Mass Index (BMI) 25.4 ABG / Lab / Microbiology Data 12/29/24 04:20 12/29/24 04:20 Laboratory: Laboratory Results - last 24 hr 12/29/24 04:20: WBC 6.6, RBC 4.52, Hgb 14.1, Hct 41.0, MCV 90.7, MCH 31.2, MCHC 34.4, RDW Std Deviation 40.5, RDW Coeff of Fozia 12.4, Plt Count 284, MPV 9.5, Immature Gran % (Auto) 0.500, Neut % (Auto) 54.2, Lymph % (Auto) 30.8, [place] % (Auto) 8.4, Eos % (Auto) 4.7, Baso % (Auto) 1.4 H, Absolute Neuts (auto) 3.6, Absolute Lymphs (auto) 2.02, Nucleated RBC % 0, Sodium 141, Potassium 3.6, C hloride 111 H, Carbon Dioxide 24.0, Anion Gap 6, BUN 10, Creatinine 0.73, Estim Creat Clear Calc 60.00, Est GFR (MDRD) Af Amer 101, Est GFR (MDRD) Non-Af 83, BUN/Creatinine Ratio 13.8, Glucose 92, Calcium 8.7 Radiography Diagnostic Testing: Radiology Impression Brain MRI 12/28/24 09:00 IMPRESSION: No acute intracranial abnormality. Reading Location: [facility] D/C Instructions Discharge Diet: Low fat / Low cholesterol Discharge Activity: Return to Normal Activity Weight Bearing Status: Weight bearing as tolerated Call your doctor if you observe: Fever of 101 or Higher, Shortness of breath, Dizziness, Swelling in the ankles and Chest pain DC O2, CPAP, BIPAP Needs Home O2 Discharge instructions: No Meaningful Use Info Meaningful Use Meaningful Use Diagnoses (Choose all that apply): None applicable Ischemic Stroke Statin Dosing Therapy Reference: STATIN DOSE THERAPY REFERENCE: * Patients > 75 years receive moderate or high dose statin therapy. * Patients 75 years or YOUNGER should receive HIGH intensity statin dose unless contraindicated. You will be required to document reason for non-treatment if statin daily dose does not meet guidelines. HIGH DOSE STATIN THERAPY DAILY Atorvastatin > than or = to 40 mg Rosuvastatin > than or = to 20 mg Amlodipine + Atorvastatin > than or = to 2.5/40 mg Ezetimibe + Simvastatin 10/80 mg Simvastatin 80mg Discharge Plan Admission Admit Date/Time: 12/27/24 19:17 Primary Reason for Your Visit: TIA Attending Provider: Betzy Amos Primary Care Provider: Roxy Wallace Consulting Providers: Gregory Roblero; Wilder Rosen; Tabitha Gutierrez; Yolanda James; Regi Dawson; Temo Lou; Gertrudis Gupta; Deniz Ramirez; Silvestre Linares; Kory Sethi; Lanie Blair; Darshan Montiel; Natividad Dinh; Carmita Cowan; Janine Carranza; Will Chamberlain; Jakub Sun; Mickey Cordon; Angelica Zheng; Meghann Meyers; Aubrie Zamora; Nilsa Romo; Paul Delacruz; Pete Zurita; GARDENIA MATA; Reinaldo Carlson; Asmita Bang Instructions Patient Instructions: REFUGIO Coyne Additional Instructions / Restrictions: follow up with PCP for EEG to be ordered on outpatient basis as deemed necessary by PCP. Discharge Orders/Prescriptions Prescriptions: New aspirin 81 mg Tablet,Chewable 81 mg PO BREAKFAST Qty: 30 1RF atorvastatin 80 mg Tablet 80 mg PO QHS Qty: 30 2RF Continued lorazepam 0.5 mg tablet 0.5 mg PO Q6H PRN (Reason: ansiety) citalopram 20 mg tablet 20 mg PO DAILY acetaminophen [Tylenol Extra Strength] 500 mg tablet 1,000 mg PO Q6H PRN PRN (Reason: pain) entacapone 200 mg tablet 200 mg PO 5X/DAY carbidopa-levodopa 25-100 mg tablet 2 tab PO 5X/DAY zolpidem 12.5 mg tablet,ext release multiphase 12.5 mg PO QHS ondansetron 8 mg tablet,disintegrating 8 mg PO Q8H PRN PRN (Reason: nausea) famotidine [Acid Controller] 20 mg tablet 20 mg PO DAILY multivitamin [Daily Multi-Vitamin] Tablet 1 tab PO DAILY omeprazole 40 mg capsule,delayed release(DR/EC) 40 mg PO BID Qty: 60 0RF Referrals / Follow Up: Roxy Wallace DO [Primary Care Provider] - Within 1 Week Emmanuel Sultana MD [Non-Staff -Ordering Privileges] - Within 2 Weeks Disposition Disposition (needs filled in before D/C Order can be placed): Home, Self Care Charges/Coding Visit Charges Inpatient E&M: 09035 Disch Hosp >30min
--- NOTE | 2024-12-29 14:45 | CASEMGMT ---
Patient has order for discharge. No therapies recommended at discharge. RN CM in to discuss needs at discharge, friends at bedside. Patient denies needs or help at discharge. Patient had no further questions or concerns.
[2024-12-29 15:18] VITALS: BP 104/62; PULSE 78; RESP 15; TEMP 36.7; O2SAT 100
== END 2024-12-29 15:38 | disposition home or self-care (01) ==
LOC: ED 19:15 → PCU 20:50
PROVIDERS: Admitting Provider Family Medicine; Emergency Provider Emergency Medicine; PCP Family Medicine; Visit Provider Student in an Organized Health Care Education/Training Program
DX: G45.9 Transient cerebral ischemic attack, unspecified (principal); G20.A1 Parkinson's 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, without mention of fluctuations; R29.702 NIHSS score 2; R47.81 Slurred speech; F41.9 Anxiety disorder, unspecified; I10 Essential (primary) hypertension; R47.1 Dysarthria and anarthria; K21.9 Gastro-esophageal reflux disease without esophagitis; R29.810 Facial weakness; F32.A Depression, unspecified; Z79.899 Other long term (current) drug therapy
CPT/HCPCS: 36415; 70450; 70496; 70498; 70551; 71045; 80048; 80053; 80061; 82962; 83036; 83735; 84443; 84484; 85025; 85610; 85730; 93005; 93306; 94668; 96360; 96361; 96372; 97162; 97166; 99221; 99285; Q9967; A4216; G0378

== ENCOUNTER → 2025-01-03 | Outpatient (CLI) | payer MEDICARE, SELFPAY ==
[2025-01-03 12:57] LABS: Erythrocyte Sedimentation Rate 1 mm/hr (0-30)
[2025-01-03 13:24] LABS: CRP < 2.90 mg/L (0.0-3.0); Rheumatoid Factor < 10.0 IU/mL (<15)
[2025-01-04 11:08] LABS: ANTINUCLEAR ANTIBODIES DIRECT Negative (Negative)
[2025-01-08 16:09] LABS: ACHR Recep AB, Blocking 5 % (0-25); Acetylcholine Receptor Binding < 0.03 nmol/L (0.00-0.24); CCP IgG Antibodies 3 units (0-19); Endomysial Antibody IgA Negative (Negative); Immunoglobulin A 129 mg/dL (64-422); Lyme IgG P18 Ab Absent (.); Lyme IgG P23 Ab Absent (.); Lyme IgG P28 Ab Absent (.); Lyme IgG P30 Ab Absent (.); Lyme IgG P39 Ab Absent (.); Lyme IgG P41 Ab Present (.); Lyme IgG P45 Ab Absent (.); Lyme IgG P58 Ab Present (.); Lyme IgG P66 Ab Absent (.); Lyme IgG P93 Ab Absent (.); Lyme IgG WB Interpretation Negative (.); Lyme IgM P23 Ab Absent (.); Lyme IgM P39 Ab Absent (.); Lyme IgM P41 Ab Absent (.); Lyme IgM WB Interpretation Negative (.); t-Transglutaminase IgA <2 U/mL (0-3)
== END | disposition home or self-care (01) ==
PROVIDERS: PCP Family Medicine; Visit Provider Family Medicine
DX: M25.50 Pain in unspecified joint (principal); R53.1 Weakness; R10.9 Unspecified abdominal pain; R53.83 Other fatigue; G51.0 Bell's palsy
CPT/HCPCS: 36415; 82784; 83516; 83519; 84238; 85652; 86038; 86140; 86200; 86225; 86235; 86255; 86431; 86617

== ENCOUNTER 2025-01-19 12:00 | Outpatient (RCR) | payer MEDICARE, SELFPAY ==
--- NOTE | 2024-11-13 14:53 | HP.SP.EV_ITS ---
Visit History Visit Info Date of Eval: 11/13/24 Visit: 1 [employer] Coach: GOLD History Attending Doctor: Referring Doctor: Reason for Referral: DIFFICULTY SWALLOWING/RX HERE Medical Diagnosis: Parkinson's disease Previous speech therapy: No Medications related to this diagnosis: carbidopa, levodopa, entacapone, omaprazole, citalopram, zolpidem, pepcid, pantoprazole, losartan Smoking Status: Never smoker Diagnosis Diagnosis: Parkinson's disease Pain Is pain an issue with your current prescribed condition?: No Personal Preferred language: Indonesian Patient Allergies Allergies Allergies: Allergies No Known Allergies Allergy (Verified 11/08/24 11:10) Subjective Voice Informal Questioner Do you scream (anger, sporting event, work, noisy envirmonment): None Do you raise your voice (e.g. parenting, calling from room to room, etc.): None Do you talk for long periods of time without a break (teacher, perea): None Are you a talker: Average Do you clear your throat: Average Do you cough: Average How often do you use the telephone: Average Medications Mediations: carbidopa, levodopa, entacapone, omaprazole, citalopram, zolpidem, pepcid, pantoprazole, losartan Alcoholic Beverage Intake Intake: Rarely Other Product Usage Do you use products containing menthol (if yes, list): No Do you use recreational drugs (if yes, list type/amt/frequency): No Objective Voice Date of Diagnosis Date of diagnosis: Pt stated onset of these symptoms was in ; Parkinson's dx in 2022. Previous Speech Therapy (If yes, describe): No Medications Familiar with on/off effect: Yes Objective data Objective Data: Objective data: Sound pressure level (SPL acoustic correlation of vocal loudness) was measured with a sound level meter at a distance of 40 cm from the patient's mouth. Average conversational loudness is 70-80 dB and sustained phonation duration is 15 to 20 seconds for a typical adult. Sustained Phonation Intensity (dB SPL): 48 dB Sustained Phonatin duration (seconds): 11 seconds Is the individual stimulable to increase vocal intensity: Yes (Loudest recorded this date: 78 dB) Vocal Intensity at Paragraph Level (dB SPL): 49 dB Vocal Intensity at Conversational Level (dB SPL): 51 dB Reference: Neuro-QoL instrument Radiation Oncology Patient Plan Plan Plan: At this time, skilled speech therapy is recommended to target the area of voice, as affected by Parkinson's diagnosis. Patient will be seen x1 per week for 60 minute sessions. Recommendations Treatment Warranted: Yes Treatment Warranted: Voice Progress Prognosis: Good Frequency Frequency: 1x/Week Duration: Indefinite Patient/Family Goal Patient/Family Goal: Patient states that she wants to decrease the strain in her throat as well as have her speech become more intelligible to listeners. Goals that are Established Determination:: Goals will be added/modified as deemed necessary and appropriate. Therapy will be discontinued when results of re-evaluation indicate therapy is no longer needed or lack of progress has been documented. Goal #1-5 Goal #1: Connie will increase vocal loudness to reach a target sound pressure level of 70 dB BOX SEALING MACHINE CATCHER with 1 cue during sustained phonation, which will help increase vocal respiratory support for functional communication. Goal #2: Connie will increase vocal loudness to reach a target sound pressure level of 65 dB BOX SEALING MACHINE CATCHER with 1 cue during reading at the word and sentence level, which will help increase vocal respiratory support for functional communication. Goal #3: Connie will increase vocal loudness to reach a target sound pressure level of 60 dB BOX SEALING MACHINE CATCHER with 1 cue during conversation for functional communication. Goal #4: Connie will independently demonstrate and utilize recommended compensatory articulation techniques (increased vocal intensity, reduced rate of speech, over-articulation) to facilitate improved speech intelligibility during expressive communication attempts with both familiar and unfamiliar listeners to facilitate highest level of independent functioning within the home environment and community independently / with less than 2 cues during session, in 2 out of 3 sessions. Education Patient Instruction Patient Education: Treatment Plan and Goals Person Taught: Patient Teaching Method: Discussion Response to teaching: Verbalize Understanding
--- NOTE | 2025-05-09 11:24 | HP.SP.DC ---
ST Discharge Summary Discharged: Discharge: Connie Lynch is discharged as of January 19, 2025. She was evaluated on 11/13/24 with a diagnosis of Parkinson's disease and treated for 6 visits after her initial evaluation. Her goals focused on increasing loudness in structured and unstructured tasks. She was able to meet goals in structured tasks but in conversation she was at 62dB instead of 65 dB on average. She reported that this is a typical volume for her. She was also independently able to use compensatory strategies as appropriate. As patient had reached a plateau of skills she is discharged. She is in agreement with discharge. See evaluation and daily notes for complete details. Thank you for allowing me to participate in the care this patient.
== END 2025-01-19 19:00 | disposition home or self-care (01) ==
LOC: SP 12:00
PROVIDERS: PCP Family Medicine; Referring Provider Family Medicine; Visit Provider Family Medicine
DX: R13.10 Dysphagia, unspecified (principal); G20.A1 Parkinson's 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, without mention of fluctuations; R49.9 Unspecified voice and resonance disorder
CPT/HCPCS: 92507

== ENCOUNTER → 2025-03-07 | Outpatient (CLI) | payer MEDICARE, SELFPAY | END | disposition home or self-care (01) | LOC: MTLAB 10:48 | PROVIDERS: PCP Family Medicine | DX: Z86.69 Personal history of other diseases of the nervous system and sense organs (principal) | CPT/HCPCS: 36415; 86617 ==

== ENCOUNTER → 2025-03-20 | Outpatient (CLI) | payer MEDICARE, SELFPAY | END | disposition home or self-care (01) | PROVIDERS: PCP Family Medicine; Referring Provider Internal Medicine Critical Care Medicine; Visit Provider Internal Medicine Critical Care Medicine | DX: R06.02 Shortness of breath (principal) | CPT/HCPCS: 94060; 94726; 94729 ==

== ENCOUNTER 2025-04-02 14:34 | Emergency (ER) | payer MEDICARE, SELFPAY ==
[2025-04-02] VITALS (7 sets, daily range): BP systolic 104–133; BP diastolic 54–70; PULSE 78–96; RESP 15–28; TEMP 35.8–36.6; O2SAT 95–98; BMI 26.5
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
[2025-04-02] MEDS: Morphine 2 MG/ML Syringe IV (15:49)
[2025-04-02] MEDS: 0.9% Normal Saline (500mL Bag) 500 ML 999 ML IV (15:49)
[2025-04-02] MEDS: Ondansetron 4 MG/2 ML Vial IV (15:49)
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
[2025-04-02 16:32] LABS: ALB/GLOB Ratio 1.7 RATIO (0.9-2.4); AST(SGOT) 56 U/L (<=31); Alanine Aminotransfer ALT/SGPT < 5 U/L (<=34); Albumin, Serum 4.1 g/dL (3.4-4.8); Alkaline Phosphatase 75 U/L (35-104); Anion Gap 10 (5-15); BUN 16 mg/dL (4-19); BUN/Creat Ratio 21.1 RATIO (10-20); Calcium,Total 9.1 mg/dL (7.6-11.0); Chloride 107 mmol/L (98-108); Creatinine, Serum 0.74 mg/dL (0.70-1.20); EST Glomerular Filtration Rate 84 (>60); Estimated Creatinine Clearance 65.92 ml/min (50-250); Globulin 2.4 g/dL (2.2-4.2); Glucose 120 mg/dL (70-99); Potassium 3.5 mmol/L (3.3-5.1); Protein, Total 6.6 g/dL (5.9-8.4); Sodium Level 140 mmol/L (133-145); Total Bilirubin 0.52 mg/dL (0.00-1.30)
[2025-04-02 16:36] LABS: Hematocrit 40.2 % (37-47); Hemoglobin 13.9 g/dL (12.0-15.0); Mean Corp Hgb Conc 34.6 g/dL (32-36); Mean Corpuscular Hgb 31.8 pg (27.0-32.0); Mean Platelet Vol. 9.3 fl (6.2-12.0); Platelet Count 265 K/mm3 (150-450); RBC Distribution Width CV 12.5 % (11.6-14.6); RBC Distribution Width SD 41.4 fl (35.1-43.9); Red Blood Count 4.37 M/mm3 (4.2-5.4); White Blood Count 23.4 K/mm3 (4.4-11.0)
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
[2025-04-02] MEDS: Morphine 4 MG/ML Syringe IV (21:41)
== END 2025-04-02 22:28 | disposition short-term general hospital (02) ==
PROVIDERS: Emergency Provider Emergency Medicine; PCP Family Medicine; Visit Provider Emergency Medicine
DX: S06.6XAA Traumatic subarachnoid hemorrhage with loss of consciousness status unknown, initial encounter (principal); G20.A1 Parkinson's 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, without mention of fluctuations; S82.831A Other fracture of upper and lower end of right fibula, initial encounter for closed fracture; R07.81 Pleurodynia; V89.2XXA Person injured in unspecified motor-vehicle accident, traffic, initial encounter; I10 Essential (primary) hypertension; E07.9 Disorder of thyroid, unspecified; F41.9 Anxiety disorder, unspecified; F32.A Depression, unspecified; K21.9 Gastro-esophageal reflux disease without esophagitis; Z86.73 Personal history of transient ischemic attack (TIA), and cerebral infarction without residual deficits; Z79.82 Long term (current) use of aspirin; Z79.899 Other long term (current) drug therapy
CPT/HCPCS: 70450; 71260; 72125; 73502; 73590; 74177; 80053; 85027; 96361; 96374; 96375; 96376; 99285; Q9967; A4216; J2405

== ENCOUNTER → 2025-04-09 | Outpatient (CLI) | payer MEDICARE, SELFPAY | END | disposition home or self-care (01) | LOC: LABSPEC 07:11 | PROVIDERS: PCP Family Medicine; Visit Provider Nurse Practitioner Family | DX: R82.90 Unspecified abnormal findings in urine (principal) | CPT/HCPCS: 87077; 87086; 87088; 87186 ==

== ENCOUNTER → 2025-04-25 | Outpatient (CLI) | payer MEDICARE, SELFPAY ==
--- NOTE | 2025-04-25 12:01 | US_ITS ---
PROCEDURE: ULTRASOUND THYROID 04/25/2025 REASON FOR EXAM: YEARLY FOLLOW-UP TECHNIQUE: High-frequency thyroid ultrasound, including grayscale and color-flow images. COMPARISON: 04/24/2024 THYROID ULTRASOUND FINDINGS: RIGHT THYROID LOBE Size: 5.3 x 2.0 x 1.9 cm. Contour: Smooth. Parenchyma: Homogeneous. Nodules: Mid inferior pole, solid, 0.7 x 0.5 x 0.5 cm, hyperechoic, rounded, no calcifications, TR 3. Midpole, septated cystic, 0.4 x 0.3 x 0.2 cm, anechoic, wider than tall, no calcification, TR 1.. Inferior pole, solid, 0.6 x 0.6 x 0.3 cm, hyperechoic, wider than tall, no calcification, TR 3. LEFT THYROID LOBE Size: 4.8 x 2.0 x 2.5 cm. Contour: Smooth. Parenchyma: Homogeneous. Nodules: Midpole, solid, 1.5 x 1.4 x 1.2 cm, hyperechoic, wider than tall, no calcification, TR 3.. Inferior pole, solid, 1.7 x 1.3 x 1.6 cm, hyperechoic, wider than tall, no calcification, TR 3.. ISTHMUS Size: 0.12.cm. Contour: Smooth. Parenchyma: Homogeneous. Nodules: US/Thyroid IMPRESSION: 1. TR 3 category micronodule in the right thyroid lobe. No FNA warranted. 2. Benign septated cysts, TR 1 category, right thyroid lobe. 3. TR 3 category nodules in the left thyroid lobe. No FNA warranted. 4. Follow-up ultrasound recommended in 12 months. Reading Location: [place] [id number]
[2025-04-25 12:45] VITALS: PULSE 104; PULSE 109; PULSE 110; PULSE 90; PULSE 91; O2SAT 96; O2SAT 97; O2SAT 98
--- OUTSIDE RECORDS SUMMARY | 2025-04-25 20:59 | XMS RPT_ITS | CCD ---
Author Organization [facility] Care Team Providers Care Pet Handler Name Role Phone Dr. Roxy Wallace Primary Care Provider Dr. Roxy Wallace Referring Provider 1([facility])[phone] Dr. Javad Elaine Attending Provider 1([facility])[phone] Adolfo Cantor Attending Provider 1([facility])[phone] Roxy Wallace Primary Care Provider 1([facility])[phone] Roxy Wallace Referring Provider 1([facility])[phone] Dr. Javad Elaine Attending Provider 1([facility])[phone] Roxy Wallace Primary Care Provider 1([facility])[phone] Roxy Wallace Referring Provider 1([facility])[phone] Dr. Javad Elaine Attending Provider 1([facility])[phone] Adolfo Cantor Attending Provider 1([facility])[phone] Roxy Wallace Other Provider Dr. Jayjay Rodriguez Attending Provider Dr. Roxy Wallace Primary Care Provider 1([facility])[phone] Roxy Wallace Referring Provider [phone] Dr. Javad Elaine Attending Provider 1([facility])[phone] Stefan Sotelo Emergency Provider 1([facility])[phone] Dr. Javad Cespedes Admit Provider Dr. Javad Cespedes Attending Provider 1([facility])[phone] Dr. Javad Cespedes Other Provider 1([facility])[phone] Iman Pierson Attending Provider 1([facility])[phone] Iman Pierson Other Provider Dr. Erik Golden Other Provider Dr. Erik Golden Attending Provider Eliana Veloz DO Primary Care Provider Unknown, Referring Provider Unavailable Unav ailable Unavailable Unavailable Madison, Dr. Ramsey Primary Care Provider Dr. Roxy Wallace Referring Provider Dr. Javad Elaine Attending Provider Dr. Dasha Rodriguez Attending Provider Dr. Adolfo Cantor Attending Provider 1([facility])[phone] Adolfo Cantor Referring Provider 1([facility])-[phone] Javad Cespedes Referring Provider 1([facility])[phone] Dr. Shemar Ortega Attending Provider Dr. Javad Elaine Admit Provider Dr. Javad Elaine Referring Provider Dr. Javad Elaine Other Provider 1([facility])[phone] Lico Richey Other Provider Jennifer, Dr. Dasha Barron Attending Un available Jennifer, Dr. Dasha Barron Referring Un available UNKNOWN, PCP Primary Care Unavailable Jennifer, Dr. Dasha Barron Attending Un available Jennifer, Dr. Dasha Barron Referring Un available UNKNOWN, PCP Primary Care Unavailable [place], Dr. Dasha Barron Attending Un available UNKNOWN, PCP Primary Care Unavailable Madison, Dr. Roxy Smith Referring Unavailable Madison, Dr. Ramsey Primary Care Provider Dr. Roxy Wallace Referring Provider Dr. Javad Elaine Attending Provider [phone] Matthew Weinstein Attending Provider [phone] DASHA RODRIGUEZ Attending Unavailabl e Unavailable Primary Care Provider Unavailabl e Eliana Veloz DO Primary Care Provider Karuna PINTO, Joseph Unavailable Todd SCANLON, Eliana Tinajero Primary Care Provider MAYDA SCANLON, DR HUDDLESTON A Primary Care Physician RAPHAEL LANDAVERDE MD Attending Unavailable MAYDA SCANLON, DR FLAQUITO Salas Primary Care Unavailab kirti Wallace DO, Dr. Ramsey Primary Care Provider Madison SCANLON, Dr. Ramsey Attending Provider Madison SCANLON, Dr. Ramsey Referring Provider [phone] Heidi PINTO, King Emergency Provider Sera PINTO, Dr. Aubrie Lockett Attending Provider Sera PINTO, Dr. Aubrie Lockett Admit Provider Sera PINTO, Dr. Aubrie Lockett Other Provider Osbaldo PINTO, Gregory Other Provider Unavailable Jessika PINTO, Dr. Hdz Other Provider [phone] Tabitha Gutierrez MD Other Provider Unavailable Jacob SCANLON, Dr. Guerrero Other Provider Samir PINTO, Dr. Deluna Other Provider Carmine PINTO, Dr. Plascencia Other Provider Candy PINTO, Dr. Caba Other Provider Ashley PINTO, Dr. Guaman Other Provider Vijay PINTO, Dr. Rivers Other Provider Navdeep PINTO, Dr. Horn Other Provider Lanie Blair MD Other Provider Dinesh PINTO, Dr. Sexton Other Provider Fabrizio PINTO, Dr. Henson Other Provider Camryn PINTO, Dr. Vizcarra Other Provider Tere PNITO, Dr. Janine Weir Other Provider Bulamro PINTO, Dr. Solis Other Provider Dino PINTO, Dr. Call Other Provider Neris PINTO, Dr. Arevalo Other Provider Norm PINTO, Dr. Dominguez Other Provider Unavailable Luigi PINTO, Meghann Other Provider Unavailable Dandre PINTO, Dr. Betzy Rueda Attending Provider Clarissa PINTO, Nilsa Other Provider Nubia MS, Paul Other Provider Parminder PINTO, Pete Other Provider IMAN PINTO, GARDENIA Other Provider Robyn PINTO, Reinaldo Other Provider Beti PINTO, Asmita Other Provider Sakshi PINTO, Dr. Mata Attending Provider Dandre PINTO, Dr. Betzy Rueda Other Provider Dr. Flaquito Ohara DO Primary Care Provider [phone] Dr. Flaquito Ohara DO Attending Provider Dr. Stevie Cotto DO Attending Provider Dr. Javad Ojeda MD Attending Provider [phone] Vane POURED PIPE MAKER-CMaddie Attending Provider Vane POURED PIPE MAKER-CMaddie Referring Provider [phone] Roxy Wallace DO Primary Care Provider Dr. Roxy Wallace DO Attending Provider Dr. Roxy Wallace DO Referring Provider [phone] Stevie Cotto DO Referring Provider [phone] Dr. Valeriano Liao DO Emergency Provider Mayda Flaquito SCANLON Primary Care Provider Dr. Valeriano Liao DO Attending Provider Dr. Flaquito Ohara DO Referring Provider Jairo CASTANEDA-CGraham Attending Provider Malys, Roxy Primary Care Unavailable Adolfo Cantor Attending Unavailable Mayda, Flaquito Primary Care Unavailable Graham Gill NP Attending Unavailable Stevie Cotto Attending Unavailable Brown, Stevie Referring Unavailable Mayda, Flaquito Primary Care Unavailable Mayda, Flaquito Primary Care Unavailable Jono Salgaod Attending Unavailable Damian, Jono Referring Unavailable Mayda, Flaquito Primary Care Unavailable Valeriano Liao Attending Unavailable Malys, Roxy Primary Care Unavailable Malys, Roxy Referring Unavailable Joceline Wang Attending Unavailable Mayda, Flaquito Primary Care Unavailable SakshiAdolfo Attending Unavailable Mayda, Flaquito Primary Care Unavailable Mayda, Flaquito Referring Unavailable Javad Elaine Attending Unavailable Graham Gill NP Attending Unavailable Mayda, Flaquito Referring Unavailable Mayda, Flaquito Primary Care Unavailable Malys, Roxy Primary Care Unavailable Aubrie Zamora Admitting Unavailable Gregory Roblero Consulting Unavailable Betzy Amos Attending Unavailable AdeWilder guillory Consulting Unavailable Hindulisa, Tabitha Consulting Unavailable Jacob Yolanda Consulting Unavailable Zha, Regi Consulting Unavailable Carmine, Temo Consulting Unavailable Candy, Gertrudis Consulting Unavailable BitDeniz ta Consulting Unavailable Silvestre Linares Consulting Unavailable Kory Sethi Consulting Unavailable Lanie Blair Consulting Unavailable Darshan Montiel Consulting Unavailable Natividad Dinh Consulting Unavailable Carmita Cowan Consulting Unavailable Tere, Mhd Destin Consulting UnavailZaida Keller Consulting Unavailable Sun, Rami Consulting Unavailable Mickey Cordon Consulting Unavailable Angelica Zheng Consulting Unavailable Meghann Meyers Consulting Unavailable Aubrie Zamora Consulting Unavailable Nilsa Romo Consulting Unavailable Paul Delacruz Consulting Unavailable Pete Zurita Consulting Unavailable GARDENIA MATA Consulting Unavailable Reinaldo Carlson Consulting Unavailable Asmita Bang Consulting Unavailable Malys, Roxy Primary Care Unavailable Malys, Roxy Referring Unavailable Shemar Ortega Attending Unavailable Malys, Roxy Referring Unavailable Malys, Roxy Attending Unavailable Malys, Roxy Primary Care Unavailable Brown, Stevie Referring Unavailable Mayda, Flaquito Primary Care Unavailable BrownAidenk Attending Unavailable Malys, Roxy Primary Care Unavailable Malys, Roxy Referring Unavailable Shemar Ortega Attending Unavailable Malys, Roxy Referring Unavailable Mayda, Flaquito Primary Care Unavailable Javad Ojeda Attending Unavailable Malys, Roxy Primary Care Unavailable Aubrie Zamora Attending Unavailable Koram, Betzy Marybeth Attending Unavailable Malys, Roxy Primary Care Unavailable Aubrie Zamora Admitting Unavailable Gregory Roblero Consulting Unavailable AdeWilder guillory Consulting Unavailable Hindulisa Tabitha Consulting Unavailable Jacob Yolanda Consulting Unavailable Zha, Regi Consulting Unavailable Carmine, Temo Consulting Unavailable Candy, Gertrudis Consulting Unavailable Deniz Ramirez Consulting Unavailable Silvestre Linares Consulting Unavailable Kory Sethi Consulting Unavailable Lanie Blair Consulting Unavailable Darshan Montiel Consulting Unavailable Natividad Dinh Consulting Unavailable Carmita Cowan Consulting Unavailable Janine Carranza Consulting UnavailZaida Keller Consulting Unavailable Jakub Sun Consulting Unavailable Mickey Cordon Consulting Unavailable Angelica Zheng Consulting Unavailable Meghann Meyers Consulting Unavailable Aubrie Zamora Consulting Unavailable Nilsa Romo Consulting Unavailable Paul Delacruz Consulting Unavailable Pete Zurita Consulting Unavailable GARDENIA MATA Consulting Unavailable Reinaldo Carlson Consulting Unavailable Asmita Bang Consulting Unavailable Dandre, Betzy Marybeth Consulting Unavailable Malys, Roxy Primary Care Unavailable Shannon Shemar D Referring Unavailable Shannon Shemar D Attending Unavailable Mayda, Flaquito Primary Care Unavailable Mayda, Flaquito Attending Unavailable Mayda, Flaquito Primary Care Unavailable Maddie Cifuentes Referring Unavailable Maddie Cifuentes Attending Unavailable Malys, Roxy Attending Unavailable Malys, Roxy Primary Care Unavailable Malys, Roxy Referring Unavailable Malys, Roxy Primary Care Unavailable Malys, Roxy Referring Unavailable Cebul, Shemar D Attending Unavailable Bonniebul, Shemar D Consulting Unavailable Stevie Cotto Attending Unavailable Malys, Roxy Referring Unavailable Mayda, Flaquito Primary Care Unavailable Malys, Roxy Primary Care Unavailable Malys, Roxy Referring Unavailable Naya Castillo Attending Unavailable Malys, Roxy Primary Care Unavailable Malys, Roxy Referring Unavailable Naya Castillo Attending Unavailable Malys, Roxy Attending Unavailable Malys, Roxy Primary Care Unavailable Malys, Roxy Referring Unavailable XUAN ROMAN Referring Unavailable MAYDA, FLAQUITO A Primary Care Unavailable JOSEPH GONZALES Attending Unavailable ELIANA VELOZ Primary Care Unavailab BRYAN Bridges Attending Unavailable ELIANA VELOZ Primary Care Unavailab JOSEPH Jacobs Attending Unavailable JOSEPH GONZALES Referring Unavailable ELIANA VELOZ Primary Care Unavailab kirti PURCELLMAYDAFLAQUITO DESAI Primary Care Unavailable FLAQUITO OHARA Primary Care Unavailable RUBIA CARIAS Attending Unavailable ED LOCKE Consulting ROBERT Alberto Admitting Unavailable Allergies Allergy Classification Reported Allergen(s) Allergy Type Date of Onset Reaction(s) Facility (18 sources) Angiotensin-conv erting enzyme inhibitor agent; Translations: [JORDAN INHIBITORS] Drug Intolerance 3 Cough [facility] Work Phone: Medications Current Medications Medication Drug Class(es) Dates Sig (Normalized) Sig (Original) acetaminophen 500 mg oral tablet (20 sources) Start: 05-11-2024 take 2 tablets by mouth every six hours as needed for pain Acetaminophen (Tylenol Extra Strength) 500 mg tablet Active 1000 mg PO EVERY 6 HOURS NEEDED as needed for pain May 11, 2024 12:00am Start: 04-08-2023 End: 05-01-2024 take 2 tablets by mouth every six hours as needed Acetaminophen 500 mg tablet Discontinued 1000 mg PO EVERY 6 HOURS NEEDED April 08, 2023 12:00am May 01, 2024 1:16pm Start: 04-08-2023 take 1000 mg by mout h every six hours as needed Acetaminophen Active 1000 MG PO EVERY 6 HOURS NEEDED April 08, 2023 12:00am acetaminophen (T YLENOL 8 HOUR ORAL) Take by mouth. PRN Active acetaminophen (T YLENOL ORAL) Take by mouth. 0 Active Tylenol TABS Cyrus ntity: 0 Refills: 0 Ordered: 14-May-2023 DO Active acetaminophen (T YLENOL 8 HOUR ORAL) Take by mouth. PRN 0 Active Comment on above: Take by mouth. PRN [id number] actuat albuterol 0.09 mg/actuat metered dose inhaler (4 sources) beta2-Adrenergic Agonist Start: 025 Albuterol Sulfate 90 mcg/actuation HFA aerosol inhaler Active 2 NMA INHALATION Q4H as needed for shortness of breath or wheezing 8.5 March 01, 2025 12:00am administer with spacer aspirin 81 mg chewable tablet (4 sources) Platelet Aggregation Inhibitor, Nonsteroidal Anti-inflammatory Drug Start: take 1 tablet by mouth at breakfast Aspirin 81 mg Tablet,Chewable Active 81 mg PO WITH BREAKFAST December 29, 2024 1:00am atorvastatin 80 mg oral tablet (4 sources) HMG-CoA Reductase Inhibitor Start: take 1 tablet by mouth at bedtime Atorvastatin 80 mg Tablet Active 80 mg PO AT BEDTIME December 29, 2024 1:00am carbidopa 25 mg / levodopa 100 mg oral tablet (20 sources) Aromatic Amino Acid Decarboxylation Inhibitor, Aromatic Amino Acid Start: End: carbidopa-levodopa (SINEMET 25-100) 25-100 mg per tablet Indications: Parkinson's 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 And take 1-2 tablets as needed at bedtime or in the middle of the night for off symptoms 1080 tablet 3 03/14/2025 Active Start: 04-16-2023 End: 02-02-2025 Carbidopa-Levodopa 25-100 mg tablet Discontinued 2 {tbl} PO 4 TIMES DAILY May 11, 2024 12:00am September 28, 2024 3:34pm Start: 12-02-2022 End: 06-14-2023 take 1 tablet by mouth three times daily, then take 1.5 tablets by mouth three times daily, then take 2 tablets by mouth three times daily carbidopa-levodopa (SINEMET 25-100) 25-100 mg per tablet Indications: parkinsonism Take 1 tablet by mouth three times daily for 7 days, THEN 1.5 tablets three times daily for 7 days, THEN 2 tablets three times daily. 180 tablet 11 12/02/2022 06/14/2023 Active take 2 tablets by [facility] three times daily carbidopa-levodopa (Parcopa) 25-100 mg disintegrating tablet Take 2 tablets by mouth 3 times a day. 0 Active Comment on above: [facility], THEN 1.5 tablets three times daily for 7 days, THEN 2 tablets three times daily. Take 2 tablets by mo [facility] four times daily. cholecalciferol 0.025 mg oral tablet (3 sources) Vitamin D Start: 04-05-20 take 1 tablet by mouth once daily cholecalciferol (VITAMIN D3) 1,000 unit tab tablet Take 1 tablet by mouth once daily. 04/05/2025 Active docusate sodium 100 mg oral capsule (7 sources) Start: 03-01-20 take 1 capsule by mouth three times daily Docusate Sodium (Colace) 100 mg capsule Active 100 mg PO THREE TIMES A DAY March 01, 2025 12:00am docusate sodium (COLACE ORAL) Take by mouth three times a day. Active docusate sodium 50 mg / sennosides, mcc 8.6 mg oral tablet (1 source) Start: 04-04-2025 End: 04-08-2025 take 1 tablet by mouth twice daily senna-docusate (SENNA-S) 8.6-50 mg per tablet Take 1 tablet by mouth two times a day for 4 days. 8 tablet 04/04/2025 04/08/2025 Active entacapone 200 mg oral tablet (20 sources) Hjflhwcc-H-Jyfhn ltransferase Inhibitor Start: 08-09-2024 End: 08-09-2025 take 1 tablet by mouth five times daily entacapone (COMTAN) 200 mg tablet Take 1 tablet by mouth five times a day. Take with levodopa/carbidopa 450 tablet 3 08/09/2024 08/09/2025 Active Start: 02-03-2024 End: 02-02-2025 take 1 tablet by mouth four times daily Entacapone 200 mg tablet Discontinued 200 mg PO 4 TIMES DAILY April 15, 2024 12:00am September 28, 2024 3:34pm Comment on above: Take 1 tablet by amy four times daily. Take with levodopa/carbidopa famotidine 20 mg oral tablet (4 sources) Histamine-2 Receptor Antagonist Start: take 1 tablet by mouth once daily Famotidine (Acid Controller) 20 mg tablet Active 20 mg PO DAILY December 27, 2024 1:00am gabapentin 100 mg oral capsule (4 sources) Anti-epileptic Agent Start: Gabapentin Active CAP PO September 30, 2022 1:00am LOSARTAN POTASSIUM, BULK, MISC (1 source) LOSARTAN POTASSI UM, BULK, MISC 50 mg once daily. 0 Active Multivitamin (Daily Multi-Vitamin) tablet (4 sources) Start: 025 Multivitamin (Daily Multi-Vitamin) tablet Active 1 {tbl} PO DAILY December 27, 2024 1:00am Multivitamin preparation (6 sources) Start: 022 take 1 tablet by mouth once daily Multivitamin Active 1 TABLET PO DAILY August 12, 2022 12:00am Start: 08-12-2022 take 1 tablet by amy th once daily Multivitamin Active 1 TABLET PO DAILY August 11, 2022 11:00pm nitrofurantoin, macrocrystals 25 mg / nitrofurantoin, monohydrate 75 mg oral capsule (2 sources) Nitrofuran Antibacterial Start: 04-08-2025 take 1 capsule by mouth every twelve hours at mealtime Nitrofurantoin Monohyd/M-Cryst (Macrobid) 100 mg capsule Active 100 mg PO Q12H 14 April 08, 2025 12:00am April 14, 2025 12:00am must administer with a meal/food omeprazole 40 mg delayed release oral capsule (20 sources) Proton Pump Inhibitor Start: 05-03-2024 End: 11-10-2024 omeprazole (PRILOSEC) 40 mg capsule 05/03/2024 Active oxyCODONE hydrochloride 5 mg oral tablet (12 sources) Opioid Agonist Start: 04-04-2025 End: 04-08-2025 take 1 tablet by mouth every six hours as needed oxyCODONE IR (ROXICODONE) 5 mg immediate release tablet Indications: Closed fracture of proximal end of right fibula, unspecified fracture morphology, initial encounter , Closed fracture of multiple ribs of right side, initial encounter Take 0.5-1 tablets by mouth every 6 hours as needed for pain for up to 4 days. 16 tablet 04/04/2025 04/08/2025 Active Start: 04-08-2023 End: 04-28-2023 take 5-10 mg by mouth every four hours as needed for pain Oxycodone 5 mg tablet Discontinued 5 - 10 mg PO Q4H as needed for pain 60 7 April 08, 2023 April 28, 2023 3:12pm polyethylene glycol 3350 64244 mg powder for oral solution (1 source) Osmotic Laxative Start: 04-05-2025 End: 04-09-2025 polyethylene glycol 3350 17 gram packet Take 1 packet by mouth once daily for 4 days. Dissolve dose in 4 - 8 ounces of liquid and take as directed. 4 packet 04/05/2025 04/09/2025 Active sertraline 50 mg oral tablet (4 sources) Serotonin Reuptake Inhibitor Start: 03-01-2025 take 1 tablet by mouth once daily Sertraline 50 mg tablet Active 50 mg PO daily March 01, 2025 12:00am Completed/Discontinued Medications Medication Drug Class(es) Dates Sig (Normalized) Sig (Original) acetaminophen 325 mg / oxyCODONE hydrochloride 5 mg oral tablet (4 sources) Opioid Agonist Start: 04-15-2024 End: 05-01-2024 Oxycodone-Acetamin ophen 5-325 mg tablet Discontinued 1 {tbl} PO EVERY 6 HOURS NEEDED as needed for Pain 12 April 15, 2024 May 01, 2024 1:16pm apixaban 2.5 mg oral tablet (11 sources) Factor Xa Inhibitor Start: 04-08-2023 End: 04-28-2023 take 1 tablet by mouth twice daily Apixaban (Eliquis) 2.5 mg tablet Discontinued 2.5 mg PO TWICE A DAY April 08, 2023 12:00am April 28, 2023 3:10pm 24 hr buPROPion hydrochloride 150 mg extended release oral tablet (15 sources) Aminoketone Start: 03-20-2023 End: 01-09-2024 take 1 tablet by mouth once daily Bupropion Hcl 150 mg Tablet Extended Release 24 Hr Discontinued 150 mg PO DAILY March 20, 2023 12:00am January 09, 2024 11:08pm Start: 03-02-2023 End: 05-31-2023 take 1 tablet by mouth once daily in the morning buPROPion SR (ZYBAN SR; WELLBUTRIN SR) 150 mg 12 hr tablet TAKE 1 TABLET BY MOUTH ONCE DAILY IN THE MORNING 0 03/02/2023 05/31/2023 Discontinued Comment on above: TAKE 1 TABLET BY AMY TH ONCE DAILY IN THE MORNING carbidopa 12.5 mg / entacapone 200 mg / levodopa 50 mg oral tablet (20 sources) Aromatic Amino Acid Decarboxylation Inhibitor, Vtdiqnop-Q-Bjjoddtqmznozhww e Inhibitor, Aromatic Amino Acid Start: 04-28-2023 End: 05-11-2024 Ynnodxwmq-Xhqylnjo-Frdu annetta 12.5-50-200 mg tablet Discontinued 2 {tbl} PO EVERY 6 HOURS April 28, 2023 3:11pm May 11, 2024 10:46am Start: 04-28-2023 take 2 tablets by mo uth every six hours Csopxkcxu-Irwrxhhc-Yrxycrhelf Active 2 TABLET PO EVERY 6 HOURS April 28, 2023 3:11pm Start: 11-20-2022 End: 04-28-2023 Vioniwbok-Lofyxzwy-Aafkqtpjj e 12.5-50-200 mg tablet Discontinued 2 {tbl} PO THREE TIMES A DAY November 20, 2022 1:00am April 28, 2023 3:15pm Start: 11-20-2022 End: 04-28-2023 take 2 tablets by mouth three times daily Ubgcmsapr-Ituobltp-Izziggckdp Discontinu ed 2 TABLET PO THREE TIMES A DAY November 20, 2022 1:00am April 28, 2023 3:15pm cephalexin 500 mg oral capsule (20 sources) Cephalosporin Antibacterial Start: 08-25-2019 End: 09-04-2019 take 1 capsule by mouth every twelve hours Cephalexin 500 mg capsule Discontinued 500 mg PO Q12H 20 August 25, 2019 12:00am September 03, 2019 12:00am September 04, 2019 12:08am citalopram 20 mg oral tablet (15 sources) Serotonin Reuptake Inhibitor Start: 04-15-2024 End: 03-01-2025 take 1 tablet by mouth once daily Citalopram 20 mg tablet Discontinued 20 mg PO DAILY April 15, 2024 12:00am March 01, 2025 11:03am Comment on above: Take 20 mg by mouth once daily. LORazepam 0.5 mg oral tablet (20 sources) Benzodiazepine Start: 03-11-2023 End: 04-08-2023 Lorazepam (Ativan) 0.5 mg Tablet Discontinued 1 - 2 PO EVERY 6 HOURS NEEDED as needed for Anxiety March 11, 2023 12:00am April 08, 2023 9:49am Start: 03-11-2023 take 1 tablet by amy th three times daily Lorazepam (Ativan) 0.5 mg Tablet Active 0.5 MG PO THREE TIMES A DAY March 11, 2023 12:00am Start: 03-01-2023 take 1-2 tablets by mouth every four to six hours as needed for anxiety LORazepam (ATIVAN) 0.5 mg TAKE 1 TO 2 TABLETS BY MOUTH EVERY 4 TO 6 HOURS NEEDED FOR ANXIETY FOR UP TO 7 DAYS 03/01/2023 Active Start: 03-01-2023 take 1-2 tablets by mouth every four to six hours as needed for anxiety LORazepam (ATIVAN) 0.5 mg TAKE 1 TO 2 TABLETS BY MOUTH EVERY 4 TO 6 HOURS NEEDED FOR ANXIETY FOR UP TO 7 DAYS 0 03/01/2023 Active Comment on above: TAKE 1 TO 2 TABLETS BY MOUTH EVERY 4 TO 6 HOURS NEEDED FOR ANXIETY FOR UP TO 7 DAYS losartan potassium 50 mg oral tablet (20 sources) Angiotensin 2 Receptor Cristopher Start: 04-01-2023 End: 05-01-2024 Losartan 50 mg tablet Discontinued 25 mg PO DAILY April 01, 2023 1:00pm May 01, 2024 1:16pm Start: 04-01-2023 take 25 mg by mouth once daily Losartan Active 25 MG PO DAILY April 01, 2023 1:00pm Start: 03-22-2023 End: 04-01-2023 take 1 tablet by mouth once daily Losartan 50 mg tablet Discontinued 50 mg PO DAILY March 24, 2023 8:34am April 01, 2023 1:01pm Start: 09-09-2022 End: 08-09-2024 take 2 tablets by mouth once daily losartan (COZAAR) 25 mg tablet Take 50 mg by mouth once daily. 09/09/2022 08/09/2024 Discontinued Start: 08-12-2022 End: 03-22-2023 take 1 tablet by mouth once daily Losartan 25 mg tablet Discontinued 25 mg PO DAILY August 12, 2022 12:00am March 22, 2023 1:12pm Comment on above: Take 50 mg by mouth once daily. mecobalamin (18 sources) Start: 08-12-2022 End: 02-17-2023 Mecobalamin (Vitamin B12) 5,000 mcg tablet,chewable Discontinued ug PO August 12, 2022 12:00am February 17, 2023 2:33pm Start: 08-12-2022 End: 02-17-2023 Mecobalamin (Vitamin B12) Di scontinued MCG PO August 11, 2022 11:00pm February 17, 2023 1:33pm Start: 08-12-2022 End: 02-17-2023 Mecobalamin (Vitamin B12) Di scontinued MCG PO August 12, 2022 12:00am February 17, 2023 2:33pm Start: 08-12-2022 Mecobalamin (V itamin B12) Active MCG PO August 12, 2022 12:00am Start: 08-12-2022 Mecobalamin (V itamin B12) Active MCG PO August 11, 2022 11:00pm melatonin 3 mg oral capsule (20 sources) Start: 08-25-2019 End: 08-12-2022 take 1 capsule by mouth at bedtime Melatonin 3 mg capsule Discontinued 3 mg PO BEDTIME August 25, 2019 12:00am August 12, 2022 9:38am meloxicam 7.5 mg oral tablet (20 sources) Nonsteroidal Anti-inflammatory Drug Start: 04-28-2023 End: 09-28-2024 take 2 tablets by mouth once daily Meloxicam 7.5 mg tablet Discontinued 15 mg PO DAILY April 28, 2023 12:00am September 28, 2024 3:34pm Start: 04-28-2023 take 15 mg by mouth once daily Meloxicam Active 15 MG PO DAILY April 28, 2023 12:00am Start: 04-28-2023 take 7.5 mg by mouth once mahesh y Meloxicam Active 7.5 MG PO DAILY April 27, 2023 11:00pm Start: 03-22-2023 End: 04-08-2023 take 7.5 mg by mouth once daily as needed for pain Meloxicam 15 mg tablet Discontinued 7.5 mg PO DAILY as needed for arthritis pain March 22, 2023 1:13pm April 08, 2023 9:49am Do not take in conjunction with other NSAIDs, Tylenol is okay. Start: 03-22-2023 End: 04-08-2023 take 7.5 mg by mouth once daily Meloxicam Discontinued 7.5 MG PO DAILY March 22, 2023 1:13pm April 08, 2023 9:49am Do not take in conjunction with other NSAIDs, Tylenol is okay. Start: 11-20-2022 End: 03-22-2023 take 1 tablet by mouth once daily Meloxicam 15 mg tablet Discontinued 15 mg PO DAILY December 25, 2022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 mL/min/1.73m2 CKD-EP I Creatinine Equation (2020) HIP, UNI W/ Pelvis 2-3 Views on 04-02-2025 HIP, UNI W/ Pelvis 2-3 Views Normal [facility] Hematocrit Auto (Bld) [Volum e fraction]Ordered By: Valeriano Liao on 04-02-2025 Hematocrit (Bld) [Volume fraction] 40.2 % 37-47 [facility] Hemoglobin measurementOrdere d By: Valeriano Liao on 04-02-2025 Hemoglobin (Bld) [Mass/Vol] 13.9 g/dL 12.0-15.0 [facility] Laboratory - Chemistry and C hemistry - challengeOrdered By: Valeriano Liao on 04-02-2025 AST [Catalytic activity/Vol] 56 U/L High <32 [facility] MCV (mean corpuscular volume ) determinationOrdered By: Valeriano Liao on 04-02-2025 MCV (RBC) [Entitic vol] 92.0 fL 81-99 [facility] Mean corpuscular hemoglobin (MCH) determinationOrdered By: Valeriano Liao on 04-02-2025 MCH (RBC) [Entitic mass] 31.8 pg 27.0-32.0 [facility] Mean corpuscular hemoglobin concentration (MCHC) determinationOrdered By: Valeriano Liao on 04-02-2025 MCHC (RBC) [Mass/Vol] 34.6 g/dL 32-36 [facility] Mean platelet volume determi nationOrdered By: Valeriano Liao on 04-02-2025 Platelet mean volume (Bld) [Entitic vol] 9.3 fL 6.2-12.0 [facility] Platelet countOrdered By: Mayuri Liao on 04-02-2025 Platelets (Bld) [#/Vol] 265 10*3/uL 150-450 [facility] Potassium measurement (mass/ volume)Ordered By: Valeriano Liao on 04-02-2025 Potassium (Unsp spec) [Mass/Vol] 3.5 mmol/L 3.3-5.1 [facility] RBC Auto (Bld) [#/Vol]Ordere d By: Valeriano Liao on 04-02-2025 RBC (Bld) [#/Vol] 4.37 10*6/uL 4.2-5.4 [facility] Serum creatinine measurement (mass/volume)Ordered By: Valeriano Liao on 04-02-2025 Creatinine [Mass/Vol] 0.74 mg/dL 0.70-1.20 [facility] Serum globulin measurementOr dered By: Valeriano Liao on 04-02-2025 Globulin (S) [Mass/Vol] 2.4 g/dL 2.2-4.2 [facility] Serum glucose measurement (m ass/volume)Ordered By: Valeriano Liao on 04-02-2025 Glucose [Mass/Vol] 120 mg/dL High 70-99 [facility] Serum or plasma alanine forbes otransferase (ALT) measurementOrdered By: Valeriano Liao on 04-02-2025 ALT [Catalytic activity/Vol] U/L <35 [facility] Serum or plasma albumin antonio urement (mass/volume)Ordered By: Valeriano Liao on 04-02-2025 Albumin [Mass/Vol] 4.1 g/dL 3.4-4.8 [facility] Serum or plasma albumin/glob ulin mass ratioOrdered By: Valeriano Liao on 04-02-2025 Albumin/Globulin [Mass ratio] 1.7 {ratio} 0.9-2.4 [facility] Serum or plasma alkaline rickie sphatase measurementOrdered By: Valeriano Liao on 04-02-2025 ALP [Catalytic activity/Vol] 75 U/L 35-104 [facility] Serum or plasma calcium antonio urement (mass/volume)Ordered By: Valeriano Liao on 04-02-2025 Calcium [Mass/Vol] 9.1 mg/dL 7.6-11.0 [facility] Serum or plasma urea nitroge n measurement (mass/volume)Ordered By: Valeriano Liao on 04-02-2025 Urea nitrogen [Mass/Vol] 16 mg/dL 4-19 [facility] Sodium levelOrdered By: Kathleen Liao on 04-02-2025 Sodium [Moles/Vol] 140 mmol/L 133-145 [facility] Spine Cervical without Contr ason 04-02-2025 Spine Cervical without Contras Normal [facility] Tibia Fibula 2 Viewson 04-02 Tibia Fibula 2 Views Normal [facility] Total proteinOrdered By: Gricelda scotty Liao on 04-02-2025 Protein [Mass/Vol] 6.6 g/dL 5.9-8.4 [facility] White blood cell (WBC) count Ordered By: Valeriano Liao on 04-02-2025 WBC (Bld) [#/Vol] 23.4 10*3/uL High 4.4-11.0 [facility] Lyme Antibodies,W [place] LYME IgG INTERP Negative Normal Negative [facility] Comment on above: Performed By: #### L 6999.5800 ####[facility] [address] [place], [place], [address] LYME IgM INTERP Negative Normal Negative [facility] Comment on above: Result Comment: Saira chester Note: Lyme immunoblot alone is not recommended forthe diagnosis of Lyme disease. Current guidelines recommendthe use of a two-tiered approach to Lyme serology testingto improve the sensitivity and specificity of testing.[facility] offers test code 786199 Lyme Disease Serology withReflex to aid in the diagnosis of Lyme Disease. Performed By: #### L 6999.5800 ####[facility] [address] [place], [place], [address] P18 Ab Absent Normal . [facility] Comment on above: Performed By: #### L 6999.5800 ####[facility] [address] [place], [place], [address] P23 Ab Absent Normal . [facility] Comment on above: Performed By: #### L 6999.5800 ####[facility] [address] [place], [address] P28 Ab Absent Normal . [facility] Comment on above: Performed By: #### L 0.5800 ####[facility] [address] [place], [address] P30 Ab Absent Normal . [facility] Comment on above: Performed By: #### L 0.5800 ####[facility] [address] [place], [address] P39 Ab Absent Normal . [facility] Comment on above: Performed By: #### L 6999.5800 ####[facility] [address] [place], [address] P41 Ab Present Normal . [facility] Comment on above: Performed By: #### L 6999.5799 ####[facility] [address] [place], [address] P41 Ab Absent Normal . [facility] Comment on above: Performed By: #### L 6999.5800 ####[facility] [address] [place], [address] P45 Ab Absent Normal . [facility] Comment on above: Performed By: #### L 6999.5800 ####[facility] [address] [place], [address] P58 Ab Absent Normal . [facility] Comment on above: Performed By: #### L 6999.5800 ####[facility] [address] [place], [address] P66 Ab Absent Normal . [facility] Comment on above: Performed By: #### L 6999.580 ####[facility] [address] [place], [address] P93 Ab Absent Normal . [facility] Comment on above: Performed By: #### L 6999.580 ####[facility] [address] [place], [address] CNOVon 03-14-2025 CNOV Office Visit (NRMDN) -- CONNIE LYNCH ([id number]) 1950 F Date Time Provider Department 03/14/25 10:00 AM JOSEPH GONZALES During your visit today, we recorded the following information about you: Weight 73.8 kg Joseph Gonzales MD 03/14/2025 6:42 PM Signed [facility] - FOLLOW UP EVALUATION Primary Movement Disorders Neurologist: Joseph Gonzales MD Primary Movement Disorders KENDRICK: Not yet assigned Recording using UMicIt software for draft documentation of the visit was discussed with the patient/authorized industrial relations representative; all questions welcomed and answered. Patient/authorized industrial relations representative agreed to proceed Eliana Veloz DO, DO [address] [facility] [address] [facility] [id number] Dear Eliana Veloz DO, DO: I had the pleasure of seeing Ms. Lynch for follow-up today. As you know she is a 74 year old ambidextrous female with a history of Parkinson's disease since 2017. passed with Parkinson's January 2023. She is seen with a daughter. Subjective Previous Plan-11/08/2024 Visit: Detailed counseling was provided to address concerns and questions regarding Parkinson's 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, with fluctuating manifestations (hcc) (primary encounter diagnosis) Level of service: Level 2 established virtual visit: Limited examination was performed; the majority of the time (greater than 15 minutes) was spent preparing for the visit and answering additional patient questions after counseling was provided. Thank you for allowing me to be part of the clinical care of this patient! I look forward to continued participation in the patient?s care with you. Please do not hesitate to call with any questions. Sincerely, Bryan Yanez MD Interval History: Connie is a 74-year-old female with a history of Parkinson's disease, presenting for follow-up. Connie reports feeling crappy frequently, with symptoms including vague discomfort, stomach issues, and neck stiffness, particularly in the morning and around 4-5 AM. She notes that her arm and neck are stiff upon waking during the night, possibly due to sleeping on her left side. She experiences restlessness and difficulty sleeping, waking up around 2 AM and unable to return to sleep. She previously took Ambien but discontinued it three months ago. Currently, she takes Ativan approximately four times daily, particularly during periods when her Sinemet is wearing off, which she associates with anxiety. She occasionally uses Tylenol PM to aid sleep. She takes Sinemet every 3.5 hours but feels it wears off after about three hours, leading to stiffness, nausea, shortness of breath, and an internal shakiness. She describes a miserable feeling when the medication wears off and notes that the last 20 minutes before the next dose are particularly challenging. She also reports fidgety movements, particularly in her feet, without a specific pattern. She experiences episodes of right-sided facial droop, neck tightness, and shortness of breath, which occur daily and are linked to her medication schedule. These episodes improve within 30 minutes of taking her next dose of medication. She was evaluated in the ER for these symptoms, and an MRI showed no signs of TIA. She reports drooling, which she believes is related to facial pulling. She does not endorse hallucinations but notes some cognitive changes, including memory issues, which she does not feel interfere with her daily life. She is considering using a pharmacy service to pre-package her medications to help manage her complex medication regimen. She expresses frustration with the short duration of symptom relief provided by her current medication schedule and feels that her quality of life is significantly impacted. She plans her activities around her medication schedule and is hesitant to participate in trips or social events due to her symptoms. She is interested in exploring alternative treatment options, including a pump for continuous medication delivery and deep brain stimulation, to improve her symptom management and quality of life. Movement Disorders Medications Schedule - as of the start of the visit: Medications 730 1045 2 515 10 Sinemet 25/100 2 2 2 2 2 Comtan (entacapone) 200 mg 1 1 1 1 1 Parkinson's Motor Complications Medication benefit onset: 30 minutes Medication duration: 3 hours Wearing off: yes Painful off-state dystonia: no Dyskinesia: yes Prior Anti-Parkinson Therapies Carbidopa/Levodopa Entacapone Questionnaires: In addition, the following areas that may be affected by abnormal involuntary movements were evaluated: Daily activities Difficulties with eating: Yes (slight) Difficulties in dressin (none) Difficulties with hygiene activities: 0 (none) Difficulties with handwriting: Yes (slight) Di (more content not included)... Normal [facility] Neurology Visit Reporton Neurology Visit Report Normal [facility] No Panel InformationOrdered By: aMddie Cifuentes on 03-07-2025 Lyme Disease IgG Ab 30 kDa Band Absent . [facility] Lyme Disease IgG Ab 93 kDa Band Absent . [facility] Lyme Disease IgG [place] Interp Negative Negative [facility] Lyme Disease IgM Ab ([place]) Negative Negative [facility] Comment on above: Please Note: Lyme im munoblot alone is not recommended forthe diagnosis of Lyme disease. Current guidelines recommendthe use of a two-tiered approach to Lyme serology testingto improve the sensitivity and specificity of testing.[facility] offers test code [id number] Lyme Disease Serology withReflex to aid in the diagnosis of Lyme Disease. Pulmonary Visit Reporton Pulmonary Visit Report Normal [facility] NM BRAIN DATSCANon NM BRAIN DATSCAN ORIGINAL EXAMINATION: NUCLEAR MEDICINE BRAIN FRAN SCAN 02/13/2025 1:05 pm COMPARISON: None. HISTORY: Reason for Exam: Parkinson's dis w/o dyskinesia, w/o mention of fluctuations TECHNIQUE: Following the intravenous administration of 5.5 millicuries I-123 ioflupane and the prior pretreatment with SSKI, SPECT imaging of the brain is performed. FINDINGS: Significantly decreased uptake in putamina is correlating with patient's history of Parkinson's disease. There is probably mild involvement of caudate nuclei. IMPRESSION: Dopaminergic neurodegeneration involving basal ganglia, compatible with known Parkinson's disease. I have personally reviewed the images of this examination and agree with the resident's finding and interpretation. Interpreted by: Fabby Lizarraga MD Preliminary Report By: Fang Jimenez Electronically signed By Fabby Lizarraga MD Dictated Date: 02/13/2025 2:52:42 PM Prelim Date: 02/15/2025 5:27:09 PM Sign Date: 02/15/2025 5:27:09 PM Ordering Provider: RAPHAEL LANDAVERDE [facility] MAIN L3410.9998on 01-12-2025 [facility] [place] . [facility] Comment on above: Order Comment: SER/F [id number] SPECIFIC TYROSINE KINAS Result Comment: Test Ordered: [id number] MuSK Abs, SerumMuSK Abs, Serum <1.0 U/mL ES Reference Range: .Reference Range: Negative: <1.0 Positive: 1.0 or higher A positive result, in the context of congruent clinical findings, confirms the diagnosis of autoimmune MuSK myasthenia gravis.COMMENTS: - Myasthenia gravis (MG) is caused by auto-antibodies against proteins of the neuromuscular junction. Most cases (about 90%) of generalized MG are anti- acetylcholine receptor (AChR) antibody-positive.(1) - Of generalized MG patients who lack anti-AChR antibodies (AChR-seronegative), about 40% are positive for Muscle- Specific Kinase (MuSK) antibody.(1,2) - Though a positive MuSK result is specific for the diagnosis of MuSK MG, a negative MuSK result does not rule out a MG diagnosis. - MuSK antibody levels have been shown to correlate with disease severity.(3) Serial measurements may be useful to follow treatment.References:1. Kaela-Alda S et al. J Autoimmunity 2014;52:90-100.2. Hernán MARTINEZ et al. PNAS 2013;110(51);66265-79115.3. Finn E et al. Neurology 2006;67:505-507.This test was developed and its performance characteristicsdetermined by [employer]. It has not been cleared or approvedby the Food and Drug Administration.Performed at: [facility] [address] [place], [place] [id number] Director: Jose De Jesus Thomas MD, Phone: [phone] at: [facility] [id number] Director: Rell Cameron PhD, Phone: [phone] Performed By: #### L 3410.9998 ####[facility] [address] [place], [place], [address] [employer]CH[employer] Flight Technician AB, Blockingon ACHR FLIGHT TECHNICIAN AB 5 Normal 0-25 [facility] Comment on above: Order Comment: Test( s) [id number]-MBnR Blocking Abs, SerumThis test was developed and its performance characteristicsdetermined by [employer]. It has not been cleared orapproved by the Food and Drug Administration. Result Comment: Nega tive: 0 - 25 Borderline: 26 - 30 Positive: >30 Performed By: #### L 505.7010, L4600.0100, L7000.5800, L3100.5450, L101.9900, L3410.2400, L3300.0600, L3410.0100, L501.6710 ####[facility] [address] [place], [place], [phone] Acetylcholine Receptoron ACHR AB < 0.03 Normal 0.00-0.24 [facility] Comment on above: Order Comment: Test( s) 311666-VBhS Blocking Abs, SerumThis test was developed and its performance characteristicsdetermined by [employer]. It has not been cleared orapproved by the Food and Drug Administration.N Result Comment: Nega tive: 0.00 - 0.24 Borderline: 0.25 - 0.40 Positive: >0.40 Performed By: #### L 505.7010, L4600.0100, L7000.5800, L3100.5450, L101.9900, L3410.2400, L3300.0600, L3410.0100, L501.6710 ####[facility] [address] [place], [place], [address] CCP IgG Antibodieson 025 CCP IgG Ab. 3 units Normal 0-19 [facility] Comment on above: Order Comment: Test( s) 519599-HIpZ Blocking Abs, SerumThis test was developed and its performance characteristicsdetermined by [employer]. It has not been cleared orapproved by the Food and Drug Administration. Result Comment: Nega tive <20 Weak positive 20 - 39 Moderate positive 40 - 59 Strong positive >59Performed at: [address] [id number] Director: Rell Cameron PhD, Phone: [phone] at: [address] [id number] Director: Jayna Rodriguez MD, Phone: [phone] Performed By: #### L 505.7010, L4600.0100, L7000.5800, L3100.5450, L101.9900, L3410.2400, L3300.0600, L3410.0100, L501.6710 ####[facility] [address] [place], [address] Celiac Disease Profileon ENDOMYSIAL IGA Negative Normal Negative [facility] Comment on above: Order Comment: Test( s) 490499-BUkS Blocking Abs, SerumThis test was developed and its performance characteristicsdetermined by [employer]. It has not been cleared orapproved by the Food and Drug Administration. Performed By: #### L 505.7010, L4600.0100, L7000.5800, L3100.5450, L101.9900, L3410.2400, L3300.0600, L3410.0100, L501.6710 ####[facility] [address] [place], [place], [id number] IMMUNOGLOB A QN 129 mg/dL Normal 64-422 [facility] Comment on above: Order Comment: Test( s) 878360-RLcN Blocking Abs, SerumThis test was developed and its performance characteristicsdetermined by [employer]. It has not been cleared orapproved by the Food and Drug Administration. Performed By: #### L 505.7010, L4600.0100, L7000.5800, L3100.5450, L101.9900, L3410.2400, L3300.0600, L3410.0100, L501.6710 ####[facility] [address] [place], [place], [id number] tTG IGA <2 Normal 0-3 [facility] Comment on above: Order Comment: Test( s) 469543-GQgT Blocking Abs, SerumThis test was developed and its performance characteristicsdetermined by [employer]. It has not been cleared orapproved by the Food and Drug Administration. Result Comment: Nega tive 0 - 3 Weak Positive 4 - 10 Positive >10 Tissue Transglutaminase (tTG) has been identified as the endomysial antigen. Studies have demonstr- ated that endomysial IgA antibodies have over 99% specificity for gluten sensitive enteropathy. Performed By: #### L 505.7010, L4600.0100, L7000.5800, L3100.5450, L101.9900, L3410.2400, L3300.0600, L3410.0100, L501.6710 ####[facility] [address] [place], [place], [id number] Lyme Antibodies,W Bloton LYME IgG INTERP Negative Normal . [facility] Comment on above: Order Comment: Test( s) 267625-CKyM Blocking Abs, SerumThis test was developed and its performance characteristicsdetermined by [employer]. It has not been cleared orapproved by the Food and Drug Administration. Result Comment: Posi tive: 5 of the following Borrelia-specific bands: 18,23,28,30,39,41,45,58, 66, and 93. Negative: No bands or banding patterns which do not meet positive criteria. Performed By: #### L 505.7010, L4600.0100, L7000.5800, L3100.5450, L101.9900, L3410.2400, L3300.0600, L3410.0100, L501.6710 ####[facility] [address] [place], [place], [phone](232) LYME IgM INTERP Negative Normal . [facility] Comment on above: Order Comment: Test( s) 424292-XIaR Blocking Abs, SerumThis test was developed and its performance characteristicsdetermined by [employer]. It has not been cleared orapproved by the Food and Drug Administration. Result Comment: Note : An equivocal or positive EIA result followed by anegative Line Blot result is considered NEGATIVE. Anequivocal or positive EIA result followed by a positiveLine Blot is considered POSITIVE by the CDC.Positive: 2 of the following bands: 23,39 or 41Negative: No bands or banding patterns which do not meetpositive criteria.Criteria for positivity are those recommended byCDC/ASTPHLD. p23=Osp C, u62=gbpyfbdxdYgwh:Sera from individuals with the following may cross reactin the Lyme Line Blot assays: other spirochetal diseases(periodontal disease, leptospirosis, relapsing fever, yaws,and pinta); connective autoimmune (Rheumatoid Arthritis andSystemic Lupus Erythematosus and also individuals withAntinuclear Antibody); other infections (Roberth MountainSpotted Fever; Jaycob-Bourgeois Virus, and Cytomegalovirus).Please Note: Lyme immunoblot alone is not recommended forthe diagnosis of Lyme disease. Current guidelines recommendthe use of a two-tiered approach to Lyme serology testingto improve the sensitivity and specificity of testing.[employer] offers test code 099043 Lyme Disease Serology withReflex to aid in the diagnosis of Lyme Disease. Performed By: #### L 505.7010, L4600.0100, L7000.5800, L3100.5450, L101.9900, L3410.2400, L3300.0600, L3410.0100, L501.6710 ####[facility] [address] [place], [address] P18 Ab Absent Normal . [facility] Comment on above: Order Comment: Test( s) 438024-SCgP Blocking Abs, SerumThis test was developed and its performance characteristicsdetermined by [employer]. It has not been cleared orapproved by the Food and Drug Administration. Performed By: #### L 505.7010, L4600.0100, L7000.5800, L3100.5450, L101.9900, L3410.2400, L3300.0600, L3410.0100, L501.6710 ####[facility] [address] [place], [place], [address] P23 Ab Absent Normal . [facility] Comment on above: Order Comment: Test( s) 068538-EZdH Blocking Abs, SerumThis test was developed and its performance characteristicsdetermined by [facility]. It has not been cleared orapproved by the Food and Drug Administration. Performed By: #### L 505.7010, L4600.0100, L7000.5800, L3100.5450, L101.9900, L3410.2400, L3300.0600, L3410.0100, L501.6710 ####[facility] [address] [place], [address] P28 Ab Absent Normal . [facility] Comment on above: Order Comment: Test( s) 735342-IKaV Blocking Abs, SerumThis test was developed and its performance characteristicsdetermined by [facility]. It has not been cleared orapproved by the Food and Drug Administration. Performed By: #### L 505.7010, L4600.0100, L7000.5800, L3100.5450, L101.9900, L3410.2400, L3300.0600, L3410.0100, L501.6710 ####[facility] [address] [place], [address] P30 Ab Absent Normal . [facility] Comment on above: Order Comment: Test( s) 890899-OVbH Blocking Abs, SerumThis test was developed and its performance characteristicsdetermined by [facility]. It has not been cleared orapproved by the Food and Drug Administration. Performed By: #### L 505.7010, L4600.0100, L7000.5800, L3100.5450, L101.9900, L3410.2400, L3300.0600, L3410.0100, L501.6710 ####[facility] [address] [place], [address] P39 Ab Absent Normal . [facility] Comment on above: Order Comment: Test( s) 912242-IGhJ Blocking Abs, SerumThis test was developed and its performance characteristicsdetermined by [facility]. It has not been cleared orapproved by the Food and Drug Administration. Performed By: #### L 505.7010, L4600.0100, L7000.5800, L3100.5450, L101.9900, L3410.2400, L3300.0600, L3410.0100, L501.6710 ####[facility] [address] [place], [address] P41 Ab Present Abnormal . [facility] Comment on above: Order Comment: Test( s) 178336-WHjR Blocking Abs, SerumThis test was developed and its performance characteristicsdetermined by [facility]. It has not been cleared orapproved by the Food and Drug Administration. Performed By: #### L 505.7010, L4600.0100, L7000.5800, L3100.5450, L101.9900, L3410.2400, L3300.0600, L3410.0100, L501.6710 ####[facility] [address] [place], [place], [phone] P41 Ab Absent Normal . [facility] Comment on above: Order Comment: Test( s) 267917-IKyH Blocking Abs, SerumThis test was developed and its performance characteristicsdetermined by [facility]. It has not been cleared orapproved by the Food and Drug Administration. Performed By: #### L 505.7010, L4600.0100, L7000.5800, L3100.5450, L101.9900, L3410.2400, L3300.0600, L3410.0100, L501.6710 ####[facility] [address] [place], [address] P45 Ab Absent Normal . [facility] Comment on above: Order Comment: Test( s) 235950-IBzM Blocking Abs, SerumThis test was developed and its performance characteristicsdetermined by [facility]. It has not been cleared orapproved by the Food and Drug Administration. Performed By: #### L 505.7010, L4600.0100, L7000.5800, L3100.5450, L101.9900, L3410.2400, L3300.0600, L3410.0100, L501.6710 ####[facility] [address] [place], [address] P58 Ab Present Abnormal . [facility] Comment on above: Order Comment: Test( s) 018058-MAwQ Blocking Abs, SerumThis test was developed and its performance characteristicsdetermined by [facility]. It has not been cleared orapproved by the Food and Drug Administration. Performed By: #### L 505.7010, L4600.0100, L7000.5800, L3100.5450, L101.9900, L3410.2400, L3300.0600, L3410.0100, L501.6710 ####[facility] [address] [place], [place], [address] P66 Ab Absent Normal . [facility] Comment on above: Order Comment: Test( s) 312125-VGfN Blocking Abs, SerumThis test was developed and its performance characteristicsdetermined by [facility]. It has not been cleared orapproved by the Food and Drug Administration. Performed By: #### L 505.7010, L4600.0100, L7000.5800, L3100.5450, L101.9900, L3410.2400, L3300.0600, L3410.0100, L501.6710 ####[facility] [address] [place], [place], [phone] P93 Ab Absent Normal . [facility] Comment on above: Order Comment: Test( s) 656682-NUeH Blocking Abs, SerumThis test was developed and its performance characteristicsdetermined by [facility]. It has not been cleared orapproved by the Food and Drug Administration. Performed By: #### L 505.7010, L4600.0100, L7000.5800, L3100.5450, L101.9900, L3410.2400, L3300.0600, L3410.0100, L501.6710 ####[facility] [address] [place], [address] ANAT w/ Reflex Mult Confirmon 01-05-2025 ANTI-DNA (DS)AB TNP Normal [facility] Comment on above: Performed By: #### L 505.7010, L4600.0100, L7000.5800, L3100.5450, L101.9900, L3410.2400, L3300.0600, L3410.0100, L501.6710 ####[facility] [address] [place], [address] ANTISCLERODERM TNP Normal [facility] Comment on above: Performed By: #### L 505.7010, L4600.0100, L7000.5800, L3100.5450, L101.9900, L3410.2400, L3300.0600, L3410.0100, L501.6710 ####[facility] [address] [place], [address] Basic Metabolic Profile (BMP )on 01-05-2025 BUN Normal 7-18 [facility] Comment on above: Result Comment: Canc elled via OM: Order cancelled - Patient discharged Performed By: #### L 100.0100, L500.2500 ####[facility] [address] [place], [address] BUN/CRE Normal 10-20 [facility] Comment on above: Result Comment: Canc elled via OM: Order cancelled - Patient discharged Performed By: #### L 100.0100, L500.2500 ####[facility] [address] [place], [address] CA,Total Normal 8.5-10.1 [facility] Comment on above: Result Comment: Canc elled via OM: Order cancelled - Patient discharged Performed By: #### L 100.0100, L500.2500 ####[facility] [address] [place], [address] CL Normal 98-107 [facility] Comment on above: Result Comment: Canc elled via OM: Order cancelled - Patient discharged Performed By: #### L 100.0100, L500.2500 ####[facility] [address] [place], [address] CO2 Normal 21.0-32.0 [facility] Comment on above: Result Comment: Canc elled via OM: Order cancelled - Patient discharged Performed By: #### L 100.0100, L500.2500 ####[facility] [address] [place], [address] CREAT,SERUM Normal 0.55-1.02 [facility] Comment on above: Result Comment: Canc elled via OM: Order cancelled - Patient discharged Performed By: #### L 100.0100, L500.2500 ####[facility] [address] [place], [address] EST GFR Normal >60 [facility] Comment on above: Result Comment: Canc elled via OM: Order cancelled - Patient discharged Performed By: #### L 100.0100, L500.2500 ####[facility] [address] [place], [address] EST GFR - AA Normal >60 [facility] Comment on above: Result Comment: Canc elled via OM: Order cancelled - Patient discharged Performed By: #### L 100.0100, L500.2500 ####[facility] [address] [place], [address] GAP Normal 5-15 [facility] Comment on above: Result Comment: Canc elled via OM: Order cancelled - Patient discharged Performed By: #### L 100.0100, L500.2500 ####[facility] [address] [place], [address] GLU Normal 74-106 [facility] Comment on above: Result Comment: Canc elled via OM: Order cancelled - Patient discharged Performed By: #### L 100.0100, L500.2500 ####[facility] [address] [place], [address] Potassium Normal 3.5-5.1 [facility] Comment on above: Result Comment: Canc elled via OM: Order cancelled - Patient discharged Performed By: #### L 100.0100, L500.2500 ####[facility] [address] [place], [address] Basic Metabolic Profile (BMP) Normal 136-145 [facility] Comment on above: Result Comment: Canc elled via OM: Order cancelled - Patient discharged Performed By: #### L 100.0100, L500.2500 ####[facility] [address] [place], [address] CBC W/Diff, Automatedon - Absolute Neut Normal 2.0-7.7 [facility] Comment on above: Result Comment: Canc elled via OM: Order cancelled - Patient discharged Performed By: #### L 100.0100, L500.2500 ####[facility] [address] [place], [address] HCT Normal 37-47 [facility] Comment on above: Result Comment: Canc elled via OM: Order cancelled - Patient discharged Performed By: #### L 100.0100, L500.2500 ####[facility] [address] [place], [address] HGB Normal 12.0-15.0 [facility] Comment on above: Result Comment: Canc elled via OM: Order cancelled - Patient discharged Performed By: #### L 100.0100, L500.2500 ####[facility] [address] [place], [address] MCH Normal 27.0-32.0 [facility] Comment on above: Result Comment: Canc elled via OM: Order cancelled - Patient discharged Performed By: #### L 100.0100, L500.2500 ####[facility] [address] [place], [address] MCHC Normal 32-36 [facility] Comment on above: Result Comment: Canc elled via OM: Order cancelled - Patient discharged Performed By: #### L 100.0100, L500.2500 ####[facility] [address] [place], [address] MCV Normal 81-99 [facility] Comment on above: Result Comment: Canc elled via OM: Order cancelled - Patient discharged Performed By: #### L 100.0100, L500.2500 ####[facility] [address] [place], [address] NEUT% Normal 47-70 [facility] Comment on above: Result Comment: Canc elled via OM: Order cancelled - Patient discharged Performed By: #### L 100.0100, L500.2500 ####[facility] [address] [place], [address] PLT Normal 150-450 [facility] Comment on above: Result Comment: Canc elled via OM: Order cancelled - Patient discharged Performed By: #### L 100.0100, L500.2500 ####[facility] [address] [place], [address] RBC Normal 4.2-5.4 [facility] Comment on above: Result Comment: Canc elled via OM: Order cancelled - Patient discharged Performed By: #### L 100.0100, L500.2500 ####[facility] [address] [place], [address] RDW CV Normal 11.6-14.6 [facility] Comment on above: Result Comment: Canc elled via OM: Order cancelled - Patient discharged Performed By: #### L 100.0100, L500.2500 ####[facility] [address] [place], [address] RDW SD Normal 35.1-43.9 [facility] Comment on above: Result Comment: Canc elled via OM: Order cancelled - Patient discharged Performed By: #### L 100.0100, L500.2500 ####[facility] [address] [place], [address] WBC Normal 4.4-11.0 [facility] Comment on above: Result Comment: Canc elled via OM: Order cancelled - Patient discharged Performed By: #### L 100.0100, L500.2500 ####[facility] [address] [place], [address] Basic Metabolic Profile (BMP )on 01-04-2025 BUN Normal 7-18 [facility] Comment on above: Result Comment: Canc elled via OM: Order cancelled - Patient discharged Performed By: #### L 500.2500, L100.0100 ####[facility] [address] [place], [address] BUN/CRE Normal 10-20 [facility] Comment on above: Result Comment: Canc elled via OM: Order cancelled - Patient discharged Performed By: #### L 500.2500, L100.0100 ####[facility] [address] [place], [address] CA,Total Normal 8.5-10.1 [facility] Comment on above: Result Comment: Canc elled via OM: Order cancelled - Patient discharged Performed By: #### L 500.2500, L100.0100 ####[facility] [address] [place], [address] CL Normal 98-107 [facility] Comment on above: Result Comment: Canc elled via OM: Order cancelled - Patient discharged Performed By: #### L 500.2500, L100.0100 ####[facility] [address] [place], [address] CO2 Normal 21.0-32.0 [facility] Comment on above: Result Comment: Canc elled via OM: Order cancelled - Patient discharged Performed By: #### L 500.2500, L100.0100 ####[facility] [address] [place], [address] CREAT,SERUM Normal 0.55-1.02 [facility] Comment on above: Result Comment: Canc elled via OM: Order cancelled - Patient discharged Performed By: #### L 500.2500, L100.0100 ####[facility] [address] [place], [address] EST GFR Normal >60 [facility] Comment on above: Result Comment: Canc elled via OM: Order cancelled - Patient discharged Performed By: #### L 500.2500, L100.0100 ####[facility] [address] [place], [address] EST GFR - AA Normal >60 [facility] Comment on above: Result Comment: Canc elled via OM: Order cancelled - Patient discharged Performed By: #### L 500.2500, L100.0100 ####[facility] [address] [place], [address] GAP Normal 5-15 [facility] Comment on above: Result Comment: Canc elled via OM: Order cancelled - Patient discharged Performed By: #### L 500.2500, L100.0100 ####[facility] [address] [place], [address] GLU Normal 74-106 [facility] Comment on above: Result Comment: Canc elled via OM: Order cancelled - Patient discharged Performed By: #### L 500.2500, L100.0100 ####[facility] [address] [place], [address] Potassium Normal 3.5-5.1 [facility] Comment on above: Result Comment: Canc elled via OM: Order cancelled - Patient discharged Performed By: #### L 500.2500, L100.0100 ####[facility] [address] [place], [address] Basic Metabolic Profile (BMP) Normal 136-145 [facility] Comment on above: Result Comment: Canc elled via OM: Order cancelled - Patient discharged Performed By: #### L 500.2500, L100.0100 ####[facility] [address] [place], [address] CBC W/Diff, Automatedon - Absolute Neut Normal 2.0-7.7 [facility] Comment on above: Result Comment: Canc elled via OM: Order cancelled - Patient discharged Performed By: #### L 500.2500, L100.0100 ####[facility] [address] [place], [address] HCT Normal 37-47 [facility] Comment on above: Result Comment: Canc elled via OM: Order cancelled - Patient discharged Performed By: #### L 500.2500, L100.0100 ####[facility] [address] [place], [address] HGB Normal 12.0-15.0 [facility] Comment on above: Result Comment: Canc elled via OM: Order cancelled - Patient discharged Performed By: #### L 500.2500, L100.0100 ####[facility] [address] [place], [address] MCH Normal 27.0-32.0 [facility] Comment on above: Result Comment: Canc elled via OM: Order cancelled - Patient discharged Performed By: #### L 500.2500, L100.0100 ####[facility] [address] [place], [address] MCHC Normal 32-36 [facility] Comment on above: Result Comment: Canc elled via OM: Order cancelled - Patient discharged Performed By: #### L 500.2500, L100.0100 ####[facility] [address] [place], [address] MCV Normal 81-99 [facility] Comment on above: Result Comment: Canc elled via OM: Order cancelled - Patient discharged Performed By: #### L 500.2500, L100.0100 ####[facility] [address] [place], [address] NEUT% Normal 47-70 [facility] Comment on above: Result Comment: Canc elled via OM: Order cancelled - Patient discharged Performed By: #### L 500.2500, L100.0100 ####[facility] [address] [place], [address] PLT Normal 150-450 [facility] Comment on above: Result Comment: Canc elled via OM: Order cancelled - Patient discharged Performed By: #### L 500.2500, L100.0100 ####[facility] [address] [place], [address] RBC Normal 4.2-5.4 [facility] Comment on above: Result Comment: Canc elled via OM: Order cancelled - Patient discharged Performed By: #### L 500.2500, L100.0100 ####[facility] [address] [place], [address] RDW CV Normal 11.6-14.6 [facility] Comment on above: Result Comment: Canc elled via OM: Order cancelled - Patient discharged Performed By: #### L 500.2500, L100.0100 ####[facility] [address] [place], [address] RDW SD Normal 35.1-43.9 [facility] Comment on above: Result Comment: Canc elled via OM: Order cancelled - Patient discharged Performed By: #### L 500.2500, L100.0100 ####[facility] [address] [place], [address] WBC Normal 4.4-11.0 [facility] Comment on above: Result Comment: Canc elled via OM: Order cancelled - Patient discharged Performed By: #### L 500.2500, L100.0100 ####[facility] [address] [place], [address] ANAT serumOrdered By: Flaquito Gutiérrez on 01-03-2025 Anti-Nuclear Antibody Screen Negative Negative [facility] Comment on above: Performed at: [place] [id number] Director: Rell Cameron PhD, Phone: [phone] Acetylcholine receptorOrdere d By: Flaquito Ohara on 01-03-2025 Acetylcholine Receptor Antibody < 0.03 nmol/L 0.00-0.24 [facility] Comment on above: Negative: 0.00 - 0.2 4 Borderline: 0.25 - 0.40 Positive: >0.40 Acetylcholine receptor block ing antibody assayOrdered By: Flaquito Ohara on 01-03-2025 Acetylcholine Receptor Blocking Ab 5 % 0-25 [facility] Comment on above: Negative: 0 - 25 Bor derline: 26 - 30 Positive: >30 Basic Metabolic Profile (BMP )on 01-03-2025 BUN Normal 7-18 [facility] Comment on above: Result Comment: Canc elled via OM: Order cancelled - Patient discharged Performed By: #### L 500.2500, L100.0100 ####[facility] [address] [place], [address] BUN/CRE Normal 10-20 [facility] Comment on above: Result Comment: Canc elled via OM: Order cancelled - Patient discharged Performed By: #### L 500.2500, L100.0100 ####[facility] [address] [place], [address] CA,Total Normal 8.5-10.1 [facility] Comment on above: Result Comment: Canc elled via OM: Order cancelled - Patient discharged Performed By: #### L 500.2500, L100.0100 ####[facility] [address] [place], [address] CL Normal 98-107 [facility] Comment on above: Result Comment: Canc elled via OM: Order cancelled - Patient discharged Performed By: #### L 500.2500, L100.0100 ####[facility] [address] [place], [address] CO2 Normal 21.0-32.0 [facility] Comment on above: Result Comment: Canc elled via OM: Order cancelled - Patient discharged Performed By: #### L 500.2500, L100.0100 ####[facility] [address] [place], [address] CREAT,SERUM Normal 0.55-1.02 [facility] Comment on above: Result Comment: Canc elled via OM: Order cancelled - Patient discharged Performed By: #### L 500.2500, L100.0100 ####[facility] [address] [place], [address] EST GFR Normal >60 [facility] Comment on above: Result Comment: Canc elled via OM: Order cancelled - Patient discharged Performed By: #### L 500.2500, L100.0100 ####[facility] [address] [place], [address] EST GFR - AA Normal >60 [facility] Comment on above: Result Comment: Canc elled via OM: Order cancelled - Patient discharged Performed By: #### L 500.2500, L100.0100 ####[facility] [address] [place], [address] GAP Normal 5-15 [facility] Comment on above: Result Comment: Canc elled via OM: Order cancelled - Patient discharged Performed By: #### L 500.2500, L100.0100 ####[facility] [address] [place], [address] GLU Normal 74-106 [facility] Comment on above: Result Comment: Canc elled via OM: Order cancelled - Patient discharged Performed By: #### L 500.2500, L100.0100 ####[facility] [address] [place], [address] Potassium Normal 3.5-5.1 [facility] Comment on above: Result Comment: Canc elled via OM: Order cancelled - Patient discharged Performed By: #### L 500.2500, L100.0100 ####[facility] [address] [place], [address] Basic Metabolic Profile (BMP) Normal 136-145 [facility] Comment on above: Result Comment: Canc elled via OM: Order cancelled - Patient discharged Performed By: #### L 500.2500, L100.0100 ####[facility] [address] [place], [address] C-reactive protein measureme nt by high sensitivity methodOrdered By: Flaquito Ohara on 01-03-2025 C-Reactive Protein Extended Range < 2.90 mg/L 0.0-3.0 [facility] Comment on above: C-Reactive Protein ( CRP) provides useful information for thediagnosis, therapy and monitoring of inflammatory processesand associated diseases. For the evaluation of Relative Riskfor Cardiovascular Disease, a High Sensitivity CRP (HSCRP)should be ordered. CBC W/Diff, Automatedon 12-23 Absolute Neut Normal 2.0-7.7 [facility] Comment on above: Result Comment: Canc elled via OM: Order cancelled - Patient discharged Performed By: #### L 500.2500, L100.0100 ####[facility] [address] [place], [address] HCT Normal 37-47 [facility] Comment on above: Result Comment: Canc elled via OM: Order cancelled - Patient discharged Performed By: #### L 500.2500, L100.0100 ####[facility] [address] [place], [address] HGB Normal 12.0-15.0 [facility] Comment on above: Result Comment: Canc elled via OM: Order cancelled - Patient discharged Performed By: #### L 500.2500, L100.0100 ####[facility] [address] [place], [address] MCH Normal 27.0-32.0 [facility] Comment on above: Result Comment: Canc elled via OM: Order cancelled - Patient discharged Performed By: #### L 500.2500, L100.0100 ####[facility] [address] [place], [address] MCHC Normal 32-36 [facility] Comment on above: Result Comment: Canc elled via OM: Order cancelled - Patient discharged Performed By: #### L 500.2500, L100.0100 ####[facility] [address] [place], [address] MCV Normal 81-99 [facility] Comment on above: Result Comment: Canc elled via OM: Order cancelled - Patient discharged Performed By: #### L 500.2500, L100.0100 ####[facility] [address] [place], [address] NEUT% Normal 47-70 [facility] Comment on above: Result Comment: Canc elled via OM: Order cancelled - Patient discharged Performed By: #### L 500.2500, L100.0100 ####[facility] [address] [place], [address] PLT Normal 150-450 [facility] Comment on above: Result Comment: Canc elled via OM: Order cancelled - Patient discharged Performed By: #### L 500.2500, L100.0100 ####[facility] [address] [place], [address] RBC Normal 4.2-5.4 [facility] Comment on above: Result Comment: Canc elled via OM: Order cancelled - Patient discharged Performed By: #### L 500.2500, L100.0100 ####[facility] [address] [place], [address] RDW CV Normal 11.6-14.6 [facility] Comment on above: Result Comment: Canc elled via OM: Order cancelled - Patient discharged Performed By: #### L 500.2500, L100.0100 ####[facility] [address] [place], [address] RDW SD Normal 35.1-43.9 [facility] Comment on above: Result Comment: Canc elled via OM: Order cancelled - Patient discharged Performed By: #### L 500.2500, L100.0100 ####[facility] [address] [place], [address] WBC Normal 4.4-11.0 [facility] Comment on above: Result Comment: Canc elled via OM: Order cancelled - Patient discharged Performed By: #### L 500.2500, L100.0100 ####[facility] [address] [place], [address] CNPNon 01-03-2025 [facility] Telephone (NREUS2) -- SYEDCONNIE ([id number]) 1950 F Date Time Provider Department 01/03/25 KARUNA JOSEPH MICHELLEEUS2 During your visit today, we recorded the following information about you: Adelaide Moreno 01/03/2025 3:50 PM Signed Received call from call center to help patient reschedule 02/08 appt. There is nothing in the next couple of months to help reschedule her. I let patient know we would call her back. Christine Oswald, SAMEER 01/04/2025 11:54 AM Addendum Appointment scheduled 03/14/25 10:00 Unable to reach patient, message left and message sent to inform. Christine Oswald RN 01/11/2025 2:56 PM Signed This [employer] message has not been read. Detailed message left on Ivet Bowers RN 01/16/2025 8:27 AM Signed Patient left on triage line returning Neuro RN call. Please return her call [phone] SAMEER Kennedy Dawn, RN 01/16/2025 11:01 AM Signed Call to patient, no answer. Detailed message left on . Allergies As of Date: 01/03/2025 Noted Allergy Reaction JORDAN INHIBITORS 12/02/2022 3 - Cough Date Reviewed: 11/10/2024 Reviewed by: Bryan Yanez MD - Fully Assessed Reason for Visit: Appointment [186] Prescriptions as of 01/16/2025 - carbidopa-levodopa (SINEMET 25-100) 25-100 mg per tablet Take 2 tablets by mouth five times a day. - entacapone (COMTAN) 200 mg tablet Take 1 tablet by mouth five times a day. Take with levodopa/carbidopa - omeprazole (PRILOSEC) 40 mg capsule - citalopram (CELEXA) 20 mg tablet Take 20 mg by mouth once daily. - LORazepam (ATIVAN) 0.5 mg TAKE 1 TO 2 TABLETS BY MOUTH EVERY 4 TO 6 HOURS NEEDED FOR ANXIETY FOR UP TO 7 DAYS - zolpidem (AMBIEN CR) 6.25 mg CR tablet Take by mouth. - ondansetron orally disintegrating (ZOFRAN ODT) 8 mg disintegrating tablet DISSOLVE 1 TABLET BY MOUTH EVERY 8 HOURS NEEDED FOR NAUSEA - acetaminophen (TYLENOL 8 HOUR ORAL) Take by mouth. 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 For the evaluation of Relative Riskfor Cardiovascular Disease, a High Sensitivity CRP (HSCRP)should be ordered. Performed By: #### L 505.7010, L4600.0100, L7000.5800, L3100.5450, L101.9900, L3410.2400, L3300.0600, L3410.0100, L501.6710 ####[facility] [address] [place], [address] Centromere B antibody assayO rdered By: Flaquito Ohara on 01-03-2025 Centromere B Antibody TNP [facility] Comment on above: Test not performed Chromatin antibody assayOrde red By: Flaquito Ohara on 01-03-2025 Antichromatin Antibodies [facility] Comment on above: Test not performed Cyclic citrullinated peptide IgG QnOrdered By: Flaquito Ohara on 01-03-2025 Cyclic Citrullinated Peptide IgG Ab 3 units 0-19 [facility] Comment on above: Negative <20 Weak po sitive 20 - 39 Moderate positive 40 - 59 Strong positive >59Performed at: [facility] [id number] Director: Rell Cameron PhD, Phone: [phone] at: BN - [facility] [address] [id number] Director: Jayna Rodriguez MD, Phone: [phone] DNA double strand Ab Qn (S)O rdered By: Flaquito Ohara on 01-03-2025 Anti-Double Strand DNA Antibody TNP [facility] Comment on above: Test not performed Endomysial IgA antibody assa yOrdered By: Flaquito Ohara on 01-03-2025 Endomysial IgA Antibody Negative Negative [facility] Erythrocyte Sed Rateon 01-03 SED RATE 1 mm/hr Normal 0-30 [facility] Comment on above: Performed By: #### L 505.7010, L4600.0100, L7000.5800, L3100.5450, L101.9900, L3410.2400, L3300.0600, L3410.0100, L501.6710 ####[facility] [address] [place], [address] Erythrocyte sedimentation ra teOrdered By: Flaquito Ohara on 01-03-2025 ESR (Bld) [Velocity] 1 mm/h 0-30 [facility] IgA [Mass/Vol]Ordered By: Susan Ohara on 01-03-2025 Immunoglobulin A 129 mg/dL 64-422 [facility] Millicent-1 antibody assayOrdered B y: Flaquito Ohara on 01-03-2025 [facility]ENT[facility]: Test not performed Lyme disease 18 [place] p rotein IgG antibody detectionOrdered By: Flaquito Ohara on 01-03-2025 Lyme Disease IgG Ab 18 kDa Band Absent . [facility] Lyme disease 23 [place] p rotein IgM antibody detectionOrdered By: Flaquito Ohara on 01-03-2025 Lyme Disease IgM Ab 23 kDa Band Absent . [facility] Lyme disease 28 [place] p rotein IgG antibody detectionOrdered By: Flaquito Ohara on 01-03-2025 Lyme Disease IgG Ab 28 kDa Band Absent . [facility] Lyme disease 39 [place] p rotein IgG antibody detectionOrdered By: Flaquito Ohara on 01-03-2025 Lyme Disease IgG Ab 39 kDa Band Absent . [facility] Lyme disease 39 [place] p rotein IgM antibody detectionOrdered By: Flaquito Ohara on 01-03-2025 Lyme Disease IgM Ab 39 kDa Band Absent . [facility] Lyme disease 41 [place] p rotein IgG antibody detectionOrdered By: Flaquito Ohara on 01-03-2025 Lyme Disease IgG Ab 41 kDa Band Present High . [facility] Lyme disease 41 [place] p rotein IgM antibody detectionOrdered By: Flaquito Ohara on 01-03-2025 Lyme Disease IgM Ab 41 kDa Band Absent . [facility] Lyme disease 45 [place] p rotein IgG antibody detectionOrdered By: Flaquito Ohara on 01-03-2025 Lyme Disease IgG Ab 45 kDa Band Absent . [facility] Lyme disease 58 [place] p rotein IgG antibody detectionOrdered By: Flaquito Ohara on 01-03-2025 Lyme Disease IgG Ab 58 kDa Band Present High . [facility] Lyme disease 66 [place] p rotein IgG antibody assayOrdered By: Flaquito Ohara on 01-03-2025 Lyme Disease IgG Ab 66 kDa Band Absent . [facility] Lyme disease p23 IgG antibod y assayOrdered By: Flaquito Ohara on 01-03-2025 Lyme Disease IgG Ab 23 kDa Band Absent . [facility] No Panel InformationOrdered By: Flaquito Ohara on 01-03-2025 Lyme Disease IgG Ab 30 kDa Band Absent . [facility] Lyme Disease IgG Ab 93 kDa Band Absent . [facility] Lyme Disease IgG [place] Interp Negative . [facility] Comment on above: Positive: 5 of the f ollowing Borrelia-specific bands: 18,23,28,30,39,41,45,58, 66, and 93. Negative: No bands or banding patterns which do not meet positive criteria. Lyme Disease IgM Ab (Western Blot) Negative . [facility] Comment on above: Note: An equivocal o r positive EIA result followed by anegative Line Blot result is considered NEGATIVE. Anequivocal or positive EIA result followed by a positiveLine Blot is considered POSITIVE by the CDC.Positive: 2 of the following bands: 23,39 or 41Negative: No bands or banding patterns which do not meetpositive criteria.Criteria for positivity are those recommended byCDC/ASTPHLD. p23=Osp C, n54=dfdxmfhmfLjkt:Sera from individuals with the following may cross reactin the Lyme Line Blot assays: other spirochetal diseases(periodontal disease, leptospirosis, relapsing fever, yaws,and pinta); connective autoimmune (Rheumatoid Arthritis andSystemic Lupus Erythematosus and also individuals withAntinuclear Antibody); other infections (Roberth MountainSpotted Fever; Jaycob-Bourgeois Virus, and Cytomegalovirus).Please Note: Lyme immunoblot alone is not recommended forthe diagnosis of Lyme disease. Current guidelines recommendthe use of a two-tiered approach to Lyme serology testingto improve the sensitivity and specificity of testing.[employer] offers test code 125365 Lyme Disease Serology withReflex to aid in the diagnosis of Lyme Disease. REGISTERED NURSE AMBULATORY abOrdered By: Flaquito kennedy on 01-03-2025 REGISTERED NURSE AMBULATORY Antibody [facility] Comment on above: Test not performed Rheumatoid Factoron 01-03-20 RHEUMATOID FAC < 10.0 Normal <15 [facility] Comment on above: Performed By: #### L 505.7010, L4600.0100, L7000.5800, L3100.5450, L101.9900, L3410.2400, L3300.0600, L3410.0100, L501.6710 ####[facility] [address] [place], [address] Rheumatoid factor measuremen tOrdered By: Flaquito Ohara on 01-03-2025 Rheumatoid Factor < 10.0 IU/mL <15 [facility] SCL-70 extractable nuclear A b Qn (S)Ordered By: Flaquito Ohara on 01-03-2025 Scl-70 (Scleroderma) Antibody [facility] Comment on above: Test not performed SS-A IgG antibody assayOrder ed By: Flaquito Ohara on 01-03-2025 SS-A/Ro IgG Antibody [facility] Comment on above: Test not performed SS-B IgG antibody assayOrder ed By: Flaquito Ohara on 01-03-2025 SS-B/La IgG Antibody [facility] Comment on above: Test not performed Serum DNA double strand anti body assay (units/volume)Ordered By: Flaquito Ohara on 01-03-2025 DNA double strand Ab Qn (S) [facility] Comment on above: Test not performed Serum Scl-70 antibody assay (units/volume)Ordered By: Flaquito Ohara on 01-03-2025 SCL-70 extractable nuclear Ab Qn (S) [facility] Comment on above: Test not performed Serum or plasma IgA measurem ent (mass/volume)Ordered By: Flaquito Ohara on 01-03-2025 IgA [Mass/Vol] 129 mg/dL 64-422 [facility] Serum or plasma cyclic citru llinated peptide IgG antibody assay (units/volume)Ordered By: Flaquito Ohara on 01-03-2025 Cyclic citrullinated peptide IgG Qn 3 units 0-19 [facility] Comment on above: Negative <20 Weak po sitive 20 - 39 Moderate positive 40 - 59 Strong positive >59Performed at: [facility] [employer] [address] [id number] Director: Rell Cameron PhD, Phone: [phone] at: [facility] [address] [id number] Director: Jayna Rodriguez MD, Phone: [phone] Serum tissue transglutaminas e (tTG) IgA antibody assay (units/volume)Ordered By: Flaquito Ohara on 01-03-2025 tTG IgA Qn (S) <2 U/mL 0-3 [facility] Comment on above: Negative 0 - 3 Weak Positive 4 - 10 Positive >10 Tissue Transglutaminase (tTG) has been identified as the endomysial antigen. Studies have demonstr- ated that endomysial IgA antibodies have over 99% specificity for gluten sensitive enteropathy. [employer] antibody assayOrdered By: Flaquito Ohara on 01-03-2025 SM Antibody [facility] Comment on above: Test not performed tTG IgA Qn (S)Ordered By: Susan Ohara on 01-03-2025 Tissue Transglutaminase IgA Ab <2 U/mL 0-3 [facility] Comment on above: Negative 0 - 3 Weak Positive 4 - 10 Positive >10 Tissue Transglutaminase (tTG) has been identified as the endomysial antigen. Studies have demonstr- ated that endomysial IgA antibodies have over 99% specificity for gluten sensitive enteropathy. Basic Metabolic Profile (BMP )on 01-02-2025 BUN Normal 7-18 [facility] Comment on above: Result Comment: Canc elled via OM: Order cancelled - Patient discharged Performed By: #### L 500.2500, L100.0100 ####[facility] [address] [facility] [address] BUN/CRE Normal 10-20 [facility] Comment on above: Result Comment: Canc elled via OM: Order cancelled - Patient discharged Performed By: #### L 500.2500, L100.0100 ####[facility] [address] [facility] [address] CA,Total Normal 8.5-10.1 [facility] Comment on above: Result Comment: Canc elled via OM: Order cancelled - Patient discharged Performed By: #### L 500.2500, L100.0100 ####[facility] [address] [place], [address] CL Normal 98-107 [facility] Comment on above: Result Comment: Canc elled via OM: Order cancelled - Patient discharged Performed By: #### L 500.2500, L100.0100 ####[facility] [address] [facility] [address] CO2 Normal 21.0-32.0 [facility] Comment on above: Result Comment: Canc elled via OM: Order cancelled - Patient discharged Performed By: #### L 500.2500, L100.0100 ####[facility] [address] [place], [address] CREAT,SERUM Normal 0.55-1.02 [facility] Comment on above: Result Comment: Canc elled via OM: Order cancelled - Patient discharged Performed By: #### L 500.2500, L100.0100 ####[facility] [address] [place], [address] EST GFR Normal >60 [facility] Comment on above: Result Comment: Canc elled via OM: Order cancelled - Patient discharged Performed By: #### L 500.2500, L100.0100 ####[facility] [address] [place], [address] EST GFR - AA Normal >60 [facility] Comment on above: Result Comment: Canc elled via OM: Order cancelled - Patient discharged Performed By: #### L 500.2500, L100.0100 ####[facility] [address] [place], [address] GAP Normal 5-15 [facility] Comment on above: Result Comment: Canc elled via OM: Order cancelled - Patient discharged Performed By: #### L 500.2500, L100.0100 ####[facility] [address] [place], [address] GLU Normal 74-106 [facility] Comment on above: Result Comment: Canc elled via OM: Order cancelled - Patient discharged Performed By: #### L 500.2500, L100.0100 ####[facility] [address] [place], [address] Potassium Normal 3.5-5.1 [facility] Comment on above: Result Comment: Canc elled via OM: Order cancelled - Patient discharged Performed By: #### L 500.2500, L100.0100 ####[facility] [address] [place], [address] Basic Metabolic Profile (BMP) Normal 136-145 [facility] Comment on above: Result Comment: Canc elled via OM: Order cancelled - Patient discharged Performed By: #### L 500.2500, L100.0100 ####[facility] [address] [place], [address] CBC W/Diff, Automatedon 02- Absolute Neut Normal 2.0-7.7 [facility] Comment on above: Result Comment: Canc elled via OM: Order cancelled - Patient discharged Performed By: #### L 500.2500, L100.0100 ####[facility] [address] [place], [address] HCT Normal 37-47 [facility] Comment on above: Result Comment: Canc elled via OM: Order cancelled - Patient discharged Performed By: #### L 500.2500, L100.0100 ####[facility] [address] [place], [address] HGB Normal 12.0-15.0 [facility] Comment on above: Result Comment: Canc elled via OM: Order cancelled - Patient discharged Performed By: #### L 500.2500, L100.0100 ####[facility] [address] [place], [address] MCH Normal 27.0-32.0 [facility] Comment on above: Result Comment: Canc elled via OM: Order cancelled - Patient discharged Performed By: #### L 500.2500, L100.0100 ####[facility] [address] [place], [address] MCHC Normal 32-36 [facility] Comment on above: Result Comment: Canc elled via OM: Order cancelled - Patient discharged Performed By: #### L 500.2500, L100.0100 ####[facility] [address] [place], [address] MCV Normal 81-99 [facility] Comment on above: Result Comment: Canc elled via OM: Order cancelled - Patient discharged Performed By: #### L 500.2500, L100.0100 ####[facility] [address] [place], [address] NEUT% Normal 47-70 [facility] Comment on above: Result Comment: Canc elled via OM: Order cancelled - Patient discharged Performed By: #### L 500.2500, L100.0100 ####[facility] [address] [place], [address] PLT Normal 150-450 [facility] Comment on above: Result Comment: Canc elled via OM: Order cancelled - Patient discharged Performed By: #### L 500.2500, L100.0100 ####[facility] [address] [place], [address] RBC Normal 4.2-5.4 [facility] Comment on above: Result Comment: Canc elled via OM: Order cancelled - Patient discharged Performed By: #### L 500.2500, L100.0100 ####[facility] [address] [place], [address] RDW CV Normal 11.6-14.6 [facility] Comment on above: Result Comment: Canc elled via OM: Order cancelled - Patient discharged Performed By: #### L 500.2500, L100.0100 ####[facility] [address] [place], [address] RDW SD Normal 35.1-43.9 [facility] Comment on above: Result Comment: Canc elled via OM: Order cancelled - Patient discharged Performed By: #### L 500.2500, L100.0100 ####[facility] [address] [place], [address] WBC Normal 4.4-11.0 [facility] Comment on above: Result Comment: Canc elled via OM: Order cancelled - Patient discharged Performed By: #### L 500.2500, L100.0100 ####[facility] [address] [place], [address] Basic Metabolic Profile (BMP )on 01-01-2025 BUN Normal 7-18 [facility] Comment on above: Result Comment: Canc elled via OM: Order cancelled - Patient discharged Performed By: #### L 500.2500, L100.0100 ####[facility] [address] [place], [address] BUN/CRE Normal 10-20 [facility] Comment on above: Result Comment: Canc elled via OM: Order cancelled - Patient discharged Performed By: #### L 500.2500, L100.0100 ####[facility] [address] [place], [address] CA,Total Normal 8.5-10.1 [facility] Comment on above: Result Comment: Canc elled via OM: Order cancelled - Patient discharged Performed By: #### L 500.2500, L100.0100 ####[facility] [address] [place], [address] CL Normal 98-107 [facility] Comment on above: Result Comment: Canc elled via OM: Order cancelled - Patient discharged Performed By: #### L 500.2500, L100.0100 ####[facility] [address] [place], [address] CO2 Normal 21.0-32.0 [facility] Comment on above: Result Comment: Canc elled via OM: Order cancelled - Patient discharged Performed By: #### L 500.2500, L100.0100 ####[facility] [address] [place], [address] CREAT,SERUM Normal 0.55-1.02 [facility] Comment on above: Result Comment: Canc elled via OM: Order cancelled - Patient discharged Performed By: #### L 500.2500, L100.0100 ####[facility] [address] [place], [address] EST GFR Normal >60 [facility] Comment on above: Result Comment: Canc elled via OM: Order cancelled - Patient discharged Performed By: #### L 500.2500, L100.0100 ####[facility] [address] [place], [address] EST GFR - AA Normal >60 [facility] Comment on above: Result Comment: Canc elled via OM: Order cancelled - Patient discharged Performed By: #### L 500.2500, L100.0100 ####[facility] [address] [place], [address] GAP Normal 5-15 [facility] Comment on above: Result Comment: Canc elled via OM: Order cancelled - Patient discharged Performed By: #### L 500.2500, L100.0100 ####[facility] [address] [place], [address] GLU Normal 74-106 [facility] Comment on above: Result Comment: Canc elled via OM: Order cancelled - Patient discharged Performed By: #### L 500.2500, L100.0100 ####[facility] [address] [place], [address] Potassium Normal 3.5-5.1 [facility] Comment on above: Result Comment: Canc elled via OM: Order cancelled - Patient discharged Performed By: #### L 500.2500, L100.0100 ####[facility] [address] [place], [address] Basic Metabolic Profile (BMP) Normal 136-145 [facility] Comment on above: Result Comment: Canc elled via OM: Order cancelled - Patient discharged Performed By: #### L 500.2500, L100.0100 ####[facility] [address] [place], [address] CBC W/Diff, Automatedon 02- 0-2024 Absolute Neut Normal 2.0-7.7 [facility] Comment on above: Result Comment: Canc elled via OM: Order cancelled - Patient discharged Performed By: #### L 500.2500, L100.0100 ####[facility] [address] [place], [address] HCT Normal 37-47 [facility] Comment on above: Result Comment: Canc elled via OM: Order cancelled - Patient discharged Performed By: #### L 500.2500, L100.0100 ####[facility] [address] [place], [address] HGB Normal 12.0-15.0 [facility] Comment on above: Result Comment: Canc elled via OM: Order cancelled - Patient discharged Performed By: #### L 500.2500, L100.0100 ####[facility] [address] [place], [address] MCH Normal 27.0-32.0 [facility] Comment on above: Result Comment: Canc elled via OM: Order cancelled - Patient discharged Performed By: #### L 500.2500, L100.0100 ####[facility] [address] [place], [address] MCHC Normal 32-36 [facility] Comment on above: Result Comment: Canc elled via OM: Order cancelled - Patient discharged Performed By: #### L 500.2500, L100.0100 ####[facility] [address] [place], [address] MCV Normal 81-99 [facility] Comment on above: Result Comment: Canc elled via OM: Order cancelled - Patient discharged Performed By: #### L 500.2500, L100.0100 ####[facility] [address] [place], [address] NEUT% Normal 47-70 [facility] Comment on above: Result Comment: Canc elled via OM: Order cancelled - Patient discharged Performed By: #### L 500.2500, L100.0100 ####[facility] [address] [place], [address] PLT Normal 150-450 [facility] Comment on above: Result Comment: Canc elled via OM: Order cancelled - Patient discharged Performed By: #### L 500.2500, L100.0100 ####[facility] [address] [place], [address] RBC Normal 4.2-5.4 [facility] Comment on above: Result Comment: Canc elled via OM: Order cancelled - Patient discharged Performed By: #### L 500.2500, L100.0100 ####[facility] [address] [place], [address] RDW CV Normal 11.6-14.6 [facility] Comment on above: Result Comment: Canc elled via OM: Order cancelled - Patient discharged Performed By: #### L 500.2500, L100.0100 ####[facility] [address] [place], [address] RDW SD Normal 35.1-43.9 [facility] Comment on above: Result Comment: Canc elled via OM: Order cancelled - Patient discharged Performed By: #### L 500.2500, L100.0100 ####[facility] [address] [place], [address] WBC Normal 4.4-11.0 [facility] Comment on above: Result Comment: Canc elled via OM: Order cancelled - Patient discharged Performed By: #### L 500.2500, L100.0100 ####[facility] [address] [place], [address] Basic Metabolic Profile (BMP )on 12-31-2024 BUN Normal 7-18 [facility] Comment on above: Result Comment: Canc elled via OM: Order cancelled - Patient discharged Performed By: #### L 100.0100, L500.2500 ####[facility] [address] [place], [address] BUN/CRE Normal 10-20 [facility] Comment on above: Result Comment: Canc elled via OM: Order cancelled - Patient discharged Performed By: #### L 100.0100, L500.2500 ####[facility] [address] [place], [address] CA,Total Normal 8.5-10.1 [facility] Comment on above: Result Comment: Canc elled via OM: Order cancelled - Patient discharged Performed By: #### L 100.0100, L500.2500 ####[facility] [address] [place], [address] CL Normal 98-107 [facility] Comment on above: Result Comment: Canc elled via OM: Order cancelled - Patient discharged Performed By: #### L 100.0100, L500.2500 ####[facility] [address] [place], [address] CO2 Normal 21.0-32.0 [facility] Comment on above: Result Comment: Canc elled via OM: Order cancelled - Patient discharged Performed By: #### L 100.0100, L500.2500 ####[facility] [address] [place], [address] CREAT,SERUM Normal 0.55-1.02 [facility] Comment on above: Result Comment: Canc elled via OM: Order cancelled - Patient discharged Performed By: #### L 100.0100, L500.2500 ####[facility] [address] [place], [address] EST GFR Normal >60 [facility] Comment on above: Result Comment: Canc elled via OM: Order cancelled - Patient discharged Performed By: #### L 100.0100, L500.2500 ####[facility] [address] [place], [address] EST GFR - AA Normal >60 [facility] Comment on above: Result Comment: Canc elled via OM: Order cancelled - Patient discharged Performed By: #### L 100.0100, L500.2500 ####[facility] [address] [place], [address] GAP Normal 5-15 [facility] Comment on above: Result Comment: Canc elled via OM: Order cancelled - Patient discharged Performed By: #### L 100.0100, L500.2500 ####[facility] [address] [place], [address] GLU Normal 74-106 [facility] Comment on above: Result Comment: Canc elled via OM: Order cancelled - Patient discharged Performed By: #### L 100.0100, L500.2500 ####[facility] [address] [place], [address] Potassium Normal 3.5-5.1 [facility] Comment on above: Result Comment: Canc elled via OM: Order cancelled - Patient discharged Performed By: #### L 100.0100, L500.2500 ####[facility] [address] [place], [address] Basic Metabolic Profile (BMP) Normal 136-145 [facility] Comment on above: Result Comment: Canc elled via OM: Order cancelled - Patient discharged Performed By: #### L 100.0100, L500.2500 ####[facility] [address] [place], [address] CBC W/Diff, Automatedon 02-0 Absolute Neut Normal 2.0-7.7 [facility] Comment on above: Result Comment: Canc elled via OM: Order cancelled - Patient discharged Performed By: #### L 100.0100, L500.2500 ####[facility] [address] [place], [address] HCT Normal 37-47 [facility] Comment on above: Result Comment: Canc elled via OM: Order cancelled - Patient discharged Performed By: #### L 100.0100, L500.2500 ####[facility] [address] [place], [address] HGB Normal 12.0-15.0 [facility] Comment on above: Result Comment: Canc elled via OM: Order cancelled - Patient discharged Performed By: #### L 100.0100, L500.2500 ####[facility] [address] [place], [address] MCH Normal 27.0-32.0 [facility] Comment on above: Result Comment: Canc elled via OM: Order cancelled - Patient discharged Performed By: #### L 100.0100, L500.2500 ####[facility] [address] [place], [address] MCHC Normal 32-36 [facility] Comment on above: Result Comment: Canc elled via OM: Order cancelled - Patient discharged Performed By: #### L 100.0100, L500.2500 ####[facility] [address] [place], [address] MCV Normal 81-99 [facility] Comment on above: Result Comment: Canc elled via OM: Order cancelled - Patient discharged Performed By: #### L 100.0100, L500.2500 ####[facility] [address] [place], [address] NEUT% Normal 47-70 [facility] Comment on above: Result Comment: Canc elled via OM: Order cancelled - Patient discharged Performed By: #### L 100.0100, L500.2500 ####[facility] [address] [place], [address] PLT Normal 150-450 [facility] Comment on above: Result Comment: Canc elled via OM: Order cancelled - Patient discharged Performed By: #### L 100.0100, L500.2500 ####[facility] [address] [place], [address] RBC Normal 4.2-5.4 [facility] Comment on above: Result Comment: Canc elled via OM: Order cancelled - Patient discharged Performed By: #### L 100.0100, L500.2500 ####[facility] [address] [place], [address] RDW CV Normal 11.6-14.6 [facility] Comment on above: Result Comment: Canc elled via OM: Order cancelled - Patient discharged Performed By: #### L 100.0100, L500.2500 ####[facility] [address] [place], [address] RDW SD Normal 35.1-43.9 [facility] Comment on above: Result Comment: Canc elled via OM: Order cancelled - Patient discharged Performed By: #### L 100.0100, L500.2500 ####[facility] [address] [place], [address] WBC Normal 4.4-11.0 [facility] Comment on above: Result Comment: Canc elled via OM: Order cancelled - Patient discharged Performed By: #### L 100.0100, L500.2500 ####[facility] [address] [place], [address] Basic Metabolic Profile (BMP )on 12-30-2024 BUN Normal 7-18 [facility] Comment on above: Result Comment: Canc elled via OM: Order cancelled - Patient discharged Performed By: #### L 100.0100, L500.2500 ####[facility] [address] [place], [address] BUN/CRE Normal 10-20 [facility] Comment on above: Result Comment: Canc elled via OM: Order cancelled - Patient discharged Performed By: #### L 100.0100, L500.2500 ####[facility] [address] [place], [address] CA,Total Normal 8.5-10.1 [facility] Comment on above: Result Comment: Canc elled via OM: Order cancelled - Patient discharged Performed By: #### L 100.0100, L500.2500 ####[facility] [address] [place], [address] CL Normal 98-107 [facility] Comment on above: Result Comment: Canc elled via OM: Order cancelled - Patient discharged Performed By: #### L 100.0100, L500.2500 ####[facility] [address] [place], [address] CO2 Normal 21.0-32.0 [facility] Comment on above: Result Comment: Canc elled via OM: Order cancelled - Patient discharged Performed By: #### L 100.0100, L500.2500 ####[facility] [address] [place], [address] CREAT,SERUM Normal 0.55-1.02 [facility] Comment on above: Result Comment: Canc elled via OM: Order cancelled - Patient discharged Performed By: #### L 100.0100, L500.2500 ####[facility] [address] [place], [address] EST GFR Normal >60 [facility] Comment on above: Result Comment: Canc elled via OM: Order cancelled - Patient discharged Performed By: #### L 100.0100, L500.2500 ####[facility] [address] [place], [address] EST GFR - AA Normal >60 [facility] Comment on above: Result Comment: Canc elled via OM: Order cancelled - Patient discharged Performed By: #### L 100.0100, L500.2500 ####[facility] [address] [place], [address] GAP Normal 5-15 [facility] Comment on above: Result Comment: Canc elled via OM: Order cancelled - Patient discharged Performed By: #### L 100.0100, L500.2500 ####[facility] [address] [place], [address] GLU Normal 74-106 [facility] Comment on above: Result Comment: Canc elled via OM: Order cancelled - Patient discharged Performed By: #### L 100.0100, L500.2500 ####[facility] [address] [place], [address] Potassium Normal 3.5-5.1 [facility] Comment on above: Result Comment: Canc elled via OM: Order cancelled - Patient discharged Performed By: #### L 100.0100, L500.2500 ####[facility] [address] [place], [address] Basic Metabolic Profile (BMP) Normal 136-145 [facility] Comment on above: Result Comment: Canc elled via OM: Order cancelled - Patient discharged Performed By: #### L 100.0100, L500.2500 ####[facility] [address] [place], [address] CBC W/Diff, Automatedon 02-0 8-2024 Absolute Neut Normal 2.0-7.7 [facility] Comment on above: Result Comment: Canc elled via OM: Order cancelled - Patient discharged Performed By: #### L 100.0100, L500.2500 ####[facility] [address] [place], [address] HCT Normal 37-47 [facility] Comment on above: Result Comment: Canc elled via OM: Order cancelled - Patient discharged Performed By: #### L 100.0100, L500.2500 ####[facility] [address] [place], [address] HGB Normal 12.0-15.0 [facility] Comment on above: Result Comment: Canc elled via OM: Order cancelled - Patient discharged Performed By: #### L 100.0100, L500.2500 ####[facility] [address] [place], [address] MCH Normal 27.0-32.0 [facility] Comment on above: Result Comment: Canc elled via OM: Order cancelled - Patient discharged Performed By: #### L 100.0100, L500.2500 ####[facility] [address] [place], [address] MCHC Normal 32-36 [facility] Comment on above: Result Comment: Canc elled via OM: Order cancelled - Patient discharged Performed By: #### L 100.0100, L500.2500 ####[facility] [address] [place], [address] MCV Normal 81-99 [facility] Comment on above: Result Comment: Canc elled via OM: Order cancelled - Patient discharged Performed By: #### L 100.0100, L500.2500 ####[facility] [address] [place], [address] NEUT% Normal 47-70 [facility] Comment on above: Result Comment: Canc elled via OM: Order cancelled - Patient discharged Performed By: #### L 100.0100, L500.2500 ####[facility] [address] [place], [address] PLT Normal 150-450 [facility] Comment on above: Result Comment: Canc elled via OM: Order cancelled - Patient discharged Performed By: #### L 100.0100, L500.2500 ####[facility] [address] [place], [address] RBC Normal 4.2-5.4 [facility] Comment on above: Result Comment: Canc elled via OM: Order cancelled - Patient discharged Performed By: #### L 100.0100, L500.2500 ####[facility] [address] [place], [address] RDW CV Normal 11.6-14.6 [facility] Comment on above: Result Comment: Canc elled via OM: Order cancelled - Patient discharged Performed By: #### L 100.0100, L500.2500 ####[facility] [address] [place], [address] RDW SD Normal 35.1-43.9 [facility] Comment on above: Result Comment: Canc elled via OM: Order cancelled - Patient discharged Performed By: #### L 100.0100, L500.2500 ####[facility] [address] [facility] [address] WBC Normal 4.4-11.0 [facility] Comment on above: Result Comment: Canc elled via OM: Order cancelled - Patient discharged Performed By: #### L 100.0100, L500.2500 ####[facility] [address] [place], [address] Absolute lymphocyte countOrd ered By: Betzy Amos on 12-29-2024 Lymphocytes Auto (Unsp spec) [#/Vol] 2.02 10*3/uL 0.83-4.51 [facility] Absolute neutrophil countOrd ered By: Betzy Amos on 12-29-2024 Neutrophils (Bld) [#/Vol] 3.6 10*3/uL 2.0-7.7 [facility] Automated lymphocyte count a s percentage of total leukocytesOrdered By: Betzy Amos on 12-29-2024 Lymphocytes/100 WBC Auto (Unsp spec) 30.8 % 19-41 [facility] Basic Metabolic Profile (BMP )on 12-29-2024 BUN/CRE 13.8 RATIO Normal 10-20 [facility] Comment on above: Performed By: #### L 500.2500, L100.0100 ####[facility] [address] [place], [address] CA,Total 8.7 mg/dL Normal 8.5-10.1 [facility] Comment on above: Performed By: #### L 500.2500, L100.0100 ####[facility] [address] [place], [address] Chloride [Moles/Vol] 111 mmol/L High 98-107 [facility] Comment on above: Performed By: #### L 500.2500, L100.0100 ####[facility] [address] [place], [address] CO2 [Moles/Vol] 24.0 mmol/L Normal 21.0-32.0 [facility] Comment on above: Performed By: #### L 500.2500, L100.0100 ####[facility] [address] [place], [address] Creatinine [Mass/Vol] 0.73 mg/dL Normal 0.55-1.02 [facility] Comment on above: Result Comment: The validity of the calculated GFR GFRAA in patients over70 years has not been determined. Clinical correlation isessential. Performed By: #### L 500.2500, L100.0100 ####[facility] [address] [place], [address] ECRCL 60.00 ml/min Normal [facility] Comment on above: Performed By: #### L 500.2500, L100.0100 ####[facility] [address] [place], [address] EST GFR - AA 101 mL/min Normal >60 [facility] Comment on above: Result Comment: Afri can [place] GFR Calc Performed By: #### L 500.2500, L100.0100 ####[facility] [address] [place], [address] GAP 6 Normal 5-15 [facility] Comment on above: Performed By: #### L 500.2500, L100.0100 ####[facility] [address] [place], [address] GFR/1.73 sq M.predicted among non-blacks MDRD (S/P/Bld) [Vol rate/Area] 83 mL/min/{1.73_m2} Normal >60 [facility] Comment on above: Result Comment: Non- GFR Calc Performed By: #### L 500.2500, L100.0100 ####[facility] [address] [place], [address] Glucose [Mass/Vol] 92 mg/dL Normal 74-106 [facility] Comment on above: Performed By: #### L 500.2500, L100.0100 ####[facility] [address] [place], [address] Potassium [Moles/Vol] 3.6 mmol/L Normal 3.5-5.1 [facility] Comment on above: Performed By: #### L 500.2500, L100.0100 ####[facility] [address] [place], [address] Sodium [Moles/Vol] 141 mmol/L Normal 136-145 [facility] Comment on above: Performed By: #### L 500.2500, L100.0100 ####[facility] [address] [place], [address] Urea nitrogen [Mass/Vol] 10 mg/dL Normal 7-18 [facility] Comment on above: Performed By: #### L 500.2500, L100.0100 ####[facility] [address] [place], [address] Basophil percentageOrdered B y: Betzy Amos on 12-29-2024 Basophils/100 WBC (Bld) 1.4 % High 0-1 [facility] Blood urea nitrogen (BUN)/cr eatinine ratioOrdered By: Betzy Amos on 12-29-2024 Urea nitrogen/Creatinine [Mass ratio] 13.8 mg/mg 10-20 [facility] CBC W/Diff, Automatedon Absolute Lymph 2.02 X10 3/uL Normal 0.83-4.51 [facility] Comment on above: Performed By: #### L 500.2500, L100.0100 ####[facility] [address] [place], [address] Absolute Neut 3.6 X10 3/uL Normal 2.0-7.7 [facility] Comment on above: Performed By: #### L 500.2500, L100.0100 ####[facility] [address] [place], [address] Basophils/100 WBC (Bld) 1.4 % High 0-1 [facility] Comment on above: Performed By: #### L 500.2500, L100.0100 ####[facility] [address] [place], [address] Eosinophils/100 WBC (Bld) 4.7 % Normal 0-5 [facility] Comment on above: Performed By: #### L 500.2500, L100.0100 ####[facility] [facility] [address] [place], [address] Erythrocyte distribution width (RBC) [Ratio] 12.4 % Normal 11.6-14.6 [facility] Comment on above: Performed By: #### L 500.2500, L100.0100 ####[facility] [address] [place], [address] Hematocrit (Bld) [Volume fraction] 41.0 % Normal 37-47 [facility] Comment on above: Performed By: #### L 500.2500, L100.0100 ####[facility] [address] [place], [address] Hemoglobin (Bld) [Mass/Vol] 14.1 g/dL Normal 12.0-15.0 [facility] Comment on above: Performed By: #### L 500.2500, L100.0100 ####[facility] [address] [place], [address] IG% 0.500 Normal 0.0-0.9 [facility] Comment on above: Result Comment: IG% - Immature Granulocytes (promyelocytes, myelocytes andmetamyelocytes) > 1% indicates that a LEFT SHIFT is Present. Performed By: #### L 500.2500, L100.0100 ####[facility] [address] [place], [address] Lymphocytes/100 WBC (Bld) 30.8 % Normal 19-41 [facility] Comment on above: Performed By: #### L 500.2500, L100.0100 ####[facility] [address] [place], [address] MCH (RBC) [Entitic mass] 31.2 pg Normal 27.0-32.0 [facility] Comment on above: Performed By: #### L 500.2500, L100.0100 ####[facility] [address] [place], [address] MCHC (RBC) [Mass/Vol] 34.4 g/dL Normal 32-36 [facility] Comment on above: Performed By: #### L 500.2500, L100.0100 ####[facility] [address] [place], [address] MCV (RBC) [Entitic vol] 90.7 fL Normal 81-99 [facility] Comment on above: Performed By: #### L 500.2500, L100.0100 ####[facility] [address] [place], [address] Monocytes/100 WBC (Bld) 8.4 % Normal 0-10 [facility] Comment on above: Performed By: #### L 500.2500, L100.0100 ####[facility] [address] [place], [address] Neutrophils/100 WBC (Bld) 54.2 % Normal 47-70 [facility] Comment on above: Performed By: #### L 500.2500, L100.0100 ####[facility] [address] [place], [address] Nucleated RBC (Bld) [#/Vol] 0 10*3/uL Normal 0-5 [facility] Comment on above: Performed By: #### L 500.2500, L100.0100 ####[facility] [address] [place], [address] Platelet mean volume (Bld) [Entitic vol] 9.5 fL Normal 6.2-12.0 [facility] Comment on above: Performed By: #### L 500.2500, L100.0100 ####[facility] [address] [place], [address] Platelets (Bld) [#/Vol] 284 10*3/uL Normal 150-450 [facility] Comment on above: Performed By: #### L 500.2500, L100.0100 ####[facility] [address] [place], [address] RBC (Bld) [#/Vol] 4.52 10*6/uL Normal 4.2-5.4 [facility] Comment on above: Performed By: #### L 500.2500, L100.0100 ####[facility] [address] [place], [address] RDW SD 40.5 fl Normal 35.1-43.9 [facility] Comment on above: Performed By: #### L 500.2500, L100.0100 ####[facility] [address] [place], [address] WBC (Bld) [#/Vol] 6.6 10*3/uL Normal 4.4-11.0 [facility] Comment on above: Performed By: #### L 500.2500, L100.0100 ####[facility] [address] [place], [place], [id number] Carbon dioxide measurementOr dered By: Betzy Amos on 12-29-2024 CO2 [Moles/Vol] 24.0 mmol/L 21.0-32.0 [facility] Chloride measurementOrdered By: Betzy Amos on 12-29-2024 Chloride [Moles/Vol] 111 mmol/L High 98-107 [facility] Discharge Instructionon Discharge Instruction Normal [facility] Eosinophil percentageOrdered By: Betzy Amos on 12-29-2024 Eosinophils/100 WBC (Bld) 4.7 % 0-5 [facility] Erythrocyte distribution wid th (RBC) [Ratio]Ordered By: Betzy Amos on 12-29-2024 Erythrocyte distribution width (RBC) [Entitic vol] 40.5 fL 35.1-43.9 [facility] Erythrocyte distribution wid th ratioOrdered By: Betzy Amos on 12-29-2024 Erythrocyte distribution width (RBC) [Ratio] 12.4 % 11.6-14.6 [facility] Erythrocyte distribution wid th standard deviationOrdered By: Betzy Amos on 12-29-2024 Erythrocyte distribution width (RBC) [Ratio] 40.5 fl 35.1-43.9 [facility] Estimated glomerular filtrat ion rate (GFR) AmericanOrdered By: Betzy Amos on 12-29-2024 Estimated GFR (MDRD) Amer 101 mL/min >60 [facility] Comment on above: GFR Calc Estimation of creatinine kyle aranceOrdered By: Betzy Amos on 12-29-2024 Estimated Creatinine Clearance Calc 60.00 ml/min [facility] Glomerular filtration rate ( GFR) estimationOrdered By: Betzy Amos on 12-29-2024 Estimated GFR (MDRD) Non-Af Amer 83 mL/min >60 [facility] Comment on above: Non- GFR Calc GFR/1.73 sq M.predicted among non-blacks MDRD (S/P/Bld) [Vol rate/Area] 83 mL/min/{1.73_m2} >60 [facility] Comment on above: Non- GFR Calc Glucose measurementOrdered B y: Betzy Amos on 12-29-2024 Glucose [Mass/Vol] 92 mg/dL 74-106 [facility] Hematocrit Auto (Bld) [Volum e fraction]Ordered By: Betzy Amos on 12-29-2024 Hematocrit (Bld) [Volume fraction] 41.0 % 37-47 [facility] Hemoglobin measurementOrdere d By: Betzy Amos on 12-29-2024 Hemoglobin (Bld) [Mass/Vol] 14.1 g/dL 12.0-15.0 [facility] Immature granulocytes/100 WB C Auto (Bld)Ordered By: Betzy Amos on 12-29-2024 Immature granulocytes/100 WBC (Bld) 0.500 % 0.0-0.9 [facility] Comment on above: IG% - Immature Granu locytes (promyelocytes, myelocytes and metamyelocytes) > 1% indicates that a LEFT SHIFT is Present. Lymphocytes Auto (Unsp spec) [#/Vol]Ordered By: Betzy Amos on 12-29-2024 Lymphocytes (Bld) [#/Vol] 2.02 10*3/uL 0.83-4.51 [facility] Lymphocytes/100 WBC Auto (Un sp spec)Ordered By: Betzy Amos on 12-29-2024 Lymphocytes/100 WBC (Bld) 30.8 % 19-41 [facility] MCV (mean corpuscular volume ) determinationOrdered By: Betzy Amos on 12-29-2024 MCV (RBC) [Entitic vol] 90.7 fL 81-99 [facility] Mean corpuscular hemoglobin (MCH) determinationOrdered By: Betzy Amos on 12-29-2024 MCH (RBC) [Entitic mass] 31.2 pg 27.0-32.0 [facility] Mean corpuscular hemoglobin concentration (MCHC) determinationOrdered By: Betzy Amos on 12-29-2024 MCHC (RBC) [Mass/Vol] 34.4 g/dL 32-36 [facility] Mean platelet volume determi nationOrdered By: Betzy Amos on 12-29-2024 Platelet mean volume (Bld) [Entitic vol] 9.5 fL 6.2-12.0 [facility] Monocyte percentageOrdered B y: Betzy Amos on 12-29-2024 Monocytes/100 WBC (Bld) 8.4 % 0-10 [facility] Neutrophil percentageOrdered By: Betzy Amos on 12-29-2024 Neutrophils/100 WBC (Bld) 54.2 % 47-70 [facility] Nucleated red blood cell per centageOrdered By: Betzy Amos on 12-29-2024 Nucleated RBC/100 WBC (Bld) [Ratio] 0 % 0-5 [facility] Platelet countOrdered By: Na imelda Amos on 12-29-2024 Platelets (Bld) [#/Vol] 284 10*3/uL 150-450 [facility] Potassium measurementOrdered By: Betzy Amos on 12-29-2024 Potassium [Moles/Vol] 3.6 mmol/L 3.5-5.1 [facility] RBC Auto (Bld) [#/Vol]Ordere d By: Betzy Amos on 12-29-2024 RBC (Bld) [#/Vol] 4.52 10*6/uL 4.2-5.4 [facility] Serum anion gap measurementO rdered By: Betzy Amos on 12-29-2024 Anion gap [Moles/Vol] 6 mmol/L 5-15 [facility] Serum or plasma calcium antonio urement (mass/volume)Ordered By: Betzy Amos on 12-29-2024 Calcium [Mass/Vol] 8.7 mg/dL 8.5-10.1 [facility] Serum or plasma creatinine m easurement (mass/volume)Ordered By: Betzy Amos on 12-29-2024 Creatinine [Mass/Vol] 0.73 mg/dL 0.55-1.02 [facility] Comment on above: The validity of the calculated GFR & GFRAA in patients over 70 years has not been determined. Clinical correlation is essential. Serum or plasma urea nitroge n measurement (mass/volume)Ordered By: Betzyjosue Amos on 12-29-2024 Urea nitrogen [Mass/Vol] 10 mg/dL 7-18 [facility] Sodium levelOrdered By: Betzyjosue Amos on 12-29-2024 Sodium [Moles/Vol] 141 mmol/L 136-145 [facility] White blood cell (WBC) count Ordered By: Betzyjosue Amos on 12-29-2024 WBC (Bld) [#/Vol] 6.6 10*3/uL 4.4-11.0 [facility] Albumin to globulin ratioOrd ered By: Aubrie Sera on 12-28-2024 Albumin/Globulin [Mass ratio] 1.0 {ratio} 0.9-2.4 [facility] Bedside Glucoseon 12-28-2024 FINGERSTICK GLU 91 mg/dL Normal 74-106 [facility] Comment on above: Result Comment: MARIO TEAGUE OF PATIENT CARE PER NURSING PROTOCOL Performed By: #### L 501.080 ####[facility] [address] [place], [address] Bilirubin, totalOrdered By: Aubrie Sera on 12-28-2024 Bilirubin [Mass/Vol] 0.60 mg/dL 0.20-1.00 [facility] Comment on above: For patients on eltr ombopag therapy, use of Dimension [place] TBIL is not recommended. Brain without Contraston Brain without Contrast Normal [facility] CBC W/Diff, Automatedon Absolute Lymph 1.93 X10 3/uL Normal 0.83-4.51 [facility] Comment on above: Performed By: #### L 100.0100, L500.4050, L500.4100, L501.9985, L501.9520 ####[facility] [address] [place], [place], [phone] Absolute Neut 3.7 X10 3/uL Normal 2.0-7.7 [facility] Comment on above: Performed By: #### L 100.0100, L500.4050, L500.4100, L501.9985, L501.9520 ####[facility] [address] [place], [address] Basophils/100 WBC (Bld) 1.4 % High 0-1 [facility] Comment on above: Performed By: #### L 100.0100, L500.4050, L500.4100, L501.9985, L501.9520 ####[facility] [address] [place], [address] Eosinophils/100 WBC (Bld) 4.2 % Normal 0-5 [facility] Comment on above: Performed By: #### L 100.0100, L500.4050, L500.4100, L501.9985, L501.9520 ####[facility] [address] [place], [address] Erythrocyte distribution width (RBC) [Ratio] 12.5 % Normal 11.6-14.6 [facility] Comment on above: Performed By: #### L 100.0100, L500.4050, L500.4100, L501.9985, L501.9520 ####[facility] [address] [place], [address] Hematocrit (Bld) [Volume fraction] 42.0 % Normal 37-47 [facility] Comment on above: Performed By: #### L 100.0100, L500.4050, L500.4100, L501.9985, L501.9520 ####[facility] [address] [place], [address] Hemoglobin (Bld) [Mass/Vol] 14.0 g/dL Normal 12.0-15.0 [facility] Comment on above: Performed By: #### L 100.0100, L500.4050, L500.4100, L501.9985, L501.9520 ####[facility] [address] [place], [address] IG% 0.200 Normal 0.0-0.9 [facility] Comment on above: Result Comment: IG% - Immature Granulocytes (promyelocytes, myelocytes andmetamyelocytes) > 1% indicates that a LEFT SHIFT is Present. Performed By: #### L 100.0100, L500.4050, L500.4100, L501.9985, L501.9520 ####[facility] [address] [place], [address] Lymphocytes/100 WBC (Bld) 30.2 % Normal 19-41 [facility] Comment on above: Performed By: #### L 100.0100, L500.4050, L500.4100, L501.9985, L501.9520 ####[facility] [address] [place], [address] MCH (RBC) [Entitic mass] 30.5 pg Normal 27.0-32.0 [facility] Comment on above: Performed By: #### L 100.0100, L500.4050, L500.4100, L501.9985, L501.9520 ####[facility] [address] [place], [address] MCHC (RBC) [Mass/Vol] 33.3 g/dL Normal 32-36 [facility] Comment on above: Performed By: #### L 100.0100, L500.4050, L500.4100, L501.9985, L501.9520 ####[facility] [address] [place], [address] MCV (RBC) [Entitic vol] 91.5 fL Normal 81-99 [facility] Comment on above: Performed By: #### L 100.0100, L500.4050, L500.4100, L501.9985, L501.9520 ####[facility] [address] [place], [address] Monocytes/100 WBC (Bld) 6.4 % Normal 0-10 [facility] Comment on above: Performed By: #### L 100.0100, L500.4050, L500.4100, L501.9985, L501.9520 ####[facility] [address] [place], [address] Neutrophils/100 WBC (Bld) 57.6 % Normal 47-70 [facility] Comment on above: Performed By: #### L 100.0100, L500.4050, L500.4100, L501.9985, L501.9520 ####[facility] [address] [place], [address] Nucleated RBC (Bld) [#/Vol] 0 10*3/uL Normal 0-5 [facility] Comment on above: Performed By: #### L 100.0100, L500.4050, L500.4100, L501.9985, L501.9520 ####[facility] [address] [place], [address] Platelet mean volume (Bld) [Entitic vol] 9.2 fL Normal 6.2-12.0 [facility] Comment on above: Performed By: #### L 100.0100, L500.4050, L500.4100, L501.9985, L501.9520 ####[facility] [address] [place], [address] Platelets (Bld) [#/Vol] 291 10*3/uL Normal 150-450 [facility] Comment on above: Performed By: #### L 100.0100, L500.4050, L500.4100, L501.9985, L501.9520 ####[facility] [address] [place], [address] RBC (Bld) [#/Vol] 4.59 10*6/uL Normal 4.2-5.4 [facility] Comment on above: Performed By: #### L 100.0100, L500.4050, L500.4100, L501.9985, L501.9520 ####[facility] [address] [place], [address] RDW SD 41.4 fl Normal 35.1-43.9 [facility] Comment on above: Performed By: #### L 100.0100, L500.4050, L500.4100, L501.9985, L501.9520 ####[facility] [address] [place], [address] WBC (Bld) [#/Vol] 6.4 10*3/uL Normal 4.4-11.0 [facility] Comment on above: Performed By: #### L 100.0100, L500.4050, L500.4100, L501.9985, L501.9520 ####[facility] [address] [place], [address] Comprehensive Metabolic Prof ilon 12-28-2024 Albumin [Mass/Vol] 3.2 g/dL Normal 3.2-5.0 [facility] Comment on above: Performed By: #### L 100.0100, L500.4050, L500.4100, L501.9985, L501.9520 ####[facility] [address] [place], [address] Albumin/Globulin [Mass ratio] 1.0 {ratio} Normal 0.9-2.4 [facility] Comment on above: Performed By: #### L 100.0100, L500.4050, L500.4100, L501.9985, L501.9520 ####[facility] [address] [place], [address] ALK P 66 U/L Normal 45-117 [facility] Comment on above: Performed By: #### L 100.0100, L500.4050, L500.4100, L501.9985, L501.9520 ####[facility] [address] [place], [address] ALT [Catalytic activity/Vol] 7 U/L Low 13-56 [facility] Comment on above: Performed By: #### L 100.0100, L500.4050, L500.4100, L501.9985, L501.9520 ####[facility] [address] [place], [address] AST [Catalytic activity/Vol] 13 U/L Low 15-37 [facility] Comment on above: Performed By: #### L 100.0100, L500.4050, L500.4100, L501.9985, L501.9520 ####[facility] [address] [place], [address] Bilirubin [Mass/Vol] 0.60 mg/dL Normal 0.20-1.00 [facility] Comment on above: Result Comment: For patients on eltrombopag therapy, use of Dimension [place] TBIL is not recommended. Performed By: #### L 100.0100, L500.4050, L500.4100, L501.9985, L501.9520 ####[facility] [address] [place], [address] BUN/CRE 20.2 RATIO High 10-20 [facility] Comment on above: Performed By: #### L 100.0100, L500.4050, L500.4100, L501.9985, L501.9520 ####[facility] [address] [place], [address] CA,Total 8.6 mg/dL Normal 8.5-10.1 [facility] Comment on above: Performed By: #### L 100.0100, L500.4050, L500.4100, L501.9985, L501.9520 ####[facility] [address] [place], [address] Chloride [Moles/Vol] 113 mmol/L High 98-107 [facility] Comment on above: Performed By: #### L 100.0100, L500.4050, L500.4100, L501.9985, L501.9520 ####[facility] [address] [place], [address] CO2 [Moles/Vol] 24.0 mmol/L Normal 21.0-32.0 [facility] Comment on above: Performed By: #### L 100.0100, L500.4050, L500.4100, L501.9985, L501.9520 ####[facility] [address] [place], [address] Creatinine [Mass/Vol] 0.64 mg/dL Normal 0.55-1.02 [facility] Comment on above: Result Comment: The validity of the calculated GFR GFRAA in patients over70 years has not been determined. Clinical correlation isessential. Performed By: #### L 100.0100, L500.4050, L500.4100, L501.9985, L501.9520 ####[facility] [address] [place], [address] ECRCL 64.83 ml/min Normal [facility] Comment on above: Performed By: #### L 100.0100, L500.4050, L500.4100, L501.9985, L501.9520 ####[facility] [address] [place], [address] EST GFR - AA 116 mL/min Normal >60 [facility] Comment on above: Result Comment: Afri can [place] GFR Calc Performed By: #### L 100.0100, L500.4050, L500.4100, L501.9985, L501.9520 ####[facility] [address] [place], [address] GAP 6 Normal 5-15 [facility] Comment on above: Performed By: #### L 100.0100, L500.4050, L500.4100, L501.9985, L501.9520 ####[facility] [address] [place], [address] GFR/1.73 sq M.predicted among non-blacks MDRD (S/P/Bld) [Vol rate/Area] 96 mL/min/{1.73_m2} Normal >60 [facility] Comment on above: Result Comment: Non- GFR Calc Performed By: #### L 100.0100, L500.4050, L500.4100, L501.9985, L501.9520 ####[facility] [address] [place], [address] Globulin (S) [Mass/Vol] 3.2 g/dL Normal 2.2-4.2 [facility] Comment on above: Performed By: #### L 100.0100, L500.4050, L500.4100, L501.9985, L501.9520 ####[facility] [address] [place], [address] Glucose [Mass/Vol] 89 mg/dL Normal 74-106 [facility] Comment on above: Performed By: #### L 100.0100, L500.4050, L500.4100, L501.9985, L501.9520 ####[facility] [address] [place], [address] Potassium [Moles/Vol] 3.7 mmol/L Normal 3.5-5.1 [facility] Comment on above: Performed By: #### L 100.0100, L500.4050, L500.4100, L501.9985, L501.9520 ####[facility] [address] [place], [address] Sodium [Moles/Vol] 142 mmol/L Normal 136-145 [facility] Comment on above: Performed By: #### L 100.0100, L500.4050, L500.4100, L501.9985, L501.9520 ####[facility] [address] [place], [address] T PROT 6.4 g/dL Normal 6.4-8.2 [facility] Comment on above: Performed By: #### L 100.0100, L500.4050, L500.4100, L501.9985, L501.9520 ####[facility] [address] [place], [address] Urea nitrogen [Mass/Vol] 13 mg/dL Normal 7-18 [facility] Comment on above: Performed By: #### L 100.0100, L500.4050, L500.4100, L501.9985, L501.9520 ####[facility] [address] [place], [address] Hemoglobin A1con 12-28-2024 HbA1c (Bld) [Mass fraction] 4.1 % Normal 3.8-5.6 [facility] Comment on above: Result Comment: Norm al < 5.7 % Prediabetic 5.7 - 6.4 % Diabetic >or= 6.5 % Please note range changes. Performed By: #### L 100.0100, L500.4050, L500.4100, L501.9985, L501.9520 ####[facility] [address] [place], [address] Hemoglobin A1c percentageOrd ered By: Aubrie Zamora on 12-28-2024 HbA1c (Bld) [Mass fraction] 4.1 % 3.8-5.6 [facility] Comment on above: Normal < 5.7 % Predi abetic 5.7 - 6.4 % Diabetic >or= 6.5 % Please note range changes. High density lipoprotein (HD L) measurementOrdered By: Aubrie Sera on 12-28-2024 Cholesterol in HDL [Mass/Vol] 62 mg/dL >40 [facility] Comment on above: The drugs N-Acetylcy steine and Metamizole may falsely depress this assay. Reference Range HDL <40 mg/dL Low HDL Cholesterol HDL >or= 60 mg/dL High HDL Cholesterol Laboratory - Chemistry and C hemistry - challengeOrdered By: Aubrie Zamora on 12-28-2024 AST [Catalytic activity/Vol] 13 U/L Low 15-37 [facility] Lipid Profileon 12-28-2024 Cholesterol [Mass/Vol] 179 mg/dL Normal 200 [facility] Comment on above: Result Comment: <200 mg/dL Desirable 200-240 mg/dL Borderline >240 mg/dL High Risk Performed By: #### L 100.0100, L500.4050, L500.4100, L501.9985, L501.9520 ####[facility] [address] [place], [address] Cholesterol in HDL [Mass/Vol] 62 mg/dL Normal [facility] Comment on above: Result Comment: The drugs N-Acetylcysteine and Metamizole may falselydepress this assay. Reference Range HDL <40 mg/dL Low HDL Cholesterol HDL >or= 60 mg/dL High HDL Cholesterol Performed By: #### L 100.0100, L500.4050, L500.4100, L501.9985, L501.9520 ####[facility] [address] [place], [address] Cholesterol in LDL [Mass/Vol] 102 mg/dL Normal 0-130 [facility] Comment on above: Performed By: #### L 100.0100, L500.4050, L500.4100, L501.9985, L501.9520 ####[facility] [address] [place], [address] Cholesterol in VLDL [Mass/Vol] 15 mg/dL Normal 5-40 [facility] Comment on above: Performed By: #### L 100.0100, L500.4050, L500.4100, L501.9985, L501.9520 ####[facility] [address] [facility] [place], [place], [id number] Triglyceride [Mass/Vol] 76 mg/dL Normal [facility] Comment on above: Result Comment: The drugs N-Acetylcysteine and Metamizole may falselydepress this assay.Serum Triglycerides Reference Interval Normal <150 mg/dL Borderline high 150 - 199 mg/dL High 200 - 499 mg/dL Very High > or = 500 mg/dL Performed By: #### L 100.0100, L500.4050, L500.4100, L501.9985, L501.9520 ####[facility] [address] [place], [place], [id number] Low density lipoprotein (LDL ) cholesterol measurementOrdered By: Aubrie Zamora on 12-28-2024 Cholesterol in LDL [Mass/Vol] 102 mg/dL 0-130 [facility] MR/CON.PCM.NEon 12-28-2024 MR/CON.PCM.NE Normal [facility] Serum globulin measurementOr dered By: Aubrie Zamora on 12-28-2024 Globulin (S) [Mass/Vol] 3.2 g/dL 2.2-4.2 [facility] Serum or plasma alanine forbes otransferase (ALT) measurementOrdered By: Aubrie Zamora on 12-28-2024 ALT [Catalytic activity/Vol] 7 U/L Low 13-56 [facility] Serum or plasma albumin antonio urement (mass/volume)Ordered By: Aubrie Zamora on 12-28-2024 Albumin [Mass/Vol] 3.2 g/dL 3.2-5.0 [facility] Serum or plasma alkaline rickie sphatase measurementOrdered By: Aubrie Zamora on 12-28-2024 ALP [Catalytic activity/Vol] 66 U/L 45-117 [facility] Serum or plasma cholesterol measurement (mass/volume)Ordered By: Aubrie Zamora on 12-28-2024 Cholesterol [Mass/Vol] 179 mg/dL <200 [facility] Comment on above: <200 mg/dL Desirable 200-240 mg/dL Borderline >240 mg/dL High Risk Serum or plasma thyroid stim ulating hormone (TSH) measurement (units/volume)Ordered By: Aubrie Zamora on 12-28-2024 TSH Qn 2.660 uIU/mL 0.358-3.74 0 [facility] TSH QnOrdered By: Aubrie Crawford te on 12-28-2024 Thyroid Stimulating Hormone (TSH) 2.660 uIU/mL 0.358-3.74 0 [facility] Thyroid Stim Hormone (TSH)on 12-28-2024 TSH 2.660 uIU/mL Normal 0.358-3.74 0 [facility] Comment on above: Performed By: #### L 100.0100, L500.4050, L500.4100, L501.9985, L501.9520 ####[facility] [id number] [place], [address] Total proteinOrdered By: Kaleb Zamora on 12-28-2024 Protein [Mass/Vol] 6.4 g/dL 6.4-8.2 [facility] Triglycerides measurementOrd ered By: Aubrie Zamora on 12-28-2024 Triglyceride [Mass/Vol] 76 mg/dL <199 [facility] Comment on above: The drugs N-Acetylcy steine and Metamizole may falsely depress this assay.Serum Triglycerides Reference Interval Normal <150 mg/dL Borderline high 150 - 199 mg/dL High 200 - 499 mg/dL Very High > or = 500 mg/dL Very low density lipoprotein (VLDL) cholesterol measurementOrdered By: Aubrie Zamora on 12-28-2024 Very low density lipoprotein (VLDL) cholesterol measurement 15 mg/dL 5-40 [facility] VLDL Cholesterol 15 mg/dL 5-40 [facility] [facility] Lead EKGon 12-27-2024 12 Lead EKG Normal [facility] Activated partial thrombopla stin time (aPTT) in platelet poor plasma by coagulation aOrdered By: King Gordon on 12-27-2024 aPTT Coag (PPP) [Time] 29.0 s 24.1-36.2 [facility] Basic Metabolic Profile (BMP )on 12-27-2024 BUN/CRE 13.6 RATIO Normal 10-20 [facility] Comment on above: Order Comment: 'TROP ' Serial specimen #1, #2 or #3: 1 Performed By: #### L 300.3900, L300.4310, L501.4020, L500.2500, L100.0100 ####[facility] [address] [place], [address] CA,Total 8.9 mg/dL Normal 8.5-10.1 [facility] Comment on above: Order Comment: 'TROP ' Serial specimen #1, #2 or #3: 1 Performed By: #### L 300.3900, L300.4310, L501.4020, L500.2500, L100.0100 ####[facility] [address] [place], [address] Chloride [Moles/Vol] 110 mmol/L High 98-107 [facility] Comment on above: Order Comment: 'TROP ' Serial specimen #1, #2 or #3: 1 Performed By: #### L 300.3900, L300.4310, L501.4020, L500.2500, L100.0100 ####[facility] [address] [place], [address] CO2 [Moles/Vol] 25.0 mmol/L Normal 21.0-32.0 [facility] Comment on above: Order Comment: 'TROP ' Serial specimen #1, #2 or #3: 1 Performed By: #### L 300.3900, L300.4310, L501.4020, L500.2500, L100.0100 ####[facility] [address] [place], [address] Creatinine [Mass/Vol] 0.88 mg/dL Normal 0.55-1.02 [facility] Comment on above: Order Comment: 'TROP ' Serial specimen #1, #2 or #3: 1 Result Comment: The validity of the calculated GFR GFRAA in patients over70 years has not been determined. Clinical correlation isessential. Performed By: #### L 300.3900, L300.4310, L501.4020, L500.2500, L100.0100 ####[facility] [address] [place], [address] ECRCL 54.54 ml/min Normal [facility] Comment on above: Order Comment: 'TROP ' Serial specimen #1, #2 or #3: 1 Performed By: #### L 300.3900, L300.4310, L501.4020, L500.2500, L100.0100 ####[facility] [address] [place], [address] EST GFR - AA 80 mL/min Normal >60 [facility] Comment on above: Order Comment: 'TROP ' Serial specimen #1, #2 or #3: 1 Result Comment: Afri can Montenegrin GFR Calc Performed By: #### L 300.3900, L300.4310, L501.4020, L500.2500, L100.0100 ####[facility] [address] [place], [address] GAP 4 Low 5-15 [facility] Comment on above: Order Comment: 'TROP ' Serial specimen #1, #2 or #3: 1 Performed By: #### L 300.3900, L300.4310, L501.4020, L500.2500, L100.0100 ####[facility] [address] [place], [address] GFR/1.73 sq M.predicted among non-blacks MDRD (S/P/Bld) [Vol rate/Area] 67 mL/min/{1.73_m2} Normal >60 [facility] Comment on above: Order Comment: 'TROP ' Serial specimen #1, #2 or #3: 1 Result Comment: Non- GFR Calc Performed By: #### L 300.3900, L300.4310, L501.4020, L500.2500, L100.0100 ####[facility] [address] [place], [address] Glucose [Mass/Vol] 105 mg/dL Normal 74-106 [facility] Comment on above: Order Comment: 'TROP ' Serial specimen #1, #2 or #3: 1 Result Comment: Fast ing Glucose result from 100 to 125 mg/dLsuggests IMPAIRED HOMEOSTASIS per A.D.A. criteria. Performed By: #### L 300.3900, L300.4310, L501.4020, L500.2500, L100.0100 ####[facility] [address] [place], [address] Potassium [Moles/Vol] 3.5 mmol/L Normal 3.5-5.1 [facility] Comment on above: Order Comment: 'TROP ' Serial specimen #1, #2 or #3: 1 Performed By: #### L 300.3900, L300.4310, L501.4020, L500.2500, L100.0100 ####[facility] [address] [place], [address] Sodium [Moles/Vol] 139 mmol/L Normal 136-145 [facility] Comment on above: Order Comment: 'TROP ' Serial specimen #1, #2 or #3: 1 Performed By: #### L 300.3900, L300.4310, L501.4020, L500.2500, L100.0100 ####[facility] [address] [place], [address] Urea nitrogen [Mass/Vol] 12 mg/dL Normal 7-18 [facility] Comment on above: Order Comment: 'TROP ' Serial specimen #1, #2 or #3: 1 Performed By: #### L 300.3900, L300.4310, L501.4020, L500.2500, L100.0100 ####[facility] [address] [place], [address] CBC W/Diff, Automatedon 02-0 Absolute Lymph 1.83 X10 3/uL Normal 0.83-4.51 [facility] Comment on above: Performed By: #### L 300.3900, L300.4310, L501.4020, L500.2500, L100.0100 ####[facility] [address] [place], [address] Absolute Neut 4.7 X10 3/uL Normal 2.0-7.7 [facility] Comment on above: Performed By: #### L 300.3900, L300.4310, L501.4020, L500.2500, L100.0100 ####[facility] [address] [place], [address] Basophils/100 WBC (Bld) 1.1 % High 0-1 [facility] Comment on above: Performed By: #### L 300.3900, L300.4310, L501.4020, L500.2500, L100.0100 ####[facility] [address] [place], [address] Eosinophils/100 WBC (Bld) 3.1 % Normal 0-5 [facility] Comment on above: Performed By: #### L 300.3900, L300.4310, L501.4020, L500.2500, L100.0100 ####[facility] [address] [place], [address] Erythrocyte distribution width (RBC) [Ratio] 12.4 % Normal 11.6-14.6 [facility] Comment on above: Performed By: #### L 300.3900, L300.4310, L501.4020, L500.2500, L100.0100 ####[facility] [address] [place], [address] Hematocrit (Bld) [Volume fraction] 41.7 % Normal 37-47 [facility] Comment on above: Performed By: #### L 300.3900, L300.4310, L501.4020, L500.2500, L100.0100 ####[facility] [address] [place], [address] Hemoglobin (Bld) [Mass/Vol] 14.3 g/dL Normal 12.0-15.0 [facility] Comment on above: Performed By: #### L 300.3900, L300.4310, L501.4020, L500.2500, L100.0100 ####[facility] [address] [place], [address] IG% 0.400 Normal 0.0-0.9 [facility] Comment on above: Result Comment: IG% - Immature Granulocytes (promyelocytes, myelocytes andmetamyelocytes) > 1% indicates that a LEFT SHIFT is Present. Performed By: #### L 300.3900, L300.4310, L501.4020, L500.2500, L100.0100 ####[facility] [address] [place], [address] Lymphocytes/100 WBC (Bld) 25.0 % Normal 19-41 [facility] Comment on above: Performed By: #### L 300.3900, L300.4310, L501.4020, L500.2500, L100.0100 ####[facility] [address] [place], [address] MCH (RBC) [Entitic mass] 31.8 pg Normal 27.0-32.0 [facility] Comment on above: Performed By: #### L 300.3900, L300.4310, L501.4020, L500.2500, L100.0100 ####[facility] [address] [place], [address] MCHC (RBC) [Mass/Vol] 34.3 g/dL Normal 32-36 [facility] Comment on above: Performed By: #### L 300.3900, L300.4310, L501.4020, L500.2500, L100.0100 ####[facility] [address] [place], [address] MCV (RBC) [Entitic vol] 92.9 fL Normal 81-99 [facility] Comment on above: Performed By: #### L 300.3900, L300.4310, L501.4020, L500.2500, L100.0100 ####[facility] [address] [place], [address] Monocytes/100 WBC (Bld) 6.7 % Normal 0-10 [facility] Comment on above: Performed By: #### L 300.3900, L300.4310, L501.4020, L500.2500, L100.0100 ####[facility] [address] [place], [address] Neutrophils/100 WBC (Bld) 63.7 % Normal 47-70 [facility] Comment on above: Performed By: #### L 300.3900, L300.4310, L501.4020, L500.2500, L100.0100 ####[facility] [address] [place], [address] Nucleated RBC (Bld) [#/Vol] 0 10*3/uL Normal 0-5 [facility] Comment on above: Performed By: #### L 300.3900, L300.4310, L501.4020, L500.2500, L100.0100 ####[facility] [address] [place], [address] Platelet mean volume (Bld) [Entitic vol] 9.3 fL Normal 6.2-12.0 [facility] Comment on above: Performed By: #### L 300.3900, L300.4310, L501.4020, L500.2500, L100.0100 ####[facility] [address] [place], [address] Platelets (Bld) [#/Vol] 303 10*3/uL Normal 150-450 [facility] Comment on above: Performed By: #### L 300.3900, L300.4310, L501.4020, L500.2500, L100.0100 ####[facility] [address] [place], [address] RBC (Bld) [#/Vol] 4.49 10*6/uL Normal 4.2-5.4 [facility] Comment on above: Performed By: #### L 300.3900, L300.4310, L501.4020, L500.2500, L100.0100 ####[facility] [address] [place], [address] RDW SD 42.4 fl Normal 35.1-43.9 [facility] Comment on above: Performed By: #### L 300.3900, L300.4310, L501.4020, L500.2500, L100.0100 ####[facility] [address] [place], [address] WBC (Bld) [#/Vol] 7.3 10*3/uL Normal 4.4-11.0 [facility] Comment on above: Performed By: #### L 300.3900, L300.4310, L501.4020, L500.2500, L100.0100 ####[facility] [address] [place], [address] Chest 1 Viewon 12-27-2024 Chest 1 View Normal [facility] Echo Completeon 12-27-2024 Echo Complete Normal [facility] Emergency Department Summary on 12-27-2024 Emergency Department Summary Normal [facility]dered By: Betzy Amos on 12-27-2024 Bedside Glucose (Misc Panel) 91 mg/dL 74-106 [facility] Comment on above: MANAGEMENT OF PATIEN T CARE PER NURSING PROTOCOL Glucose [Mass/Vol] 91 mg/dL 74-106 [facility] Comment on above: MANAGEMENT OF PATIEN T CARE PER NURSING PROTOCOL H AND P Exam - [facility] 12-27-2024 H&P Exam - Hospitalist Normal [facility] normalized rat io (INR) calculationOrdered By: King Gordon on 12-27-2024 INR Coag (Bld) [Relative time] 1.0 {INR} [facility] L501.4020on 12-27-2024 TROPONIN-I HS 4 pg/mL Normal 3.0-54.0 [facility] Comment on above: Order Comment: 'TROP ' Serial specimen #1, #2 or #3: 1 Result Comment: Saira chester Note: New Test Units and Gender Specific Reference Ranges. For more information see Policy Stat Procedure [place] High Sensitivity Troponin (TNIH) and attachments. Performed By: #### L 300.3900, L300.4310, L501.4020, L500.2500, L100.0100 ####[facility] [address] [place], [address] Magnesiumon 12-27-2024 Magnesium [Mass/Vol] 2.2 mg/dL Normal 1.6-2.6 [facility] Comment on above: Order Comment: Comme nts: may add to ED labs Performed By: #### L 501.5200 ####[facility] [address] [place], [place], [address] Magnesium measurementOrdered By: Aubrie Zamora on 12-27-2024 Magnesium [Mass/Vol] 2.2 mg/dL 1.6-2.6 [facility] Partial Thromboplast Timeon 12-27-2024 aPTT Coag (Bld) [Time] 29.0 s Normal 24.1-36.2 [facility] Comment on above: Performed By: #### L 300.3900, L300.4310, L501.4020, L500.2500, L100.0100 ####[facility] [address] [place], [place], [address] Prothrombin Time w/INRon INR Coag (PPP) [Relative time] 1.0 {INR} Normal [facility] Comment on above: Performed By: #### L 300.3900, L300.4310, L501.4020, L500.2500, L100.0100 ####[facility] [address] [place], [address] PT Coag (PPP) [Time] 13.4 s Normal 11.7-14.9 [facility] Comment on above: Performed By: #### L 300.3900, L300.4310, L501.4020, L500.2500, L100.0100 ####[facility] [address] [place], [address] Prothrombin timeOrdered By: King Gordon on 12-27-2024 PT Coag (PPP) [Time] 13.4 s 11.7-14.9 [facility] STROKE Brain/Head without Co nton 12-27-2024 STROKE Brain/Head without Cont Normal [facility] STROKE CTA Head AND Neck W/C onon 12-27-2024 STROKE CTA Head AND Neck W/Con Normal [facility] Troponin IOrdered By: King pichardo on 12-27-2024 Troponin I 4 pg/mL 3.0-54.0 [facility] Comment on above: Please Note: New Katarina t Units and Gender Specific Reference Ranges. For more information see Policy Stat Procedure [place] High Sensitivity Troponin (TNIH) and attachments. Troponin I High Sensitivity 4 pg/mL 3.0-54.0 [facility] Comment on above: Please Note: New Katarina t Units and Gender Specific Reference Ranges. For more information see Policy Stat Procedure [place] High Sensitivity Troponin (TNIH) and attachments. aPTT Coag (PPP) [Time]Ordere d By: King Gordon on 12-27-2024 aPTT Coag (Bld) [Time] 29.0 s 24.1-36.2 [facility] Heavy Metals, Bloodon 2024 ARSENIC,BLOOD 2 ug/L Normal 0-9 [facility] Comment on above: Order Comment: Test( s) 866187-Odqm, Blood; 621565-Jwlxjux, Blood; 859405-Bpsepom, Bloodwas developed and its performance characteristicsdetermined by [employer]. It has not been cleared or approvedby the Food and Drug Administration. Result Comment: Dete ction Limit = 1 Performed By: #### L 501.40243, L3300.9900, L3100.6425, L100.0100, L506.0400, L500.4100, L501.9520, L500.4050 ####[facility] [address] [place], [place], [phone](241) LEAD, BLOOD < 1.0 Normal 0.0-3.4 [facility] Comment on above: Order Comment: Test( s) 488871-Fgtn, Blood; 083670-Rlvzscj, Blood; 880124-Kgjnupi, Bloodwas developed and its performance characteristicsdetermined by [employer]. It has not been cleared or approvedby the Food and Drug Administration. Result Comment: Test ing performed by Inductively coupled plasma/MassSpectrometry. Environmental Exposure: WHO Recommendation <5.0 Occupational Exposure: OSHA Lead Std 40.0 [place] 30.0 Detection Limit = 1.0 Performed By: #### L 501.46725, L3300.9900, L3100.6425, L100.0100, L506.0400, L500.4100, L501.9520, L500.4050 ####[facility] [address] [place], [place], [phone](857) MERCURY,BLOOD < 1.0 Normal 0.0-14.9 [facility] Comment on above: Order Comment: Test( s) 398739-Wvqp, Blood; 245316-Dxzkjur, Blood; 909640-Glyhata, Bloodwas developed and its performance characteristicsdetermined by [employer]. It has not been cleared or approvedby the Food and Drug Administration. Result Comment: Dete ction Limit = 1.0 Performed By: #### L 501.76934, L3300.9900, L3100.6425, L100.0100, L506.0400, L500.4100, L501.9520, L500.4050 ####[facility] [address] [place], [place], [id number] Zinc, Plasma or Serumon ZINC,PLASMA/SER 80 ug/dL Normal 44-115 [facility] Comment on above: Order Comment: Test( s) 763859-Hzsv, Blood; 798724-Ogybauq, Blood; 197561-Hlurydc, Bloodwas developed and its performance characteristicsdetermined by [employer]. It has not been cleared or approvedby the Food and Drug Administration. Result Comment: Dete ction Limit = 5Performed at: [address] [id number] Director: Jayna Rodriguez MD, Phone: [phone] Performed By: #### L 501.14331, L3300.9900, L3100.6425, L100.0100, L506.0400, L500.4100, L501.9520, L500.4050 ####[facility] [address] [place], [place], [phone] Absolute neutrophil countOrd ered By: Roxy Wallace on 11-23-2024 Neutrophils (Bld) [#/Vol] 3.4 10*3/uL 2.0-7.7 [facility] Albumin to globulin ratioOrd ered By: Roxy Wallace on 11-23-2024 Albumin/Globulin [Mass ratio] 1.1 {ratio} 0.9-2.4 [facility] ArsenicOrdered By: Roxy whitney on 11-23-2024 Arsenic 2 ug/L 0-9 [facility] Comment on above: Detection Limit = 1 Basophil percentageOrdered B y: Roxy Wallace on 11-23-2024 Basophils/100 WBC (Bld) 1.4 % High 0-1 [facility] Bilirubin, totalOrdered By: Roxy Wallace on 11-23-2024 Bilirubin [Mass/Vol] 0.50 mg/dL 0.20-1.00 [facility] Comment on above: For patients on eltr ombopag therapy, use of Dimension [place] TBIL is not recommended. Blood urea nitrogen (BUN)/cr eatinine ratioOrdered By: Roxy Wallace on 11-23-2024 Urea nitrogen/Creatinine [Mass ratio] 15.8 mg/mg 10-20 [facility] CBC W/Diff, Automatedon Absolute Lymph 1.38 X10 3/uL Normal 0.83-4.51 [facility] Comment on above: Performed By: #### L 501.86093, L3300.9900, L3100.6425, L100.0100, L506.0400, L500.4100, L501.9520, L500.4050 ####[facility] [address] [place], [address] Absolute Neut 3.4 X10 3/uL Normal 2.0-7.7 [facility] Comment on above: Performed By: #### L 501.87445, L3300.9900, L3100.6425, L100.0100, L506.0400, L500.4100, L501.9520, L500.4050 ####[facility] [address] [place], [address] Basophils/100 WBC (Bld) 1.4 % High 0-1 [facility] Comment on above: Performed By: #### L 501.83112, L3300.9900, L3100.6425, L100.0100, L506.0400, L500.4100, L501.9520, L500.4050 ####[facility] [address] [place], [address] Eosinophils/100 WBC (Bld) 5.0 % Normal 0-5 [facility] Comment on above: Performed By: #### L 501.02191, L3300.9900, L3100.6425, L100.0100, L506.0400, L500.4100, L501.9520, L500.4050 ####[facility] [address] [place], [place], [phone]) Erythrocyte distribution width (RBC) [Ratio] 12.7 % Normal 11.6-14.6 [facility] Comment on above: Performed By: #### L 501.04250, L3300.9900, L3100.6425, L100.0100, L506.0400, L500.4100, L501.9520, L500.4050 ####[facility] [address] [place], [address](938) Hematocrit (Bld) [Volume fraction] 43.5 % Normal 37-47 [facility] Comment on above: Performed By: #### L 501.24788, L3300.9900, L3100.6425, L100.0100, L506.0400, L500.4100, L501.9520, L500.4050 ####[facility] [address] [place], [address](634) Hemoglobin (Bld) [Mass/Vol] 14.7 g/dL Normal 12.0-15.0 [facility] Comment on above: Performed By: #### L 501.88334, L3300.9900, L3100.6425, L100.0100, L506.0400, L500.4100, L501.9520, L500.4050 ####[facility] [address] [place], [address] IG% 0.400 Normal 0.0-0.9 [facility] Comment on above: Result Comment: IG% - Immature Granulocytes (promyelocytes, myelocytes andmetamyelocytes) > 1% indicates that a LEFT SHIFT is Present. Performed By: #### L 501.41401, L3300.9900, L3100.6425, L100.0100, L506.0400, L500.4100, L501.9520, L500.4050 ####[facility] [address] [place], [address] Lymphocytes/100 WBC (Bld) 24.8 % Normal 19-41 [facility] Comment on above: Performed By: #### L 501.93377, L3300.9900, L3100.6425, L100.0100, L506.0400, L500.4100, L501.9520, L500.4050 ####[facility] [address] [place], [address] MCH (RBC) [Entitic mass] 31.3 pg Normal 27.0-32.0 [facility] Comment on above: Performed By: #### L 501.99833, L3300.9900, L3100.6425, L100.0100, L506.0400, L500.4100, L501.9520, L500.4050 ####[facility] [address] [place], [address] MCHC (RBC) [Mass/Vol] 33.8 g/dL Normal 32-36 [facility] Comment on above: Performed By: #### L 501.14696, L3300.9900, L3100.6425, L100.0100, L506.0400, L500.4100, L501.9520, L500.4050 ####[facility] [address] [place], [address] MCV (RBC) [Entitic vol] 92.8 fL Normal 81-99 [facility] Comment on above: Performed By: #### L 501.78619, L3300.9900, L3100.6425, L100.0100, L506.0400, L500.4100, L501.9520, L500.4050 ####[facility] [address] [place], [address] Monocytes/100 WBC (Bld) 7.7 % Normal 0-10 [facility] Comment on above: Performed By: #### L 501.04558, L3300.9900, L3100.6425, L100.0100, L506.0400, L500.4100, L501.9520, L500.4050 ####[facility] [address] [place], [address] Neutrophils/100 WBC (Bld) 60.7 % Normal 47-70 [facility] Comment on above: Performed By: #### L 501.58410, L3300.9900, L3100.6425, L100.0100, L506.0400, L500.4100, L501.9520, L500.4050 ####[facility] [address] [place], [address]( Nucleated RBC (Bld) [#/Vol] 0 10*3/uL Normal 0-5 [facility] Comment on above: Performed By: #### L 501.08320, L3300.9900, L3100.6425, L100.0100, L506.0400, L500.4100, L501.9520, L500.4050 ####[facility] [address] [place], [address](062 Platelet mean volume (Bld) [Entitic vol] 8.9 fL Normal 6.2-12.0 [facility] Comment on above: Performed By: #### L 501.40220, L3300.9900, L3100.6425, L100.0100, L506.0400, L500.4100, L501.9520, L500.4050 ####[facility] [address] [place], [address] Platelets (Bld) [#/Vol] 306 10*3/uL Normal 150-450 [facility] Comment on above: Performed By: #### L 501.65768, L3300.9900, L3100.6425, L100.0100, L506.0400, L500.4100, L501.9520, L500.4050 ####[facility] [address] [place], [place], [id number] RBC (Bld) [#/Vol] 4.69 10*6/uL Normal 4.2-5.4 [facility] Comment on above: Performed By: #### L 501.56566, L3300.9900, L3100.6425, L100.0100, L506.0400, L500.4100, L501.9520, L500.4050 ####[facility] [address] [place], [place], [phone](906) RDW SD 43.0 fl Normal 35.1-43.9 [facility] Comment on above: Performed By: #### L 501.01824, L3300.9900, L3100.6425, L100.0100, L506.0400, L500.4100, L501.9520, L500.4050 ####[facility] [address] [place], [address] WBC (Bld) [#/Vol] 5.6 10*3/uL Normal 4.4-11.0 [facility] Comment on above: Performed By: #### L 501.53818, L3300.9900, L3100.6425, L100.0100, L506.0400, L500.4100, L501.9520, L500.4050 ####[facility] [address] [place], [place], [id number] Carbon dioxide measurementOr dered By: Roxy Wallace on 11-23-2024 CO2 [Moles/Vol] 28.0 mmol/L 21.0-32.0 [facility] Chloride measurementOrdered By: Roxy Wallace on 11-23-2024 Chloride [Moles/Vol] 107 mmol/L 98-107 [facility] Comprehensive Metabolic Prof ilon 11-23-2024 Albumin [Mass/Vol] 3.6 g/dL Normal 3.2-5.0 [facility] Comment on above: Performed By: #### L 501.75623, L3300.9900, L3100.6425, L100.0100, L506.0400, L500.4100, L501.9520, L500.4050 ####[facility] [address] [place], [address] Albumin/Globulin [Mass ratio] 1.1 {ratio} Normal 0.9-2.4 [facility] Comment on above: Performed By: #### L 501.01098, L3300.9900, L3100.6425, L100.0100, L506.0400, L500.4100, L501.9520, L500.4050 ####[facility] [address] [place], [address] ALK P 73 U/L Normal 45-117 [facility] Comment on above: Performed By: #### L 501.91527, L3300.9900, L3100.6425, L100.0100, L506.0400, L500.4100, L501.9520, L500.4050 ####[facility] [address] [place], [address] ALT [Catalytic activity/Vol] 7 U/L Low 13-56 [facility] Comment on above: Performed By: #### L 501.21842, L3300.9900, L3100.6425, L100.0100, L506.0400, L500.4100, L501.9520, L500.4050 ####[facility] [address] [place], [address] AST [Catalytic activity/Vol] 12 U/L Low 15-37 [facility] Comment on above: Performed By: #### L 501.85576, L3300.9900, L3100.6425, L100.0100, L506.0400, L500.4100, L501.9520, L500.4050 ####[facility] [address] [place], [address] Bilirubin [Mass/Vol] 0.50 mg/dL Normal 0.20-1.00 [facility] Comment on above: Result Comment: For patients on eltrombopag therapy, use of Dimension [place] TBIL is not recommended. Performed By: #### L 501.83654, L3300.9900, L3100.6425, L100.0100, L506.0400, L500.4100, L501.9520, L500.4050 ####[facility] [address] [place], [address] BUN/CRE 15.8 RATIO Normal 10-20 [facility] Comment on above: Performed By: #### L 501.24926, L3300.9900, L3100.6425, L100.0100, L506.0400, L500.4100, L501.9520, L500.4050 ####[facility] [address] [place], [address] CA,Total 8.9 mg/dL Normal 8.5-10.1 [facility] Comment on above: Performed By: #### L 501.55309, L3300.9900, L3100.6425, L100.0100, L506.0400, L500.4100, L501.9520, L500.4050 ####[facility] [address] [place], [place], [address] Chloride [Moles/Vol] 107 mmol/L Normal 98-107 [facility] Comment on above: Performed By: #### L 501.96155, L3300.9900, L3100.6425, L100.0100, L506.0400, L500.4100, L501.9520, L500.4050 ####[facility] [address] [place], [address] CO2 [Moles/Vol] 28.0 mmol/L Normal 21.0-32.0 [facility] Comment on above: Performed By: #### L 501.64380, L3300.9900, L3100.6425, L100.0100, L506.0400, L500.4100, L501.9520, L500.4050 ####[facility] [address] [place], [place], [phone](387) Creatinine [Mass/Vol] 0.82 mg/dL Normal 0.55-1.02 [facility] Comment on above: Result Comment: The validity of the calculated GFR GFRAA in patients over70 years has not been determined. Clinical correlation isessential. Performed By: #### L 501.18894, L3300.9900, L3100.6425, L100.0100, L506.0400, L500.4100, L501.9520, L500.4050 ####[facility] [address] [place], [place], [phone](343) EST GFR - AA 87 mL/min Normal >60 [facility] Comment on above: Result Comment: Afri can Montenegrin GFR Calc Performed By: #### L 501.04535, L3300.9900, L3100.6425, L100.0100, L506.0400, L500.4100, L501.9520, L500.4050 ####[facility] [address] [place], [place], [phone] GAP 4 Low 5-15 [facility] Comment on above: Performed By: #### L 501.02362, L3300.9900, L3100.6425, L100.0100, L506.0400, L500.4100, L501.9520, L500.4050 ####[facility] [address] [place], [place], [phone](167) GFR/1.73 sq M.predicted among non-blacks MDRD (S/P/Bld) [Vol rate/Area] 72 mL/min/{1.73_m2} Normal >60 [facility] Comment on above: Result Comment: Non- GFR Calc Performed By: #### L 501.99523, L3300.9900, L3100.6425, L100.0100, L506.0400, L500.4100, L501.9520, L500.4050 ####[facility] [address] [place], [address] Globulin (S) [Mass/Vol] 3.4 g/dL Normal 2.2-4.2 [facility] Comment on above: Performed By: #### L 501.38401, L3300.9900, L3100.6425, L100.0100, L506.0400, L500.4100, L501.9520, L500.4050 ####[facility] [address] [place], [address] Glucose [Mass/Vol] 95 mg/dL Normal 74-106 [facility] Comment on above: Performed By: #### L 501.16155, L3300.9900, L3100.6425, L100.0100, L506.0400, L500.4100, L501.9520, L500.4050 ####[facility] [address] [place], [address] Potassium [Moles/Vol] 3.8 mmol/L Normal 3.5-5.1 [facility] Comment on above: Performed By: #### L 501.76318, L3300.9900, L3100.6425, L100.0100, L506.0400, L500.4100, L501.9520, L500.4050 ####[facility] [address] [place], [address] Sodium [Moles/Vol] 139 mmol/L Normal 136-145 [facility] Comment on above: Performed By: #### L 501.15362, L3300.9900, L3100.6425, L100.0100, L506.0400, L500.4100, L501.9520, L500.4050 ####[facility] [address] [place], [place], [phone] T PROT 7.0 g/dL Normal 6.4-8.2 [facility] Comment on above: Performed By: #### L 501.40545, L3300.9900, L3100.6425, L100.0100, L506.0400, L500.4100, L501.9520, L500.4050 ####[facility] [address] [place], [place], [phone] Urea nitrogen [Mass/Vol] 13 mg/dL Normal 7-18 [facility] Comment on above: Performed By: #### L 501.29774, L3300.9900, L3100.6425, L100.0100, L506.0400, L500.4100, L501.9520, L500.4050 ####[facility] [address] [place], [place], [phone] Direct serum free thyroxine (FT4) measurementOrdered By: Roxy Wallace on 11-23-2024 Free T4 [Mass/Vol] 6.55 ng/dL High 0.76-1.46 [facility] Eosinophil percentageOrdered By: Roxy Wallace on 11-23-2024 Eosinophils/100 WBC (Bld) 5.0 % 0-5 [facility] Erythrocyte distribution wid th (RBC) [Ratio]Ordered By: Roxy Wallace on 11-23-2024 Erythrocyte distribution width (RBC) [Entitic vol] 43.0 fL 35.1-43.9 [facility] Erythrocyte distribution wid th ratioOrdered By: Roxy Wallace on 11-23-2024 Erythrocyte distribution width (RBC) [Ratio] 12.7 % 11.6-14.6 [facility] Estimated glomerular filtrat ion rate (GFR) AmericanOrdered By: Roxy Wallace on 11-23-2024 Estimated GFR (MDRD) Amer 87 mL/min >60 [facility] Comment on above: GFR Calc Free T3on 11-23-2024 Free T3 [Mass/Vol] 1.9 pg/mL Low 2.18-3.98 [facility] Comment on above: Performed By: #### L 501.80234, L3300.9900, L3100.6425, L100.0100, L506.0400, L500.4100, L501.9520, L500.4050 ####[facility] [address] [place], [address] Free L1Gvczuis By: Roxy Molina s on 11-23-2024 Free Triiodothyronine (T3) pg/dL 1.9 pg/mL Low 2.18-3.98 [facility] Glomerular filtration rate ( GFR) estimationOrdered By: Roxy Wallace on 11-23-2024 Estimated GFR (MDRD) Non-Af Amer 72 mL/min >60 [facility] Comment on above: Non- GFR Calc Glucose measurementOrdered B y: Roxy Wallace on 11-23-2024 Glucose [Mass/Vol] 95 mg/dL 74-106 [facility] Hematocrit Auto (Bld) [Volum e fraction]Ordered By: Roxy Wallace on 11-23-2024 Hematocrit (Bld) [Volume fraction] 43.5 % 37-47 [facility] Hemoglobin measurementOrdere d By: Roxy Wallace on 11-23-2024 Hemoglobin (Bld) [Mass/Vol] 14.7 g/dL 12.0-15.0 [facility] High density lipoprotein (HD L) measurementOrdered By: Roxy Wallace on 11-23-2024 Cholesterol in HDL [Mass/Vol] 70 mg/dL >40 [facility] Comment on above: The drugs N-Acetylcy steine and Metamizole may falsely depress this assay. Reference Range HDL <40 mg/dL Low HDL Cholesterol HDL >or= 60 mg/dL High HDL Cholesterol Immature granulocytes/100 WB C Auto (Bld)Ordered By: Roxy Wallace on 11-23-2024 Immature granulocytes/100 WBC (Bld) 0.400 % 0.0-0.9 [facility] Comment on above: IG% - Immature Granu locytes (promyelocytes, myelocytes and metamyelocytes) > 1% indicates that a LEFT SHIFT is Present. Laboratory - Chemistry and C hemistry - challengeOrdered By: Roxy Wallace on 11-23-2024 AST [Catalytic activity/Vol] 12 U/L Low 15-37 [facility] Lead Ql (Bld)Ordered By: Cheri Wallace on 11-23-2024 Lead < 1.0 ug/dL 0.0-3.4 [facility] Comment on above: Testing performed by Inductively coupled plasma/MassSpectrometry. Environmental Exposure: WHO Recommendation <5.0 Occupational Exposure: OSHA Lead Std 40.0 [place] 30.0 Detection Limit = 1.0 Lipid Profileon 11-23-2024 Cholesterol [Mass/Vol] 191 mg/dL Normal 200 [facility] Comment on above: Result Comment: <200 mg/dL Desirable 200-240 mg/dL Borderline >240 mg/dL High Risk Performed By: #### L 501.35346, L3300.9900, L3100.6425, L100.0100, L506.0400, L500.4100, L501.9520, L500.4050 ####[facility] [address] [place], [address] Cholesterol in HDL [Mass/Vol] 70 mg/dL Normal [facility] Comment on above: Result Comment: The drugs N-Acetylcysteine and Metamizole may falselydepress this assay. Reference Range HDL <40 mg/dL Low HDL Cholesterol HDL >or= 60 mg/dL High HDL Cholesterol Performed By: #### L 501.69981, L3300.9900, L3100.6425, L100.0100, L506.0400, L500.4100, L501.9520, L500.4050 ####[facility] [address] [place], [address] Cholesterol in LDL [Mass/Vol] 106 mg/dL Normal 0-130 [facility] Comment on above: Performed By: #### L 501.92678, L3300.9900, L3100.6425, L100.0100, L506.0400, L500.4100, L501.9520, L500.4050 ####[facility] [address] [place], [place], [phone] Cholesterol in VLDL [Mass/Vol] 15 mg/dL Normal 5-40 [facility] Comment on above: Performed By: #### L 501.30072, L3300.9900, L3100.6425, L100.0100, L506.0400, L500.4100, L501.9520, L500.4050 ####[facility] [address] [place], [place], [phone] Triglyceride [Mass/Vol] 76 mg/dL Normal [facility] Comment on above: Result Comment: The drugs N-Acetylcysteine and Metamizole may falselydepress this assay.Serum Triglycerides Reference Interval Normal <150 mg/dL Borderline high 150 - 199 mg/dL High 200 - 499 mg/dL Very High > or = 500 mg/dL Performed By: #### L 501.50586, L3300.9900, L3100.6425, L100.0100, L506.0400, L500.4100, L501.9520, L500.4050 ####[facility] [address] [place], [place], [phone] Low density lipoprotein (LDL ) cholesterol measurementOrdered By: Roxy Wallace on 11-23-2024 Cholesterol in LDL [Mass/Vol] 106 mg/dL 0-130 [facility] Lymphocytes Auto (Unsp spec) [#/Vol]Ordered By: Roxy Wallace on 11-23-2024 Lymphocytes (Bld) [#/Vol] 1.38 10*3/uL 0.83-4.51 [facility] Lymphocytes/100 WBC Auto (Un sp spec)Ordered By: Roxy Wallace on 11-23-2024 Lymphocytes/100 WBC (Bld) 24.8 % 19-41 [facility] MCV (mean corpuscular volume ) determinationOrdered By: Roxy Wallace on 01-02-2025 MCV (RBC) [Entitic vol] 92.8 fL 81-99 [facility] Mean corpuscular hemoglobin (MCH) determinationOrdered By: Roxy Wallace on 11-23-2024 MCH (RBC) [Entitic mass] 31.3 pg 27.0-32.0 [facility] Mean corpuscular hemoglobin concentration (MCHC) determinationOrdered By: Roxy Wallace on 11-23-2024 MCHC (RBC) [Mass/Vol] 33.8 g/dL 32-36 [facility] Mean platelet volume determi nationOrdered By: Roxy Wallace on 11-23-2024 Platelet mean volume (Bld) [Entitic vol] 8.9 fL 6.2-12.0 [facility] Mercury (Bld) [Mass/Vol]Orde red By: Roxy Wallace on 11-23-2024 Mercury Level < 1.0 ug/L 0.0-14.9 [facility] Comment on above: Detection Limit = 1. 0 Monocyte percentageOrdered B y: Roxy Walalce on 11-23-2024 Monocytes/100 WBC (Bld) 7.7 % 0-10 [facility] Neutrophil percentageOrdered By: Roxy Wallace on 11-23-2024 Neutrophils/100 WBC (Bld) 60.7 % 47-70 [facility] Nucleated red blood cell per centageOrdered By: Roxy Wallace on 11-23-2024 Nucleated RBC/100 WBC (Bld) [Ratio] 0 % 0-5 [facility] Platelet countOrdered By: Catrina Wallace on 11-23-2024 Platelets (Bld) [#/Vol] 306 10*3/uL 150-450 [facility] Potassium measurementOrdered By: Roxy Walalce on 11-23-2024 Potassium [Moles/Vol] 3.8 mmol/L 3.5-5.1 [facility] RBC Auto (Bld) [#/Vol]Ordere d By: Roxy Wallace on 11-23-2024 RBC (Bld) [#/Vol] 4.69 10*6/uL 4.2-5.4 [facility] Serum anion gap measurementO rdered By: Roxy Wallace on 11-23-2024 Anion gap [Moles/Vol] 4 mmol/L Low 5-15 [facility] Serum globulin measurementOr dered By: Roxy Wallace on 11-23-2024 Globulin (S) [Mass/Vol] 3.4 g/dL 2.2-4.2 [facility] Serum or plasma alanine forbes otransferase (ALT) measurementOrdered By: Roxy Wallace on 11-23-2024 ALT [Catalytic activity/Vol] 7 U/L Low 13-56 [facility] Serum or plasma albumin antonio urement (mass/volume)Ordered By: Roxy Wallace on 11-23-2024 Albumin [Mass/Vol] 3.6 g/dL 3.2-5.0 [facility] Serum or plasma alkaline rickie sphatase measurementOrdered By: Roxy Wallace on 11-23-2024 ALP [Catalytic activity/Vol] 73 U/L 45-117 [facility] Serum or plasma calcium antonio urement (mass/volume)Ordered By: Roxy Wallace on 11-23-2024 Calcium [Mass/Vol] 8.9 mg/dL 8.5-10.1 [facility] Serum or plasma cholesterol measurement (mass/volume)Ordered By: Roxy Wallace on 11-23-2024 Cholesterol [Mass/Vol] 191 mg/dL <200 [facility] Comment on above: <200 mg/dL Desirable 200-240 mg/dL Borderline >240 mg/dL High Risk Serum or plasma creatinine m easurement (mass/volume)Ordered By: Roxy Wallace on 11-23-2024 Creatinine [Mass/Vol] 0.82 mg/dL 0.55-1.02 [facility] Comment on above: The validity of the calculated GFR & GFRAA in patients over 70 years has not been determined. Clinical correlation is essential. Serum or plasma urea nitroge n measurement (mass/volume)Ordered By: Roxy Wallace on 11-23-2024 Urea nitrogen [Mass/Vol] 13 mg/dL 7-18 [facility] Sodium levelOrdered By: Roxy Wallace on 11-23-2024 Sodium [Moles/Vol] 139 mmol/L 136-145 [facility] T4 Free Directon 11-23-2024 T4 FREE DIRECT 6.55 ng/dL High 0.76-1.46 [facility] Comment on above: Performed By: #### L 501.97382, L3300.9900, L3100.6425, L100.0100, L506.0400, L500.4100, L501.9520, L500.4050 ####[facility] [address] [place], [place], [address] TSH QnOrdered By: Roxy Wallace on 11-23-2024 Thyroid Stimulating Hormone (TSH) 1.240 uIU/mL 0.358-3.74 0 [facility] Thyroid Stim Hormone (TSH)on 11-23-2024 TSH 1.240 uIU/mL Normal 0.358-3.74 0 [facility] Comment on above: Performed By: #### L 501.90488, L3300.9900, L3100.6425, L100.0100, L506.0400, L500.4100, L501.9520, L500.4050 ####[facility] [address] [place], [place], [phone] Total proteinOrdered By: Cheri Wallace on 11-23-2024 Protein [Mass/Vol] 7.0 g/dL 6.4-8.2 [facility] Triglycerides measurementOrd ered By: Roxy Wallace on 11-23-2024 Triglyceride [Mass/Vol] 76 mg/dL <199 [facility] Comment on above: The drugs N-Acetylcy steine and Metamizole may falsely depress this assay.Serum Triglycerides Reference Interval Normal <150 mg/dL Borderline high 150 - 199 mg/dL High 200 - 499 mg/dL Very High > or = 500 mg/dL Very low density lipoprotein (VLDL) cholesterol measurementOrdered By: Roxy Wallace on 11-23-2024 VLDL Cholesterol 15 mg/dL 5-40 [facility] White blood cell (WBC) count Ordered By: Roxy Wallace on 11-23-2024 WBC (Bld) [#/Vol] 5.6 10*3/uL 4.4-11.0 [facility] Zinc [Mass/Vol]Ordered By: Cathryn Wallace on 11-23-2024 Zinc Level 80 ug/dL 44-115 [facility] Comment on above: Detection Limit = 5P erformed at: [address] [id number] Director: Jayna Rodriguez MD, Phone: [phone] SP/HP.SP.Rich 11-13-2024 SP/HP.SP.EV Normal [facility] Negative Stripper Office Visit Reporton 11-08-2024 Negative Stripper Office Visit Report Normal [facility] CNCOon 10-20-2024 CNCO Letter Text Normal [facility] Negative Stripper Office Visit Reporton 09-28-2024 Negative Stripper Office Visit Report Normal [facility] CNOVon 08-09-2024 CNOV Office Visit (NRMDN) -- CONNIE LYNCH ([id number]) 1950 F Date Time Provider Department 08/09/24 3:30 PM JOSEPH GONZALES NRN During your visit today, we recorded the following information about you: Weight 73.4 kg Joseph Gonzales MD 08/10/2024 5:42 AM Signed [facility] - FOLLOW UP EVALUATION Eliana Veloz DO, DO [address] [facility] [address] [facility] [address] I had the pleasure of seeing Ms. Lynch for follow up today. She is a 73 year old ambidextrous female with a history of Parkinson's disease since 2018. passed with Parkinson's January 2023. She is seen with a daughter. Subjective Previous Plan-02/03/2024 Visit: Modified barium swallow for the difficulty swallowing. You should be able to have it done at [facility]. We will mail a paper order to your home. No change to Sinemet. Stop rasagiline (Azilect) since it doesn't seem to be helping much. Start Comtan (entacapone). This is meant to boost the Sinemet. It will make your urine bright orange. It might loosen your stools. Small chance of it causing diarrhea. Continue citalopram and Ativan for the depression/anxiety. We might change the citalopram to something else next time but avoiding changing more than 1 medication at at time. I entered an order for you to see one of our psychologists who are experienced with Parkinson's. Appointment scheduling:Psychology: [phone], choose option 2: Exercise Follow-up 3 months Interval History: Feels crummy much of the time. Nausea. No longer SOB. Had EGD in [place] after MBS. Stopped pantoprazole and started omeprazole twice daily. Sometimes still trouble swallowing solids. Taking Sinemet 3.25 hours apart. Sluggish before first dose. Sharp pain in jaw at times. Recent dental abscess. Pain may have started after that. Parkinson's Medication Schedule - as of the start of the visit: Medications 8 1130 3 630 Sinemet 25/100 2 2 2 2 Comtan (entacapone) 200 mg 1 1 1 1 Parkinson's Motor Complications Medication benefit onset: 30 minutes Medication duration: 3 hours Wearing off: yes Painful off-state dystonia: no Dyskinesia: yes Prior Anti-Parkinson Therapies Carbidopa/Levodopa Questionnaires In addition, the following areas that may be affected by abnormal involuntary movements were evaluated: Daily activities Difficulties with eating: Yes (slight) Difficulties in dressin (none) Difficulties with hygiene activities: 0 (none) Difficulties with handwriting: Yes (slight) Difficulties with doing hobbies and other activities: Yes (mild) Difficulties turning in bed: Yes (slight) Difficulties getting out of bed, car or chair: 0 (none) Tremors/Gait/Balance Shaking or tremors: Yes (slight) Walking and balance problems: 0 (none) Number of falls in the Last Month: 0 Gait freezin (none) Autonomic/Pain Lightheadeness on standing: Yes (slight) Urinary problems: Yes (slight) Constipation problems: Yes (moderate) Pain and other sensations: Yes (mild) Speech/Swallowing Speech problems: Yes (mild) Drooling: Yes (mild) Chewing and swallowing problems: Yes (slight) Sleep/Fatigue Sleep problems: Yes (mild) Daytime sleepiness: 0 (none) Fatigue: Yes (slight) Mood/Behavior Depression: PHQ-9 Score: 11 usually representing moderate (10-14) depression. Anxiety: ALPHONSO-7 Total Score: 7 usually representing mild (5-9) anxiety. Finally, the following table shows the patient's overall global physical and mental health using the PROMIS scale: PROMIS-10 Flowsheet Row Office Visit from 08/09/2024 in [facility] from 02/03/2024 in Neurology Global Physical Health T Score 42.3 39.8 Global Mental Health T Score 38.8 36.3 0-10 Standard Pain Scale 3 3 *PROMIS-10 scoring scale: mean = 50, over 50 is above average, under 50 is below average In addition, the following Parkinson Lifestyle-associated features were evaluated: Conditions Prior to Dx: Depression: No Anxiety: No Melanoma: No Constipation: No Yelling: No Head Trauma: No Habits/exposures Prior to Dx Smoking: No Caffeinated coffee (1-cup+): Yes (and still do) Caffeinated soda/tea (2 cups+): No Alcohol (1 bottle/shot/glass+): No Exercise (3x/wk+): No Ibuprofen use (1x/wk+): Yes (but quit) Pesticides: Yes (but quit) Welding: No ALLERGIES Allergen Reactions Jordan Inhibitors Cough Current Outpatient Medications Medication Sig omeprazole (PRILOSEC) 40 mg capsule citalopram (CELEXA) 20 mg tablet Take 20 mg by mouth once daily. LORazepam (ATIVAN) 0.5 mg TAKE 1 TO 2 TABLETS BY MOUTH EVERY 4 TO 6 HOURS NEEDED FOR ANXIETY FOR UP TO 7 DAYS zolpidem (AMBIEN CR) 6.25 mg CR tablet Take by mouth. ondansetron orally disintegrating (ZOFRAN ODT) 8 mg disintegrating tablet DISSOLVE 1 TABLET BY MOUTH EVERY 8 HOURS NEEDED FOR NAUSEA acetamino (more content not included)... Normal [facility] SCRN MAMM (CAD)W/CARLOS BILBlanka n 07-26-2024 SCRN MAMM (CAD)W/CARLOS JAIN Normal [facility] Surgery Visit Reporton 07-25 Surgery Visit Report Normal [facility] EGD Reporton 05-16-2024 EGD Report Normal [facility] H Pylori (initial)on 024 H Pylori (initial) Normal [facility] Comment on above: Performed By: #### P H.PYLORI ####[facility] [address] [place], [place], [address] MR/POSTOP.ANEon 05-16-2024 MR/POSTOP.ANE Normal [facility] MR/[id number] 05-16-2024 MR/POSTOPAN2 Normal [facility] Special Stain Group Ion - Special Stain Group I Normal [facility] Comment on above: Performed By: #### P SSI ####[facility] [address] [place], [address] Surgery Visit Reporton 05-01 Surgery Visit Report Normal [facility] Thyroidon 04-24-2024 Thyroid Normal [facility] Absolute lymphocyte countOrd ered By: Marily Herman on 01-09-2024 Lymphocytes Auto (Unsp spec) [#/Vol] 0.60 10*3/uL 0.83-4.51 [facility] Automated lymphocyte count a s percentage of total leukocytesOrdered By: Marily Herman on 01-09-2024 Lymphocytes/100 WBC Auto (Unsp spec) 6.8 % 19-41 [facility] Basophil percentageOrdered B y: Marily Herman on 01-09-2024 Basophils/100 WBC (Bld) 0.3 % 0-1 [facility] Chloride [Moles/Vol] 104 mmol/L 98-107 [facility] Eosinophils/100 WBC (Bld) 0.1 % 0-5 [facility] Glucose [Mass/Vol] 115 mg/dL 74-106 [facility] Comment on above: Fasting Glucose resu lt from 100 to 125 mg/dL suggests IMPAIRED HOMEOSTASIS per A.D.A. criteria. Hemoglobin (Bld) [Mass/Vol] 13.8 g/dL 12.0-15.0 [facility] Monocytes/100 WBC (Bld) 4.5 % 0-10 [facility] Neutrophils (Bld) [#/Vol] 7.8 10*3/uL 2.0-7.7 [facility] Neutrophils/100 WBC (Bld) 88.0 % 47-70 [facility] Potassium [Moles/Vol] 3.2 mmol/L 3.5-5.1 [facility] Sodium [Moles/Vol] 136 mmol/L 136-145 [facility] WBC (Bld) [#/Vol] 8.9 10*3/uL 4.4-11.0 [facility] Determination of erythrocyte mean corpuscular volume (MCV)Ordered By: Marily Herman on 01-09-2024 MCV (RBC) [Entitic vol] 90.5 fL 81-99 [facility] Erythrocyte distribution wid th ratioOrdered By: Marily Herman on 01-09-2024 Erythrocyte distribution width (RBC) [Ratio] 12.5 % 11.6-14.6 [facility] Erythrocyte distribution wid th standard deviationOrdered By: Marily Herman on 01-09-2024 Erythrocyte distribution width (RBC) [Entitic vol] 41.5 fL 35.1-43.9 [facility] Hematocrit Auto (Bld) [Volum e fraction]Ordered By: Marily Herman on 01-09-2024 Hematocrit (Bld) [Volume fraction] 42.1 % 37-47 [facility] Immature granulocytes/100 WB C Auto (Bld)Ordered By: Marily Herman on 01-09-2024 Immature granulocytes/100 WBC (Bld) 0.300 % 0.0-0.9 [facility] Comment on above: IG% - Immature Granu locytes (promyelocytes, myelocytes and metamyelocytes) > 1% indicates that a LEFT SHIFT is Present. Laboratory - Chemistry and C hemistry - challengeOrdered By: Marily Herman on 01-09-2024 CO2 [Moles/Vol] 26.0 mmol/L 21.0-32.0 [facility] Urea nitrogen/Creatinine [Mass ratio] 17.6 mg/mg 10-20 [facility] Laboratory - Hematology and Cell countsOrdered By: Marily Herman on 01-09-2024 MCH (RBC) [Entitic mass] 29.7 pg 27.0-32.0 [facility] MCHC (RBC) [Mass/Vol] 32.8 g/dL 32-36 [facility] Nucleated RBC/100 WBC (Bld) [Ratio] 0 % 0-5 [facility] Platelet mean volume (Bld) [Entitic vol] 8.8 fL 6.2-12.0 [facility] Platelets (Bld) [#/Vol] 157 10*3/uL 150-450 [facility] Laboratory - Microbiology an d Antimicrobial susceptibilityOrdered By: Marily Herman on 01-09-2024 SARS-CoV-2 (COVID-19) RNA ROMY+probe Ql (Unsp spec) Influenzae A [facility] SARS-CoV-2 (COVID-19) RNA ROMY+probe Ql (Unsp spec) Influenzae A [facility] No Panel InformationOrdered By: Marily Herman on 01-09-2024 Estimated Creatinine Clearance Calc 67.22 ml/min [facility] Estimated GFR (MDRD) Amer 99 mL/min >60 [facility] Comment on above: GFR Calc Estimated GFR (MDRD) Non-Af Amer 82 mL/min >60 [facility] Comment on above: Non- GFR Calc Troponin I High Sensitivity 8 pg/mL 3.0-54.0 [facility] Comment on above: Please Note: New [place] t Units and Gender Specific Reference Ranges. For more information see Policy Stat Procedure [place] High Sensitivity Troponin (TNIH) and attachments. RBC Auto (Bld) [#/Vol]Ordere d By: Marily Herman on 01-09-2024 RBC (Bld) [#/Vol] 4.65 10*6/uL 4.2-5.4 [facility] Serum or plasma calcium antonio urement (mass/volume)Ordered By: Marily Herman on 01-09-2024 Calcium [Mass/Vol] 8.6 mg/dL 8.5-10.1 [facility] Serum or plasma creatinine m easurement (mass/volume)Ordered By: Marily Herman on 01-09-2024 Creatinine [Mass/Vol] 0.74 mg/dL 0.55-1.02 [facility] Comment on above: The validity of the calculated GFR & GFRAA in patients over 70 years has not been determined. Clinical correlation is essential. Serum or plasma urea nitroge n measurement (mass/volume)Ordered By: Marily Herman on 01-09-2024 Urea nitrogen [Mass/Vol] 13 mg/dL 7-18 [facility] Thin prep Papanicolaou smear with manual screeningOrdered By: Marily Herman on 01-09-2024 Thin prep Papanicolaou smear with manual screening 6 5-15 [facility] Absolute lymphocyte countOrd ered By: Rehana German on 12-27-2023 Lymphocytes Auto (Unsp spec) [#/Vol] 1.75 10*3/uL 0.83-4.51 [facility] Automated lymphocyte count a s percentage of total leukocytesOrdered By: Rehana Maxi on 12-27-2023 Lymphocytes/100 WBC Auto (Unsp spec) 22.6 % 19-41 [facility] Basophil percentageOrdered B y: Rehana Gilliamgar on 12-27-2023 Basophils/100 WBC (Bld) 0.8 % 0-1 [facility] Bilirubin [Mass/Vol] 0.40 mg/dL 0.20-1.00 [facility] Comment on above: For patients on eltr ombopag therapy, use of Dimension [place] TBIL is not recommended. Chloride [Moles/Vol] 109 mmol/L 98-107 [facility] Eosinophils/100 WBC (Bld) 3.0 % 0-5 [facility] Glucose [Mass/Vol] 102 mg/dL 74-106 [facility] Comment on above: Fasting Glucose resu lt from 100 to 125 mg/dL suggests IMPAIRED HOMEOSTASIS per A.D.A. criteria. Hemoglobin (Bld) [Mass/Vol] 13.8 g/dL 12.0-15.0 [facility] Monocytes/100 WBC (Bld) 5.4 % 0-10 [facility] Neutrophils (Bld) [#/Vol] 5.3 10*3/uL 2.0-7.7 [facility] Neutrophils/100 WBC (Bld) 68.1 % 47-70 [facility] Potassium [Moles/Vol] 4.1 mmol/L 3.5-5.1 [facility] Protein [Mass/Vol] 7.4 g/dL 6.4-8.2 [facility] Sodium [Moles/Vol] 140 mmol/L 136-145 [facility] WBC (Bld) [#/Vol] 7.8 10*3/uL 4.4-11.0 [facility] Determination of erythrocyte mean corpuscular volume (MCV)Ordered By: Rehana German on 12-27-2023 MCV (RBC) [Entitic vol] 93.0 fL 81-99 [facility] Erythrocyte distribution wid th ratioOrdered By: [facility] on 12-27-2023 Erythrocyte distribution width (RBC) [Ratio] 12.6 % 11.6-14.6 [facility] Erythrocyte distribution wid th standard deviationOrdered By: Fitzgerald Maxi on 12-27-2023 Erythrocyte distribution width (RBC) [Entitic vol] 42.8 fL 35.1-43.9 [facility] Erythrocyte sedimentation ra teOrdered By: [facility] on 12-27-2023 ESR (Bld) [Velocity] 5 mm/h 0-30 [facility] Hematocrit Auto (Bld) [Volum e fraction]Ordered By: [facility] on 12-27-2023 Hematocrit (Bld) [Volume fraction] 42.3 % 37-47 [facility] Immature granulocytes/100 WB C Auto (Bld)Ordered By: [facility] on 12-27-2023 Immature granulocytes/100 WBC (Bld) 0.100 % 0.0-0.9 [facility] Comment on above: IG% - Immature Granu locytes (promyelocytes, myelocytes and metamyelocytes) > 1% indicates that a LEFT SHIFT is Present. Laboratory - Chemistry and C hemistry - challengeOrdered By: Rehanacathy German on 12-27-2023 Albumin/Globulin [Mass ratio] 1.1 {ratio} 0.9-2.4 [facility] ALP [Catalytic activity/Vol] 77 U/L 45-117 [facility] ALT [Catalytic activity/Vol] 16 U/L 13-56 [facility] CO2 [Moles/Vol] 25.0 mmol/L 21.0-32.0 [facility] Globulin (S) [Mass/Vol] 3.6 g/dL 2.2-4.2 [facility] Natriuretic peptide B (Bld) [Mass/Vol] 74.3 pg/mL 0-100 [facility] Urea nitrogen/Creatinine [Mass ratio] 15.2 mg/mg 10-20 [facility] Laboratory - Hematology and Cell countsOrdered By: Rehana German on 12-27-2023 MCH (RBC) [Entitic mass] 30.3 pg 27.0-32.0 [facility] MCHC (RBC) [Mass/Vol] 32.6 g/dL 32-36 [facility] Nucleated RBC/100 WBC (Bld) [Ratio] 0 % 0-5 [facility] Platelets (Bld) [#/Vol] 288 10*3/uL 150-450 [facility] No Panel InformationOrdered By: Rehana German on 12-27-2023 C-Reactive Protein Extended Range < 2.90 mg/L 0.0-3.0 [facility] Comment on above: C-Reactive Protein ( CRP) provides useful information for thediagnosis, therapy and monitoring of inflammatory processesand associated diseases. For the evaluation of Relative Riskfor Cardiovascular Disease, a High Sensitivity CRP (HSCRP)should be ordered. D-Dimer Quantitative (PE/DVT) < 0.27 FEU/ug/m 0.27-0.49 [facility] Comment on above: NORMAL D-Dimer level (<0.50) indicates no DVT or PE. Estimated GFR (MDRD) Amer 71 mL/min >60 [facility] Comment on above: GFR Calc Estimated GFR (MDRD) Non-Af Amer 59 mL/min >60 [facility] Comment on above: Non- GFR Calc Platelet mean volume Tr-Ec ker (Bld) [Entitic vol]Ordered By: Rehana German on 12-27-2023 Platelet mean volume (Bld) [Entitic vol] 9.3 fL 6.2-12.0 [facility] RBC Auto (Bld) [#/Vol]Ordere d By: Rehana German on 12-27-2023 RBC (Bld) [#/Vol] 4.55 10*6/uL 4.2-5.4 [facility] Serum or plasma calcium antonio urement (mass/volume)Ordered By: Rehana German on 12-27-2023 Calcium [Mass/Vol] 9.4 mg/dL 8.5-10.1 [facility] Serum or plasma creatinine m easurement (mass/volume)Ordered By: Rehana German on 12-27-2023 Creatinine [Mass/Vol] 0.99 mg/dL 0.55-1.02 [facility] Comment on above: The validity of the calculated GFR & GFRAA in patients over 70 years has not been determined. Clinical correlation is essential. Serum or plasma urea nitroge n measurement (mass/volume)Ordered By: Rehana German on 12-27-2023 Urea nitrogen [Mass/Vol] 15 mg/dL 7-18 [facility] Thin prep Papanicolaou smear with manual screeningOrdered By: Rehanacathy German on 12-27-2023 Thin prep Papanicolaou smear with manual screening 3.8 g/dL 3.2-5.0 [facility] Thin prep Papanicolaou smear with manual screening 17 U/L 15-37 [facility] Thin prep Papanicolaou smear with manual screening 6 5-15 [facility] No Panel InformationOrdered By: Matthew Weinstein on 06-23-2023 Miscellaneous Test See comment [facility] Comment on above: TEST RESULT LIMITST3 , Free, Dialysis, LC/MS-MS 2.17 pg/mLThis test was developed and its performance characteristicsdetermined by [employer]. It has not been cleared or approvedby the Food and Drug Administration.Reference Range: Range MeanChildren >10yand Adults: 1.81 - 4.06 2.77 Females: First Trimester 1.6 - 3.3 2.5 Second Trimester To be determined Third Trimester 1.0 - 3.2 2.1 TESTING [facility]FORMED [facility]. ORIGINAL REPORT ON FILE IN LAB CONTAINS ADDITIONAL TEST SITE INFORMATION. Thyroglobulin Antibody < 1.0 IU/mL 0.0-0.9 [facility] Comment on above: Thyroglobulin Antibo dy measured by [facility] [employer] Thyroglobulin Level 10.3 ng/mL 1.5-38.5 [facility] Comment on above: According to the [facility] Academy of Clinical Biochemistry,the reference interval for Thyroglobulin (TG) should berelated to euthyroid patients and not for patients whounderwent thyroidectomy. TG reference intervals for thesepatients depend on the residual mass of the thyroid tissueleft after surgery. Establishing a post-operative baselineis recommended. The assay limit of quantitation is 0.1ng/mLThyroglobulin measured by [facility] [place] [employer] Thyroid Stimulating Hormone (TSH) 0.69 uIU/mL 0.358-3.74 [facility] Serum or plasma thyroperoxid ase antibody assay (units/volume)Ordered By: Matthew Weinstein on 06-23-2023 TPO Ab Qn [IU]/mL 0-34 [facility] Comment on above: Performed at: [facility] [address] [id number] Director: Rell Cameron PhD, Phone: [phone] at: [facility] [address] [id number] Director: Jayna Rodriguez MD, Phone: [phone] Serum or plasma thyroxine bi nding globulin (TBG) measurement (mass/volume)Ordered By: Matthwe Weinstein on 06-23-2023 TBG [Mass/Vol] 23 ug/mL 13-39 [facility] No Panel Informationon 05-14 Please click on the link to view the study images Normal [facility] Work Phone: Normal [facility] Work Phone: Office Visit (Neuro-Neuromus cular)on 05-14-2023 Follow-up visit Provider Impressions Ms. Lynch is a 72 year old female with h/o Parkinson?s, lipoma of right leg, who presents to neuromuscular clinic for neuropathy. Patient was referred by Dr. Roxy Wallace, PCP. Patient was accompanied by son. EMG was completed and result was scanned in. EMG showed diffusely slow nerves in the demyelinating range without conduction blocks. Exam today showed normal strength exam, reduced sensation to vibration in toes, reduced sensation to light touch at bottom of feet. No pes cavus or hammertoes. In addition, there was no strong family history of neuropathy other one sister. NM US was completed today. Please see the full report in [facility]. Briefly, bilateral medial nerves were enlarged throughout the course in the arms. 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 We discussed with patient and son today that genetic testing would be required to confirm our diagnosis. Patient agreed with the plan and blood draw was completed today. Plan: - [facility] genetic testing for CMT - Will call with result Patient was seen and discussed with Dr. 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 History of Present Illness Ms. Lynch is a 72 year old female with h/o Parkinson?s, lipoma of right leg, who presents to neuromuscular clinic for neuropathy. Patient was referred by Dr. Roxy Wallace, PCP. Patient was accompanied by son. Patient reported that she had a history of neuropathy that was diagnosed in 1999. She described that she both arms and legs were weak without numbness. This was thought to be due to stress and her symptoms went away. At the beginning of 2022, she noticed that her legs are weaker than usual. She reported numbness at bilateral toes without numbness anywhere else. She has a sister with neuropathy which was due to an unknown cause to her. She had no issue with sports or physical education when she was young. She denied any recent falls. In addition, she noticed that she started [...] no change in her tremor with alcohol. 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 Active Problems CMT (Okklzbu-Wmuqi-Gzojh disease) (356.1) (G60.0) Allergies No Known Drug Allergies Recorded By: Gabriel Vergara; 05/14/2023 8:49:29 AM Current Meds Medication NameInstruction Carbidopa-Levodopa 25-100 MG Oral TabletTAKE 1 TABLET 4 TIMES DAILY. LORazepam 0.5 MG Oral TabletTAKE 1 TABLET EVERY 12 HOURS NEEDED. Losartan Potassium 50 MG Oral TabletTAKE 1 TABLET DAILY DIRECTED. Meloxicam 15 MG Oral TabletTake one tablet daily Ondansetron HCl - 8 MG Oral Tablet Tylenol TABS Zolpidem Tartrate 5 MG Oral TabletTAKE 1 TABLET AT BEDTIME NEEDED FOR SLEEP. Vitals Vital Signs Recorded: 14May2023 08:54AM Heart Rate84 Wnqpahdbknc78 Vxarvbnc751 Swxntekgq32 Height5 ft 7 in Rtivji187 lb BMI Lwcabgjtdu53.45 kg/m2 BSA Calculated1.97 Tobacco Useb) No PHQ-2 #1. Over the last 2 weeks have you felt down, depressed or hopeless? (If yes, answer PHQ-9 below)No PHQ-2 #2. Over the last 2 weeks have you felt little interest or pleasure in doing things? (If yes, answer PHQ-9 below)No Falls Screening (Age 18+)a) No falls within the last year Pain Scale5 Physical Exam General: Well developed and well nourished. [...] in both upper and lower extremities. Movements: tremors present in the upper extremities with right worse than left. Present even with distraction. Arm orbiting normal. Normal tapping of fingers and feet. No pes ca (more content not included)... Normal [facility] Point of Care Neuromuscular USon 05-14-2023 Point of Care Neuromuscular US Patient Name: CONNIE LYNCH STUDY: Point of [...] lbs. HANDEDNESS: Left COMPARISON: None. ACCESSION NUMBER(S): [id number] ORDERING CLINICIAN: DASHA RODRIGUEZ TECHNIQUE: The bilateral [...] the left carpal tunnel. With extension of th (more content not included)... Normal [facility] Tobacco Screening.on 023 Adult depression screening assessment No [facility] [employer] Work Phone: Fall risk assessment a) No falls within the last year [facility] [employer] Work Phone: Tobacco use status [facility]PHS b) No M [facility] -[facility] [employer] Work Phone: Basophil percentageOrdered B y: Javad Elaine on 04-08-2023 WBC (Bld) [#/Vol] 10.8 10*3/uL 4.4-11.0 [facility] Blood erythrocytes count (nu mber/volume)Ordered By: Javad Elaine on 04-08-2023 RBC (Bld) [#/Vol] 4.06 10*6/uL 4.2-5.4 [facility] Blood hemoglobin measurement (mass/volume)Ordered By: Javad Elaine on 04-08-2023 Hemoglobin (Bld) [Mass/Vol] 12.7 g/dL 12.0-15.0 [facility] Blood platelet mean volumeOr dered By: Javad Elaine on 04-08-2023 Platelet mean volume (Bld) [Entitic vol] 9.2 fL 6.2-12.0 [facility] Determination of erythrocyte mean corpuscular volume (MCV)Ordered By: Javad Elaine on 04-08-2023 MCV (RBC) [Entitic vol] 93.3 fL 81-99 [facility] Hematocrit Auto (Bld) [Volum e fraction]Ordered By: Javad Elaine on 04-08-2023 Hematocrit (Bld) [Volume fraction] 37.9 % 37-47 [facility] Laboratory - Hematology and Cell countsOrdered By: Javad Elaine on 04-08-2023 Erythrocyte distribution width (RBC) [Entitic vol] 45.8 fL 35.1-43.9 [facility] Erythrocyte distribution width (RBC) [Ratio] 13.2 % 11.6-14.6 [facility] MCH (RBC) [Entitic mass] 31.3 pg 27.0-32.0 [facility] MCHC Auto (RBC) [Mass/Vol]Or dered By: Javad Elaine on 04-08-2023 MCHC (RBC) [Mass/Vol] 33.5 g/dL 32-36 [facility] Platelets bldOrdered By: Jorge Elaine on 04-08-2023 Platelets (Bld) [#/Vol] 289 10*3/uL 150-450 [facility] Basophil percentageOrdered B y: Javad Elaine on 04-07-2023 Chloride [Moles/Vol] 110 mmol/L 98-107 [facility] Glucose [Mass/Vol] 117 mg/dL 74-106 [facility] Comment on above: Fasting Glucose resu lt from 100 to 125 mg/dL suggests IMPAIRED HOMEOSTASIS per A.D.A. criteria. Potassium [Moles/Vol] 3.8 mmol/L 3.5-5.1 [facility] Sodium [Moles/Vol] 143 mmol/L 136-145 [facility] Laboratory - Chemistry and C hemistry - challengeOrdered By: Javad Elaine on 04-07-2023 CO2 [Moles/Vol] 26.0 mmol/L 21.0-32.0 [facility] Urea nitrogen/Creatinine [Mass ratio] 11.7 mg/mg 10-20 [facility] No Panel InformationOrdered By: Javad Elaine on 04-07-2023 Estimated Creatinine Clearance Calc 52.61 ml/min [facility] Estimated GFR (MDRD) Amer 75 mL/min >60 [facility] Comment on above: GFR Calc Estimated GFR (MDRD) Non-Af Amer 62 mL/min >60 [facility] Comment on above: Non- GFR Calc Serum or plasma calcium antonio urement (mass/volume)Ordered By: Javad Elaine on 04-07-2023 Calcium [Mass/Vol] 8.5 mg/dL 8.5-10.1 [facility] Serum or plasma creatinine m easurement (mass/volume)Ordered By: Javad Elaine on 04-07-2023 Creatinine [Mass/Vol] 0.94 mg/dL 0.55-1.02 [facility] Comment on above: The validity of the calculated GFR & GFRAA in patients over 70 years has not been determined. Clinical correlation is essential. Serum or plasma urea nitroge n measurement (mass/volume)Ordered By: Javad Elaine on 04-07-2023 Urea nitrogen [Mass/Vol] 11 mg/dL 7-18 [facility] Thin prep Papanicolaou smear with manual screeningOrdered By: Javad Elaine on 04-07-2023 Thin prep Papanicolaou smear with manual screening 7 5-15 [facility] Glucose Glucometer (BldC) [M ass/Vol]Ordered By: Javad Elaine on 04-06-2023 Glucose [Mass/Vol] 101 mg/dL 74-106 [facility] Comment on above: MANAGEMENT OF PATIEN T CARE PER NURSING PROTOCOL INR in Blood by Coagulation assayOrdered By: Javad Elaine on 03-24-2023 INR Coag (Bld) [Relative time] 1.0 {INR} [facility] Laboratory - Chemistry and C hemistry - challengeOrdered By: Lico Richey on 03-24-2023 Magnesium [Mass/Vol] 2.3 mg/dL 1.6-2.6 [facility] Laboratory - CoagulationOrde red By: Javad Elaine on 03-24-2023 aPTT Coag (Bld) [Time] 31.3 s 24.1-36.2 [facility] PT Coag (PPP) [Time] 13.2 s 11.7-14.9 [facility] No Panel InformationOrdered By: Javad Elaine on 03-24-2023 Fructosamine 239 umol/L 0-285 [facility] Comment on above: Published reference interval for apparently healthysubjects between age 20 and 60 is 205 - 285 umol/L and in apoorly controlled diabetic population is 228 - 563 umol/Lwith a mean of 396 umol/L.Performed at: [address], [place], [place] [id number] Director: Rell Cameron PhD, Phone: [phone] Nasal Screen MRSA/MSSA [facility] No Panel InformationOrdered By: Lico Richey on 03-24-2023 Thyroid Stimulating Hormone (TSH) 0.66 uIU/mL 0.358-3.74 [facility] Whole blood hemoglobin A1c/t otal hemoglobin ratio (mass fraction)Ordered By: Javad Elaine on 03-24-2023 HbA1c (Bld) [Mass fraction] 5.3 % 3.8-5.6 [facility] Comment on above: Normal < 5.7 % Predi abetic 5.7 - 6.4 % Diabetic >or= 6.5 % Please note range changes. Absolute lymphocyte countOrd ered By: Dr. Pierson on 03-22-2023 Lymphocytes Auto (Unsp spec) [#/Vol] 2.04 10*3/uL 0.83-4.51 [facility] Basophil percentageOrdered B y: Dr. Pierson on 03-22-2023 Basophils/100 WBC (Bld) 1.4 % 0-1 [facility] Chloride [Moles/Vol] 109 mmol/L 98-107 [facility] Eosinophils/100 WBC (Bld) 3.6 % 0-5 [facility] Glucose [Mass/Vol] 93 mg/dL 74-106 [facility] Neutrophils (Bld) [#/Vol] 5.6 10*3/uL 2.0-7.7 [facility] Neutrophils/100 WBC (Bld) 64.1 % 47-70 [facility] Potassium [Moles/Vol] 3.9 mmol/L 3.5-5.1 [facility] Sodium [Moles/Vol] 141 mmol/L 136-145 [facility] WBC (Bld) [#/Vol] 8.7 10*3/uL 4.4-11.0 [facility] Blood erythrocytes count (nu mber/volume)Ordered By: Dr. Pierson on 03-22-2023 RBC (Bld) [#/Vol] 4.88 10*6/uL 4.2-5.4 [facility] Blood hemoglobin measurement (mass/volume)Ordered By: Dr. Pierson on 03-22-2023 Hemoglobin (Bld) [Mass/Vol] 15.4 g/dL 12.0-15.0 [facility] Blood lymphocytes/100 leukoc ytesOrdered By: Dr. Pierson on 03-22-2023 Lymphocytes/100 WBC (Bld) 23.5 % 19-41 [facility] Blood monocytes/100 leukocyt esOrdered By: Dr. Pierson on 03-22-2023 Monocytes/100 WBC (Bld) 7.2 % 0-10 [facility] Blood platelet mean volumeOr dered By: Dr. Pierson on 03-22-2023 Platelet mean volume (Bld) [Entitic vol] 9.2 fL 6.2-12.0 [facility] Determination of erythrocyte mean corpuscular volume (MCV)Ordered By: Dr. Pierson on 03-22-2023 MCV (RBC) [Entitic vol] 91.2 fL 81-99 [facility] Hematocrit Auto (Bld) [Volum e fraction]Ordered By: Dr. Pierson on 03-22-2023 Hematocrit (Bld) [Volume fraction] 44.5 % 37-47 [facility] Laboratory - Chemistry and C hemistry - challengeOrdered By: Dr. Pierson on 03-22-2023 CO2 [Moles/Vol] 26.0 mmol/L 21.0-32.0 [facility] Magnesium [Mass/Vol] 2.2 mg/dL 1.6-2.6 [facility] Urea nitrogen/Creatinine [Mass ratio] 16.3 mg/mg 10-20 [facility] Laboratory - Hematology and Cell countsOrdered By: Dr. Pierson on 03-22-2023 Erythrocyte distribution width (RBC) [Entitic vol] 44.3 fL 35.1-43.9 [facility] Erythrocyte distribution width (RBC) [Ratio] 13.2 % 11.6-14.6 [facility] Immature granulocytes/100 WBC (Bld) 0.200 % 0.0-0.9 [facility] Comment on above: IG% - Immature Granu locytes (promyelocytes, myelocytes and metamyelocytes) > 1% indicates that a LEFT SHIFT is Present. MCH (RBC) [Entitic mass] 31.6 pg 27.0-32.0 [facility] Nucleated RBC/100 [facility] (Bld) [[facility]] 0 [facility] [Mass/Vol]Or dered By: Dr. Pierson on 03-22-2023 MCHC (RBC) [Mass/Vol] 34.6 g/dL 32-36 [facility] No Panel InformationOrdered By: Dr. Pierson on 03-22-2023 Estimated Creatinine Clearance Calc 57.50 ml/min [facility] Estimated GFR (MDRD) Amer 83 mL/min >60 [facility] Comment on above: GFR Calc Estimated GFR (MDRD) Non-Af Amer 69 mL/min >60 [facility] Comment on above: Non- GFR Calc Platelets bldOrdered By: Dr. Pierson on 03-22-2023 Platelets (Bld) [#/Vol] 288 10*3/uL 150-450 [facility] Serum or plasma calcium antonio urement (mass/volume)Ordered By: Dr. Pierson on 03-22-2023 Calcium [Mass/Vol] 8.8 mg/dL 8.5-10.1 [facility] Serum or plasma creatinine m easurement (mass/volume)Ordered By: Dr. Pierson on 03-22-2023 Creatinine [Mass/Vol] 0.86 mg/dL 0.55-1.02 [facility] Comment on above: The validity of the calculated GFR & GFRAA in patients over 70 years has not been determined. Clinical correlation is essential. Serum or plasma urea nitroge n measurement (mass/volume)Ordered By: Dr. Pierson on 03-22-2023 Urea nitrogen [Mass/Vol] 14 mg/dL 7-18 [facility] Thin prep Papanicolaou smear with manual screeningOrdered By: Dr. Pierson on 03-22-2023 Thin prep Papanicolaou smear with manual screening 6 5-15 [facility] Basophil percentageOrdered B y: Dr. Cespedes on 03-21-2023 Cholesterol [Mass/Vol] 194 mg/dL <200 [facility] Comment on above: <200 mg/dL Desirable 200-240 mg/dL Borderline >240 mg/dL High Risk Triglyceride [Mass/Vol] 81 mg/dL <199 [facility] Comment on above: The drugs N-Acetylcy steine and Metamizole may falsely depress this assay.Serum Triglycerides Reference Interval Normal <150 mg/dL Borderline high 150 - 199 mg/dL High 200 - 499 mg/dL Very High > or = 500 mg/dL No Panel InformationOrdered By: Dr. Pierson on 03-21-2023 Troponin I High Sensitivity 6 pg/mL 3.0-54.0 [facility] Comment on above: Please Note: New Katarina t Units and Gender Specific Reference Ranges. For more information see Policy Stat Procedure [place] High Sensitivity Troponin (TNIH) and attachments. Serum or plasma cholesterol in HDL measurement (mass/volume)Ordered By: Dr. Cespedes on 03-21-2023 Cholesterol in HDL [Mass/Vol] 58 mg/dL >40 [facility] Comment on above: The drugs N-Acetylcy steine and Metamizole may falsely depress this assay. Reference Range HDL <40 mg/dL Low HDL Cholesterol HDL >or= 60 mg/dL High HDL Cholesterol Serum or plasma cholesterol in VLDL measurement (mass/volume)Ordered By: Dr. Cespedes on 03-21-2023 Cholesterol in VLDL [Mass/Vol] 16 mg/dL 5-40 [facility] Serum or plasma ferritin quinn surement (mass/volume)Ordered By: Dr. Cespedes on 03-21-2023 Ferritin [Mass/Vol] 218 ng/mL 8-252 [facility] Serum or plasma low density lipoprotein (LDL) cholesterol measurement (mass/volume)Ordered By: Dr. Cespedes on 03-21-2023 Cholesterol in LDL [Mass/Vol] 120 mg/dL 0-130 [facility] Absolute lymphocyte countOrd ered By: Dr. Herman on 03-11-2023 Lymphocytes Auto (Unsp spec) [#/Vol] 1.60 10*3/uL 0.83-4.51 [facility] Basophil percentageOrdered B y: Dr. Herman on 03-11-2023 Basophil percentage 0 SEEN /hpf 0-5 [facility] Basophils/100 WBC (Bld) 1.1 % 0-1 [facility] Bilirubin [Mass/Vol] 0.60 mg/dL 0.20-1.00 [facility] Comment on above: For patients on eltr ombopag therapy, use of Dimension [place] TBIL is not recommended. Chloride [Moles/Vol] 108 mmol/L 98-107 [facility] Eosinophils/100 WBC (Bld) 3.8 % 0-5 [facility] Glucose [Mass/Vol] 128 mg/dL 74-106 [facility] Comment on above: Fasting Glucose resu lt greater than or equal to 126 mg/dL suggests DIABETES MELLITUS per A.D.A. criteria. Neutrophils (Bld) [#/Vol] 6.5 10*3/uL 2.0-7.7 [facility] Neutrophils/100 WBC (Bld) 71.5 % 47-70 [facility] Potassium [Moles/Vol] 3.4 mmol/L 3.5-5.1 [facility] Protein [Mass/Vol] 7.2 g/dL 6.4-8.2 [facility] Sodium [Moles/Vol] 139 mmol/L 136-145 [facility] WBC (Bld) [#/Vol] 9.1 10*3/uL 4.4-11.0 [facility] Bilirubin Test strip Ql (U)O rdered By: Dr. Herman on 03-11-2023 Bilirubin Ql (U) Negative Negative [facility] Blood erythrocytes count (nu mber/volume)Ordered By: Dr. Herman on 03-11-2023 RBC (Bld) [#/Vol] 5.05 10*6/uL 4.2-5.4 [facility] Blood hemoglobin measurement (mass/volume)Ordered By: Dr. Herman on 03-11-2023 Hemoglobin (Bld) [Mass/Vol] 15.5 g/dL 12.0-15.0 [facility] Blood lymphocytes/100 leukoc ytesOrdered By: Dr. Herman on 03-11-2023 Lymphocytes/100 WBC (Bld) 17.5 % 19-41 [facility] Blood monocytes/100 leukocyt esOrdered By: Dr. Herman on 03-11-2023 Monocytes/100 WBC (Bld) 5.8 % 0-10 [facility] Blood platelet mean volumeOr dered By: Dr. Herman on 03-11-2023 Platelet mean volume (Bld) [Entitic vol] 8.8 fL 6.2-12.0 [facility] Determination of erythrocyte mean corpuscular volume (MCV)Ordered By: Dr. Herman on 03-11-2023 MCV (RBC) [Entitic vol] 91.3 fL 81-99 [facility] Direct bilirubinOrdered By: Dr. Herman on 03-11-2023 Bilirubin.direct [Mass/Vol] 0.17 mg/dL 0.00-0.30 [facility] Hematocrit Auto (Bld) [Volum e fraction]Ordered By: Dr. Herman on 03-11-2023 Hematocrit (Bld) [Volume fraction] 46.1 % 37-47 [facility] Ketones Test strip Ql (U)Ord ered By: Dr. Herman on 03-11-2023 Ketones Ql (U) Negative Negative [facility] Laboratory - Chemistry and C hemistry - challengeOrdered By: Dr. Herman on 03-11-2023 ALP [Catalytic activity/Vol] 80 U/L 45-117 [facility] ALT [Catalytic activity/Vol] 7 U/L 13-56 [facility] CO2 [Moles/Vol] 28.0 mmol/L 21.0-32.0 [facility] Globulin (S) [Mass/Vol] 3.5 g/dL 2.2-4.2 [facility] Urea nitrogen/Creatinine [Mass ratio] 10.8 mg/mg 10-20 [facility] Laboratory - Hematology and Cell countsOrdered By: Dr. Herman on 03-11-2023 Erythrocyte distribution width (RBC) [Entitic vol] 44.4 fL 35.1-43.9 [facility] Erythrocyte distribution width (RBC) [Ratio] 13.2 % 11.6-14.6 [facility] Immature granulocytes/100 WBC (Bld) 0.300 % 0.0-0.9 [facility] Comment on above: IG% - Immature Granu locytes (promyelocytes, myelocytes and metamyelocytes) > 1% indicates that a LEFT SHIFT is Present. MCH (RBC) [Entitic mass] 30.7 pg 27.0-32.0 [facility] Nucleated RBC/100 WBC (Bld) [Ratio] 0 % 0-5 [facility] MCHC Auto (RBC) [Mass/Vol]Or dered By: Dr. Herman on 03-11-2023 MCHC (RBC) [Mass/Vol] 33.6 g/dL 32-36 [facility] Mucus LM Ql (Urine sed)Order ed By: Dr. Herman on 03-11-2023 Mucus Ql (Urine sed) 0 SEEN /hpf [facility] Nitrite Test strip Ql (U)Ord ered By: Dr. Herman on 03-11-2023 Nitrite Ql (U) Negative Negative [facility] No Panel InformationOrdered By: Dr. Herman on 03-11-2023 Estimated Creatinine Clearance Calc 59.58 ml/min [facility] Estimated GFR (MDRD) Amer 87 mL/min >60 [facility] Comment on above: GFR Calc Estimated GFR (MDRD) Non-Af Amer 72 mL/min >60 [facility] Comment on above: Non- GFR Calc Thyroid Stimulating Hormone (TSH) 1.01 uIU/mL 0.358-3.74 [facility] Troponin I High Sensitivity 6 pg/mL 3.0-54.0 [facility] Comment on above: Please Note: New Katarina t Units and Gender Specific Reference Ranges. For more information see Policy Stat Procedure [place] High Sensitivity Troponin (TNIH) and attachments. Platelets bldOrdered By: Dr. Herman on 03-11-2023 Platelets (Bld) [#/Vol] 281 10*3/uL 150-450 [facility] Protein Test strip Ql (U)Ord ered By: Dr. Herman on 03-11-2023 Protein Ql (U) 15 mg/dl Negative [facility] Serum or plasma albumin antonio urement (mass/volume)Ordered By: Dr. Herman on 03-11-2023 Albumin [Mass/Vol] 3.7 g/dL 3.2-5.0 [facility] Serum or plasma calcium antonio urement (mass/volume)Ordered By: Dr. Herman on 03-11-2023 Calcium [Mass/Vol] 9.2 mg/dL 8.5-10.1 [facility] Serum or plasma creatinine m easurement (mass/volume)Ordered By: Dr. Herman on 03-11-2023 Creatinine [Mass/Vol] 0.83 mg/dL 0.55-1.02 [facility] Comment on above: The validity of the calculated GFR & GFRAA in patients over 70 years has not been determined. Clinical correlation is essential. Serum or plasma urea nitroge n measurement (mass/volume)Ordered By: Dr. Herman on 03-11-2023 Urea nitrogen [Mass/Vol] 9 mg/dL 7-18 [facility] Squamous epithelial cells de tection in urine sediment by light microscopyOrdered By: Dr. Herman on 03-11-2023 Epithelial cells.squamous LM Ql (Urine sed) 0 SEEN /hpf 5-10 [facility] Thin prep Papanicolaou smear with manual screeningOrdered By: Dr. Herman on 03-11-2023 Thin prep Papanicolaou smear with manual screening 12 U/L 15-37 [facility] Thin prep Papanicolaou smear with manual screening 3 5-15 [facility] Urine blood detectionOrdered By: Dr. Herman on 03-11-2023 RBC Ql (U) Negative Negative [facility] RBC Ql (U) 0 SEEN /hpf 0-5 [facility] Urine clarityOrdered By: Dr. Herman on 03-11-2023 Clarity (U) Clear Clear [facility] Urine color determinationOrd ered By: Dr. Herman on 03-11-2023 Color (U) Yellow Yellow [facility] Urine glucose detectionOrder ed By: Dr. Herman on 03-11-2023 Glucose Ql (U) Normal mg/dl Normal [facility] Urine leukocyte esterase det ection by dipstickOrdered By: Dr. Herman on 03-11-2023 Leukocyte esterase Test strip Ql (U) Negative Negative [facility] Urine pHOrdered By: Dr. Campos bobby on 03-11-2023 pH (U) 7.0 [pH] 5.0 - 8.0 [facility] Urine sediment bacteria coun t by microscopy (number/high power field)Ordered By: Dr. Herman on 03-11-2023 Bacteria LM.HPF (Urine sed) [#/Area] 0 /[HPF] None Seen [facility] Urine specific gravity measu rementOrdered By: Dr. Herman on 03-11-2023 Specific gravity (U) [Rel density] 1.010 1.002-1.03 0 [facility] Urobilinogen Auto test strip Ql (U)Ordered By: Dr. Herman on 03-11-2023 Urobilinogen Ql (U) Normal mg/dl Normal [facility] 24 hour urine alpha 2 globul in/total protein ratio by electrophoresis (mass fraction)Ordered By: Dr. Wallace on 02-11-2023 Alpha 2 globulin Elph (24H U) [Mass fraction] 15.8 % . [facility] 24 hour urine beta globulin/ total protein ratio by electrophoresis (mass fraction)Ordered By: Dr. Wallace on 02-11-2023 Beta globulin Elph (24H U) [Mass fraction] 26.4 % . [facility] 24 hour urine gamma globulin /total protein ratio by electrophoresis (mass fraction)Ordered By: Dr. Wallace on 02-11-2023 Gamma globulin Elph (24H U) [Mass fraction] 17.6 % . [facility] Absolute lymphocyte countOrd ered By: Dr. Wallace on 02-11-2023 Lymphocytes Auto (Unsp spec) [#/Vol] 1.85 10*3/uL 0.83-4.51 [facility] Basophil percentageOrdered B y: Dr. Wallace on 02-11-2023 Basophils/100 WBC (Bld) 1.2 % 0-1 [facility] Bilirubin [Mass/Vol] 0.50 mg/dL 0.20-1.00 [facility] Comment on above: For patients on eltr ombopag therapy, use of Dimension [place] TBIL is not recommended. Chloride [Moles/Vol] 107 mmol/L 98-107 [facility] Eosinophils/100 WBC (Bld) 5.1 % 0-5 [facility] Glucose [Mass/Vol] 109 mg/dL 74-106 [facility] Comment on above: Fasting Glucose resu lt from 100 to 125 mg/dL suggests IMPAIRED HOMEOSTASIS per A.D.A. criteria. Neutrophils (Bld) [#/Vol] 5.1 10*3/uL 2.0-7.7 [facility] Neutrophils/100 WBC (Bld) 63.1 % 47-70 [facility] Potassium [Moles/Vol] 3.7 mmol/L 3.5-5.1 [facility] Protein [Mass/Vol] 7.4 g/dL 6.4-8.2 [facility] Sodium [Moles/Vol] 140 mmol/L 136-145 [facility] WBC (Bld) [#/Vol] 8.1 10*3/uL 4.4-11.0 [facility] Blood erythrocytes count (nu mber/volume)Ordered By: Dr. Wallace on 02-11-2023 RBC (Bld) [#/Vol] 5.04 10*6/uL 4.2-5.4 [facility] Blood hemoglobin measurement (mass/volume)Ordered By: Dr. Wallace on 02-11-2023 Hemoglobin (Bld) [Mass/Vol] 15.4 g/dL 12.0-15.0 [facility] Blood lymphocytes/100 leukoc ytesOrdered By: Dr. Wallace on 02-11-2023 Lymphocytes/100 WBC (Bld) 22.8 % 19-41 [facility] Blood monocytes/100 leukocyt esOrdered By: Dr. Wallace on 02-11-2023 Monocytes/100 WBC (Bld) 7.4 % 0-10 [facility] Blood platelet mean volumeOr dered By: Dr. Wallace on 02-11-2023 Platelet mean volume (Bld) [Entitic vol] 9.1 fL 6.2-12.0 [facility] Cerebrospinal fluid Borrelia burgdorferi 18kd IgG antibody detection by immunoblotOrdered By: Dr. Wallace on 02-11-2023 B. burgdorferi 18kD IgG IB Ql (CSF) Absent . [facility] Cerebrospinal fluid Borrelia burgdorferi 23kD IgG antibody detection by immunoblotOrdered By: Dr. Wallace on 02-11-2023 B. burgdorferi 23kD IgG IB Ql (CSF) Absent . [facility] Cerebrospinal fluid Borrelia burgdorferi 23kD IgM antibody detection by immunoblotOrdered By: Dr. Wallace on 02-11-2023 B. burgdorferi 23kD IgM IB Ql (CSF) Absent . [facility] Cerebrospinal fluid Borrelia burgdorferi 28kD IgG antibody detection by immunoblotOrdered By: Dr. Wallace on 02-11-2023 B. burgdorferi 28kD IgG IB Ql (CSF) Absent . [facility] Cerebrospinal fluid Borrelia burgdorferi 39kD IgG antibody detection by immunoblotOrdered By: Dr. Wallace on 02-11-2023 B. burgdorferi 39kD IgG IB Ql (CSF) Absent . [facility] Cerebrospinal fluid Borrelia burgdorferi 39kD IgM antibody detection by immunoblotOrdered By: Dr. Wallace on 02-11-2023 B. burgdorferi 39kD IgM IB Ql (CSF) Absent . [facility] Cerebrospinal fluid Borrelia burgdorferi 41kD IgM antibody detection by immunoblotOrdered By: Dr. Wallace on 02-11-2023 B. burgdorferi 41kD IgM IB Ql (CSF) Absent . [facility] Determination of erythrocyte mean corpuscular volume (MCV)Ordered By: Dr. Wallace on 02-11-2023 MCV (RBC) [Entitic vol] 90.7 fL 81-99 [facility] Erythrocyte sedimentation ra teOrdered By: Dr. Wallace on 02-11-2023 ESR (Bld) [Velocity] 12 mm/h 0-30 [facility] Hematocrit Auto (Bld) [Volum e fraction]Ordered By: Dr. Wallace on 02-11-2023 Hematocrit (Bld) [Volume fraction] 45.7 % 37-47 [facility] Iron measurement (mass/mass) Ordered By: Dr. Wallace on 02-11-2023 Iron (Unsp spec) [Mass/Mass] 91 ug/dL 50-170 [facility] Laboratory - Chemistry and C hemistry - challengeOrdered By: Dr. Wallace on 02-11-2023 Albumin [Mass/Vol] 3.8 g/dL 2.9-4.4 [facility] ALP [Catalytic activity/Vol] 78 U/L 45-117 [facility] ALT [Catalytic activity/Vol] 21 U/L 13-56 [facility] CO2 [Moles/Vol] 23.0 mmol/L 21.0-32.0 [facility] Cobalamin (Vitamin B12) [Mass/Vol] 1390 pg/mL 211-911 [facility] Free T4 [Mass/Vol] ng/dL 0.76-1.46 [facility] Globulin (S) [Mass/Vol] 3.7 g/dL 2.2-4.2 [facility] Urea nitrogen/Creatinine [Mass ratio] 21.0 mg/mg 10-20 [facility] Laboratory - Hematology and Cell countsOrdered By: Dr. Wallace on 02-11-2023 Erythrocyte distribution width (RBC) [Entitic vol] 43.2 fL 35.1-43.9 [facility] Erythrocyte distribution width (RBC) [Ratio] 13.1 % 11.6-14.6 [facility] Immature granulocytes/100 WBC (Bld) 0.400 % 0.0-0.9 [facility] Comment on above: IG% - Immature Granu locytes (promyelocytes, myelocytes and metamyelocytes) > 1% indicates that a LEFT SHIFT is Present. MCH (RBC) [Entitic mass] 30.6 pg 27.0-32.0 [facility] Nucleated RBC/100 WBC (Bld) [Ratio] 0 % 0-5 [facility] MCHC Auto (RBC) [Mass/Vol]Or dered By: Dr. Wallace on 02-11-2023 MCHC (RBC) [Mass/Vol] 33.7 g/dL 32-36 [facility] No Panel InformationOrdered By: Dr. Wallace on 02-11-2023 Addendum Document Comment . [facility] Comment on above: The SPE pattern demo nstrates a single peak (M-spike) in thegamma region which may represent monoclonal protein. Thispeak may also be caused by circulating immune complexes,cryoglobulins, C-reactive protein, fibrinogen or hemolysis. If clinically indicated, the presence of a monoclonalgammopathy may be confirmed by immuno-fixation, as well asan evaluation of the urine for the presence of Bence-Jonesprotein. Fykqy-4-Tankszpau 0.2 g/dL 0.0-0.4 [facility] Ofibz-5-Lbncrfvga 0.8 g/dL 0.4-1.0 [facility] Estimated GFR (MDRD) Amer 84 mL/min >60 [facility] Comment on above: GFR Calc Estimated GFR (MDRD) Non-Af Amer 69 mL/min >60 [facility] Comment on above: Non- GFR Calc Free Triiodothyronine (T3) pg/dL 2.0 pg/mL 2.18-3.98 [facility] Gamma Globulins 1.1 g/dL 0.4-1.8 [facility] Lyme Disease IgG Ab 30 kDa Band Absent . [facility] Lyme Disease IgG Ab 93 kDa Band Absent . [facility] Lyme Disease IgG [place] Interp Negative . [facility] Comment on above: Positive: 5 of the f ollowing Borrelia-specific bands: 18,23,28,30,39,41,45,58, 66, and 93. Negative: No bands or banding patterns which do not meet positive criteria. Lyme Disease IgM Ab (Western Blot) Negative . [facility] Comment on above: Note: An equivocal o r positive EIA result followed by anegative Line Blot result is considered NEGATIVE. Anequivocal or positive EIA result followed by a positiveLine Blot is considered POSITIVE by the CDC.Positive: 2 of the following bands: 23,39 or 41Negative: No bands or banding patterns which do not meetpositive criteria.Criteria for positivity are those recommended byCDC/ASTPHLD. p23=Osp C, q51=tylvtpcdqShre:Sera from individuals with the following may cross reactin the Lyme Line Blot assays: other spirochetal diseases(periodontal disease, leptospirosis, relapsing fever, yaws,and pinta); connective autoimmune (Rheumatoid Arthritis andSystemic Lupus Erythematosus and also individuals withAntinuclear Antibody); other infections (Roberth MountainSpotted Fever; Jaycob-Bourgeois Virus, and Cytomegalovirus).Please Note: Lyme immunoblot alone is not recommended forthe diagnosis of Lyme disease. Current guidelines recommendthe use of a two-tiered approach to Lyme serology testingto improve the sensitivity and specificity of testing.[facility] offers test code 451950 Lyme Disease Serology withReflex to aid in the diagnosis of Lyme Disease. Thyroid Stimulating Hormone (TSH) 2.30 uIU/mL 0.358-3.74 [facility] Platelets bldOrdered By: Dr. Wallace on 02-11-2023 Platelets (Bld) [#/Vol] 310 10*3/uL 150-450 [facility] Protein Fractions Elph [Inte rp]Ordered By: Dr. Wallace on 02-11-2023 Protein Fractions [Interp] Comment . [facility] Comment on above: Protein electrophore sis scan will follow via computer,mail, or customer quality engineer delivery. Serum Borrelia burgdorferi 4 1kD IgG antibody detection by immunoblotOrdered By: Dr. Wallace on 02-11-2023 B. burgdorferi 41kD IgG IB Ql (S) Present . [facility] Serum Borrelia burgdorferi 6 6kD IgG antibody detection by immunoblotOrdered By: Dr. Wallace on 02-11-2023 B. burgdorferi 66kD IgG IB Ql (S) Absent . [facility] Serum albumin to globulin ra ariel by protein electrophoresisOrdered By: Dr. Wallace on 02-11-2023 Albumin/Globulin Elph [Mass ratio] 1.2 0.7-1.7 [facility] Serum globulin measurement ( mass/volume)Ordered By: Dr. Wallace on 02-11-2023 Globulin (S) [Mass/Vol] 3.2 g/dL 2.2-3.9 [facility] Serum or plasma C reactive p rotein measurement (mass/volume)Ordered By: Dr. Wallace on 02-11-2023 CRP [Mass/Vol] 2.92 mg/L 0.0-3.0 [facility] Comment on above: C-Reactive Protein ( CRP) provides useful information for thediagnosis, therapy and monitoring of inflammatory processesand associated diseases. For the evaluation of Relative Riskfor Cardiovascular Disease, a High Sensitivity CRP (HSCRP)should be ordered. Serum or plasma albumin antonio urement (mass/volume)Ordered By: Dr. Wallace on 02-11-2023 Albumin [Mass/Vol] 3.7 g/dL 3.2-5.0 [facility] Serum or plasma albumin/glob ulin mass ratioOrdered By: Dr. Wallace on 02-11-2023 Albumin/Globulin [Mass ratio] 1.0 {ratio} 0.9-2.4 [facility] Serum or plasma beta globuli n measurement by electrophoresis (mass/volume)Ordered By: Dr. Wallace on 02-11-2023 Beta globulin Elph [Mass/Vol] 1.1 g/dL 0.7-1.3 [facility] Serum or plasma calcium antonio urement (mass/volume)Ordered By: Dr. Wallace on 02-11-2023 Calcium [Mass/Vol] 8.8 mg/dL 8.5-10.1 [facility] Serum or plasma creatinine m easurement (mass/volume)Ordered By: Dr. Wallace on 02-11-2023 Creatinine [Mass/Vol] 0.86 mg/dL 0.55-1.02 [facility] Comment on above: The validity of the calculated GFR & GFRAA in patients over 70 years has not been determined. Clinical correlation is essential. Serum or plasma ferritin quinn surement (mass/volume)Ordered By: Dr. Wallace on 02-11-2023 Ferritin [Mass/Vol] 210 ng/mL 8-252 [facility] Serum or plasma urea nitroge n measurement (mass/volume)Ordered By: Dr. Wallace on 02-11-2023 Urea nitrogen [Mass/Vol] 18 mg/dL 7-18 [facility] Synovial fluid Borrelia anders dorferi 45kD IgG antibody detection by immunoblotOrdered By: Dr. Wallace on 02-11-2023 B. burgdorferi 45kD IgG IB Ql (Syn fld) Absent . [facility] Synovial fluid Borrelia anders dorferi 58kD IgG antibody detection by immunoblotOrdered By: Dr. Wallace on 02-11-2023 B. burgdorferi 58kD IgG IB Ql (Syn fld) Absent . [facility] Thin prep Papanicolaou smear with manual screeningOrdered By: Dr. Wallace on 02-11-2023 Thin prep Papanicolaou smear with manual screening 14 U/L 15-37 [facility] Thin prep Papanicolaou smear with manual screening 10 5-15 [facility] Thin prep Papanicolaou smear with manual screening 0.6 g/dL Not Observed [facility] Total protein bloodOrdered B y: Dr. Wallace on 02-11-2023 Protein [Mass/Vol] 7.0 g/dL 6.0-8.5 [facility] Urine albumin/total protein mass ratio by electrophoresisOrdered By: Dr. Wallace on 02-11-2023 Albumin Elph (U) [Mass fraction] 38.2 % . [facility] Urine alpha 1 globulin/total protein ratio by electrophoresis (mass fraction)Ordered By: Dr. Wallace on 02-11-2023 Alpha 1 globulin Elph (U) [Mass fraction] 2.1 % . [facility] Urine monoclonal protein/tot al protein mass ratio by electrophoresisOrdered By: Dr. Wlalace on 02-11-2023 Protein.monoclonal Elph (U) [Mass fraction] See comment [facility] Comment on above: Result: Not Observed Urine protein measurement (m ass/volume)Ordered By: Dr. Wallace on 02-11-2023 Protein (U) [Mass/Vol] 11.5 mg/dL Not Estab. Wo [facility] Absolute lymphocyte countOrd ered By: Dr. Wallace on 10-28-2022 Lymphocytes Auto (Unsp spec) [#/Vol] 1.74 10*3/uL 0.83-4.51 [facility] Basophil percentageOrdered B y: Dr. Wallace on 10-28-2022 Ammonia (P) [Moles/Vol] 26.0 umol/L 11-32 [facility] Basophils/100 WBC (Bld) 1.6 % 0-1 [facility] Bilirubin [Mass/Vol] 0.40 mg/dL 0.20-1.00 [facility] Comment on above: For patients on eltr ombopag therapy, use of Dimension [place] TBIL is not recommended. Chloride [Moles/Vol] 110 mmol/L 98-107 [facility] Eosinophils/100 WBC (Bld) 4.9 % 0-5 [facility] Glucose [Mass/Vol] 98 mg/dL 74-106 [facility] Neutrophils (Bld) [#/Vol] 3.7 10*3/uL 2.0-7.7 [facility] Neutrophils/100 WBC (Bld) 57.8 % 47-70 [facility] Potassium [Moles/Vol] 4.0 mmol/L 3.5-5.1 [facility] Protein [Mass/Vol] 7.5 g/dL 6.4-8.2 [facility] Sodium [Moles/Vol] 141 mmol/L 136-145 [facility] WBC (Bld) [#/Vol] 6.4 10*3/uL 4.4-11.0 [facility] Blood erythrocytes count (nu mber/volume)Ordered By: Dr. Wallace on 10-28-2022 RBC (Bld) [#/Vol] 4.96 10*6/uL 4.2-5.4 [facility] Blood hemoglobin measurement (mass/volume)Ordered By: Dr. Wallace on 10-28-2022 Hemoglobin (Bld) [Mass/Vol] 15.4 g/dL 12.0-15.0 [facility] Blood lymphocytes/100 leukoc ytesOrdered By: Dr. Wallace on 10-28-2022 Lymphocytes/100 WBC (Bld) 27.2 % 19-41 [facility] Blood monocytes/100 leukocyt esOrdered By: Dr. Wallace on 10-28-2022 Monocytes/100 WBC (Bld) 8.3 % 0-10 [facility] Blood platelet mean volumeOr dered By: Dr. Wallace on 10-28-2022 Platelet mean volume (Bld) [Entitic vol] 9.1 fL 6.2-12.0 [facility] Determination of erythrocyte mean corpuscular volume (MCV)Ordered By: Dr. Wallace on 10-28-2022 MCV (RBC) [Entitic vol] 90.5 fL 81-99 [facility] Erythrocyte sedimentation ra teOrdered By: Dr. Wallace on 10-28-2022 ESR (Bld) [Velocity] 8 mm/h 0-30 [facility] Hematocrit Auto (Bld) [Volum e fraction]Ordered By: Dr. Wallace on 10-28-2022 Hematocrit (Bld) [Volume fraction] 44.9 % 37-47 [facility] Laboratory - Chemistry and C hemistry - challengeOrdered By: Dr. Wallace on 10-28-2022 ALP [Catalytic activity/Vol] 80 U/L 45-117 [facility] ALT [Catalytic activity/Vol] 21 U/L 13-56 [facility] CO2 [Moles/Vol] 29.0 mmol/L 21.0-32.0 [facility] Globulin (S) [Mass/Vol] 3.7 g/dL 2.2-4.2 [facility] Urea nitrogen/Creatinine [Mass ratio] 17.9 mg/mg 10-20 [facility] Laboratory - Hematology and Cell countsOrdered By: Dr. Wallace on 10-28-2022 Erythrocyte distribution width (RBC) [Entitic vol] 42.9 fL 35.1-43.9 [facility] Erythrocyte distribution width (RBC) [Ratio] 13.0 % 11.6-14.6 [facility] Immature granulocytes/100 WBC (Bld) 0.200 % 0.0-0.9 [facility] Comment on above: IG% - Immature Granu locytes (promyelocytes, myelocytes and metamyelocytes) > 1% indicates that a LEFT SHIFT is Present. MCH (RBC) [Entitic mass] 31.0 pg 27.0-32.0 [facility] Nucleated RBC/100 WBC (Bld) [Ratio] 0 % 0-5 [facility] MCHC Auto (RBC) [Mass/Vol]Or dered By: Dr. Wallace on 10-28-2022 MCHC (RBC) [Mass/Vol] 34.3 g/dL 32-36 [facility] No Panel InformationOrdered By: Dr. Wallace on 10-28-2022 Estimated GFR (MDRD) Amer 86 mL/min >60 [facility] Comment on above: GFR Calc Estimated GFR (MDRD) Non-Af Amer 71 mL/min >60 [facility] Comment on above: Non- GFR Calc Platelets bldOrdered By: Dr. Wallace on 10-28-2022 Platelets (Bld) [#/Vol] 317 10*3/uL 150-450 [facility] Serum or plasma C reactive p rotein measurement (mass/volume)Ordered By: Dr. Wallace on 10-28-2022 CRP [Mass/Vol] 3.32 mg/L 0.0-3.0 [facility] Comment on above: C-Reactive Protein ( CRP) provides useful information for thediagnosis, therapy and monitoring of inflammatory processesand associated diseases. For the evaluation of Relative Riskfor Cardiovascular Disease, a High Sensitivity CRP (HSCRP)should be ordered. Serum or plasma albumin antonio urement (mass/volume)Ordered By: Dr. Wallace on 10-28-2022 Albumin [Mass/Vol] 3.8 g/dL 3.2-5.0 [facility] Serum or plasma albumin/glob ulin mass ratioOrdered By: Dr. Wallace on 10-28-2022 Albumin/Globulin [Mass ratio] 1.0 {ratio} 0.9-2.4 [facility] Serum or plasma calcium antonio urement (mass/volume)Ordered By: Dr. Wallace on 10-28-2022 Calcium [Mass/Vol] 8.9 mg/dL 8.5-10.1 [facility] Serum or plasma creatinine m easurement (mass/volume)Ordered By: Dr. Wallace on 10-28-2022 Creatinine [Mass/Vol] 0.84 mg/dL 0.55-1.02 [facility] Comment on above: The validity of the calculated GFR & GFRAA in patients over 70 years has not been determined. Clinical correlation is essential. Serum or plasma urea nitroge n measurement (mass/volume)Ordered By: Dr. Wallace on 10-28-2022 Urea nitrogen [Mass/Vol] 15 mg/dL 7-18 [facility] Thin prep Papanicolaou smear with manual screeningOrdered By: Dr. Wallace on 10-28-2022 Thin prep Papanicolaou smear with manual screening 16 U/L 15-37 [facility] Thin prep Papanicolaou smear with manual screening 2 5-15 [facility] Basophil percentageon 2021 Bilirubin [Mass/Vol] 0.50 mg/dL 0.20-1.00 [facility] Work Phone: Comment on above: For patients on eltr ombopag therapy, use of Dimension [place] TBIL is not recommended. Chloride [Moles/Vol] 107 mmol/L 98-107 [facility] Work Phone: Glucose [Mass/Vol] 97 mg/dL 74-106 [facility] Work Phone: Potassium [Moles/Vol] 3.9 mmol/L 3.5-5.1 [facility] Work Phone: Protein [Mass/Vol] 7.5 g/dL 6.4-8.2 [facility] Work Phone: Sodium [Moles/Vol] 139 mmol/L 136-145 [facility] Work Phone: Bilirubin Test strip Ql (U)o n 04-29-2022 Bilirubin Ql (U) Negative Negative [facility] Work Phone: Ketones Test strip Ql (U)on 04-29-2022 Ketones Ql (U) Negative Negative [facility] Work Phone: Laboratory - Chemistry and C hemistry - challengeon 04-29-2022 ALP [Catalytic activity/Vol] 82 U/L 45-117 [facility] Work Phone: ALT [Catalytic activity/Vol] 20 U/L 13-56 [facility] Work Phone: CO2 [Moles/Vol] 25.0 mmol/L 21.0-32.0 [facility] Work Phone: Globulin (S) [Mass/Vol] 3.6 g/dL 2.2-4.2 [facility] Work Phone: Urea nitrogen/Creatinine [Mass ratio] 19.0 mg/mg 10-20 [facility] Work Phone: Nitrite Test strip Ql (U)on 04-29-2022 Nitrite Ql (U) Negative Negative [facility] Work Phone: No Panel Informationon 04-29 Estimated GFR (MDRD) Amer 92 mL/min >60 [facility] Work Phone: Comment on above: GFR Calc Estimated GFR (MDRD) Non-Af Amer 76 mL/min >60 [facility] Work Phone: Comment on above: Non- GFR Calc Thyroid Stimulating Hormone (TSH) 1.42 uIU/mL 0.358-3.74 [facility] Work Phone: Protein Test strip Ql (U)on 04-29-2022 Protein Ql (U) Negative Negative [facility] Work Phone: Serum or plasma albumin antonio urement (mass/volume)on 04-29-2022 Albumin [Mass/Vol] 3.9 g/dL 3.2-5.0 [facility] Work Phone: Serum or plasma albumin/glob ulin mass ratioon 04-29-2022 Albumin/Globulin [Mass ratio] 1.1 {ratio} 0.9-2.4 [facility] Work Phone: Serum or plasma calcium antonio urement (mass/volume)on 04-29-2022 Calcium [Mass/Vol] 9.0 mg/dL 8.5-10.1 [facility] Work Phone: Serum or plasma creatinine m easurement (mass/volume)on 04-29-2022 Creatinine [Mass/Vol] 0.79 mg/dL 0.55-1.02 [facility] Work Phone: Comment on above: The validity of the calculated GFR & GFRAA in patients over 70 years has not been determined. Clinical correlation is essential. Serum or plasma urea nitroge n measurement (mass/volume)on 04-29-2022 Urea nitrogen [Mass/Vol] 15 mg/dL 7-18 [facility] Work Phone: Thin prep Papanicolaou smear with manual screeningon 04-29-2022 Thin prep Papanicolaou smear with manual screening 17 U/L 15-37 [facility] Work Phone: Thin prep Papanicolaou smear with manual screening 7 5-15 [facility] Work Phone: Urine blood detectionon RBC Ql (U) 10 /ul Negative [facility] Work Phone: Urine clarityon 04-29-2022 Clarity (U) Sl. Cloudy Clear [facility] Work Phone: Urine color determinationon 04-29-2022 Color (U) Yellow Yellow [facility] Work Phone: Urine glucose detectionon Glucose Ql (U) Normal mg/dl Normal [facility] Work Phone: Urine leukocyte esterase det ection by dipstickon 04-29-2022 Leukocyte esterase Test strip Ql (U) 100 /ul Negative [facility] Work Phone: Urine pHon 04-29-2022 pH (U) 5.0 [pH] 5.0 - 8.0 [facility] Work Phone: Urine specific gravity measu rementon 04-29-2022 Specific gravity (U) [Rel density] 1.020 1.002-1.03 0 [facility] Work Phone: Urobilinogen Auto test strip Ql (U)on 04-29-2022 Urobilinogen Ql (U) Normal mg/dl Normal [facility] Work Phone: Vital Signs Date Time Vital Sign Value Performing Clinician Facility 04-02-2025 22:09-0400 Diastolic blood pressure 58 mm[Hg] Dr. Roxy Wallace DO Work Phone: [facility] 04-02-2025 22:09-0400 Heart rate 90 /min Dr. Roxy Wallace DO Work Phone: [facility] 04-02-2025 22:09-0400 Respiratory rate 28 /min Dr. Roxy Wallace DO Work Phone: [facility] 04-02-2025 22:09-0400 SaO2% (BldA) [Mass fraction] 95 % Dr. Roxy Wallace DO Work Phone: [facility] 04-02-2025 22:09-0400 Systolic blood pressure 111 mm[Hg] Dr. Roxy Wallace DO Work Phone: [facility] 04-02-2025 21:45-0400 Body temperature 97.9 [degF] Dr. Roxy Wallace DO Work Phone: [facility] 04-02-2025 14:36-0400 Body height 170.[address] Roxy Wallace DO Work Phone: [facility] 04-02-2025 14:36-0400 Body mass index (BMI) [Ratio] 26.5 kg/m2 Dr. Roxy Wallace DO Work Phone: [facility] 04-02-2025 14:36-0400 Body weight 76.[address] Roxy Wallace DO Work Phone: [facility] 03-07-2025 09:59-0400 Body height 170.[address] Roxy Wallace DO Work Phone: [facility] 03-07-2025 09:59-0400 Body mass index (BMI) [Ratio] 25 kg/m2 Dr. Roxy Wallace DO Work Phone: [facility] 03-07-2025 09:59-0400 Body temperature 98.2 [degF] Dr. Roxy Wallace DO Work Phone: [facility] 03-07-2025 09:59-0400 Body weight 72.[address] Roxy Wallace DO Work Phone: [facility] 03-07-2025 09:59-0400 Diastolic blood pressure 60 mm[Hg] Dr. Roxy Wallace DO Work Phone: [facility] 03-07-2025 09:59-0400 Heart rate 97 /min Dr. Roxy Wallace DO Work Phone: [facility] 03-07-2025 09:59-0400 Respiratory rate 17 /min Dr. Roxy Wallace DO Work Phone: [facility] 03-07-2025 09:59-0400 SaO2% (BldA) [Mass fraction] 98 % Dr. Roxy Wallace DO Work Phone: [facility] 03-07-2025 09:59-0400 Systolic blood pressure 112 mm[Hg] Dr. Roxy Wallace DO Work Phone: [facility] 03-01-2025 08:05-0400 Body mass index (BMI) [Ratio] 25 kg/m2 Dr. Roxy Wallace DO Work Phone: [facility] 03-01-2025 08:05-0400 Body temperature 97.4 [degF] Dr. Roxy Wallace DO Work Phone: [facility] 03-01-2025 08:05-0400 Body weight 72.[address] Roxy Wallace DO Work Phone: [facility] 03-01-2025 08:05-0400 Diastolic blood pressure 73 mm[Hg] Dr. Roxy Wallace DO Work Phone: [facility] 03-01-2025 08:05-0400 Heart rate 83 /min Dr. Roxy Wallace DO Work Phone: [facility] 03-01-2025 08:05-0400 Respiratory rate 18 /min Dr. Roxy Wallace DO Work Phone: [facility] 03-01-2025 08:05-0400 SaO2% (BldA) [Mass fraction] 98 % Dr. Roxy Wallace DO Work Phone: [facility] 03-01-2025 08:05-0400 Systolic blood pressure 114 mm[Hg] Dr. Roxy Wallace DO Work Phone: [facility] 12-29-2024 15:18-0500 Body temperature 98.1 [degF] Dr. Roxy Wallace DO Work Phone: [facility] 12-29-2024 15:18-0500 Diastolic blood pressure 62 mm[Hg] Dr. Roxy Wallace DO Work Phone: [facility] 12-29-2024 15:18-0500 Heart rate 78 /min Dr. Roxy Wallace DO Work Phone: [facility] 12-29-2024 15:18-0500 Respiratory rate 15 /min Dr. Roxy Wallace DO Work Phone: [facility] 12-29-2024 15:18-0500 SaO2% (BldA) [Mass fraction] 100 % Dr. Roxy Wallace DO Work Phone: [facility] 12-29-2024 15:18-0500 Systolic blood pressure 104 mm[Hg] Dr. Roxy Wallace DO Work Phone: [facility] 12-29-2024 08:00-0500 Body mass index (BMI) [Ratio] 25.4 kg/m2 Dr. Roxy Wallace DO Work Phone: [facility] 12-29-2024 05:11-0500 Body weight 73.[address] Roxy Wallace DO Work Phone: [facility] 08-09-2024 15:19-0400 Body mass index (BMI) [Ratio] 25.34 kg/m2 Joseph Gonzales MD Work Phone: [facility] 08-09-2024 15:19-0400 Body weight 73.4 kg Joseph Gonzales MD Work Phone: [facility] 08-09-2024 15:19-0400 SaO2% (BldA) [Mass fraction] 100 % Joseph Gonzales MD Work Phone: [facility] 01-09-2024 23:51-0500 Body temperature 98.9 [degF] [facility] 01-09-2024 23:51-0500 Diastolic blood pressure 70 mm[Hg] [facility] 01-09-2024 23:51-0500 Heart rate 96 /min [facility] 01-09-2024 23:51-0500 Respiratory rate 24 /min [facility] 01-09-2024 23:51-0500 SaO2% (BldA) [Mass fraction] 92 % [facility] 01-09-2024 23:51-0500 Systolic blood pressure 152 mm[Hg] [facility] 01-09-2024 21:51-0500 Body mass index (BMI) [Ratio] 26.7 kg/m2 [facility] 01-09-2024 21:51-0500 Body weight 77.56 kg [facility] 01-09-2024 21:28-0500 Body height 170.18 cm [facility] 09-27-2023 09:38-0500 Body height 170.2 cm Dasha Rodriguez DO Work Phone: [facility] 09-27-2023 09:38-0500 Body mass index (BMI) [Ratio] 26.45 kg/m2 Dasha Rodriguez DO Work Phone: [facility] 09-27-2023 09:38-0500 Body weight 76.6 kg Christopher Jennifer DO Work Phone: [facility] 09-27-2023 09:38-0500 Diastolic blood pressure 74 mm[Hg] Vitalyer [place] DO Work Phone: [facility] 09-27-2023 09:38-0500 Heart rate 94 /min Christopher [place] DO Work Phone: [facility] 09-27-2023 09:38-0500 Respiratory rate 16 /min Vitalyer Jennifer DO Work Phone: [facility] 09-27-2023 09:38-0500 Systolic blood pressure 119 mm[Hg] Jdopher Jennifer DO Work Phone: [facility] 06-04-2023 10:00-0400 Body height 170.[address] Roxy Wallace Work Phone: [facility] 06-04-2023 10:00-0400 Body mass index (BMI) [Ratio] 29.5 kg/m2 Dr. Roxy Wallace Work Phone: [facility] 06-04-2023 10:00-0400 Body temperature 98.4 [degF] Dr. Roxy Wallace Work Phone: [facility] 06-04-2023 10:00-0400 Body weight 85.[address] Roxy Wallace Work Phone: [facility] 06-04-2023 10:00-0400 Diastolic blood pressure 63 mm[Hg] Dr. Roxy Wallace Work Phone: [facility] 06-04-2023 10:00-0400 Heart rate 96 /min Dr. Roxy Wallace Work Phone: [facility] 06-04-2023 10:00-0400 Respiratory rate 16 /min Dr. Roxy Wallace Work Phone: [facility] 06-04-2023 10:00-0400 SaO2% (BldA) [Mass fraction] 94 % Dr. Roxy Wallace Work Phone: [facility] 06-04-2023 10:00-0400 Systolic blood pressure 101 mm[Hg] Dr. Roxy Wallace Work Phone: [facility] 05-14-2023 08:54-0400 Body height 170.18 cm Referring Provider Unknown BC-Ztinkxqvi-PYLTW [facility] Work Phone: 05-14-2023 08:54-0400 Body mass index (BMI) [Ratio] 29.45 kg/m2 Referring Provider Unknown EI-Wkjrvuveg-VVKDS [facility] Work Phone: 05-14-2023 08:54-0400 Body surface area Derived from formula 1.97 m2 Referring Provider Unknown YR-Vsosvgtlm-JCUUK [facility] Work Phone: 05-14-2023 08:54-0400 Body weight 85.28 kg Referring Provider Unknown ON-Ilfttimkc-LLQNP [facility] Work Phone: 05-14-2023 08:54-0400 Diastolic blood pressure 77 mm[Hg] Referring Provider Unknown TD-Ldkizjytn-NZJYZ [facility] Work Phone: 05-14-2023 08:54-0400 Heart rate 84 /min Referring Provider Unknown RE-Apwrzzlgi-GMTGQ [facility] Work Phone: 05-14-2023 08:54-0400 Respiratory rate 18 /min Referring Provider Unknown GN-Kfzzzurph-DQYLH [facility] Work Phone: 05-14-2023 08:54-0400 Systolic blood pressure 137 mm[Hg] Referring Provider Unknown NW-Xltcyafar-NLWMJ [facility] Work Phone: 05-14-2023 08:54-0400 5 1 Referring Provider Unknown MI-Qytsjwdcw-HFDPF [facility] Work Phone: Comment on above: [facility] 04-28-2023 15:07-0400 Body height 170.[address] Roxy Wallace Work Phone: [facility] 04-28-2023 15:07-0400 Body mass index (BMI) [Ratio] 30.5 kg/m2 Dr. Roxy Wallace Work Phone: [facility] 04-28-2023 15:07-0400 Body temperature 97.7 [degF] Dr. Roxy Wallace Work Phone: [facility] 04-28-2023 15:07-0400 Body weight 88.[address] Roxy Wallace Work Phone: [facility] 04-28-2023 15:07-0400 Diastolic blood pressure 75 mm[Hg] Dr. Roxy Wallace Work Phone: [facility] 04-28-2023 15:07-0400 Heart rate 108 /min Dr. Roxy Wallace Work Phone: [facility] 04-28-2023 15:07-0400 Respiratory rate 18 /min Dr. Roxy Wallace Work Phone: [facility] 04-28-2023 15:07-0400 Systolic blood pressure 123 mm[Hg] Dr. Roxy Wallace Work Phone: [facility] 04-08-2023 08:30-0400 Body temperature 98.6 [degF] Dr. Roxy Wallace Work Phone: [facility] 04-08-2023 08:30-0400 Diastolic blood pressure 78 mm[Hg] Dr. Roxy Wallace Work Phone: [facility] 04-08-2023 08:30-0400 Heart rate 83 /min Dr. Roxy Wallace Work Phone: [facility] 04-08-2023 08:30-0400 Respiratory rate 16 /min Dr. Roxy Wallace Work Phone: [facility] 04-08-2023 08:30-0400 SaO2% (BldA) [Mass fraction] 95 % Dr. Roxy Wallace Work Phone: [facility] 04-08-2023 08:30-0400 Systolic blood pressure 136 mm[Hg] Dr. Roxy Wallace Work Phone: [facility] 04-06-2023 13:02-0400 Body mass index (BMI) [Ratio] 31.4 kg/m2 Dr. Roxy Wallace Work Phone: [facility] 04-06-2023 13:02-0400 Body weight 90.[address] Roxy Wallace Work Phone: [facility] 04-06-2023 12:06-0400 Inhaled oxygen flow rate 4 L/min Dr. Roxy Wallace Work Phone: [facility] 04-02-2023 12:50-0400 Body height 170.2 cm Joseph Gonzales MD Work Phone: [facility] 04-02-2023 12:50-0400 Body weight 91.67 kg Joseph Gonzales MD Work Phone: [facility] 04-02-2023 12:50-0400 Diastolic blood pressure 81 mm[Hg] Joseph Gonzales MD Work Phone: [facility] 04-02-2023 12:50-0400 Heart rate 85 /min Joseph Gonzales MD Work Phone: [facility] 04-02-2023 12:50-0400 SaO2% (BldA) [Mass fraction] 95 % Joseph Gonzales MD Work Phone: [facility] 04-02-2023 12:50-0400 Systolic blood pressure 132 mm[Hg] Joseph Gonzales MD Work Phone: [facility] 04-01-2023 12:59-0400 Body mass index (BMI) [Ratio] 31.6 kg/m2 Dr. Roxy Wallace Work Phone: [facility] 04-01-2023 12:59-0400 Body weight 91.[address] Roxy Wallace Work Phone: [facility] 04-01-2023 12:59-0400 Diastolic blood pressure 72 mm[Hg] Dr. Roxy Wallace Work Phone: [facility] 04-01-2023 12:59-0400 Respiratory rate 16 /min Dr. Roxy Wallace Work Phone: [facility] 04-01-2023 12:59-0400 Systolic blood pressure 111 mm[Hg] Dr. Roxy Wallace Work Phone: [facility] 03-22-2023 11:31-0400 Body temperature 98 [degF] Dr. Roxy Wallace Work Phone: [facility] 03-22-2023 11:31-0400 Diastolic blood pressure 76 mm[Hg] Dr. Roxy Wallace Work Phone: [facility] 03-22-2023 11:31-0400 Heart rate 80 /min Dr. Roxy Wallace Work Phone: [facility] 03-22-2023 11:31-0400 Respiratory rate 14 /min Dr. Roxy Wallace Work Phone: [facility] 03-22-2023 11:31-0400 SaO2% (BldA) [Mass fraction] 95 % Dr. Roxy Wallace Work Phone: [facility] 03-22-2023 11:31-0400 Systolic blood pressure 131 mm[Hg] Dr. Roxy Wallace Work Phone: [facility] 03-21-2023 11:56-0400 Body height 170.[address] Roxy Wallace Work Phone: [facility] 03-21-2023 11:56-0400 Body weight 91.[address] Roxy Wallace Work Phone: [facility] 03-20-2023 23:19-0400 Body mass index (BMI) [Ratio] 31.5 kg/m2 Dr. Roxy Wallace Work Phone: [facility] 03-11-2023 17:41-0400 Diastolic blood pressure 84 mm[Hg] Dr. Roxy Wallace Work Phone: [facility] 03-11-2023 17:41-0400 Heart rate 72 /min Dr. Roxy Wallace Work Phone: [facility] 03-11-2023 17:41-0400 Respiratory rate 18 /min Dr. Roxy Wallace Work Phone: [facility] 03-11-2023 17:41-0400 SaO2% (BldA) [Mass fraction] 100 % Dr. Roxy Wallace Work Phone: [facility] 03-11-2023 17:41-0400 Systolic blood pressure 166 mm[Hg] Dr. Roxy Wallace Work Phone: [facility] 03-11-2023 14:30-0400 Body height 170.[address] Roxy Wallace Work Phone: [facility] 03-11-2023 14:30-0400 Body mass index (BMI) [Ratio] 32.7 kg/m2 Dr. Roxy Wallace Work Phone: [facility] 03-11-2023 14:30-0400 Body temperature 98.6 [degF] Dr. Roxy Wallace Work Phone: [facility] 03-11-2023 14:30-0400 Body weight 94.[address] Roxy Wallace Work Phone: [facility] 01-01-2023 10:56-0500 Body height 167.[address] Roxy Wallace Work Phone: [facility] 01-01-2023 10:56-0500 Body mass index (BMI) [Ratio] 34.5 kg/m2 Dr. Roxy Wallace Work Phone: [facility] 01-01-2023 10:56-0500 Body weight 97.[address] Roxy Wallace Work Phone: [facility] 08-12-2022 09:37-0400 Body height 167.[address] Roxy Wallace Work Phone: [facility] Work Phone: 08-12-2022 09:37-0400 Body mass index (BMI) [Ratio] 34.7 kg/m2 Dr. Roxy Wallace Work Phone: [facility] Work Phone: 08-12-2022 09:37-0400 Body weight 97.[address] Roxy Wallace Work Phone: [facility] Work Phone: 06-06-2022 20:38-0400 Diastolic blood pressure 83 mm[Hg] [facility] Work Phone: 06-06-2022 20:38-0400 Systolic blood pressure 169 mm[Hg] [facility] Work Phone: 06-06-2022 19:04-0400 Body temperature 98.4 [degF] [facility] Work Phone: 06-06-2022 19:04-0400 Heart rate 114 /min [facility] Work Phone: 06-06-2022 19:04-0400 Respiratory rate 16 /min [facility] Work Phone: 06-06-2022 19:04-0400 SaO2% (BldA) [Mass fraction] 96 % [facility] Work Phone: 06-06-2022 18:41-0400 Body height 170.18 cm [facility] Work Phone: 06-06-2022 18:41-0400 Body mass index (BMI) [Ratio] 33.6 kg/m2 [facility] Work Phone: 06-06-2022 18:41-0400 Body weight 97.52 kg [facility] Work Phone: Encounters Encounter Date Encounter Type Care Provider Facility Start: 04-19-2025 End: 04-19-2025 Admission to same day surgery center Acute 359 Work Phone: [facility] Comment on above: Closed fracture of m ultiple ribs of right side with routine healing, subsequent encounter (Primary Dx) Start: 04-19-2025 End: 04-19-2025 Telemedicine consultation with patient [facility] 359 Work Phone: [facility] Start: 04-19-2025 End: 04-19-2025 ambulatory FLAQUITO Josue [facility] Facility:[facility] Start: 04-18-2025 ambulatory XUAN JARED Facility:[facility] Start: 04-18-2025 End: 04-18-2025 Subsequent hospital visit by physician Sherita [facility] Work Phone: Radiology Comment on above: Closed fracture of m ultiple ribs of right side, initial encounter [S22.41XA] Start: 04-13-2025 End: 04-13-2025 ambulatory Flaquito PurcellMayda Facility:[facility] Start: 04-12-2025 End: 04-12-2025 ambulatory [facility] Facility:[facility] Start: 04-09-2025 End: 04-09-[address] Roxy Wallace DO Work Phone: [facility] Work Phone: Start: 04-09-2025 End: 04-09-2025 Patient encounter procedure Graham Gill NP-C -Laboratory Specimen Work Phone: Start: 04-08-2025 End: 04-08-2025 Patient encounter procedure Graham Gill NP-[facility] Work Phone: Start: 04-08-2025 End: 04-09-[address] Roxy Wallcae DO Work Phone: [facility] Work Phone: Start: 04-06-2025 End: 04-06-2025 Telephone encounter Ed Locke MD Work Phone: [facility] Comment on above: Appointment Start: 04-02-2025 End: 04-02-2025 Emergency department patient visit Dr. Roxy Wallace DO Work Phone: -Emergency Department Work Phone: Start: 04-02-2025 End: 04-04-2025 ambulatory Scott Osuna [employer] Work Phone: Critical Care Start: 03-20-2025 End: 03-20-[address] Stevie Cotto DO -Pulmonary Services/Neurology Work Phone: Start: 03-20-2025 End: 03-20-2025 ambulatory Stevie Cotto Facility:[facility] Start: 03-14-2025 End: 03-14-2025 ambulatory [facility] Facility:[facility] Start: 03-07-2025 End: 03-07-[address] Javad Ojeda MD -[facility] Work Phone: Start: 03-07-2025 End: 03-07-[address] Roxy Wallace DO Work Phone: [facility] Work Phone: Start: 03-07-2025 End: 03-07-2025 ambulatory [facility] Facility:[facility] Start: 03-01-2025 End: 03-01-[address] Stevie Cotto DO -[facility] Work Phone: Start: 03-01-2025 End: 03-01-2025 ambulatory Stevie Cotto Facility:[facility] Start: 02-13-2025 End: 02-13-2025 ambulatory RAPHAEL LANDAVERDE MD Facility:[facility] Start: 02-13-2025 End: 02-13-2025 Patient encounter procedure RAPHAEL LANDAVERDE [facility] Start: 01-19-2025 ambulatory Roxy Wallace Facility:[facility] Start: 01-19-[address] Roxy Wallace DO -Speech Therapy Work Phone: Start: 01-03-2025 End: 01-04-2025 Telephone encounter Joseph Gonzales MD Work Phone: Neurological [facility] Comment on above: Appointment Start: 01-03-2025 End: 01-03-[address] Flaquito Ohara DO -Laboratory, [facility] Start: 01-03-2025 End: 01-03-2025 ambulatory Flaquito Ohara Facility:[facility] Start: 12-29-2024 Non-patient / Non-visit Dr. Betzy Amos MD -[facility] Work Phone: Start: 12-28-2024 Non-patient / Non-visit Dr. Btezy Amos MD -[facility] Work Phone: Start: 12-28-2024 ambulatory [facility] Facility:[facility] Start: 12-28-2024 Non-patient / Non-visit [facility] Salmeron [facility] Start: 12-27-2024 End: 12-29-2024 Evaluation and management of inpatient Dr. Betzy Amos MD -Progressive Care Unit Work Phone: Start: 12-27-2024 End: 12-29-2024 [facility] Start: 12-27-2024 Non-patient / Non-visit Dr. Aubrie Zamora MD -[facility] Work Phone: Start: 11-23-2024 End: 11-23-[address] Roxy Wallace DO -Laboratory, [facility] Work Phone: Start: 11-23-2024 End: 11-23-2024 ambulatory [facility] Facility:[facility] Start: 11-08-2024 End: 11-08-2024 ambulatory Bryan Yanez MD Work Phone: Neurological [facility] Comment on above: Parkinson's 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, with fluctuating manifestations (HCC) (Primary Dx) Start: 11-08-2024 End: 11-08-2024 Telemedicine consultation with patient Bryan Yanez MD Work Phone: Neurological [facility] Start: 10-11-2024 End: 10-13-2024 ambulatory [facility] Comment on above: A Message from [facility] Start: 10-11-2024 End: 10-13-2024 E-mail encounter from caregiver [facility] Neurology Start: 09-28-2024 End: 09-28-2024 ambulatory Roxy Malys Facility:[facility] Start: 08-09-2024 End: 08-09-2024 ambulatory JOSEPH GONZALES Facility:[facility] Start: 08-09-2024 End: 08-09-2024 Office outpatient visit 25 minutes Joseph Gonzales MD Work Phone: Neurology Comment on above: Parkinson's 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, with fluctuating manifestations (HCC) (Primary Dx) Start: 07-25-2024 End: 07-26-2024 ambulatory Roxy Malys Facility:[facility] Start: 05-16-2024 [facility] Start: 05-16-2024 End: 05-16-2024 ambulatory Roxy Malys Facility:[facility] Start: 05-01-2024 End: 05-01-2024 ambulatory Roxy Malys Facility:[facility] Start: 04-24-2024 End: 04-24-2024 ambulatory Roxy Malys Facility:[facility] Start: 03-03-2024 End: 03-03-2024 ambulatory [facility] Work Phone: Start: 03-03-2024 End: 03-03-2024 Patient encounter procedure [facility]iology, [facility] Work Phone: Start: 02-21-2024 Telephone encounter Joseph monae MD Work Phone: Neurology Start: 02-03-2024 End: 02-03-2024 Telemedicine consultation with patient Joseph Gonzales MD Work Phone: [facility] Start: 02-03-2024 End: 02-03-2024 ambulatory Joseph Gonzales MD Work Phone: Neurology Comment on above: Parkinson's 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, with fluctuating manifestations (HCC) (Primary Dx) visit summary Start: 02-03-2024 E-mail encounter fro m caregiver Joseph Gonzales MD Work Phone: [facility] Start: 01-09-2024 End: 01-09-2024 Emergency department patient visit [facility] Work Phone: Start: 12-27-2023 End: 12-27-2023 ambulatory [facility] Work Phone: Start: 12-27-2023 End: 12-27-2023 Patient encounter procedure [facility]Jeremy Trottereyricky Jaquez [facility] Start: 09-27-2023 End: 09-27-2023 ambulatory DASHA RODRIGUEZ [facility] Start: 09-27-2023 End: 09-27-2023 Office outpatient visit 15 minutes Dasha Rodriguez DO Work Phone: [facility] Comment on above: Yiqprii-Fahne-Lylxz disease (Primary Dx) Start: 07-15-2023 AUDIT Referring Prov ider Unknown [id number] 1500 Work Phone: Start: 07-14-2023 AUDIT Referring Prov ider Unknown [id number] [facility] [facility] Work Phone: Start: 06-29-2023 End: 06-29-[address] Roxy Wallace Work Phone: [facility] Work Phone: Start: 06-29-2023 End: 06-29-[address] Roxy Wallace Work Phone: [facility]-Outpatient Breast Imaging Work Phone: Start: 06-28-2023 End: 06-28-[address] Roxy Wallace Work Phone: [facility] Work Phone: Start: 06-23-2023 End: 06-23-[address] Roxy Wallace Work Phone: [facility] Work Phone: Start: 06-23-2023 End: 06-23-[address] Roxy Wallace Work Phone: [facility]Danny Trotter [facility] Start: 06-04-2023 End: 06-04-[address] Roxy Wallace Work Phone: [facility] Endocr[facility] Work Phone: Start: 05-28-2023 End: 05-28-2023 Office outpatient visit 15 minutes Radha Raymond APRN.BAKER HELPER Work Phone: Neurological [facility] Comment on above: Parkinson disease (H CC) (Primary Dx) Start: 05-19-2023 End: 05-19-[address] Roxy Wallace Work Phone: [facility] Work Phone: Start: 05-19-2023 End: 05-19-[address] Roxy Wallace Work Phone: [facility]-Physical Therapy Work Phone: Start: 05-17-2023 End: 05-17-[address] Roxy Wallace Work Phone: [facility] Work Phone: Start: 05-14-[address] Jayjay Rodriguez Facility:[facility] Start: 05-14-2023 Office outpatient ne w 60 minutes Referring Provider Unknown [id number] [facility] [facility] Work Phone: Start: 05-14-2023 Patient encounter procedure Referring Provider Unknown NR-[id number]-CMRPH [place] [facility] Work Phone: Start: 05-14-[address] Jayjay Rodriguez Facility:[facility] Start: 05-10-2023 Telephone encounter Joseph monae MD Work Phone: Neurology Comment on above: Patient Update; Concetta ent Question Start: 04-28-2023 End: 04-28-[address] Roxy Wallace Work Phone: [facility]-Laboratory, Specimen Work Phone: Start: 04-28-2023 End: 04-28-[address] Roxy Wallace Work Phone: [facility] Work Phone: Start: 04-21-2023 End: 04-21-[address] Roxy Wallace Work Phone: [facility] Work Phone: Start: 04-08-2023 Non-patient / Non-visit Dr. Catrina Wallace Work Phone: [facility] Start: 04-07-2023 Non-patient / Non-visit Dr. Catrina Wallace Work Phone: [facility] Start: 04-06-2023 Non-patient / Non-visit Dr. Catrina Wallace Work Phone: [facility] Start: 04-06-2023 End: 04-08-2023 Evaluation and management of inpatient [facility]. R[facility] Work Phone: Start: 04-02-2023 End: 04-02-2023 Office outpatient visit 40 minutes Joseph Gonzales MD Work Phone: Neurology Comment on above: Parkinson disease (H CC) (Primary Dx); RLS (restless legs syndrome) Start: 04-01-2023 End: 04-01-[address] Roxy Wallace Work Phone: [facility] Work Phone: Start: 03-22-2023 Non-patient / Non-visit Dr. Catrina Wallace Work Phone: [facility] Start: 03-22-2023 Non-patient / Non-visit Dr. Catrina Wallace Work Phone: [facility] Start: 03-21-2023 End: 03-21-2023 Non-patient / Non-visit Dr. Roxy Wallace Work Phone: [facility] Work Phone: Start: 03-21-2023 Non-patient / Non-visit Dr. Catrina Wallace Work Phone: [facility] Start: 03-20-2023 End: 03-20-2023 Non-patient / Non-visit Dr. Roxy Wallace Work Phone: [facility] Work Phone: Start: 03-20-2023 Non-patient / Non-visit Dr. Catrina Wallace Work Phone: [facility] Start: 03-20-2023 End: 03-22-2023 Evaluation and management of inpatient Dr. Roxy Wallace Work Phone: [facility]-Progressive Care Unit Start: 03-20-2023 End: 03-22-[address] Roxy Wallace Work Phone: [facility] Work Phone: Start: 03-11-2023 End: 03-11-2023 Emergency department patient visit Dr. Roxy Wallace Work Phone: [facility]-Emergency Department Start: 03-08-2023 Non-patient / Non-visit Dr. Catrina Wallace Work Phone: [facility] Start: 03-08-2023 End: 03-08-[address] Roxy Wallace Work Phone: [facility] Work Phone: Start: 03-08-2023 End: 03-08-[address] Roxy Wallace Work Phone: [facility]-Pulmonary Services/Neurology Start: 03-05-2023 End: 03-05-[address] Roxy Wallace Work Phone: [facility] Start: 02-17-2023 End: 02-17-[address] Roxy Wallace Work Phone: [facility] Start: 02-16-2023 End: 02-16-[address] Roxy Wallace Work Phone: [facility] Work Phone: Start: 02-16-2023 End: 02-16-[address] Roxy Wallace Work Phone: [facility]-Physical Therapy Start: 02-11-2023 End: 02-11-[address] Roxy Wallace Work Phone: [facility] Work Phone: Start: 02-11-2023 End: 02-11-[address] Roxy Wallace Work Phone: [facility] Start: 01-01-2023 End: 01-01-[address] Roxy Wallace Work Phone: [facility] Start: 12-30-[address] Roxy Wallace Work Phone: [facility]-Physical Therapy Start: 11-30-2022 End: 11-30-[address] Roxy Wallace Work Phone: [facility] Work Phone: Start: 11-30-2022 End: 01-09-[address] Roxy Wallace Work Phone: [facility] Start: 11-20-2022 End: 11-20-[address] Roxy Wallace Work Phone: [facility] Start: 11-06-2022 End: 11-06-[address] Roxy Wallace Work Phone: [facility] Start: 10-28-2022 End: 10-28-[address] Roxy Wallace Work Phone: [facility] Work Phone: Start: 10-28-2022 End: 10-28-[address] Roxy Wallace Work Phone: [facility]-Laboratory [facility] Start: 09-30-2022 End: 09-30-[address] Roxy Wallace Work Phone: [facility] Start: 08-12-2022 End: 08-12-[address] Roxy Wallace Work Phone: [facility] Start: 06-06-2022 End: 06-06-2022 Emergency department patient visit [facility] Start: 06-03-2022 End: 06-03-2022 Patient encounter procedure [facility]Cardiovascula r Services Start: 05-29-2022 End: 05-29-2022 Patient encounter procedure [facility]Outpatient Breast Imaging Start: 04-29-2022 End: 04-29-2022 [facility] Procedure Procedure Detail Performing Clinician Start: 04-18-2025 Radiologic exam ches t 2 views Xuan Roman PA-C Work Phone: Start: 04-09-[address] Roxy Wallace DO Work Phone: Start: 04-03-2025 Antibody screen FLAQUITO GUTIÉRREZ Comment on above: Order Comment: Speci men Type: BLOOD SPECIMENOrdering Facility: [facility] Address: [facility] [place] [address] Performed By: #### T SCR ####[facility] BLOOD BANKCLIA [id number] [place] [address] [place] Start: 04-02-[address] Roxy Wallace DO Work Phone: Start: 04-02-2025 Plain x-ray of pelvi s and lower extremity Dr. Roxy Wallace DO Work Phone: Start: 04-02-2025 Plain X-ray of tibia and fibula Dr. Roxy Wallace DO Work Phone: Start: 04-02-2025 CT cervical spine wi thout contrast Dr. Roxy Wallace DO Work Phone: Start: 04-02-2025 CT of head without contrast Dr. Rxoy Wallace DO Work Phone: Start: 04-02-2025 CT of thorax, abdome n and pelvis with contrast Dr. Roxy Wallace DO Work Phone: Start: 03-07-[address] Cathryn Wallace DO Work Phone: Start: 03-07-[address] Aaron Wallace DO Work Phone: Start: 01-03-2025 Acetylcholine recept or blocking antibody measurement Dr. Roxy Wallace DO Work Phone: Comment on above: Negative: 0 - 25 Bor derline: 26 - 30 Positive: >30 Start: 01-03-2025 Acetylcholine recept or measurement Dr. Roxy Wallace DO Work Phone: Comment on above: Negative: 0.00 - 0.2 4 Borderline: 0.25 - 0.40 Positive: >0.40 Start: 01-03-[address] Cheri Wallace DO Work Phone: Comment on above: Performed at: [address] [id number] Director: Rell Cameron PhD, Phone: [phone] Start: 01-03-2025 Antibody to centrome re measurement Dr. Roxy Wallace DO Work Phone: Comment on above: Test not performed Start: 01-03-2025 Antibody to extracta ble nuclear antigen measurement Dr. Roxy Wallace DO Work Phone: Comment on above: Test not performed Start: 01-03-2025 Antibody to MILLICENT-[address] Roxy Wallace DO Work Phone: Comment on above: Test not performed Start: 01-03-2025 Antibody to lupus La protein measurement Dr. Roxy Wallace DO Work Phone: Comment on above: Test not performed Start: 01-03-2025 Antibody to SS-A measurement Dr. Roxy Wallace DO Work Phone: Comment on above: Test not performed Start: 01-03-[address] Roxy Wallace DO Work Phone: Comment on above: Test not performed Start: 01-03-2025 Endomysial antibody IgA level Dr. Roxy Wallace DO Work Phone: Start: 01-03-[address] Cathryn Wallace DO Work Phone: Start: 01-03-[address] Aaron Wallace DO Work Phone: Start: 01-03-2025 Measurement of C-inderjit ctive protein using high sensitivity technique Dr. Roxy Wallace DO Work Phone: Comment on above: C-Reactive Protein ( CRP) provides useful information for thediagnosis, therapy and monitoring of inflammatory processesand associated diseases. For the evaluation of Relative Riskfor Cardiovascular Disease, a High Sensitivity CRP (HSCRP)should be ordered. Start: 01-03-[address] Roxy Wallace DO Work Phone: Start: 01-03-2025 REGISTERED NURSE AMBULATORY antibody measurement Dr. Roxy Wallace DO Work Phone: Comment on above: Test not performed Start: 12-29-[address] Roxy Wallace DO Work Phone: Start: 12-29-2024 Measurement of renal function Dr. Roxy Wallace DO Work Phone: Comment on above: GFR Calc Start: 12-28-2024 MRI of brain without contrast Dr. Roxy Wallace DO Work Phone: Start: 12-27-2024 Plain chest X-ray Dr. Cathryn Wallace DO Work Phone: Start: 12-27-2024 CT angiography of he ad and neck Dr. Roxy Wallace DO Work Phone: Start: 12-27-2024 CT of head without contrast Dr. Roxy Wallace DO Work Phone: Start: 03-03-2024 [facility] Start: 01-09-2024 Plain chest X-ray Start: 01-09-2024 SARS-CoV-2, Influenz a & RSV (PCR) Start: 12-27-2023 Plain chest X-ray Start: 06-29-2023 Screening mammography Domingo Wallace Work Phone: Start: 06-28-2023 Radiologic examinati on of knee Dr. Roxy Wallace Work Phone: Start: 05-17-2023 Radiologic examinati on of knee Dr. Roxy Wallace Work Phone: Start: 04-06-2023 Radiologic examinati on of knee Dr. Roxy Wallace Work Phone: Start: 04-06-2023 Total Knee Replaceme nt Robotic Arm Leslee (Left) Dr. Roxy Wallace Work Phone: Start: 03-24-2023 Nasal Screen MRSA/MSSA Dr. Roxy Wallace Work Phone: Start: 03-22-2023 Cardiovascular stres s test using pharmacologic stress agent Dr. Roxy Wallace Work Phone: Start: 03-20-2023 Plain chest X-ray Dr. Cathryn Wallace Work Phone: Start: 03-11-2023 Plain chest X-ray Dr. Cathryn Wallace Work Phone: Start: 03-08-2023 MRI of lower extremity Dr. Roxy Wallace Work Phone: Start: 03-05-2023 US scan of thyroid Dr. Roxy Wallace Work Phone: Start: 01-01-2023 Radiologic examinati on of knee Dr. Roxy Wallace Work Phone: Start: 11-30-2022 MRI of brain with contrast Dr. Roxy Wallace Work Phone: Start: 11-06-2022 MRI of joint of lowe r extremity Dr. Roxy Wallace Work Phone: Start: 08-12-2022 Plain X-ray of tibia and fibula Dr. Roxy Wallace Work Phone: Start: 08-12-2022 Radiologic examinati on of knee Dr. Roxy Wallace Work Phone: Start: 05-29-2022 Screening mammography Start: 04-29-2022 Radiologic examinati on of knee Viral antigen assay Plan of Treatment Date Care Activity Detail Author Start: 08-25-2029 DTaP/Tdap/Td Vaccine s (2 - Td or Tdap) DTaP/Tdap/Td Vaccines (2 - Td or Tdap) [facility] Start: 08-25-2029 Urine microalbumin profile DTaP,Tdap,Td Vaccine (3 - Td or Tdap) [facility] Start: 04-04-2028 Diabetes Screening Diabetes Screenin g [facility] Start: 04-03-2028 Diabetes Screening Diabetes Screenin [facility] Start: 2025 RSV Vaccine (1 - 1-d ose 75+ series) RSV Vaccine (1 - 1-dose 75+ series) [facility] Start: 07-23-2025 Influenza vaccination Influenz a Vaccine (Season Ended) [facility] Start: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 scale: mean = 50, over 50 is above average, under 50 is below average Objective Neurological Examination: Limited due to the virtual nature of the visit and because the majority of the time was spent on counseling and answering patient's questions. Assessment and Plan: Assessment Ms. 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 Has noted bilateral upper [...] PD. She improved on higher Sinemet dose. During today's virtual shared medical appointment, we discussed essential elements in improving quality of life with a Parkinson disease/radha (more content not included)...[facility]12-20-2024 History of Present illness Narrative* Bryan Yanez MD - 11/10/2024 6:44 PM EST [facility] - Virtual Visit Eliana Veloz DO, DO [address] [facility] [address] [facility] [address] Dear Eliana Veloz DO, DO: I had the pleasure of seeing Ms. Lynch for follow-up today. As you know she is a 74 year old ambidextrous female with a history of Parkinson's disease since 2017. passed with Parkinson's January 2023. She is seen . We had a visit using: [employer] I have communicated my name and active licensure. The patient's identity and physical location wereverified at the time of this visit. Either the patient or their legal industrial relations representative has been informed of the risks and benefits of -- and alternatives to -- treatment through a remote evaluation andconsents to proceed with the evaluation remotely. Subjective Interval History Ms. Lynch logged in during today's virtual visit to obtain counseling and to seek answers to some questions related to: Parkinson's 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, with fluctuating manifestations (hcc) (primary encounter diagnosis) Movement Disorders Medications Schedule - as of the start of the visit: Medications 730 1045 2 515 10 Sinemet 25/100 2 2 2 2 2 Comtan (entacapone) 200 mg 1 1 1 1 1 Parkinson's Motor Complications Medication benefit onset: 30 minutes Medication duration: 3 hours Wearing off: yes Painful off-state dystonia: no Dyskinesia: yes Prior Anti-Parkinson Therapies Carbidopa/Levodopa ALLERGIES Allergen Reactions Jordan Inhibitors Cough Current Outpatient Medications Medication Sig carbidopa-levodopa (SINEMET 25-100) 25-100 mg per tablet Take 2 tablets by mouth five times a day. entacapone (COMTAN) 200 mg tablet Take 1 tablet by mouth five times a day. Take with levodopa/carbidopa omeprazole (PRILOSEC) 40 mg capsule citalopram (CELEXA) 20 mg tablet Take 20 mg by mouth once daily. LORazepam (ATIVAN) 0.5 mg TAKE 1 TO 2 TABLETS BY MOUTH EVERY 4 TO 6 HOURS NEEDED FOR ANXIETY FORUP TO 7 DAYS zolpidem (AMBIEN CR) 6.25 mg CR tablet Take by mouth. ondansetron orally disintegrating (ZOFRAN ODT) 8 mg disintegrating tablet DISSOLVE 1 TABLET BY MOUTH EVERY 8 HOURS NEEDED FOR NAUSEA acetaminophen (TYLENOL 8 HOUR ORAL) Take by [...] (none) Difficulties turning in bed: Yes (slight) Difficulties getting out of bed, car or chair: 0 (none) Tremors/Gait/Balance Shaking or tremors: 0 (none) Walking and balance problems: 0 (none) Number of falls in the Last Month: Gait freezin (none) Autonomic/Pain Lightheadeness on standin (none) Urinary problems: Yes (mild) Constipation problems: Yes (moderate) Pain and other sensations: Yes (mild) Speech/Swallowing Speech problems: Yes (slight) Drooling: Yes (slight) Chewing and swallowing problems: Yes (slight) Sleep/Fatigue Sleep problems: Yes (mild) Daytime sleepiness: 0 (none) Fatigue: 0 (none) Mood/Behavior Depression: PHQ-9 Score: 8 usually representing mild (5-9) depression. Anxiety: ALPHONSO-7 Total Score: 7 usually representing mild (5-9) anxiety. Finally, the following table shows the patient's overall global physical and mental health using the PROMIS scale: PROMIS-10 Flowsheet Row Distance Health from 11/08/2024 in Neurological [facility] Office Visit from 08/09/2024 in Neurology Global Physical Health T Score 39.8 42.3 Global Mental Health T Score 38.8 38.8 0-10 Standard Pain Scale 3 3 *PROMIS-10 scoring scale: mean = 50, over 50 is above average, under 50 is below average Objective Neurological Examination: Limited due to the virtual nature of the visit and because the majority of the time was spent on counseling and answering patient's questions. Assessment and Plan: Assessment Ms. 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 Has noted bilateral upper [...] PD. She improved on higher Sinemet dose. During today's virtual shared medical appointment, we discussed essential elements in improving quality of life with a Parkinson disease/parkinsonism diagnosis. 1. Be in the know: know the signs and symptoms of Parkinson disease. Take note that Parkinson disease does not only cause tremors, stiffness and slowness, but also balance problems, gastrointestinal problems, genitourinary issues, sleep issues, cognitive and behavioral complications, fatigue, lightheadedness, etc. Knowing these will make you a better advocate for your own care. 2. Keep moving. Exercise 30 minutes daily and if possible make it aerobic and at a high speed. There is no need to increase resistance. For those with balance problems, yoga or shaniqua chi are good exercises. 3. Always have a good night sleep. You can take melatonin if needed. But if you have difficulty sleeping, make sure you know the source so you can address it. If you need someone to guide you with better sleep habits, please consider sleep behavioral therapy. This is the first line treatment for insomnia, not pills. 4. Be proactive about addressing depression and anxiety. These are the most treatable problems in Parkinson disease, either with pharmacotherapy or psychotherapy or both. 5. Lower your risk factors for stroke and heart disease--have a balanced diet, make sure your bloodpressure and blood sugar are as controlled as possible, exercise daily, do not smoke. 6. Consider taking Vit D3 and Vit B complex supplement. Parkinson disease patients often have osteoporosis and neuropathy. 7. Have a good support system! The following are the current problems noted and addressed during this visit: Parkinson's 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, with fluctuating manifestations (hcc) (primary encounter diagnosis) Plan 11/08/2024 Visit: Detailed counseling was provided to address concerns and questions regarding Parkinson's 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, with fluctuating manifestations (hcc) (primary encounter diagnosis) Level of service: Level 2 established virtual visit: Limited examination was performed; the majority of the time (greater than 15 minutes) was spent preparing for the visit and answering additional patient questions after counseling was provided. Thank you for allowing me to be part of the clinical care of this patient! I look forward to continued participation in the patient s care with you. Please do not hesitate to call with any questions. Sincerely, Bryan Yanez MD documented in this encounterWilson [facility] Hospital09-18-2024 Instructions* Patient Instructions* Joseph Gonzales MD - 08/09/2024 4:14 PM EDT It was a pleasure to see you today. We addressed the following diagnoses: Parkinson's 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, with fluctuating manifestations (hcc) (primary encounter diagnosis) My recommendations are as follows: For the Parkinson's - we are adding another dose of Sinemet and Comtan at bedtime to hopefully helpyour mornings. Stay active Movement Disorders Medication Schedule: Medications 730 1045 2 515 10 Sinemet 25/100 2 2 2 2 2 Comtan (entacapone) 200 mg 1 1 1 1 1 No follow-ups on file. If there are any concerns before your next visit, please call or you can send a message through [employer]. You can also now schedule and select appointments through [employer]. Joseph Gonzales MD documented in this encounterWilson Memorial Hospital09-18-2024 NoteHNO ID: [id number] Author: JOSEPH GONZALES MD Service: ? Author Type: Physician Type: Progress Notes Filed: 08/10/2024 05:42 Note Text: [facility] - FOLLOW UP EVALUATION Eliana Veloz DO, DO [address] [facility] [address] [facility] [id number] I had the pleasure of seeing Ms. Lynch for follow up today. She is a 73 year old ambidextrous female with a history of Parkinson's disease since 2018. passed with Parkinson's January 2023. She is seen with a daughter. Subjective Previous Plan-02/03/2024 Visit: Modified barium swallow for the difficulty swallowing. You should be able to have it done at [facility]. We will mail a paper order to your home. No change to Sinemet. Stop rasagiline (Azilect) since it doesn't seem to be helping much. Start Comtan (entacapone). This is meant to boost the Sinemet. It will make your urine bright orange. It might loosen your stools. Small chance of it causing diarrhea. Continue citalopram and Ativan for the depression/anxiety. We might change the citalopram to something else next time but avoiding changing more than 1 medication at at time. I entered an order for you to see one of our psychologists who are experienced with Parkinson's. Appointment scheduling:Psychology: [phone], choose option 2: Exercise Follow-up 3 months Interval History: Feels crummy much of the time. Nausea. No longer SOB. Had EGD in [place] after MBS. Stopped pantoprazole and started omeprazole twice daily. Sometimes still trouble swallowing solids. Taking Sinemet 3.25 hours apart. Sluggish before first dose. Sharp pain in jaw at times. Recent dental abscess. Pain may have started after that. Parkinson's Medication Schedule - as of the start of the visit: Medications 8 1130 3 630 Sinemet 25/100 2 2 2 2 Comtan (entacapone) 200 mg 1 1 1 1 Parkinson's Motor Complications Medication benefit onset: 30 minutes Medication duration: 3 hours Wearing off: yes Painful off-state dystonia: no Dyskinesia: yes Prior Anti-Parkinson Therapies Carbidopa/Levodopa Questionnaires In addition, the following areas that may be affected by abnormal involuntary movements were evaluated: Daily activities Difficulties with eating: Yes (slight) Difficulties in dressin (none) Difficulties with hygiene activities: 0 (none) Difficulties with handwriting: Yes (slight) Difficulties with doing hobbies and other activities: Yes (mild) Difficulties turning in bed: Yes (slight) Difficulties getting out of bed, car or chair: 0 (none) Tremors/Gait/Balance Shaking or tremors: Yes (slight) Walking and balance problems: 0 (none) Number of falls in the Last Month: 0 Gait freezin (none) Autonomic/Pain Lightheadeness on standing: Yes (slight) Urinary problems: Yes (slight) Constipation problems: Yes (moderate) Pain and other sensations: Yes (mild) Speech/Swallowing Speech problems: Yes (mild) Drooling: Yes (mild) Chewing and swallowing problems: Yes (slight) Sleep/Fatigue Sleep problems: Yes (mild) Daytime sleepiness: 0 (none) Fatigue: Yes (slight) Mood/Behavior Depression: PHQ-9 Score: 11 usually representing moderate (10-14) depression. Anxiety: ALPHONSO-7 Total Score: 7 usually representing mild (5-9) anxiety. Finally, the following table shows the patient's overall global physical and mental health using the PROMIS scale: PROMIS-10 Flowsheet Row Office Visit from 08/09/2024 in Neurology [facility] from 02/03/2024 in Neurology Global Physical Health T Score 42.3 39.8 Global Mental Health T Score 38.8 36.3 0-10 Standard Pain Scale 3 3 *PROMIS-10 scoring scale: mean = 50, over 50 is above average, under 50 is below average In addition, the following Parkinson Lifestyle-associated features were evaluated: Conditions Prior to Dx: Depression: No Anxiety: No Melanoma: No Constipation: No Yelling: No Head Trauma: No Habits/exposures Prior to Dx Smoking: No Caffeinated coffee (1-cup+): Yes (and still do) Caffeinated soda/tea (2 cups+): No Alcohol (1 bottle/shot/glass+): No Exercise (3x/wk+): No Ibuprofen use (1x/wk+): Yes (but quit) Pesticides: Yes (but quit) Welding: No ALLERGIES Allergen Reactions Jordan Inhibitors Cough Current Outpatient Medications Medication Sig omeprazole (PRILOSEC) 40 mg capsule citalopram (CELEXA) 20 mg tablet Take 20 mg by mouth once daily. LORazepam (ATIVAN) 0.5 mg TAKE 1 TO 2 TABLETS BY MOUTH EVERY 4 TO 6 HOURS NEEDED FOR ANXIETY FOR UP TO 7 DAYS zolpidem (AMBIEN CR) 6.25 mg CR tablet Take by mouth. ondansetron orally disintegrating (ZOFRAN ODT) 8 mg disintegrating tablet DISSOLVE 1 TABLET BY MOUTH EVERY 8 HOURS NEEDED FOR NAUSEA acetaminophen (TYLENOL 8 HOUR ORAL) Take by mouth. PRN carbidopa-levodopa (SINEMET 25-100) 25-100 mg per tablet Take 2 tablets by mouth five times a day. entacapone (COMTAN) 200 mg tablet Take 1 tablet by mouth five (more content not included)...[facility]09-18-2024 History of Present illness Narrative* Joseph Gonzales MD - 08/09/2024 3:45 PM EDT [facility] - FOLLOW UP EVALUATION Eliana Veloz, DO, DO [address] [facility] [address] [facility] [address] I had the pleasure of seeing Ms. Lynch for follow up today. She is a 73 year old ambidextrous female with a history of Parkinson's disease since 2017. passed with Parkinson's January 2023. She is seen with a daughter. Subjective Previous Plan-02/03/2024 Visit: Modified barium swallow for the difficulty swallowing. You should be able to have it done at [facility]. We will mail a paper order to your home. No change to Sinemet. Stop rasagiline (Azilect) since it doesn't seem to be helping much. Start Comtan (entacapone). This is meant to boost the Sinemet. It will make your urine bright orange. It might loosen your stools. Small chance of it causing diarrhea. Continue citalopram and Ativan for the depression/anxiety. We might change the citalopram to something else next time but avoiding changing more than 1 medication at at time. I entered an order for you to see one of our psychologists who are experienced with Parkinson's. Appointment scheduling:Psych ology: [phone], choose option 2: Exercise Follow-up 3 months Interval History: Feels crummy much of the time. Nausea. No longer SOB. Had EGD in [place] after MBS. Stopped pantoprazole and started omeprazole twice daily. Sometimes still trouble swallowing solids. Taking Sinemet 3.25 hours apart. Sluggish before first dose. Sharp pain in jaw at times. Recent dental abscess. Pain may have started after that. Parkinson's Medication Schedule - as of the start of the visit: Medications 8 1130 3 630 Sinemet 25/100 2 2 2 2 Comtan (entacapone) 200 mg 1 1 1 1 Parkinson's Motor Complications Medication benefit onset: 30 minutes Medication duration: 3 hours Wearing off: yes Painful off-state dystonia: no Dyskinesia: yes Prior Anti-Parkinson Therapies Carbidopa/Levodopa Questionnaires In addition, the following areas that may be affected by abnormal involuntary movements were evaluated: Daily activities Difficulties with eating: Yes (slight) Difficulties in dressin (none) Difficulties with hygiene activities: 0 (none) Difficulties with handwriting: Yes (slight) Difficulties with doing hobbies and other activities: Yes (mild) Difficulties turning in bed: Yes (slight) Difficulties getting out of bed, car or chair: 0 (none) Tremors/Gait/Balance Shaking or tremors: Yes (slight) Walking and balance problems: 0 (none) Number of falls in the Last Month: 0 Gait freezin (none) Autonomic/Pain Lightheadeness on standing: Yes (slight) Urinary problems: Yes (slight) Constipation problems: Yes (moderate) Pain and other sensations: Yes (mild) Speech/Swallowing Speech problems: Yes (mild) Drooling: Yes (mild) Chewing and swallowing problems: Yes (slight) Sleep/Fatigue Sleep problems: Yes (mild) Daytime sleepiness: 0 (none) Fatigue: Yes (slight) Mood/Behavior Depression: PHQ-9 Score: 11 usually representing moderate (10-14) depression. Anxiety: ALPHONSO-7 Total Score: 7 usually representing mild (5-9) anxiety. Finally, the following table shows the patient's overall global physical and mental health using the PROMIS scale: PROMIS-10 Flowsheet Row Office Visit from 08/09/2024 in Neurology [facility] from 02/03/2024 in Neurology Global Physical Health T Score 42.3 39.8 Global Mental Health T Score 38.8 36.3 0-10 Standard Pain Scale 3 3 *PROMIS-10 scoring scale: mean = 50, over 50 is above average, under 50 is below average In addition, the following Parkinson Lifestyle-associated features were evaluated: Conditions Prior to Dx: Depression: No Anxiety: No Melanoma: No Constipation: No Yelling: No Head Trauma: No Habits/exposures Prior to Dx Smoking: No Caffeinated coffee (1-cup+): Yes (and still do) Caffeinated soda/tea (2 cups+): No Alcohol (1 bottle/shot/glass+): No Exercise (3x/wk+): No Ibuprofen use (1x/wk+): Yes (but quit) Pesticides: Yes (but quit) Welding: No ALLERGIES Allergen Reactions Jordan Inhibitors Cough Current Outpatient Medications Medication Sig omeprazole (PRILOSEC) 40 mg capsule citalopram (CELEXA) 20 mg tablet Take 20 mg by mouth once daily. LORazepam (ATIVAN) 0.5 mg TAKE 1 TO 2 TABLETS BY MOUTH EVERY 4 TO 6 HOURS NEEDED FOR ANXIETY FORUP TO 7 DAYS zolpidem (AMBIEN CR) 6.25 mg CR tablet Take by mouth. ondansetron orally disintegrating (ZOFRAN ODT) 8 mg disintegrating tablet DISSOLVE 1 TABLET BY MOUTH EVERY 8 HOURS NEEDED FOR NAUSEA acetaminophen (TYLENOL 8 HOUR ORAL) Take by mouth. PRN carbidopa-levodopa (SINEMET 25-100) 25-100 mg per tablet Take 2 tablets by mouth five times a day. entacapone (COMTAN) 200 mg tablet Take 1 tablet by mouth five times a day. Take with levodopa/carbidopa No current facility-administered medications for this visit. Objective Vital Signs: Wt 73.4 kg (161 lb 13.1 oz) SpO2 100% BMI 25.34 kg/m Orthostatic Vitals: Sitting: BP 115/71 Pulse 82 Standing: BP 116/76 Pulse 91 Weight: 73.4 kg (161 lb 13.1 oz) No LMP recorded. Patient is postmenopausal. Body mass index is 25.34 kg/m . General Physical Examination: General: Awake, alert, interactive, no acute distress, good nutritional status, normal development,well-kept General Neurological Examination: Neurological Exam Mental Status Awake and alert. Language is fluent with no aphasia. Movement Disorders Scales Performed: MDS-UPDRS Motor subscale condition of exam Medication Off/On/Naiive ON (Sinemet 10/100 1 tab last night) Time of UPDRS Time of Last Medication 0900 Last Medication [...] Extremity 0-Normal. No rigidity. Finger Taps Right 0-Normal. No problems. ` Finger Taps Left 1-Slight. a) the regular rhythm is broken with one or two interruptions or hesitations of the tapping movement, b) slight slowing, c) the amplitude decrements near the end of the 10 taps. Hand Movements Right 1-Slight. a) the regular rhythm is broken with one or two interruptions or hesitations of the movement, b) slight slowing, c) the amplitude decrements near the end of the task. Hand Movements Left 0-Normal. No problem. Arm Movements Right 0-Normal. No problems. Arm Movements Left 0-Normal. No problems. Toe Taps Right 2-Mild. a) 3 to 5 interruptions during the tapping movements, b) mild slowing, c) the amplitude decrements midway in the task. Toe Taps Left 2-Mild. a) 3 to 5 interruptions during the tapping movements, b) mild slowing, c) theamplitude decrements midway in the task. Leg Agility Right 0-Normal. No problems. Leg [...] of spontaneous movements. Postural Tremor Hand Right 0-Normal. No tremor. Postural Tremor Hand Left 0-Normal. No tremor. Kinetic Tremor Right 0-Normal. No tremor. Kinetic Tremor Left 0-Normal. No tremor. Rest Tremor Amplitude Right Upper Extremity 0-Normal. No tremor. Rest Tremor Amplitude Left Upper Extremity 1-Slight. < 1 cm in maximal amplitude. Rest Tremor Amplitude Right Lower Extremity 0-Normal. No tremor. Rest Tremor Amplitude Left Lower Extremity 0-Normal. No tremor. Rest Tremor Amplitude Lip/Jaw 0-Normal. No tremor. Rest Tremor Constancy 1-Slight. Tremor at rest is present < 25% of the entire examination period. MDS-UPDRS Motor subscale totals Left Total 4 Right Total 3 Midline Total 5 Tremor Total / 10 2 PIGD Total / 3 1 Overall Total 13 % Change Compared to Last Filed Total -18.75 Assessment and Plan: Assessment Ms. Lynch is a ambidextrous 73 year old year old female with Suspected ET and PD. Has noted bilateral upper extremity postural and resting tremors since around 2016. Tremor worse late 2021 and nowinvolving lower extremities. On exam there is hypomimia, right hand resting, postural tremors, tremulous spirals and lines, no rigidity. Gait is slow with decreased arm swing bilaterally. Improved with low-dose Sinemet started by PCP. Suspect ET with subsequent development of PD. She improved on higher Sinemet dose. Addition of Comtan at last visit has been helpful. She experiences morning akinesia so will add an evening Sinemet/Comtan dose. She looks improved from a motor standpoint. Continue with exercise. The following are the current problems noted and addressed during this visit: Parkinson's 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, with fluctuating manifestations (hcc) (primary encounter diagnosis) Plan 08/09/2024 Visit: For the Parkinson's - we are adding another dose of Sinemet and Comtan at bedtime to hopefully helpyour mornings. Stay active Updated Movement Disorders Medication Schedule: Medications 730 1045 2 515 10 Sinemet 25/100 2 2 2 2 2 Comtan (entacapone) 200 mg 1 1 1 1 1 Return at or around: 02/06/25 Level of service : 23179 ( 30-39 min). Time spent 31 min on the day of service, which included preparing to see the patient, [id number] patient care, completing clinical documentation, performing amedically appropriate examination, counseling and educating the patient/family/caregiver, and ordering medications, tests, or procedures. Thank you for allowing me to be part of the clinical care of this patient! I look forward to continued participation in the patient s care with you. Please do not hesitate to call with any questions. Sincerely, Joseph Gonzales MD documented in this encounterWilson Memorial Hospital06-25-2024 [facility]04-12-2024 Procedure [facility]04-01-2024 Miscellaneous Notes* Telephone Encounter - Christine Oswald RN - 02/21/2024 12:53 PM EDT Order for MBS faxed via [employer] with confirmation received Courtesy call to patient to inform * Telephone Encounter - Jacqueline Clifton - 02/21/2024 12:28 PM EDT Patient contacted the office with a fax number for the [facility] X- ray dept. Fax number : [phone] documented in this encounterWilson Memorial Hospital03-14-2024 History of Present illness Narrative* Joseph Gonzales MD - 02/03/2024 4:45 PM EDT [facility] - FOLLOW UP EVALUATION - VIRTUAL VISIT Eliana Veloz DO, DO [address] [facility] [address] Dear Eliana Veloz DO, DO: I had the pleasure of seeing Ms. Lynch for follow-up today. As you know she is a 73 year old ambidextrous female with a history of Parkinson's disease since 2017. passed with Parkinson's January 2023. She is seen with a daughter. We had a visit using: [employer] I have communicated my name and active licensure. The patient's identity and physical location wereverified at the time of this visit. Either the patient or their legal industrial relations representative has been informed of the risks and benefits of -- and alternatives to -- treatment through a remote evaluation andconsents to proceed with the evaluation remotely. Subjective During her previous visit the following plan was made: Previous plan-10/06/2023 Visit: Add Azilect (rasagiline) to help with wearing off. Give it 1-2 months to see how it worse. No change to Sinemet - Interval History Feels crummy a lot. SOB. One toe is starting to curl on the left side. Little bit painful. Has had work-up for the SOB. Somewhat fluctuates with the Parkinson's medications. Afraid to go out with friends since she doesn't know how she'll feel. Sometimes trouble swallowing saliva. Hard to make herself swallow. Food and liquids are ok. Doesn'tcough. Dry mouth. Speech is off when mouth is very dry. Not sure Azilect is helping. Still wearing off but inconsistent. Doesn't feel like exercising. Low energy. Back and shoulders hurt. Usually sleeps well with sleeping pill. Ran out last night and didn't sleep well. Depression and anxiety. Getting ready to sell the house. 1 year ago this month. Talkedto counselor a couple of times. Movement Disorders Medications Schedule - as of the start of the visit: Medications 8 1130 3 630 Sinemet 25/100 2 2 2 2 Azilect (rasagiline) 1 mg 1 Parkinson's Motor Complications Medication benefit onset: 30 minutes Medication duration: 2 hours Wearing off: yes Painful off-state dystonia: no Dyskinesia: no Prior Anti-Parkinson Therapies Carbidopa/Levodopa ALLERGIES Allergen Reactions Jordan Inhibitors Cough Current Outpatient Medications Medication Sig citalopram (CELEXA) 20 mg tablet Take 20 mg by mouth once daily. LORazepam (ATIVAN) 0.5 mg TAKE 1 TO 2 TABLETS BY MOUTH EVERY 4 TO 6 HOURS NEEDED FOR ANXIETY FORUP TO [address] (PROTONIX) 40 mg tablet Take by mouth. zolpidem (AMBIEN CR) 6.25 mg CR tablet Take by mouth. ondansetron orally disintegrating (ZOFRAN ODT) 8 mg disintegrating tablet DISSOLVE 1 TABLET BY MOUTH EVERY 8 HOURS NEEDED FOR NAUSEA losartan (COZAAR) 25 mg tablet Take 50 mg by mouth once daily. acetaminophen (TYLENOL 8 HOUR ORAL) Take by mouth. PRN entacapone (COMTAN) 200 mg tablet Take 1 tablet by mouth four times daily. Take with levodopa/carbidopa carbidopa-levodopa (SINEMET 25-100) 25-100 mg per tablet Take 2 tablets by mouth four times daily. No current facility-administered medications for this visit. [...] (none) Tremors/Gait/Balance Shaking or tremors: Yes (mild) Walking and balance problems: Yes (slight) Number of falls in the Last Month: 0 Gait freezin (none) Autonomic/Pain Lightheadeness on standing: Yes (slight) Urinary problems: Yes (slight) Constipation problems: Yes (moderate) stool softener. prn laxative Pain and other sensations: Yes (mild) Speech/Swallowing Speech problems: Yes (slight) Droolin (none) Chewing and swallowing problems: Yes (slight) Sleep/Fatigue Sleep problems: Yes (mild) Daytime sleepiness: 0 (none) Fatigue: Yes (slight) Mood/Behavior Depression: PHQ-9 Score: 9 usually representing mild (5-9) depression. Anxiety: ALPHONSO-7 Total Score: 9 usually representing mild (5-9) anxiety. Finally, the following table shows the patient's overall global physical and mental health using the PROMIS scale: PROMIS-10 Flowsheet Row [facility] from 02/03/2024 in Neurology Office Visit from 10/06/2023 in Neurology Global Physical Health T Score 39.8 44.9 Global Mental Health T Score 36.3 41.1 0-10 Standard Pain Scale 3 3 *PROMIS-10 scoring scale: mean = 50, over 50 is above average, under 50 is below average In addition, the following non-motor symptoms and palliative concerns were evaluated: Sleep/Fatigue: REM sleep behavior disorder: Yes Rare, past couple of years Restless Legs Syndrome: Yes chronic. Leg swelling: Impaired sense of smell: Yes Cognition: Cognitive impairment: yes daughter noticing some ST memory loss. still with depression. takes Ativan daily. MoCA Cognitive assessment: Hallucinations and delusions: no Apathy: Impulse control disorder: Palliative Concerns: Caregiver burden: Spiritual concerns: Advanced directives on file: Palliative services: Therapy and Exercise: Last PT Date: Last OT Date: Last ST Date: Exercises Regularly: Yes silver sneakers 2 days per week Objective General: Awake, alert, interactive, no acute distress, good nutritional status, normal development,well-kept Neurological Exam Mental Status Awake and alert. Language is fluent with no aphasia. Motor No visible tremor or dyskinesia. Good facial expression. Assessment and Plan: Assessment Ms. 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 She improved on higher Sinemet dose. Still noting off time and Sinemet dose not seeming like enough. Feels bad much of the time. SOB canbe related to Parkinson's. Medical work-up has been negative and her SOB seems to improve with Sinemet doses. Azilect didn't help. Will stop it and start Comtan. No change to Sinemet. MBS for her dysphagia. Continue with exercise. She prefers to exercise via [employer] over Parkinson's exercise since classes are a reminder of her . Depression/anxiety. Heightened due to 1-year anniversary of 's and getting ready to downsize from [address] acres. Referred to psychology. Consider change to alternative antidepressant at next visit. Consider psychology consult. The following are the current problems noted and addressed during this visit: Parkinson's 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, with fluctuating manifestations (hcc) (primary encounter diagnosis) Plan 02/03/2024 Visit: Modified barium swallow for the difficulty swallowing. You should be able to have it done at [facility]. We will mail a paper order to your home. No change to Sinemet. Stop rasagiline (Azilect) since it doesn't seem to be helping much. Start Comtan (entacapone). This is meant to boost the Sinemet. It will make your urine bright orange. It might loosen your stools. Small chance of it causing diarrhea. Continue citalopram and Ativan for the depression/anxiety. We might change the citalopram to something else next time but avoiding changing more than 1 medication at at time. I entered an order for you to see one of our psychologists who are experienced with Parkinson's. Appointment scheduling:Psych ology: [phone], choose option 2: Exercise Follow-up 3 months Updated Movement Disorder Medication Schedule: Medications 8 1130 3 630 Sinemet 25/100 2 2 2 2 Comtan (entacapone) 200 mg 1 1 1 1 Level of service : 58818 (40-54 min). Time spent 47 min on the day of service, which included preparing to see the patient, [id number] patient care, completing clinical documentation, counseling and educating the patient/family/caregiver, and ordering medications, tests, or procedures. Thank you for allowing me to be part of the clinical care of this patient! I look forward to continued participation in the patient s care with you. Please do not hesitate to call with any questions. Sincerely, Joseph Gonzales MD documented in this encounter[facility] History of Present illness Narrative* Remy De La Rosa MD - 09/27/2023 10:00 AM EST Subjective Connie Lynch is a ambidextrous 73 [...] does not radiate. She will occasionally feel 1-2sof tingling in her arms, but less often [...] weakness starting in 2002, underwent testing at [facility] at that time and improved with steroids [...] lasts about 2 hours before wearing off. Shefollows at [facility] for this and reports she has had a full cardiology workup. She developed tingling in her b/l toes and arms and an EMG at [place] demonstrated demyelinating polyneuropathy, subsequent neuromuscular ultrasound showed [...] b/l knees. >25s b/l fingers) Coordination: Intact oszhzj-mops-qemuow. Gait: Normal speed and chel. Normal station. Decreased arm swing bilaterally. Turns in two steps. Romberg normal. Imaging Results: No results found for this or any previous visit from the past 365 days. Point of Care Neuromuscular US 05/14/2023 Narrative Interpreted By: DASHA RODRIGUEZ DO and STEFFI CASTILLO MD Patient Name: CONNIE LYNCH STUDY: Point [...] lbs. HANDEDNESS: Left COMPARISON: None. 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 Genetic panel was negative, however may [...] not change our current management. Follows at [facility] for tremors. Has close follow-up will defer [...] the lee and critical portions of the historyand physical exam or was physically present for lee and critical portions performed by the resident/fellow. I reviewed the resident/fellow's documentation and discussed the patient with the resident/mary washington. 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 Her electrodiagnostic testing [...] follow [facility]. I have asked her to see me back in a year, but sooner shouldshe develop any worsening or other concerning symptoms. Dasha Rodriguez D.O. Neuromuscular Medicine documented in this [facility] Work Phone: 1(207) 314-450507-07-2023 Instructions* Patient Instructions* Radha Raymond APRN.MARTI - 05/28/2023 3:[address] Gonzales, Oct 06. Keep same schedule of meds for now documented in this encounterWilson [facility] Hospital07-07-2023 History of Present illness Narrative* Radha Raymond APRN.MARTI - 05/28/2023 3:32 PM EDT [facility] - FOLLOW UP EVALUATION - VIRTUAL VISIT Eliana Veloz DO, DO [address] [facility] [address] Dear Eliana Veloz DO, DO: I had the pleasure of seeing Ms. Lynch for follow-up today. As you know she is a 72 year old ambidextrous female with a history of Parkinson's disease since 2017. passed with Parkinson's January 2023. She is seen alone. We had a visit using: [employer] I have communicated my name and active licensure. The patient's identity and physical location wereverified at the time of this visit. Either the patient or their legal industrial relations representative has been informed of the risks and benefits of -- and alternatives to -- treatment through a remote evaluation andconsents to proceed with the evaluation remotely. Subjective During her previous visit the following plan was made: Previous plan-04/02/2023 Visit: adjust Sinemet dosing times. Try this for 2 weeks. If you don't like it can resume the 9, 2, 9 dosing times if needed for the restless legs: Magnesium can help with sleep, relaxation, headaches, mood, and RLS and can keep stools regular. Ifyou have regular bowel movements or constipation, try Mg Citrate (best absorbed), Mg Oxide (best for constipation) or Mg Malate. If you are diarrhea prone, try Mg Glycinate or Mg Taurate. Calm, Pure Encapsulation, Quotefish research are reliable brands. Dose 250-300 mg and up to 900-1000mg. Would not go beyond 1200 mg. With any supplements or medications, if you develop any rashes, swelling, difficulty breathing or any other concerning symptom please seek immediate medical attention. - Interval History She saw Dr. Rodriguez at and he did EMG. 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 She is doing genetic testing [...] Prior Anti-Parkinson Therapies Carbidopa/Levodopa ALLERGIES Allergen Reactions Jordan Inhibitors Cough Current Outpatient Medications Medication Sig carbidopa-levodopa (SINEMET 25-100) 25-100 mg per tablet Take 2 tablets by mouth four times daily. buPROPion SR (ZYBAN SR; WELLBUTRIN SR) 150 mg 12 hr tablet TAKE 1 TABLET BY MOUTH ONCE DAILY IN THEMORNING LORazepam (ATIVAN) 0.5 mg TAKE 1 TO 2 TABLETS BY MOUTH EVERY 4 TO 6 HOURS NEEDED FOR ANXIETY FORUP TO [address] (PROTONIX) 40 [...] Row Distance Health from 05/28/2023 in Neurological [facility] Office Visit from 12/02/2022in Neurology Global Physical Health T Score 42.3 32.4 Global Mental Health T Score 38.8 36.3 0-10 Standard Pain Scale 4 2 *PROMIS-10 scoring scale: mean = 50, over 50 is above average, under 50 is below average Objective She is accompanied by her child. General: Awake, alert, interactive, no acute distress, good nutritional status, normal development,well-kept Assessment and Plan: Assessment Ms. Lynch is [...] dose. Since her last visit with Dr. Gonzales she saw Dr. Rodriguez at (neuromuscular) and he has diagnosedher with Charcot-Fuentes Tooth disease. She is doing well for now, so she is not interested in changing anything. She has a follow up scheduled with Dr. Gonzales on Oct 06 and I told her she can be added to the waitlist to see her sooner. The following are the current problems noted and addressed during this visit: No diagnosis found. Plan 05/28/2023 Visit: No changes today Follow up with Dr. Gonzales to discuss this new diagnosis Interested in clinical research? Not currently Updated Movement Disorder Medication Schedule: Medications 8 1 6 Sinemet 25/100 2 2 2 Thank you for allowing me to be part of the clinical care of this patient! I look forward to continued participation in the patient s care with you. Please do not hesitate to call with any questions. Sincerely, Radha Raymond APRN.BAKER HELPER documented in this encounterWilson [facility] Hospital06-28-2023 Discharge summary Author Rafat Boyle [facility] May 19, 2023 1:49pm Note Date/Time May 21, 2023 1:18 pm [facility] Physical [facility] [address] [place] [address] / REHABILITATION SERVICES DISCHARGE SUMMARY MR#: [id number] Acct: [id number] Name: CONNIE LYNCH Rep #: [id number] : 1950 72 From: Rafat Boyle PT, ATC Referring Dr.: Dr. Javad Elaine DO Status: REG RCR Insurance: [employer] SELF PAY INSURANCE Discharge Summary D/C summary: It has been my pleasure to treat CONNIE LYNCH referred by Dr. Javad Elaine DO, with the diagnosis of L TKA 04/06/23 for a total of 5 visit(s). Discharge Date: Please see the following information for a summary of their discharge status. Subjective Subjective: Pt reports pain is minimal at this time Pain L TKA: Pain Intensity (Out of 10): 4 Overall Improvement % Improvement: 85 Objective Objective/Function: L knee pain ranges 4-5/10 L knee ROM 0-125 degrees L knee flex= 35, ext= 36 #F Pt has achieved ROM and strength goals at this time TUG 8 sec Goals Goal 1:: Decrease L knee pain x 50% to aid with sleep Goal Progress: Goal Met Goal 2:: Increase L knee ROM x 25 degrees to aid with restoring a more normalized gait pattern Goal Progress: Goal Met Goal 3:: Increase L knee strength x 20 #F to aid with stair negotiation Goal Progress: Goal Met Goal 4:: I with HEP Goal Progress: Goal Met Plan Plan: Discharge to HEP D/C Information d/c sentence: If there are questions or concerns regarding this patient's physical therapy, please feel free to call me at [phone]. Thank you for the referral of thispatient. Sincerely, Rafat Boyle, PT, ATC Balance/Gait/Functional tests Balance/Special Test Scores Lower Extremity Functional Score: 72 WOMAC Total Score: 40 WOMAC Percentage: 58.3400 <Electronically signed by Rafat Boyle PT, ATC> 05/19/23 1349 CC: Dr. Javad Elaine, DO; Dr. Roxy Wallace, DO ~ [place] Signed [facility] Work Phone: 1(289) 775-295906-19-2023 Miscellaneous Notes* Telephone Encounter - Christine Oswald RN - 05/10/2023 2:19 PM EDT Call to patient, no answer. Message left for return call * Telephone Encounter - Joseph Gonzales MD - 05/10/2023 12:40 PM EDT Wellbutrin can cause weight loss so I suspect that is the reason for changing to citalopram. Would not want to change more than 1 medication at a time. Suggest making the citalopram switch, make sooner appt with KENDRICK so Parkinson's medication adjustment can be discussed * Telephone Encounter - Christine Oswald RN - 05/10/2023 9:52 AM EDT Voicemail received May 10, 2023 0940 Hi this is Sylvia Talavera. My phone number is [phone] and I am a patient of Dr. Rao. I just wanted to get her advice. I have been feeling really crummy a lot of the time. I don't know if it's a combination of medicines I'm taking. But I've lost 30 pounds since January and I'm not trying tolose weight. I take carba-levo all I take [...] to provider for review documented in this encounterWilson [facility] Hospital05-12-2023 Instructions* Patient Instructions* Joseph Gonzales MD - 04/02/2023 1:07 PM EDT It [...] and RLS and can keep stools regular. Ifyou have regular bowel movements or constipation, try [...] or you can send a message through [employer]. You can also now schedule and select appointments through [employer]. Joseph Gonzales MD documented in this encounterWilson [facility] Hospital05-12-2023 History of Present illness Narrative* Joseph Gonzales MD - 04/02/2023 1:00 PM EDT [facility] - FOLLOW UP EVALUATION No referring provider defined for this encounter. Eliana Veloz, DO, DO [address] [facility] [address] I had the pleasure of seeing Ms. [...] ST Date: Exercises Regularly: ALLERGIES Allergen Reactions Jordan Inhibitors Cough Current Outpatient Medications Medication Sig buPROPion SR (ZYBAN SR; WELLBUTRIN SR) 150 mg 12 hr tablet TAKE 1 TABLET BY MOUTH ONCE DAILY IN THEMORNING LORazepam (ATIVAN) 0.5 mg TAKE 1 TO 2 TABLETS BY MOUTH EVERY 4 TO 6 HOURS NEEDED FOR ANXIETY FORUP TO [address] (PROTONIX) 40 [...] days, THEN 2 tablets three times daily. (Patienttaking differently: Taking 2 tablets at 9am, 2pm and 9pm) No current facility-administered medications for this visit. Objective Vital Signs: BP 132/81 (BP Site: Left Arm, BP Position: Sitting, BP Cuff Size: Large Adult) Pulse 85 Ht 170.2 cm (5' 7) Wt 91.7 kg (202 lb 1.6 oz) SpO2 95% BMI 31.65 kg/m Orthostatic Vitals: None for this encounter Weight: 91.7 kg (202 lb 1.6 oz) Height: 170.2 cm (5' 7) No LMP recorded. Patient is postmenopausal. Body mass index is 31.65 kg/m . General Physical Examination: General: Awake, alert, interactive, no acute distress, good nutritional status, normal development,well-kept General Neurological Examination: Neurological Exam Mental Status [...] amplitude decrements near the end of the 10taps. Finger Taps Left 1-Slight. a) the regular [...] around 2016. Tremor worse late 2021 and nowinvolving lower extremities. On exam there is hypomimia, [...] and RLS and can keep stools regular. Ifyou have regular bowel movements or constipation, try [...] 1 6 Sinemet 25/100 2 2 2 Return at or around: 10/03/23 Level of service : 61852 (40-54 min). Time spent 40 min on the day of service, which included preparing to see the patient, xkps-uh-xjxq patient care, completing clinical documentation, performing a medically appropriate examination, and counseling and educating the patient/family/caregiver. Thank you for allowing me to be part of the clinical care of this patient! I look forward to continued participation in the patient s care with you. Please do not hesitate to call with any questions. Sincerely, Joseph Gonzales MD documented in this encounterWilson [facility] Hospital05-01-[address] Golden [facility] March 22, 2023 1:15pm Note Date/Time March 22, 2023 1:11pm [facility] Medical Records Department [address] [place] [id number] Instructions for Home/Discharge Instructions 03/22/23 0850 MR#: [id number] Acct: [id number] Name: CONNIE LYNCH Rep #:[id number] : 1950 72 From: Erik Lane PCP: Dr. Roxy Wallace, Status:ADM GILLES Discharge Instructions Diet Discharge Diet: 2000 mg Sodium Diet Activity Discharge Activity: Return to Normal Activity Weight Bearing Status: Weight bearing as tolerated Dressing / Incision Call your doctor if you observe: Fever of 101 or Higher, Coldness, Increased Pain, Numbness or Tingling, Change in Color, Inability to urinate, Inability to have a bowel movement, Using more than 1 pad per hour, Shortness of breath, Dizziness, Fainting spells, Swelling in the ankles, Chest pain, Prolonged hiccupping, Increased palpitations (irregular heartbeat) and Calf discomfort Follow Up Care When: IN 2 WEEKS Test Results: Test results from this visit will be discussed in further detail at your follow- up appointment, if applicable. Discharge Plan Admission Admit Date/Time: 03/20/23 22:04 Primary Reason for Your Visit: Atypical chest pain. Attending Provider: Erik Golden Primary Care Provider: Malys,Roxy Consulting Providers: Javad Cespedes ; Iman Pierson Discharge Orders/Prescriptions Prescriptions: New losartan 50 mg tablet 50 mg PO DAILY 30 Days Qty: 30 2RF pantoprazole [Protonix] 40 mg tablet,delayed release (DR/EC) 40 mg PO DAILY Qty: 30 2RF Continued sxowntqim-niknoqod-vmeswphleq 12.5-50-200 mg tablet 2 tab PO TID lorazepam [Ativan] 0.5 mg Tablet 1 - 2 PO Q6H PRN PRN (Reason: Anxiety) ondansetron 4 mg Tablet,Disintegrating 4 mg PO Q8H bupropion HCl 150 mg Tablet Extended Release 24 Hr 150 mg PO DAILY zolpidem 6.25 mg Tablet,Ext Release Multiphase 6.25 mg PO QHS Changed meloxicam 15 mg tablet 7.5 mg PO DAILY PRN (Reason: arthritis pain) Qty: 30 0RF Rx Instructions: Do not take in conjunction with other NSAIDs, Tylenol is okay. Discontinued losartan 25 mg tablet 25 mg PO DAILY Referrals / Follow Up: Roxy Wallace DO [Primary Care Provider] - Within 1 Week (for HTN, POSSIBLE GERD) Disposition Disposition (needs filled in before D/C Order can be placed): Home, Self Care 03/22/23 1315<Electronically signed by Erik Golden MD>Erik Golden MD CC: Dr. Javad Cespedes MD; Dr. Roxy Wallace DO; Dr. Iman Pierson MD ~ Signed [facility] Work Phone: 1(640) 549-164804-30-[address] Pierson [facility] March 21, 2023 3:45pm Note Date/Time March 21, 2023 8:[address] [facility] Medical Records Department [address] [place] [address] Progress Note - Hospitalist 03/21/23 0826 MR#: [id number] Acct: [id number] Name: CONNIE LYNCH Rep #:[id number] : 1950 72 From: Iman Pierson MD PCP: Dr. Roxy Wallace DO Status:ADM GILLES Location: [place] [address] Reason for Visit Reason for Visit: Diagnoses Chest pain, unspecified (03/20/23) Subjective Subjective He has not had any chest pain this morning and no significant problems with her breathing Objective Data Objective Data Vital Signs: Vital Signs Temp Pulse Resp BP Pulse Ox O2 Del Method 97.9 F 75 16 113/68 93 Room Air 03/21/23 05:00 03/21/23 06:31 03/21/23 05:00 03/21/23 06:31 03/21/23 05:00 03/21/23 05:00 Oxygen Delivery Method Room Air Weight: 91.4 kg Body Mass Index (BMI) 31.5 Intake & Output: Intake and Output for Last 24 Hours 03/19/23 03/20/23 03/21/23 23:59 23:59 23:59 Intake Total 100 / 100 Balance 100 / 100 Lab / Micro Data Result Diagrams: 03/21/23 02:14 03/21/23 02:14 Labs: Laboratory Results - last 24 hr 03/20/23 20:00: WBC 10.3, RBC 5.33, Hgb 16.3 H, Hct 49.2 H, MCV 92.3, MCH 30.6, MCHC 33.1, RDW Std Deviation 44.4 H, RDW Coeff of Fozia 13.1, Plt Count 313, MPV 9.1, Immature Gran % (Auto) 0.400, Neut % (Auto) 66.7, Lymph % (Auto) 21.5, Real% (Auto) 7.3, Eos % (Auto) 3.0, Baso % (Auto) 1.1 H, Absolute Neuts (auto) 6.9, Absolute Lymphs (auto) 2.22, Nucleated RBC % 0 03/20/23 20:00: Sodium 139, Potassium 3.6, Chloride 109 H, Carbon Dioxide 26.0, Anion Gap 4 L, BUN 12, Creatinine 1.02, Estim Creat Clear Calc 48.48, Est GFR (MDRD) Af Amer 68, Est GFR (MDRD) Non-Af 57 L, BUN/Creatinine Ratio 11.8, Glucose 104, Calcium 9.5, Troponin I High Sens 5 03/20/23 22:15: Troponin I High Sens 5 03/21/23 02:14: WBC 9.4, RBC 4.88, Hgb 14.8, Hct 44.9, MCV 92.0, MCH 30.3, MCHC 33.0, RDW Std Deviation 44.1 H, RDW Coeff of Fozia 13.0, Plt Count 278, MPV 9.1, Immature Gran % (Auto) 0.200, Neut % (Auto) 60.0, Lymph % (Auto) 27.9, Real % (Auto) 6.8, Eos % (Auto) 3.9, Baso % (Auto) 1.2 H, Absolute Neuts (auto) 5.6, Absolute Lymphs (auto) 2.63, Nucleated RBC % 0 03/21/23 02:14: Sodium 140, Potassium 3.4 L, Chloride 110 H, Carbon Dioxide 27.0, Anion Gap 3 L, BUN 11, Creatinine 0.88, Estim Creat Clear Calc 56.19, Est GFR (MDRD) Af Amer 81, Est GFR (MDRD) Non-Af 67, BUN/Creatinine Ratio 12.4, Glucose 98, Calcium 8.8, Ferritin 218, Triglycerides 81, Cholesterol 194, LDL Cholesterol 120, VLDL Cholesterol 16, HDL Cholesterol 58 03/21/23 02:14: Troponin I High Sens 6 Radiography Diagnostic Testing: Radiology Impression Chest X-Ray 03/20/23 21:25 IMPRESSION: Normal x-ray examination of the chest. Electronically Signed: Aakash Suggs MD at 21:59 EDT , Rhythm Strip Rhythm Strip: Sinus Rhythm Rate: 85 Ectopy: None Physical Exam Narrative General: Alert, oriented, no apparent distress HEENT: Atraumatic, normocephalic Eyes: Anicteric, normal conjunctiva, extraocular movements grossly intact Neck: Supple Respiratory: Clear to auscultation bilaterally, normal respiratory effort Cardiovascular: Regular rate and rhythm GI: Soft, nontender, nondistended Extremities: No edema Musculoskeletal: Moving all extremities Neuro: No overt focal neurological deficits Skin: No rashes appreciated Psych: Cooperative Assessment & Plan Assessment/Plan (1) Chest pain: PLAN: Plan #Chest pain -Chest tightness improved with Ativan and also nitroglycerin -Could be cardiac or anxiety related -Chest x-ray unremarkable -intake EKG showed some subtle T wave elevation in lead V1 to V2 that resolved with repeat EKG -Received full dose aspirin at the emergency department -ASA 81 mg p.o. daily ordered -Nitroglycerin paste ordered -03/21: Troponins were negative but given possible initial EKG changes and heart score 5 feel she would benefit from a stress test prior to discharge. Echo pending, stress test ordered for a.m. #Restless legs Reports history of restless syndrome. Could be associated with parkinsonism. Check ferritin level. -03/21: Ferritin within normal limits #Hypertension Blood pressure is not within goal Home losartan continued. As needed hydralazine ordered. Trend blood pressure and adjust blood pressure medications. -03/21: BP better today #Anxiety disorder 's recent may be contributing. As needed lorazepam and Ambien nightly continued. Buspirone continued DVT prophylaxis: Subcutaneous Lovenox ordered Charges/Coding Visit Charges Inpatient E&M: 16339 Subs Hosp L2 03/21/23 0840 <Electronically signed by Iman Pierson MD> Cosigner Signature (if applicable): CC: ~ Signed [facility] Work Phone: 1(998) 322-133304-30-2023 History and physical note Author Dr. Cespedes [facility] March 21, 2023 2:05am Note Date/Time March 20, 2023 10: 13pm [facility] Medical Records Department [address] [place] [address] H&P Exam - Hospitalist 03/20/232 MR#: [id number] Acct: [id number] Name: CONNIE LYNCH Rep #:[id number] : 1950 72 From: Javad Cespedes MD PCP: Dr. Roxy Wallace, DO Status:ADM GILLES Location: [place] [address] HPI - General General Date of Admission: 03/20/23 Date of Service: 03/20/23 Chief Complaint: Chest pain HPI Narrative CONNIE LYNCH, is a 72 F with a significant history of hypertension and parkinsonism who presents to the emergency department with chest pain that started about 1 to 2 hours before presentation. Reportedly patient was playing a board game with her family and then she began to develop chest tightness. Sherated the chest pain as 7 out of 10. The chest pain radiated to her left where she had a tingling sensation. She took lorazepam and that helped with the chestpain. Associated with her symptoms was lightheadedness. Also patient reports shortness of breath going on for about 4 to 5 days. And for 2 weeks prior to presentation patient has had nausea with food. Reportedly at the emergency department patient pain moved from intensity of 7 to2 with nitroglycerin. She received 3 tablets of nitroglycerin sublingual and then Nitropaste was subsequently placed. Emergent doctor reports that initial EKG showed some subtle T wave elevations that resolved at the ED Of note patient on January 28 and that has made patient sad. [facility] Medical History Hypertension Left knee pain Left leg pain Osteoarthritis of left knee Parkinsonism Puncture wound of right foot Synovial cyst of popliteal space [Grady], left knee Home Medications losartan 25 mg tablet 25 mg PO DAILY 08/12/22 [History Last Taken Unknown] carbidopa 12.5 mg-levodopa 50 mg-entacapone 200 mg tablet 2 tab PO TID 11/20/22 [History Last Taken Unknown] meloxicam 15 mg tablet 15 mg PO DAILY Pain #30 tabs 12/25/22 [Rx Last Taken Unknown] lorazepam 0.5 mg tablet (Ativan) 1 - 2 PO Q6H PRN PRN Anxiety 03/11/23 [History Last Taken Unknown] bupropion HCl 150 mg 24 hr tablet, extended release 150 mg PO DAILY 03/20/23 [History Last Taken Unknown] ondansetron 4 mg disintegrating tablet 4 mg PO Q8H nausea 03/20/23 [History Last Taken Unknown] zolpidem 6.25 mg tablet,extended release,multiphase 6.25 mg PO QHS 03/20/23 [History Last Taken Unknown] Allergy/AdvReac Type Severity Reaction Status Date / Time No Known Allergies Allergy Verified 03/11/23 14:32 Family History Other Cancer Heart disease Surgical History History of varicose vein stripping Social History Smoking Status: Never smoker alcohol intake: current alcohol intake frequency: holidays/special occasions only ROS ROS Narrative Pertinent positives and pertinent negatives as noted in HPI. All other systems were reviewed and are negative Vital Signs Vital Signs Vital Signs: 03/20/23 19:47 03/20/23 19:54 03/20/23 20:17 Temperature 96.8 F L Temperature Source Temporal Pulse Rate 82 79 Respiratory Rate 15 Respiratory Pattern Normal Blood Pressure 198/98 H 169/84 H Blood Pressure Mean 131 Pulse Ox 97 Oxygen Delivery Method Room Air 03/20/23 20:23 03/20/23 20:26 03/20/23 20:33 Temperature Temperature Source Pulse Rate 82 81 Respiratory Rate Respiratory Pattern Blood Pressure 127/75 H 123/75 H Blood Pressure Mean Pulse Ox Oxygen Delivery Method Room Air Weight Weight: 90.129 kg Body Mass Index (BMI) 31.1 Physical Exam Narrative Physical exam: General: Well-nourished, well-developed. Head: Normocephalic, atraumatic, no tenderness Eyes: Vision is grossly intact. EOMI ENT, no trauma, moist mucous membranes, no rhinorrhea Neck: Nontender, No thyromegaly. CVS: Regular rate and rhythm. S1-S2 present. No murmur, gallop or rub. Respiratory : clear to auscultation bilaterally, chest wall nontender Abdomen: Soft, nontender, nondistended, normal bowel sounds, no masses : Deferred Back: Nontender, no CVA tenderness, no midline spinal tenderness, deformities, step-offs Extremities: Nontender full range of motion, no trauma Skin: Normal color, no trauma, abrasions Neuro: Alert, oriented, cranial nerves II through XII grossly intact. Psychiatry: Normal mood. Normal affect. Not depressed. Not anxious. Results Lab / Micro Data Result Diagrams: 03/20/23 20:00 03/20/23 20:00 Labs: Laboratory Results - last 24 hr 03/20/23 20:00: WBC 10.3, RBC 5.33, Hgb 16.3 H, Hct 49.2 H, MCV 92.3, MCH 30.6, MCHC 33.1, RDW Std Deviation 44.4 H, RDW Coeff of Fozia 13.1, Plt Count 313, MPV 9.1, Immature Gran % (Auto) 0.400, Neut % (Auto) 66.7, Lymph % (Auto) 21.5, Real% (Auto) 7.3, Eos % (Auto) 3.0, Baso % (Auto) 1.1 H, Absolute Neuts (auto) 6.9, Absolute Lymphs (auto) 2.22, Nucleated RBC % 0 03/20/23 20:00: Sodium 139, Potassium 3.6, Chloride 109 H, Carbon Dioxide 26.0, Anion Gap 4 L, BUN 12, Creatinine 1.02, Estim Creat Clear Calc 48.48, Est GFR (MDRD) Af Amer 68, Est GFR (MDRD) Non-Af 57 L, BUN/Creatinine Ratio 11.8, Glucose 104, Calcium 9.5, Troponin I High Sens 5 Rhythm Strip Rhythm Strip: Sinus Rhythm Rate: 85 Ectopy: None Radiology Impression Chest X-Ray 03/20/23 21:25 IMPRESSION: Normal x-ray examination of the chest. Electronically Signed: Aakash Suggs MD at 21:59 EDT , Assessment & Plan Assessment/Plan (1) Chest pain: PLAN: Plan Chest pain Could be cardiac or anxiety related. Place on a monitored bed at the progressive care unit. Impression of chest x-ray by radiologist: Normal CXR examination of the chest. Actual CXR image was independently visualized. No acute cardiopulmonary processwas noted. Intake EKG showed some subtle T wave elevation in lead V1 to V2 that resolved with repeat EKG Received full dose aspirin at the emergency department ASA 81 mg p.o. daily ordered Nitroglycerin paste ordered Will check lipid panel. Initial high sensitive troponin was negative. Trend. Stat EKG as needed for chest pain Restless legs Reports history of restless syndrome. Could be associated with parkinsonism. Check ferritin level. Hypertension Blood pressure is not within goal Home losartan continued. As needed hydralazine ordered. Trend blood pressure and adjust blood pressure medications. Anxiety disorder 's recent may be contributing. As needed lorazepam and Ambien nightly continued. Buspirone continued DVT prophylaxis: Subcutaneous Lovenox ordered Charges/Coding Visit Charges Inpatient E&M: 50589 Init Hosp L3 03/21/23 0205 <Electronically signed by Javad Cespedes MD> Cosigner Signature (if applicable): CC: Dr. Javad Cespedes MD; Dr. Roxy Wallace DO~ Signed [facility] Work Phone: [phone]) 500-288904-30-[address] Sotelo [facility] March 20, 2023 10:14pm Note Date/Time March 20, 2023 8:[address] [facility] Medical Records Department [address] [place] [address] Emergency Department Summary 03/20/23 MR#: [id number] Acct: [id number] Name: CONNIE LYNCH Rep #:[id number] : 1950 72 From: Stefan Sotelo MD PCP: Dr. Roxy Wallace DO Status:REG ER Location: ED HPI History of Present Illness Chief Complaint: Chest Pain Informant: patient Onset/Context/Timing Onset: Hours (2) Activity at onset: sudden, onset, activity on onset and rest (Sitting, playing agame with family) Timing: Continuous Quality: Positive for Tightness Location: Substernal (Along with radiation/tingling in left upper extremity) Current Severity: Moderate Maximum Severity: Moderate Worsened By: Nothing; Not Worsened By Breathing Relieved By: Nothing Associated Symptoms: Positive for Dyspnea (Mild) and Lightheadedness; Negative for Nausea, Vomiting, Diaphoresis, Cough, Fever or Palpitations Narrative Narrative: Patient with chest tightness persistent for the past 2 hours started while at rest. No history of cardiac disease. She takes medication for hypertension andanxiety. She also has parkinsonism. Her this past month. She was seen in the emergency department for dizziness lightheadedness recently but not admitted to the hospital. She did not have the symptoms. She states she is scheduled for a total knee arthroplasty next month, she does not do a lotof exertion due to her arthritis. States she has never had a stress test in [facility]. [facility] Medical History Hypertension Left knee pain Left leg pain Osteoarthritis of left knee Parkinsonism Puncture wound of right foot Synovial cyst of popliteal space [Grady], left knee Home Medications losartan 25 mg tablet 25 mg PO DAILY 08/12/22 [History Last Taken Unknown] multivitamin 1 tab PO DAILY 08/12/22 [History Last Taken Unknown] carbidopa 12.5 mg-levodopa 50 mg-entacapone 200 mg tablet 2 tab PO TID 11/20/22 [History Last Taken Unknown] meloxicam 15 mg tablet 15 mg PO DAILY Pain #30 tabs 12/25/22 [Rx Last Taken Unknown] lorazepam 0.5 mg tablet (Ativan) 0.5 mg PO TID PRN Anxiety 03/11/23 [History Last Taken Unknown] Allergy/AdvReac Type Severity Reaction Status Date / Time No Known Allergies Allergy Verified 03/11/23 14:32 Family History Other Cancer Heart disease Surgical History History of varicose vein stripping Social History Smoking Status: Never smoker alcohol intake: current alcohol intake frequency: holidays/special occasions only ROS ROS ED Constitutional Constitutional ED: Denies chills or fever(s) Eyes Eyes: Denies change in vision or diplopia ENT ENT ED: Denies rhinorrhea or sore throat Cardiovascular Cardiovascular: Reports chest pain; Denies palpitations Respiratory/Chest Respiratory/Chest: Reports dyspnea; Denies cough Gastrointestinal Gastrointestinal: Denies abdominal pain, diarrhea, nausea or vomiting Genitourinary Genitourinary ED: Denies dysuria or hematuria Musculoskeletal Musculoskeletal: Denies back pain or neck pain Integumentary Denies abscess or rash Neurologic Neurologic: Reports paresthesias LUE; Denies headache(s) or weakness Psychiatric Psychiatric: Denies anxiety or suicidal thoughts EXAM Physical Exam Const Vital Signs: 03/20/23 19:47 03/20/23 19:54 03/20/23 20:17 Temperature 96.8 F L Temperature Source Temporal Pulse Rate 82 79 Respiratory Rate 15 Respiratory Pattern Normal Blood Pressure 198/98 H 169/84 H Blood Pressure Mean 131 Pulse Ox 97 Oxygen Delivery Method Room Air 03/20/23 20:23 03/20/23 20:26 03/20/23 20:33 Temperature Temperature Source Pulse Rate 82 81 Respiratory Rate Respiratory Pattern Blood Pressure 127/75 H 123/75 H Blood Pressure Mean Pulse Ox Oxygen Delivery Method Room Air Positive well nourished and well developed General Appearance ED: well developed and NAD HEENT Reports moist mucous membranes normocephalic and atraumatic Eyes PERRL and EOMs intact bilaterally Neck full ROM and supple Resp normal respiratory effort and clear to auscultation bilaterally Cardio regular rate, regular rhythm and no murmurs Rate: Negative for bradycardia or tachycardic Peripheral Pulses: pulses 2+ throughout GI non-tender and non-distended Auscultation: normoactive bowel sounds Palpation: soft Back/Spine no CVA tenderness General Back: other FROM Extremity normal to inspection General Extremety ED: Negative for edema, pulses abnormal or tenderness General Extremity: Negative for edema or pulses abnormal Neuro oriented x3, CN's II-XII intact bilaterally and no sensory deficits noted Sensorium / Orientation: awake and alert Motor Exam: strength 5/5 throughout Skin no rashes or lesions noted and no wounds Heart Score History: Highly Suspicious ECG: Nonspecific Repolarization Age: >/= 65 years Risk Factors: 1 or 2 Risk Factors Troponin: </= Normal Limit Score: 6 MDM MDM MDM Narrative Medical decision making narrative: Patient has concerning history. She was given aspirin and nitroglycerin while we performed a cardiac work-up, after the nitroglycerin, her pain went from a 7/10 down to a 2/10. I repeated her EKG, the initial [address]ressions in the lateral precordial leads, and some elevations in V1 and V2, also consistent with ischemia but not a STEMI. Her repeat EKG shows normalization of these mild ST segment deviations, concerning for unstable angina. Nitroglycerin paste was placed on her chest, and I discussed with hospitalist for admission. Still awaiting second troponin which will be drawn 2hours after the initial 1. One-view portable chest x-ray my interpretation is negative for anything acute, showing a narrow mediastinum. History & Record Review Additional record(s) reviewed:: Prior labs and Other (no prior echo or cardiac stress in EMR) Lab Data Attestation: I reviewed the patient's lab results. Labs: Laboratory Results - last 24 hr 03/20/23 03/20/23 20:00 20:00 WBC 10.3 RBC 5.33 Hgb 16.3 H Hct 49.2 H MCV 92.3 MCH 30.6 MCHC 33.1 RDW Std Deviation 44.4 H RDW Coeff of Fozia 13.1 Plt Count 313 MPV 9.1 Immature Gran % (Auto) 0.400 Neut % (Auto) 66.7 Lymph % (Auto) 21.5 Real % (Auto) 7.3 Eos % (Auto) 3.0 Baso % (Auto) 1.1 H Absolute Neuts (auto) 6.9 Absolute Lymphs (auto) 2.22 Nucleated RBC % 0 Sodium 139 Potassium 3.6 Chloride 109 H Carbon Dioxide 26.0 Anion Gap 4 L BUN 12 Creatinine 1.02 Estim Creat Clear Calc 48.48 Est GFR (MDRD) Af Amer 68 Est GFR (MDRD) Non-Af 57 L BUN/Creatinine Ratio 11.8 Glucose 104 Calcium 9.5 Troponin I High Sens 5 Radiography Diagnostic Testing: Clinical Impression(s) from Imaging Studies Chest X-Ray 03/20/23 21:25 IMPRESSION: Normal x-ray examination of the chest. Electronically Signed: aAkash Suggs MD at 21:59 EDT , Rhythm Strip Rhythm Strip: Sinus Rhythm Rate: 85 Ectopy: None EKG Initial EKG: Attestation: I personally reviewed and interpreted this EKG as follows: Interpretation: Sinus Rhythm, No Acute Injury Pattern and Non-Specific ST Changes (Less than [address] elevation in V1 and V2 only, and very mild ST depressions in V5-V6, less than 1 mm.) Prior EKG tracings: available for review Prior: Changed (c/w 03/11/23) Follow-up EKG: Attestation: I personally reviewed and interpreted this EKG as follows: Interpretation: Sinus Rhythm and No Acute Injury Pattern Comments: Normal EKG, resolution of prior ST segment deviations Discharge Plan Dx/Rx/DC Orders Clinical Impression: Unstable angina Disposition Disposition: Acute Care [facility] What to do if you have Problems For any increased pain, shortness of breath, bleeding, nausea or vomiting, chestpain, or any unexpected problems, contact your Primary Care Provider. Call [facility] ([phone]) or report to the closest Emergency Room. Call 911 if necessary. 03/20/234 <Electronically signed by Stefan Sotelo MD> Cosigner Signature (if applicable): CC: Dr. Roxy Wallace, ~ Signed [facility] Work Phone: [phone]) 765-595504-17-2023 Procedure [facility] 03-05-2023 Hospital Discharge instructions Additional Instructions As discussed, please stay on your Wellbutrin at the higher dose. Dr. Wallace would like you to stop the buspirone that she just started a week ago. Please keep a journal of your blood pressure readings so she can appropriately adjust your medicines if needed.[facility] Work Phone: [phone] 431-174904-13-2023 Hospital Discharge instructions Additional Instructions As discussed, please stay on your Wellbutrin at the higher dose. Dr. Wallace would like you to stop the buspirone that she just started a week ago. Please keep a journal of your blood pressure readings so she can appropriately adjust your medicines if needed.[facility] Work Phone: Discharge summary Author Dr. Golden [facility] March 22, 2023 1:24pm Note Date/Time March 22, 2023 1:24pm [facility] Medical Records Department [address] [place] [id number] Discharge Summary 03/22/23 1315 MR#: [id number] Acct: [id number] Name: CONNIE LYNCH Rep #:[id number] : 1950 72 From: Erik Lane PCP: Dr. Roxy Wallace DO Status:ADM GILLES Location: [place] [address] Providers Date of Admission: 03/20/23 Date of Discharge: 03/22/23 Primary Care Physician: Dr. Roxy Wallace DO Reason For Visit: CHEST PAIN Diagnosis Discharge Diagnosis (1) Chest pain: Status: Acute Code(s): R07.9 - Chest pain, unspecified Plan This is 72-year-old female with history of hypertension and parkinsonism was admitted with chest pain that lasted for about 1 to 2 hours. She felt like chest tightness while playing board games. She also had tingling sensation. Patient also had shortness of breath for about 4 to 5 days. She was admitted inPCU. Symptoms resolved. She was admitted in PCU. 1. Atypical chest pain, ACS/unstable angina ruled out. Patient had serial troponin enzymes which have resolved. Chest x-ray was unremarkable. Initial EKG shows subtle ST elevation in V1 V2 that resolved with repeat EKG. Patient had myocardial nuclear stress test which was reported normal. Preserved EF 74%. There are other differential which patient might have which includes GERD/esophagitis, esophageal dysmotility, pleuritis or costochondritis. Patienthas history of nausea with food. Prescription for pantoprazole given. Patient was suggested if atypical chest pain does not get better with pantoprazole, follow-up with Dr. Tapia in 1 to 2 months for EGD 2. Hypertension: Patient with concern about her blood pressure. BP was elevated during hospital course 188/96 and required 5 mg hydralazine IV. She roney losartan 25 mg increased to 50 mg daily. Follow with PCP. 3. Other comorbidities include anxiety disorder, restless leg and degenerativearthritis. Patient on 15 mg meloxicam, dose decreased to 7.5 mg daily as neededfor arthritis pain. Discharge medication reconciliation done. Discharge follow-up instructions completed. Discharge process discussed with the patient and all questions wereanswered to patient's satisfaction. Total time spent, exact 35 minutes on discharge meds reconciliation, examination, coordination of care with nurses and ancillary staff, review of imaging and blood test and discussion with the patient on follow-up instructions. Medications at Discharge Home Medications carbidopa 12.5 mg-levodopa 50 mg-entacapone 200 mg tablet 2 tab PO TID 11/20/22 lorazepam 0.5 mg tablet (Ativan) 1 - 2 PO Q6H PRN PRN Anxiety 03/11/23 bupropion HCl 150 mg 24 hr tablet, extended release 150 mg PO DAILY 03/20/23 ondansetron 4 mg disintegrating tablet 4 mg PO Q8H nausea 03/20/23 zolpidem 6.25 mg tablet,extended release,multiphase 6.25 mg PO QHS 03/20/23 losartan 50 mg tablet 50 mg PO DAILY 30 days #30 tabs 03/22/23 meloxicam 15 mg tablet 7.5 mg PO DAILY PRN arthritis pain #30 tabs 03/22/23 pantoprazole 40 mg tablet,delayed release (Protonix) 40 mg PO DAILY #30 tabs 03/22/23 Physical Exam Narrative Seen and examined. Chest pain has resolved. Shortness of breath at rest. General: Alert, Oriented x3, Cooperative HEENT: Atraumatic, PERRLA, EOMI, Normocephalic Oral: Oral mucosa moist. No Gingival or Mucosal Lesions/ Ulcerations Neck: Supple, No JVD, Negative Carotid Bruits Lungs: Air entry diminished in bilateral lung bases. No crepitation/rhonchi Cardiovascular: Regular rate, Regular Rhythm, Normal S1, Normal S2, soft systolic murmur grade 2/6 over the and right second ICS. Abdomen: Bowel Sounds Present, Soft, Non Tender, Non-Distended : No renal angle tenderness. No suprapubic tenderness. Extremities: No edema, Capillary Refill Less than 3 Seconds Skin: No rashes, No breakdown Musculoskeletal: No Tenderness to Palpation of Joints or Extremities Neurological: Cranial nerves II-XII grossly intact, DTR 2+/4 and Symmetrical, Neuro grossly intact Psych/Mental Status: Normal Affect, Appropriate. Weight / BMI Weight Weight: 201 lb 8.04 oz Body Mass Index (BMI) 31.5 ABG / Lab / Microbiology Data Result Diagrams: 03/22/23 05:08 03/22/23 05:08 Laboratory: Laboratory Results - last 24 hr 03/21/23 16:10: Troponin I High Sens 6 03/22/23 05:08: WBC 8.7, RBC 4.88, Hgb 15.4 H, Hct 44.5, MCV 91.2, MCH 31.6, MCHC 34.6, RDW Std Deviation 44.3 H, RDW Coeff of Fozia 13.2, Plt Count 288, MPV 9.2, Immature Gran % (Auto) 0.200, Neut % (Auto) 64.1, Lymph % (Auto) 23.5, Real% (Auto) 7.2, Eos % (Auto) 3.6, Baso % (Auto) 1.4 H, Absolute Neuts (auto) 5.6, Absolute Lymphs (auto) 2.04, Nucleated RBC % 0 03/22/23 05:08: Sodium 141, Potassium 3.9, Chloride 109 H, Carbon Dioxide 26.0, Anion Gap 6, BUN 14, Creatinine 0.86, Estim Creat Clear Calc 57.50, Est GFR (MDRD) Af Amer 83, Est GFR (MDRD) Non-Af 69, BUN/Creatinine Ratio 16.3, Glucose 93, Calcium 8.8, Magnesium 2.2 D/C Instructions Discharge Diet: 2000 mg Sodium Diet Weight Bearing Status: Weight bearing as tolerated Call your doctor if you observe: Fever of 101 or Higher, Coldness, Increased Pain, Numbness or Tingling, Change in Color, Inability to urinate, Inability to have a bowel movement, Using more than 1 pad per hour, Shortness of breath, Dizziness, Fainting spells, Swelling in the ankles, Chest pain, Prolonged hiccupping, Increased palpitations (irregular heartbeat) and Calf discomfort When: IN 2 WEEKS Meaningful Use Info Meaningful Use Diagnoses (Choose all that apply): None applicable Discharge Plan Admission Admit Date/Time: 03/20/23 22:04 Primary Reason for Your Visit: Atypical chest pain. Attending Provider: Erik Golden Primary Care Provider: Roxy Wallace Consulting Providers: Javad Cespedes ; Iman Pierson Discharge Orders/Prescriptions Prescriptions: New losartan 50 mg tablet 50 mg PO DAILY 30 Days Qty: 30 2RF pantoprazole [Protonix] 40 mg tablet,delayed release (DR/EC) 40 mg PO DAILY Qty: 30 2RF Continued ijcjfouer-clqewayj-fvwxynnluh 12.5-50-200 mg tablet 2 tab PO TID lorazepam [Ativan] 0.5 mg Tablet 1 - 2 PO Q6H PRN PRN (Reason: Anxiety) ondansetron 4 mg Tablet,Disintegrating 4 mg PO Q8H bupropion HCl 150 mg Tablet Extended Release 24 Hr 150 mg PO DAILY zolpidem 6.25 mg Tablet,Ext Release Multiphase 6.25 mg PO QHS Changed meloxicam 15 mg tablet 7.5 mg PO DAILY PRN (Reason: arthritis pain) Qty: 30 0RF Rx Instructions: Do not take in conjunction with other NSAIDs, Tylenol is okay. Discontinued losartan 25 mg tablet 25 mg PO DAILY Referrals / Follow Up: Roxy Wallace DO [Primary Care Provider] - Within 1 Week (for HTN, POSSIBLE GERD) Disposition Disposition (needs filled in before D/C Order can be placed): Home, Self Care Charges/Coding Visit Charges Inpatient E&M: 44661 Disch Hosp >30min 03/22/23 1324 <Electronically signed by Erik Golden MD> Cosigner Signature (if applicable): CC: Dr. Roxy Wallace DO; Dr. Erik Golden MD~ Signed [facility] Work Phone: Evaluation + Plan note No data available for this section [facility] Evaluation noteNo assessment information available [facility] Work Phone: Evaluation note* Diagnosis Onset Date Resolution Status Osteoarthritis of left knee acute Synovial cyst of popliteal space [Grady], left knee acute Left leg pain acute Neuropathy acute Osteoarthritis of left knee acute Pes anserine bursitis acute [facility] Work Phone: Evaluation note* Diagnosis Onset Date Resolution Status Left leg pain acute Neuropathy acute Osteoarthritis of left knee acute Pes anserine bursitis acute Left medial tibial plateau fracture acute Osteoarthritis of left knee acute Tear of medial meniscus of left knee acute [facility] Work Phone: Evaluation note* Diagnosis Onset Date Resolution Status Left medial tibial plateau fracture acute Osteoarthritis of left knee acute Tear of medial meniscus of left knee acute Left medial tibial plateau fracture acute Tear of medial meniscus of left knee acute Right sided sciatica noneact vince [facility] Work Phone: Evaluation note* Diagnosis Onset Date Resolution Status Left medial tibial plateau fracture acute Osteoarthritis of left knee acute Tear of medial meniscus of left knee acute Left medial tibial plateau fracture acute Tear of medial meniscus of left knee acute Right sided sciatica noneact vince Left medial tibial plateau fracture acute Osteoarthritis of left knee acute [facility] Work Phone: Evaluation note*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 2025 End: April 02, 2025 Team Status: Active Member Role Status Dates Dr. Roxy Wallace DO Family Provider Active Dr. Roxy Wallace DO Primary Care Provider Active Team Status: Inactive Member Role Status Dates Dr. Roxy Wallace DO Primary Care Provider, Referring P rovider Active Dr. Javad Elaine DO Attending Provider Active Team Status: Inactive Member Role Status Dates Dr. Roxy Wallace DO Primary Care Provider Active Dr. Jaavd Elaine DO Attending Provider, Referring Provider Active Team Status: Inactive Member Role Status Dates Dr. Roxy Wallace DO Primary Care Provider, Attending P rovider Active Team Status: Inactive Member Role Status Dates Dr. Roxy Walalce DO Primary Care Provide r, Attending Provider, Referring Provider Active Team Status: Inactive Member Role Status Dates Dr. Roxy Wallace DO Primary Care Provider Active Dr. Adolfo Cantor MD Attending Provider Active Team Status: Active Member Role Status Dates Dr. Roxy Wallace DO Primary Care Provider Active Dr. Joseph Gonzales MD Attending Provider, Referring Provider Active Dr. Javad Elaine DO Other Provider Active Team Status: Active Member Role Status Dates Dr. Roxy Wallace DO Primary Care Provide r, Attending Provider, Referring Provider Active Team Status: Active Member Role Status Dates Dr. Roxy Wallace DO Primary Care Provide r, Referring Provider, Other Provider Active Dr. Jayjay Rodriguez DO Attending Provider Active Team Status: Inactive Member Role Status Dates Dr. Roxy Wallace DO Primary Care Provider Active Dr. Marily Herman MD Emergency Provider Active Team Status: Active Member Role Status Dates Dr. Roxy Wallace DO Primary Care Provider Active Dr. Stefan Sotelo MD Emergency Provider Active Dr. Javad Cespedes MD Admit Provider, Attending Provider, Other Provider Active Team Status: Active Member Role Status Dates Dr. Roxy Wallace DO Primary Care Provider Active Dr. Stefan Sotelo MD Emergency Provider Active Dr. Javad Cespedes MD Admit Provider, Other Provide r Active Dr. Iman Pierson MD Attending Provider, Other Provid er Active Team Status: Active Member Role Status Dates Dr. Roxy Wallace DO Primary Care Provider Active Dr. Stefan Sotelo MD Emergency Provider Active Dr. Javad Cespedes MD Admit Provider, Other Provide r Active Dr. Erik Golden MD Other Provider Active Dr. Iman Pierson MD Other Provider Active Dr. Adolfo Cantor MD Attending Provider Active Team Status: Active Member Role Status Dates Dr. Roxy Wallace DO Primary Care Provider Active Dr. Stefan Sotelo MD Emergency Provider Active Dr. Javad Cespedes MD Admit Provider, Other Provide r Active Dr. Erik Golden MD Attending Provider, Other Provi jillian Active Dr. Iman Pierson MD Other Provider Active Team Status: Inactive Member Role Status Dates Dr. Roxy Wallace DO Primary Care Provider Active Dr. Marily Herman MD Attending Provider, Emergency Provider Active Team Status: Inactive Member Role Status Dates Dr. Roxy Wallace DO Primary Care Provider Active Dr. Stefan Sotelo MD Emergency Provider Active Dr. Javad Cespedes MD Admit Provider, Other Provide r Active Dr. Erik Golden MD Attending Provider Active Dr. Iman Pierson MD Other Provider Active Pet Handler Relationship Specialty Start Date End Date Eliana Veloz DO [address] [facility] [address] [place] [address] PCP - General 03/01/01 Pet Handler Relationship Specialty Start Date End Date ToddEliana DO [address] [place] [address] PCP - General 03/01/01 Team Status: Active Member Role Status Dates Dr. Roxy Wallace DO Primary Care Provide r, Referring Provider, Other Provider Active Dr. Dasha Rodriguez DO Attending Provider Active Team Status: Inactive Member Role Status Dates Dr. Roxy Wallace DO Primary Care Provider, Referring P rovider Active Dr. Shemar Ortega MD Attending Provider Active Team Status: Active Member Role Status Dates Dr. Roxy Wallace DO Primary Care Provider Active Dr. Stefan Sotelo MD Emergency Provider Active Dr. Javad Cespedes MD Admit Provider, Other Provide r Active Dr. Erik Golden MD Other Provider Active Dr. Iman Pierson MD Other Provider Active Dr. Adolfo Cantor MD Attending Provider, Referring Pro vider Active Team Status: Active Member Role Status Dates Dr. Roxy Wallace DO Primary Care Provider Active Dr. Adolfo Cantor MD Attending Provider, Referring Pro vider Active Team Status: Active Member Role Status Dates Dr. Roxy Wallace DO Primary Care Provider Active Dr. Adolfo Cantor MD Attending Provider Active Dr. Javad Cespedes MD Referring Provider Active Team Status: Active Member Role Status Dates Dr. Roxy Wallace DO Primary Care Provider Active Dr. Javad Elaine DO Admit Provider, Attending Provider, Referring Provider, Other Provider Active Dr. Lico Richey MD Other Provider Active Team Status: Inactive Member Role Status Dates Dr. Roxy Wallace DO Primary Care Provider Active Dr. Javad Elaine DO Admit Provider, Attending Provider, Referring Provider Active Dr. Lico Richey MD Other Provider Active Team Status: Inactive Member Role Status Dates Dr. Roxy Wallace DO Primary Care Provider Active Dr. Shemar Ortega MD Attending Provider, Referring Provider Active Pet Handler Relationship Specialty Start Date End Date ToddArletteEliana TanviDO [address] [place] [address] PCP - General 03/01/01 Team Status: Inactive Member Role Status Dates Dr. Roxy Wallace DO Primary Care Provider, Referring P rodeuceder Active Dr. Matthew Weinstein MD Attending Provider Active Team Status: Inactive Member Role Status Dates Dr. Roxy Wallace DO Primary Care Provider Active Dr. Matthew Weinstein MD Attending Provider, Referring Provi jillian Active Team Status: Inactive Member Role Status Dates Rehana German , POURED PIPE MAKER-C Attending Provider, Referring Prov ider Active Dr. Roxy Wallace , Primary Care Provider Active Pet Handler Relationship Specialty Start Date End Date Eliana Veloz DO [address] [place] [address] PCP - General 03/01/01 Joseph Gonzales MD [address] [address] Specialty [employer] 11/10/23 Pet Handler Relationship Specialty Start Date End Date Eliana Veloz DO [address] [place] [address] PCP - General 03/01/01 Joseph Gonzales MD [address] [address] Specialty [employer] [facility] 11/10/23 Pet Handler Relationship Specialty Start Date End Date Eliana Veloz DO [address] [place] [address] PCP - General 03/01/01 Joseph Gonzales MD [address] [address] Specialty [employer] Systems Operations [employer] [facility] 11/10/23 Team Status: Inactive Member Role Status Dates Dr. Roxy Wallace DO Primary Care Provider Active Dr. Joseph Gonzales MD Attending Provider, Referring Provider Active Pet Handler Relationship Specialty Start Date End Date Eliana Veloz DO [address] [facility] [address] [place], [place] [address] PCP - General 03/01/01 Joseph Gonzales MD [address] [address] Specialty [employer] Systems Operations [employer] [facility] 11/10/23 Pet Handler Relationship Specialty Start Date End Date Eliana Veloz DO [address] [facility] [address] [place], [place] [address] PCP - General 03/01/01 Joseph Gonzales MD [address] [address] Specialty Space Systems Operations [employer] [facility]rology 11/10/23 Pet Handler Relationship Specialty Start Date End Date Eliana Veloz DO [address] [facility] [address] [place], [place] [address] PCP - General 03/01/01 Joseph Gonzales MD [address] [address] Specialty Space Systems Operations [employer] [facility]rology 11/10/23 Team Status: Inactive Member Role Status Dates Dr. Roxy Wallace DO Primary Care Provider Active Start: November 23, 2024 End: November 23, 2024 Dr. Roxy Wallace DO Attending Provider Active St art: November 23, 2024 End: November 23, 2024 Dr. Roxy Wallace DO Referring Provider Active St art: November 23, 2024 End: November 23, 2024 Pet Handler Relationship Specialty Start Date End Date Flaquito Ohara DO [facility] [place] [address] PCP - General Family Medicine 04/04/25 Joseph Gonzales MD [address] [address] Specialty Space Systems Operations [employer] Neurology 11/10/23 Team Status: Inactive Member Role Status Dates Dr. Flaquito [place] DO Primary Care Provider Active Start: April 02, 2025 End: April 02, 2025 Dr. Valeriano Liao DO Attending Provider Active Start: April 02, 2025 End: April 02, 2025 Dr. Valeriano Liao DO Emergency Provider Active Start: April 02, 2025 End: April 02, 2025 Team Status: Inactive Member Role Status Dates Dr. Flaquito Ohara DO Primary Care Provider Active Start: April 08, 2025 End: April 08, 2025 Dr. Flaquito Oh[place] DO Referring Provider Active Start: April 08, 2025 End: April 08, 2025 Graham Gill POURED PIPE MAKER, POURED PIPE MAKER-C Attending Provider Active S tart: April 08, 2025 End: April 08, 2025 Team Status: Inactive Member Role Status Dates Dr. Flaquito Ohara DO Primary Care Provider Active Start: April 09, 2025 End: April 09, 2025 Graham Gill POURED PIPE MAKER, POURED PIPE MAKER-C Attending Provider Active S tart: April 09, 2025 End: April 09, 2025 Pet Handler Relationship Specialty Start Date End Date Flaquito Ohara DO [address] [place] [address] PCP - General Family Medicine 04/04/25 Joseph Gonzales MD [address] [address] Specialty Space Systems Operations [employer] Neurology 11/10/23 Source Comments (unrecognize d section and content) In the event this informatio n is protected by the Federal Confidentiality of Alcohol and Drug Abuse Patient Records regulations: The Federal rules restrict any use of the information to criminally investigate or prosecute any alcohol or drug abuse patient.[facility] Hospital[facility] the event this information is protected by the Federal Confidentiality of Alcohol and Drug Abuse Patient Records regulations: The Federal rules restrict any use of the information to criminally investigate or prosecute any alcohol or drug abuse patient.[facility] Hospital[facility] the event this information is protected by the Federal Confidentiality of Alcohol and Drug Abuse Patient Records regulations: The Federal rules restrict any use of the information to criminally investigate or prosecute any alcohol or drug abuse patient.[facility] the event this information is protected by the Federal Confidentiality of Alcohol and Drug Abuse Patient Records regulations: The Federal rules restrict any use of the information to criminally investigate or prosecute any alcohol or drug abuse patient.[facility] HospitalIn the event this information is protected by the Federal Confidentiality of Alcohol and Drug Abuse Patient Records regulations: The Federal rules restrict any use of the information to criminally investigate or prosecute any alcohol or drug abuse patient.[facility] Hospital[facility] the event this information is protected by the Federal Confidentiality of Alcohol and Drug Abuse Patient Records regulations: The Federal rules restrict any use of the information to criminally investigate or prosecute any alcohol or drug abuse patient.[facility] Hospital[facility] the event this information is protected by the Federal Confidentiality of Alcohol and Drug Abuse Patient Records regulations: The Federal rules restrict any use of the information to criminally investigate or prosecute any alcohol or drug abuse patient.[facility] Hospital[facility] the event this information is protected by the Federal Confidentiality of Alcohol and Drug Abuse Patient Records regulations: The Federal rules restrict any use of the information to criminally investigate or prosecute any alcohol or drug abuse patient.[facility] Hospital[facility] the event this information is protected by the Federal Confidentiality of Alcohol and Drug Abuse Patient Records regulations: The Federal rules restrict any use of the information to criminally investigate or prosecute any alcohol or drug abuse patient.[facility] Hospital[facility] the event this information is protected by the Federal Confidentiality of Alcohol and Drug Abuse Patient Records regulations: The Federal rules restrict any use of the information to criminally investigate or prosecute any alcohol or drug abuse patient.[facility] Hospital[facility] the event this information is protected by the Federal Confidentiality of Alcohol and Drug Abuse Patient Records regulations: The Federal rules restrict any use of the information to criminally investigate or prosecute any alcohol or drug abuse patient.[facility] Hospital[facility] the event this information is protected by the Federal Confidentiality of Alcohol and Drug Abuse Patient Records regulations: The Federal rules restrict any use of the information to criminally investigate or prosecute any alcohol or drug abuse patient.[facility] HospitalIn the event this information is protected by the Federal Confidentiality of Alcohol and Drug Abuse Patient Records regulations: The Federal rules restrict any use of the information to criminally investigate or prosecute any alcohol or drug abuse patient.[facility] Hospital[facility] the event this information is protected by the Federal Confidentiality of Alcohol and Drug Abuse Patient Records regulations: The Federal rules restrict any use of the information to criminally investigate or prosecute any alcohol or drug abuse patient.[facility] Reason for Visit (unrecogniz ed section and content) Reason Comments Follow Up Reason Comments Patient Update Patient Question Reason Comments Established Patient Follow Up Reason Comments Telemedicine Follow Up Specialty Diagnoses / Procedures Referred By Contac t Referred To Contact Diagnoses Parkinson's 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, with fluctuating manifestations (HCC) Procedures PROVIDER ORDERED FOLLOW UP OFFICE/OUTPATIENT NEW HIGH MDM 60-74 MINUTES Joseph Gonzales MD [address] [place] [address] Referral ID Status Reason Start Date Expiration Date V isits Requested Visits Authorized [id number] Closed PCP Requested Referral 10/06/2023 01/04/2024 1 1 Reason Comments Parkinson's Disease Specialty Diagnoses / Procedures Referred By Contac t Referred To Contact Diagnoses Parkinson's 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, with fluctuating manifestations (HCC) Procedures PROVIDER ORDERED FOLLOW UP OFFICE/OUTPATIENT NEW HIGH MDM 60 MINUTES Joseph Gonzales MD [address] [place] [address] Referral ID Status Reason Start Date Expiration Date V isits Requested Visits Authorized [id number] Closed PCP Requested Referral 05/05/2024 02/02/2025 1 1 Reason Comments Established Patient Reason Comments Appointment Reason Comments Rib Injury INFORMATION SOURCE (unrecogn ized section and content) DATE CREATED AUTHOR 05/26/2023 [employer] DATE CREATED AUTHOR AUTHOR'S ORGANIZ ATION 05/28/2023 [facility] DATE CREATED AUTHOR AUTHOR'S ORGANIZ ATION 09/28/2023 [facility] DATE CREATED AUTHOR AUTHOR'S ORGANIZ ATION 02/16/2025 [facility] DATE CREATED AUTHOR AUTHOR'S ORGANIZ ATION 04/17/2025 [facility] DATE CREATED AUTHOR AUTHOR'S ORGANIZ ATION 04/21/2025 [facility] DATE CREATED AUTHOR AUTHOR'S ORGANIZ ATION 04/21/2025 [facility] FOR RECORDS PERTAINING TO PATIENTS WHO ARE [...] BE BASED ON THE PRIMARY CLINICAL RECORDS. [facility] [place] [facility]. provides no warranty or guarantee of the accuracy or completeness of information in this document.
--- NOTE | 2025-04-27 13:08 | PCM.PSN.6M ---
PSN 6 Minute Walk Test 6 Minute Walk Test 6 Minute Walk Test: 6 Minute Walk Test PSN:6-Minute Walk Test Start: 04/25/25 12:45 Freq: Status: Active Protocol: RESP.6MINW Document 04/25/25 12:45 KALPANARON (Rec: 04/25/25 12:47 WYATT [id number]) 6 Minute Walk Test Date Performed 04/25/25 Time Performed 12:30 Height 5 ft 7 in Weight: 160 lb Weight in Pounds 160.[address]: Stevie Cotto Assistive device None used: Pre-test Oxygen Delivery Room Air Method Pulse Ox (%) 97 Pulse Rate (60-100 90 beats/min) Dyspnea Anyi Scale ( 0.5 0-10) Exertion Anyi Scale 6 (6-20) 1st minute Oxygen Delivery Room Air Method Pulse Ox (%) 97 Pulse Rate (60-100 104 H beats/min) 2nd minute Oxygen Delivery Room Air Method Pulse Ox (%) 96 Pulse Rate (60-100 110 H beats/min) 3rd minute Oxygen Delivery Room Air Method Pulse Ox (%) 96 Pulse Rate (60-100 109 H beats/min) 4th minute Oxygen Delivery Room Air Method Pulse Ox (%) 97 Pulse Rate (60-100 110 H beats/min) 5th minute Oxygen Delivery Room Air Method Pulse Ox (%) 98 Pulse Rate (60-100 109 H beats/min) 6th minute Oxygen Delivery Room Air Method Pulse Ox (%) 97 Pulse Rate (60-100 109 H beats/min) Dyspnea Anyi Scale ( 2 0-10) Exertion Anyi Scale 12 (6-20) Post-test Oxygen Delivery Room Air Method Pulse Ox (%) 98 Pulse Rate (60-100 91 beats/min) Full Laps Walked 17 Partial Lap, Number 37 of Tiles Walked Total Distance 1040 Walked (ft) Interpretation Interpretation: The patient ambulated 1040 feet over the course of 6 minutes beginning on room air without assistive devices. Pretesting oxygen saturation was noted to be 97% on room air. With ambulation, the arie oxygen saturation was 96%. There was no significant exertional oxygen desaturation. Recommendations Recommendations: There is no indication for the use of supplemental oxygen at this time.
== END | disposition home or self-care (01) ==
LOC: PSN 11:57
PROVIDERS: PCP Family Medicine; Referring Provider Internal Medicine Critical Care Medicine; Visit Provider Internal Medicine Critical Care Medicine
DX: R06.02 Shortness of breath (principal); E04.1 Nontoxic single thyroid nodule
CPT/HCPCS: 76536; 94618

== ENCOUNTER → 2025-07-27 | Outpatient (CLI) | payer MEDICARE, SELFPAY ==
--- NOTE | 2025-07-27 12:18 | BI_ITS ---
EXAM: SCRN MAMM (CAD)W/CARLOS BILAT DATE: 07/27/2025 CLINICAL HISTORY: F, Age 74 y/o , SCREENING TECHNIQUE: Procedure Code: [id number] Modality: MG Procedure: SCRN MAMM (CAD)W/CARLOS BILAT COMPARISON: Prior exams were compared FINDINGS: TISSUE DENSITY: There are scattered areas of fibroglandular density. Bilateral Breast Mammographic Findings: No suspicious masses, calcifications or other abnormalities are identified. BI/SCRN MAMM (CAD)W/CARLOS BILAT IMPRESSION: No mammographic evidence of malignancy in either breast OVERALL FINAL ASSESSMENT BI-RADS 1: NEGATIVE. RECOMMENDATION: Routine annual follow-up in 1 Year A letter with findings and recommendations will be mailed to the patient. Reading Location: [facility]
== END | disposition home or self-care (01) ==
LOC: OPBI 12:14
PROVIDERS: PCP Family Medicine; Referring Provider Family Medicine; Visit Provider Family Medicine
DX: Z12.31 Encounter for screening mammogram for malignant neoplasm of breast (principal)
CPT/HCPCS: 77063; 77067

== ENCOUNTER → 2025-09-18 | Outpatient (CLI) | payer MEDICARE, SELFPAY | END | disposition home or self-care (01) | LOC: LABSPEC 16:00 | PROVIDERS: PCP Family Medicine; Referring Provider Family Medicine; Visit Provider Family Medicine | DX: L02.91 Cutaneous abscess, unspecified (principal) | CPT/HCPCS: 87070; 87077; 87186; 87205 ==

== ENCOUNTER → 2025-09-26 | Outpatient (CLI) | payer MEDICARE, SELFPAY | END | disposition home or self-care (01) | LOC: LABSPEC 16:34 | PROVIDERS: PCP Family Medicine; Visit Provider Nurse Practitioner Family | DX: N39.0 Urinary tract infection, site not specified (principal) | CPT/HCPCS: 87086; 87088 ==

== ENCOUNTER → 2025-10-03 | Outpatient (CLI) | payer MEDICARE, SELFPAY ==
--- NOTE | 2025-10-03 | CYSPIN_PTH ---
PATIENT: WALI LOCKWOOD [facility] U[facility][id number] AGE/SX: 75/F ROOM: RE10/03/[address]: SARINA Jc : 1950 BED: DIS: 10/03/2025 SPEC #: [id number] RECD: 10/03/25 15:30 STATUS: KRISTOPHER REJenna #: [id number] RAQUEL: 10/03/25 00:[address]: Rehana German DEPT: CYTOLOGY RECD BY: Jose Miguel Gonzalez ENTERED: 10/04/25 08:27 SP TYPE: CYSPIN FL OTHR DR: Dr. Russ Walker, DO Tissues: A - Urine Procedures: Pap Stain (control) Special Stain Group II Cytospin Fluid HEADER OPERATION: Not noted PRE-OP DIAGNOSIS: Hematuria TISSUE SUBMITTED: A- Urine for cytology DIAGNOSIS CYTOLOGY A. Urine, voided (cytospin): - No malignant cells identified. CYTOLOGY STUDY Slides are reviewed. CYTOLOGY GROSS A. Received is 7.5 ml of hazy-yellow fluid labeled with the patient's name and and designated per the requisition as urine. Submitted for cytology preparation. 10/04/2025 CPT: 43500
[2025-10-03 17:38] LABS: Cytology, Body Fluid / CSF SEE PATHOLOGY REPORT
== END | disposition home or self-care (01) ==
LOC: LABSPEC 16:22
PROVIDERS: PCP Family Medicine; Visit Provider Nurse Practitioner Family
DX: R31.9 Hematuria, unspecified (principal)
CPT/HCPCS: 87077; 87086; 87088; 87186; 88108; 88313

== ENCOUNTER 2025-10-29 17:34 | Outpatient (CLI) | payer MEDICARE, SELFPAY | END 2025-10-29 23:59 | disposition home or self-care (01) | LOC: LABSPEC 17:34 | PROVIDERS: PCP Family Medicine; Visit Provider Nurse Practitioner Family | DX: L02.211 Cutaneous abscess of abdominal wall (principal) | CPT/HCPCS: 87070; 87077; 87186; 87205 ==